=== PATIENT | male | born 1950 | race Caucasian/White ===

== ENCOUNTER 2016-08-13 07:29 | Day surgery (SDC) | payer MEDICARE, BC ==
[~2016-08-13 07:29] MED LIST: PREMYELOGRAM MEDICATION REVIEW 1 EACH MISC PO ONE
[2016-08-13 08:32] VITALS: TEMP 98.2
[2016-08-13] MEDS ORDERED: DIAZEPAM 5 MG TAB PO STA (08:32)
--- NOTE | 2016-08-13 10:35 | FL ---
EXAMINATION TYPE: FL myelogram 2 or more regions DATE OF EXAM ORDERED: 08/13/2016 10:15 AM HISTORY: M54.2 cervicalgia M54.5 lumbar pain. COMPARISON: None. PROCEDURE: The undersigned performed the procedure. Using standard sterile technique, a 5 cm 22-gauge spinal needle was introduced into the thecal sac. 1 2 cc of Omnipaque 240 were instilled into the thecal sac. FINDINGS: A solitary image was performed in order to confirm contrast placement. The patient was the n transferred to the CT scanner after half an hour delay. IMPRESSION: SUCCESSFUL LUMBAR PUNCTURE FOR CT MYELOGRAM.
--- NOTE | 2016-08-13 11:09 | CT ---
EXAMINATION TYPE: CT cervical spine w con, CT lumbar spine w con DATE OF EXAM: 08/13/2016 10:48 AM COMPARISON: NONE HISTORY: post myelogram images. Neck and back pain. CT DLP: 3164 mGycm Automated exposure control for dose reduction was used. TECHNIQUE: CT scan of the cervical and lumbar spine following intrathecal administration of 12 cc of Omnipaque 240. FINDINGS: Cervical spine: There is emphysematous change in the visualized lungs. Visualized intracranial structures are normal. Prevertebral soft tissues are unremarkable. There is straightening of the normal cervical lordosis. Alignment is maintained. Atlantoaxial relatio nships are normal. There is diffuse disc space loss with relative sparing of C2-3. There is hypertrophic spondylosis, mo st marked at C5-6. There is diffuse uncovertebral joint disease most severe at C4-5, C5-6 and C6-7. There is mild right-sided intervertebral foraminal narrowing at C4-5. There is a mild mixed spondylit ic bar present posteriorly effacing the thecal sac. There is bilateral intervertebral foraminal narrowing at C5-6 and there is a posterior spur effacing the thecal sac. There is right-sided intervertebral foraminal narrowing at C6-7. There is no significant compressive discopathy. At C7-T1, no definite abnormality is seen. Lumbar spine: Paraspinal soft tissues are unremarkable. There is a mild levoscoliosis. There has been a previous interpedicular fusion at C4-5. There is a partial fusion at C5-6. There is retrolisthesis of L1 on L2 and L2 on L3. There is mild wedging of T11 and T12, likely developmental. At T12-L1, no definite abnormality is seen. At L1-2, there is disc space loss. There is a vacuum phenomena. There is hypertrophic spondylosis ant eriorly. The intervertebral foramina appear well maintained. There is no significant compressive disc opathy. At L2-3, there is mild disc space loss. There is a mild retrolisthesis of L2 on L3. The intervertebra l foramina appear well maintained. There is a diffuse disc displacement. There is moderate hypertroph ic changes within the facets. L3-4, there is been a laminectomy. This interpedicular fusion. There is mild, bilateral intervertebra l foraminal narrowing. There is no significant compressive discopathy. L4-5, there is a superior endplate infraction of L4. There is a partial bony fusion at L4-5. Interver tebral foramina are well maintained. There is a diffuse disc displacement. There has been a laminecto my. At L5-S1, there is no significant compressive discopathy. The intervertebral foramina appear well nya ntained. There is been laminectomy at L5. IMPRESSION: 1. DIFFUSE DEGENERATIVE DISC DISEASE AND UNCOVERTEBRAL JOINT DISEASE THROUGHOUT THE CERVICAL SPINE WI TH RELATIVE SPARING OF C2-3. 2. MULTILEVEL INTERVERTEBRAL FORAMINAL NARROWING IN THE CERVICAL SPINE. 3. NO SIGNIFICANT COMPRESSIVE DISCOPATHY IN THE CERVICAL REGION.. 4. DIFFUSE DEGENERATIVE DISC DISEASE WITHIN THE LUMBAR SPINE. 5. MULTILEVEL INTERVERTEBRAL FORAMINAL NARROWING IN THE LUMBAR SPINE. 6. EXTENSIVE POSTSURGICAL CHANGE. 7. NO SIGNIFICANT COMPRESSIVE DISCOPATHY WITHIN THE LUMBAR SPINE. 8. EMPHYSEMATOUS CHANGES WITHIN THE LUNGS.
[2016-08-13 12:34] VITALS: RESP 16
[2016-08-13 14:08] VITALS: BP 107/72; PULSE 72
== END 2016-08-13 14:15 | disposition home or self-care (01) ==
LOC: RADPROMAIN 07:29
PROVIDERS: ATTEND Specialist
DX: M99.71 Connective tissue and disc stenosis of intervertebral foramina of cervical region (principal); M51.36 Other intervertebral disc degeneration, lumbar region; M99.73 Connective tissue and disc stenosis of intervertebral foramina of lumbar region; Z98.1 Arthrodesis status
CPT/HCPCS: 62305; 72126; 72132; J2001; Q9966; 62284

== ENCOUNTER → 2016-09-05 | Outpatient (CLI) | payer MEDICARE, BC ==
--- NOTE | 2016-09-05 18:42 | CT ---
EXAMINATION TYPE: CT abdomen pelvis w con DATE OF EXAM: 09/05/2016 5:23 PM COMPARISON: NONE HISTORY: Mid abdominal pain and cramping x [address] DLP: 1916.30 mGycm Automated exposure control for dose reduction was used. TECHNIQUE: Helical acquisition of images was performed from the lung bases through the pelvis. CONTRAST: Performed with Oral Contrast and with IV Contrast, patient injected with 100 mL of Omnipaque 300. FINDINGS: Lung bases are clear. There is no pleural effusion. There is some coronary artery calcification. Ther e is no pericardial effusion. Liver spleen pancreas gallbladder appear normal. Bile ducts are not dilated. There is no adrenal mass . Kidneys have normal size and contour. There is no hydronephrosis. There is no retroperitoneal adeno napoleon. There is no ascites. I see no intestinal wall thickening. There are no dilated loops. There is a left hip prosthesis. Bladder distends smoothly. There is no sign of a pelvic mass. There is no awilda e fluid in the pelvis. Appendix is not seen. There is no sign of appendicitis. There is lower lumbar spine surgery with laminectomy and posterior fusion. There is no sign of a hernia. IMPRESSION: PREVIOUS LUMBAR SPINE SURGERY. NO SIGN OF ACUTE ABDOMEN AND PELVIS. I DO NOT SEE A CAUSE FOR ABDOMINA L PAIN.
== END ==
LOC: RADCTMAIN 14:48
PROVIDERS: ATTEND Family Medicine
DX: R10.9 Unspecified abdominal pain (principal)
CPT/HCPCS: 74177; Q9967

== ENCOUNTER → 2017-03-25 | Outpatient (CLI) | payer MEDICARE, BC ==
[2017-03-25 12:29] LABS: Blood Urea Nitrogen 14 mg/dL (9-20); Non-African American GFR(MDRD) >60 (>60 ml/min/1.73 sqM)
--- NOTE | 2017-03-25 15:08 | CT ---
EXAMINATION TYPE: CT abdomen wo/w con DATE OF EXAM: 03/25/2017 COMPARISON: 09/05/2016 HISTORY: 66-year-old male Periumbilical pain TECHNIQUE: Contiguous axial scanning of the abdomen and pelvis before and after administration of 100 ml Omnipaque 300 IV contrast. Delayed images through the kidneys and coronal/sagittal reconstructio ns performed. CT DLP: 1776 mGycm Automated exposure control for dose reduction was used. FINDINGS: The heart is normal size without pericardial effusion. Lung bases clear without pleural effusion. Low attenuation of the hepatic parenchyma without focal lesion identified. Portal venous system is patent. No biliary ductal dilatation. Gallbladder, adrenal glands, kidneys, spleen, and pancreas appear within normal limits. No dilated small bowel, free fluid, or free air. No mesenteric or retroperitoneal lymphadenopathy. No significant stool burden. No pericolonic inflammatory change. No abdominal wall hernia identified. The pelvis is not included. Bones: Postsurgical changes with prior lateral osseous fusion an laminectomy from L3 down. Degenerati ve changes at additional levels. Fusion hardware removed from 09/05/2016. IMPRESSION: 1. HEPATIC STEATOSIS. CORRELATE WITH LFT's, LIPID PROFILE, AND PATIENT RISK FACTORS. QUERY TO IF T HIS COULD BE CONTRIBUTING TO THE PATIENT'S PAIN. 2. OTHERWISE, NO ACUTE PROCESS IDENTIFIED TO EXPLAIN THE PATIENT'S SYMPTOMS.
== END | disposition home or self-care (01) ==
LOC: RADCTMAIN 11:53
PROVIDERS: ATTEND Family Medicine
DX: K76.0 Fatty (change of) liver, not elsewhere classified (principal); R10.33 Periumbilical pain; Z01.812 Encounter for preprocedural laboratory examination
CPT/HCPCS: 82565; 84520; 74170; 36415; Q9967

== ENCOUNTER → 2017-09-16 | Outpatient (CLI) | payer MEDICARE, BC ==
[2017-09-16 12:25] LABS: Basophils % (A) 0 %; Eosinophils # (A) 0.2 k/uL (0-0.7); Eosinophils % (A) 1 %; HCT 44.1 % (39.0-53.0); HGB 15.2 gm/dL (13.0-17.5); Lymphocytes # (A) 1.7 k/uL (1.0-4.8); Lymphocytes % (A) 16 %; MCH 29.8 pg (25.0-35.0); MCHC 34.4 g/dL (31.0-37.0); Mean Platelet Volume 6.3; Monocytes # (A) 0.8 k/uL (0-1.0); Monocytes % (A) 7 %; Neutrophils # (A) 7.9 k/uL (1.3-7.7); Neutrophils % (A) 73 %; Platelet Count 276 k/uL (150-450); RBC 5.09 m/uL (4.30-5.90); RDW 14.2 % (11.5-15.5); WBC 10.4 k/uL (3.8-10.6)
[2017-09-16 12:27] LABS: MCV 86.6 fL (80.0-100.0)
[2017-09-16 12:32] LABS: Appearance,Urine Clear (Clear); Bacteria,Urine Rare /hpf; Bilirubin,Urine Negative (Negative); Blood,Urine Negative (Negative); Color,Urine Yellow; Glucose,Urine (UA) Negative (Negative); Ketones,Urine Negative (Negative); Leukocyte Esterase,Urine Small (Negative); Mucus,Urine Rare /hpf; Nitrite,Urine Negative (Negative); PH, Urine 6.5 (5.0-8.0); Protein,Urine Negative (Negative); RBC,Urine <1 /hpf (0-5); Specific Gravity,Urine 1.012 (1.001-1.035); Urobilinogen,Urine <2.0 mg/dL (<2.0); WBC,Urine 1 /hpf (0-5)
[2017-09-16 12:52] LABS: ALT 28 U/L (21-72); AST 17 U/L (17-59); Albumin 4.2 g/dL (3.5-5.0); Alkaline Phosphatase 58 U/L (38-126); Anion Gap 14 mmol/L; Blood Urea Nitrogen 13 mg/dL (9-20); C Reactive Protein 6.2 mg/L (<10.0); Calcium 9.8 mg/dL (8.4-10.2); Carbon Dioxide 24 mmol/L (22-30); Chloride 99 mmol/L (98-107); Creatine Kinase 65 U/L (55-170); Glucose 112 mg/dL (74-99); LDH 551 U/L (313-618); Phosphorus 4.1 mg/dL (2.5-4.5); Potassium 4.3 mmol/L (3.5-5.1); Sodium 137 mmol/L (137-145); Total Bilirubin 0.5 mg/dL (0.2-1.3); Total Protein 7.2 g/dL (6.3-8.2); Uric Acid 4.4 mg/dL (3.5-8.5)
[2017-09-16 13:00] LABS: T4, Free (Free Thyroxine) 0.86 ng/dL (0.78-2.19)
[2017-09-16 13:36] LABS: Erythrocyte Sedimentation Rate 10 mm/hr (0-15)
[2017-09-16 19:14] LABS: Parathyroid Hormone Intact 46.7 pg/mL (14.0-72.0)
[2017-09-16 20:02] LABS: Vitamin D 25 Hydroxy 32.7 ng/mL (30.0-100.0)
[2017-09-16 20:42] LABS: Cyclic Citrullinated Pep IgG NEGATIVE (NEGATIVE)
[2017-09-16 20:46] LABS: Protein, Total 6.9 g/dL (6.2-8.2); Rheumatoid Factor 12 IU/mL (0-15); Streptolysin O Ab(ASO) 34 IU/mL (0-200)
[2017-09-16 22:30] LABS: Hemoglobin A1C 5.6 % (4.0-6.0)
[2017-09-17 05:21] LABS: Angiotensin-1 Converting Enz. 24 U/L (8-52)
[2017-09-17 09:53] LABS: Vitamin D, 1, 25-Dihydroxy 59 pg/mL (20 - 79)
[2017-09-17 12:36] LABS: HLA B27 NEGATIVE
[2017-09-17 14:50] LABS: Hepatits C Virus RNA Not detected (Not detected); Hepatits C Virus RNA, Quant <12 IU/mL (<12); LOG HCV IU/mL <1.08 (<1.08)
[2017-09-18 05:49] LABS: Vitamin B1 111 ug/L (38-122)
[2017-09-18 10:07] LABS: Lyme IgG/IgM 0.1 Index
[2017-09-18 10:42] LABS: Vitamin B6 90 ug/L (5-50)
== END | disposition home or self-care (01) ==
LOC: LABWHC1 11:25
PROVIDERS: ATTEND Physical Medicine & Rehabilitation
DX: M96.1 Postlaminectomy syndrome, not elsewhere classified (principal); M79.1 Myalgia; G96.8 Other specified disorders of central nervous system; F45.42 Pain disorder with related psychological factors; M19.041 Primary osteoarthritis, right hand; M19.042 Primary osteoarthritis, left hand; M54.5 Low back pain; R20.2 Paresthesia of skin; M54.16 Radiculopathy, lumbar region; M50.30 Other cervical disc degeneration, unspecified cervical region; M48.02 Spinal stenosis, cervical region; F12.10 Cannabis abuse, uncomplicated; Z98.1 Arthrodesis status
CPT/HCPCS: 36415; 80053; 81001; 82164; 82306; 82310; 82550; 82553; 82607; 82652; 83036; 83516; 83615; 83970; 84100; 84165; 84207; 84425; 84439; 84443; 84550; 85025; 85652; 86038; 86060; 86140; 86200; 86235; 86431; 86618; 86812; 87522

== ENCOUNTER 2018-07-06 10:32 | Day surgery (SDC) | payer MEDICARE, BC ==
[~2018-07-06 10:32] MED LIST changes: +LACTATED RINGERS 1,000 ML IV SCH; +LIDOCAINE 1% 20 ML VIAL (10MG/ML) FOR IV START INTRADERMA PRN; -PREMYELOGRAM MEDICATION REVIEW 1 EACH MISC PO ONE
[2018-07-06 10:55] VITALS: RESP 16; TEMP 96.5
[2018-07-06] MEDS ORDERED: GLYCOPYRROLATE 0.2 MG/ML 2 ML VIAL ONE (11:43)
[2018-07-06] MEDS ORDERED: PROPOFOL 10 MG/ML 20 ML VIAL IV ONE (11:43)
[2018-07-06] MEDS ORDERED: LIDOCAINE 1% INJ 10MG/ML (20 ML MDV) ONE (11:43)
[2018-07-06] MEDS ORDERED: KETAMINE 10 MG/ML 20 ML VIAL ONE (11:43)
--- NOTE | 2018-07-06 12:24 | P.PCN ---
Date of Procedure: 07/06/18 Procedure(s) Performed: Procedure: Esophagogastroduodenoscopy and biopsy. Preoperative diagnosis: Dysphagia. Postoperative diagnosis: 1. Sliding hiatal hernia and Camacho's esophagus but no obvious esophagitis or strictures. 2. Mild antral gastritis. 3. Biopsies obtained from the duodenum, antrum, esophagus as well as the Camacho's segment. Preparation and sedation: Was provided by anesthesia. Brief clinical history: The patient is a 67-year-old male who is referred for this evaluation for the above reasons. He had a prior endoscopy more than 10 years ago which apparently was normal. The patient has chronic reflux symptoms and describes difficulty with solid food but has no weight loss or other alarm symptoms. He has been maintained on PPI. Procedure: With the patient on his left lateral decubitus position and after informed consent and adequate sedation, I passed the Olympus-GIF H 190 video upper endoscope through the cricopharyngeus down the esophagus. The gigi-GE junction was irregular and started around 36 cm from the incisors and the tubular esophagus continues for another 5 cm defining a segment of Camacho's esophagus. There was then the 2 cm sliding hiatal hernia following then the endoscope was advanced into the stomach which was insufflated with air and inspected in detail including the retroflex view in the cardia. Finally, the endoscope was passed through the pylorus into the duodenum. Pyloric channel, duodenal bulb, post bulbar area and descending duodenum appeared normal. The antrum showed mottling and erythema but no ulcers or erosions. The esophagus proximal and distal to the gigi-GE junction did not show any ulcers or tumors. There were no strictures. I obtained biopsies from the duodenum, antrum and esophagus including separate samples from the Camacho's segment then the endoscope was withdrawn. The patient tolerated the procedure well. Plan: The patient was reassured. Will await biopsy results. I anticipate repeating this exam in around 2 years. He'll follow up with you as planned and I recommended that he continue antireflux diet and measures and to continue acid suppressive therapy.
[2018-07-06 13:11] VITALS: BP 126/79; PULSE 52
== END 2018-07-06 13:45 | disposition home or self-care (01) ==
LOC: ORWHC2ENDO 10:32
DX: K29.50 Unspecified chronic gastritis without bleeding (principal); K22.70 Barrett's esophagus without dysplasia; K44.9 Diaphragmatic hernia without obstruction or gangrene; K21.9 Gastro-esophageal reflux disease without esophagitis; I48.91 Unspecified atrial fibrillation; I10 Essential (primary) hypertension; E78.5 Hyperlipidemia, unspecified; Z79.01 Long term (current) use of anticoagulants; Z79.899 Other long term (current) drug therapy
CPT/HCPCS: 88305; 43239; J2001; J2704

== ENCOUNTER → 2018-07-27 | Outpatient (CLI) | payer MEDICARE, BC ==
--- NOTE | 2018-07-27 14:46 | CT ---
EXAMINATION TYPE: CT sinus wo con DATE OF EXAM: 07/27/2018 COMPARISON: None HISTORY: Chronic sinusitis CT DLP: 641.[address] of the paranasal sinuses was performed in the axial and coronal planes. Bone and soft tissue settings are submitted. The paranasal sinuses demonstrate normal aeration and development. The paranasal sinuses are free of air fluid level. Mild mucosal thickening involving the left maxill billy sinus. Mucous retention cyst or polyp of the left frontal sinus. Mild chronic ethmoidal sinusitis . The osteal meatal units are patent bilaterally. The nasal septum is deviated left to right. No bony destructive changes are seen within the field of view. IMPRESSION: Chronic sinusitis as noted. Nasal septal deviation as discussed.
== END | disposition home or self-care (01) ==
LOC: RADCTMAIN 13:29
PROVIDERS: ATTEND Family Medicine
DX: J32.9 Chronic sinusitis, unspecified (principal); J34.2 Deviated nasal septum
CPT/HCPCS: 70486

== ENCOUNTER 2018-09-13 15:34 | Emergency (ER) | payer MEDICARE, BC ==
[2018-09-13 15:39] VITALS: TEMP 98.4
--- NOTE | 2018-09-13 17:07 | XR ---
PROCEDURE: XR Hip LT and AP Pelvis - 3V DATE AND TIME: 09/13/2018 5:02 PM CLINICAL INDICATION: PHH; Pain TECHNIQUE: AP pelvis and 2 coned left hip views. COMPARISON: None FINDINGS: The femoral head component of the left THR is dislocated superiorly. There is no evidence o f fracture. IMPRESSION: Left hip/THR dislocation.
[2018-09-13] MEDS ORDERED: MORPHINE SULFATE 4 MG/ML SYRINGE IV STA (17:10)
--- NOTE | 2018-09-13 17:10 | XR ---
PROCEDURE: XR lumbar spine - 3V DATE AND TIME: 09/13/2018 5:02 PM CLINICAL INDICATION: PHH; Pain TECHNIQUE: Department protocol COMPARISON: None FINDINGS: There is no fracture or malalignment. The lower lumbar sacral spine fusion masses are intact. Multilevel marked degenerative facet changes are noted and moderate marked degenerative disc changes, most pronounced at the lumbosacral junction. The morphology of the vertebral segments is unremarkable. The soft tissues are unremarkable. Intraspinal stimulator noted. IMPRESSION: NO ACUTE PROCESS.
--- NOTE | 2018-09-13 17:31 | ED ---
General Adult HPI - General Source: patient, RN notes reviewed, old records reviewed Mode of arrival: wheelchair Limitations: no limitations <Remington Gonzalez - Last Filed: 09/13/18 19:03> <Macario Berman - Last Filed: 09/13/18 19:14> - General Chief complaint: Extremity Injury, Lower Stated complaint: Hip injury Time Seen by Provider: 09/13/18 16:18 - History of Present Illness Initial comments: 67-year-old male patient past medical history of left total hip arthropathy, nonnative hip dislocation on 2 occasions most recently in 2013, atrial fibrillation anticoagulated on eliquis presents to ER with left hip injury. Patient reports that he was in his yard picking up an object when he felt his left hip dislocated. Patient reports that he slowly fell to the ground on his gluteus region. Patient denies any trauma to head or neck. Patient nonambulatory since fall. Patient reports that he feels as if his hip is dislocated. Patient denies any other complaints today. Systemic: Pt denies fatigue, myalgia, fever/chills, rash. Pt denies weakness, night sweats, weight loss. Neuro: Pt denies headache, visual disturbances, syncope or pre-syncope. HEENT: Pt denies ocular discharge or irritation, otalgia, rhinorrhea, pharyngitis or notable lymphadenopathy. Cardiopulmonary: Pt denies chest pain, SOB, heart palpitations, dyspnea on exertion. Abdominal/GI: Pt denies abdominal pain, n/v/d. : Pt denies dysuria, burning w/ urination, frequency/urgency. Denies new onset urinary or bowel incontinence. Neuro: Pt denies new onset weakness, paresthesias. (Remington Gonzalez) - Related Data Home Medications Medication Instructions Recorded Confirmed Atenolol [Tenormin] 25 mg PO DAILY 11/06/13 09/13/18 Omeprazole 40 mg PO AC-BRKFST 11/06/13 09/13/18 DULoxetine HCL [Cymbalta] 60 mg PO BID 08/01/16 09/13/18 Apixaban [Eliquis] 5 mg PO BID 07/01/18 09/13/18 Silodosin [Rapaflo] 8 mg PO HS 07/01/18 09/13/18 Amoxic-Pot Clav 875-125Mg 1 tab PO BID 09/13/18 09/13/18 [Augmentin 875-125] Fluticasone Nasal [place] [Flonase 2 spr EA NOSTRIL DAILY PRN 09/13/18 09/13/18 Nasal [place]] Pregabalin [Lyrica] 100 mg PO BID 09/13/18 09/13/18 Allergies Allergy/AdvReac Type Severity Reaction Status Date / Time No Known Allergies Allergy Verified 09/13/18 17:19 Review of Systems ROS Other: All systems not noted in ROS Statement are negative. <Remington Gonzalez - Last Filed: 09/13/18 19:03> ROS Other: All systems not noted in ROS Statement are negative. <Macario Berman - Last Filed: 09/13/18 19:14> ROS Statement: Those systems with pertinent positive or pertinent negative responses have been documented in the HPI. Past Medical History Past Medical History: Atrial Fibrillation, GERD/Reflux, Hyperlipidemia, Hypertension, Osteoarthritis (OA) Additional Past Medical History / Comment(s): 'rt side boken ribs SEPTEMBER 2014. History of Any Multi-Drug Resistant Organisms: None Reported Past Surgical History: Appendectomy, Back Surgery, Joint Replacement, Orthopedic Surgery, Tonsillectomy Additional Past Surgical History / Comment(s): LAMINECTOMY. back neurostimulator -2014. back steroid injections. left arm splint, cyst drained behind eye, bilateral ankle surgeries, hip surgery 2008, rt shoulder surgery x2 Past Anesthesia/Blood Transfusion Reactions: No Reported Reaction Past Psychological History: Anxiety Smoking Status: Former smoker Past Alcohol Use History: Daily Past Drug Use History: Marijuana - Past Family History Father Family Medical History: Cancer Additional Family Medical History / Comment(s): esophageal cancer <Remington Gonzalez - Last Filed: 09/13/18 19:03> General Exam Limitations: no limitations <Remington Gonzalez - Last Filed: 09/13/18 19:03> General appearance: alert, in no apparent distress Head exam: Present: atraumatic, normocephalic, normal inspection Eye exam: Present: normal appearance, PERRL, EOMI. Absent: scleral icterus, conjunctival injection, periorbital swelling ENT exam: Present: normal exam, mucous membranes moist Neck exam: Present: normal inspection. Absent: tenderness, meningismus, lymphadenopathy Respiratory exam: Present: normal lung sounds bilaterally. Absent: respiratory distress, wheezes, rales, rhonchi, stridor Cardiovascular Exam: Present: regular rate, normal rhythm, normal heart sounds. Absent: systolic murmur, diastolic murmur, rubs, gallop, clicks GI/Abdominal exam: Present: soft, normal bowel sounds. Absent: distended, tende rness, guarding, rebound, rigid Extremities exam: Present: normal inspection, full ROM, normal capillary refill. Absent: tenderness, pedal edema, joint swelling, calf tenderness Back exam: Present: normal inspection Neurological exam: Present: alert, oriented X3, CN II-XII intact Psychiatric exam: Present: normal affect, normal mood Skin exam: Present: warm, dry, intact, normal color. Absent: rash <Macario Berman - Last Filed: 09/13/18 19:14> - General Exam Comments Initial Comments: Constitutional: NAD, AOX3, Pt has pleasant affect. HEENT: NC/AT, trachea midline, neck supple, no lymphadenopathy. Posterior pharynx non erythematous, without exudates. External ears appear normal, without discharge. Mucous membranes moist. Eyes PERRLA, EOM intact. There is no scleral icterus. No pallor noted. Cardiopulmonary: RRR, no murmurs, rubs or gallops, no JVD noted. Lungs CTAB in anterior and posterior ferrera. No peripheral edema. Abdominal exam: Abdomen soft and non-distended. Abdomen non-tender to palpation in all 4 quadrants. Bowel sounds active in LLQ. No hepatosplenomegaly. No ecchymosis Neuro: CN II-XII grossly intact. No nuchal rigidity. MSK: Left lower extremity findings sustained with left hip dislocation. Distal pulses intact and equal. Reduction performed in ED with attending physician Dr. Berman. Patient neurovascularly intact s/p reduction. Patient ambulatory without difficulty after reduction. No posterior calf tenderness bilaterally, homans sign negative bilaterally. Posterior tibialis and radial pulse +2 bilaterally. Sensation intact in upper and lower extremities. Full active ROM in upper and lower extremities, 5/5 stregnth. (Remington Gonzalez) Course <Macario Berman - Last Filed: 09/13/18 19:14> Vital Signs 09/13/18 09/13/18 09/13/18 15:36 17:45 17:52 Temperature 98.4 F Pulse Rate 66 71 61 Respiratory 18 16 12 Rate Blood Pressure 109/77 104/88 97/72 O2 Sat by Pulse 98 100 91 L Oximetry 09/13/18 09/13/18 09/13/18 17:57 18:00 18:01 Temperature Pulse Rate 80 83 73 Respiratory 16 18 18 Rate Blood Pressure 127/81 127/81 118/76 O2 Sat by Pulse 100 100 Oximetry 09/13/18 09/13/18 18:20 18:40 Temperature Pulse Rate 73 61 Respiratory 19 15 Rate Blood Pressure 115/94 132/86 O2 Sat by Pulse Oximetry - Reevaluation(s) Reevaluation #1: 09/13/18 19:14 Medical record is reviewed (Macario Berman) Reevaluation #2: 09/13/18 19:14 A she has adequate reduction of left hip under anesthesia, patient is returned to full consciousness is able to ambulate without difficulty is fully alert and oriented (Macario Berman) Procedures - Orthopedic Joint Reduction Joint #1 Consent Obtained: verbal consent Side: left Joint Reduction Location: hip Analgesia: procedural sedation Shoulder Technique Used (if applicable): traction/counter-traction Technique Used: traction/counter-traction, direct manipulation Post-Reduction Neuro Exam: intact Post-Reduction Vascular Exam: intact Post Reduction X-Ray Obtained: Yes Post Reduction X-Ray Results: reduced Splint Applied: Yes Patient Tolerated Procedure: well - Procedural Sedation Procedural Sedation Start Time: 17:30 Procedural Sedation Stop Time: 18:00 Indications: fracture/dislocation reduction ASA Class: I Mallampati Airway Score: 1 Preparation: cardiac cath technician applied, pulse oximeter, capnometry used IV Propofol Dose (mgs): 200 Complications: none Interventions: oxygen applied Patient Tolerated Procedure: well <Macario Berman - Last Filed: 09/13/18 19:14> Medical Decision Making <Remington Gonzalez - Last Filed: 09/13/18 19:03> <Macario Berman - Last Filed: 09/13/18 19:14> - Medical Decision Making 67-year-old male patient past medical history of left total hip arthropathy, nonnative hip dislocation on 2 occasions most recently in 2013, atrial fibrillat ion anticoagulated on eliquis presents to ER with left hip injury. Patient reports that he was in his yard picking up an object when he felt his left hip dislocated. Patient reports that he slowly fell to the ground on his gluteus region. Patient denies any trauma to head or neck. Patient nonambulatory since fall. Patient reports that he feels as if his hip is dislocated. Patient denies any other complaints today. Patient vital signs stable, afebrile. Left lower extremity findings sustained with left hip dislocation. Distal pulses intact and equal. Reduction performed in ED with attending physician Dr. Berman. Patient neurovascularly intact s/p reduction. Patient ambulatory without difficulty after reduction. Conscious sedation performed in ED. Patient tolerated procedure well. Plain film of left hip displayed superior dislocation. No evidence of fracture. Repeat film after reduction displayed anatomic reduction. Plain film of lumbar spine displayed no acute process. Pa tient to be discharged, will follow up with primary care provider in 1-2 days. Will follow up with orthopedic surgeon who performed surgery tomorrow. Patient may bear weight as tolerated, will use caution, patient will return to ER if new signs or symptoms develop or if condition worsens in any way. Case discussed and patient seen with Dr. Berman. (Remington Gonzalez) 67 male the ER for evaluation. Patient with positive left hip dislocation, patient can be discharged home after successful reduction (Macario Berman) Disposition Is patient prescribed a controlled substance at d/c from ED?: No <Remington Gonzalez - Last Filed: 09/13/18 19:03> Is patient prescribed a controlled substance at d/c from ED?: No <Macario Berman - Last Filed: 09/13/18 19:14> Clinical Impression: Hip dislocation, left Disposition: HOME SELF-CARE Instructions (If sedation given, give patient instructions): Moderate Sedation (ED), Hip Dislocation (ED) Additional Instructions: Patient to adhere to previously discussed treatment plan and will take medication(s) as directed. Patient to follow up with PCP in 1-2 days. Patient to return to ED if symptoms do not improve. Please follow-up with orthopedic surgeon and primary care physician tomorrow. Please bear weight as tolerated. Please do not engage in any strenuous activity. Please return to ER if condition worsens in any way. Referrals: Ava Crandall DO [Primary Care Provider] - 1-2 days Diony Shea MD [STAFF PHYSICIAN] - 1-2 days
[2018-09-13] MEDS ORDERED: HYDROmorphone 1 MG/ML 1 ML SYRINGE IVP STA (17:33)
[2018-09-13] MEDS: PROPOFOL 10 MG/ML 20 ML VIAL IV ONE ×3 (17:46→17:52)
--- NOTE | 2018-09-13 18:46 | XR ---
PROCEDURE: XR Hip Limited LT - one AP view DATE AND TIME: 09/13/2018 6:18 PM CLINICAL INDICATION: PHH; Pain TECHNIQUE: AP view COMPARISON: None FINDINGS: There is no fracture or malalignment. The soft tissues are unremarkable. IMPRESSION: Postreduction left hip one view
[2018-09-13 19:42] VITALS: BP 119/89; PULSE 68; RESP 14
== END 2018-09-13 19:45 | disposition home or self-care (01) ==
LOC: EC 15:34
DX: T84.021A Dislocation of internal left hip prosthesis, initial encounter (principal); I48.91 Unspecified atrial fibrillation; I10 Essential (primary) hypertension; K21.9 Gastro-esophageal reflux disease without esophagitis; M19.90 Unspecified osteoarthritis, unspecified site; F41.9 Anxiety disorder, unspecified; Z87.891 Personal history of nicotine dependence; Z79.01 Long term (current) use of anticoagulants; Z79.899 Other long term (current) drug therapy; X50.1XXA Overexertion from prolonged static or awkward postures, initial encounter; Y93.89 Activity, other specified; Y92.007 Garden or yard of unspecified non-institutional (private) residence as the place of occurrence of the external cause; Z53.8 Procedure and treatment not carried out for other reasons
CPT/HCPCS: 72100; 73501; 73502; 99284; 27265; 99152; 99153; 96374; J1170; J2704

== ENCOUNTER 2018-10-13 16:46 | Emergency (ER) | payer MEDICARE, BC ==
[2018-10-13] MEDS ORDERED: MORPHINE SULFATE 4 MG/ML SYRINGE IVP STA (17:27)
[2018-10-13] MEDS ORDERED: DIPH,PERTUS(ACELL)TETVAC-LF 0.5 ML VIAL IM ONE (17:28)
[2018-10-13] MEDS ORDERED: HYDROmorphone 0.5 MG/0.5 ML SYRINGE IVP STA (18:18)
--- NOTE | 2018-10-13 18:27 | XR ---
EXAMINATION TYPE: XR Hip LT and AP Pelvis DATE OF EXAM: 10/13/2018 COMPARISON: 09/13/2018 HISTORY: Pain TECHNIQUE: A single AP view of the pelvis is obtained. Two views of the left hip are obtained. FINDINGS: There is a left hip prosthesis. There is a posterior dislocation of the prosthetic right fe moral head. I see no fracture. Possible femur is intact. IMPRESSION: Posterior prosthetic femoral head dislocation.
--- NOTE | 2018-10-13 18:28 | XR ---
EXAMINATION TYPE: XR finger LT DATE OF EXAM: 10/13/2018 COMPARISON: NONE HISTORY: Thumb laceration TECHNIQUE: 3 views FINDINGS: There is soft tissue deformity at the thumb consistent with large laceration. I see no frac ture. There is some spurring at the IP joint. There is moderate spurring and narrowing at the first c arpometacarpal joint. IMPRESSION: Laceration deformity. No sign of a radiopaque foreign body. Osteoarthritis.
[2018-10-13] MEDS ORDERED: LIDOCAINE 1% INJ 10MG/ML (20 ML MDV) SQ ONE (18:32)
[2018-10-13] MEDS: PROPOFOL 10 MG/ML 20 ML VIAL IV ONE ×3 (19:13→19:24)
[2018-10-13] MEDS ORDERED: LORazepam 2 MG/ML INJ IV STA (19:29)
[2018-10-13 19:36] VITALS: RESP 18
--- NOTE | 2018-10-13 19:38 | XR ---
EXAMINATION TYPE: XR Hip Limited LT DATE OF EXAM: 10/13/2018 COMPARISON: Today HISTORY: Post reduction TECHNIQUE: Single view FINDINGS: There is anatomic reduction of the left hip prosthesis. IMPRESSION: Anatomic reduction. No fracture seen.
--- NOTE | 2018-10-13 19:55 | ED ---
Medical Decision Making <Jerry Gloria - Last Filed: 10/13/18 19:55> - Medical Decision Making Patient did have a subluxed left total hip which was reduced after sedation by Ramirez Hdz with good approximation. The x-ray shows the hip to be back in good anatomical position. Neurological exam and physical exam is unremarkable afterwards. I was in attendance during the entire procedure and did assist (FaizanJerry) Disposition <Jerry Gloria - Last Filed: 10/13/18 19:55> Is patient prescribed a controlled substance at d/c from ED?: No <Ramirez Blair - Last Filed: 10/14/18 00:12> Clinical Impression: Laceration, Hip dislocation, left Disposition: HOME SELF-CARE Condition: Good Instructions (If sedation given, give patient instructions): Moderate Sedation (ED), Hip Dislocation (ED) Additional Instructions: Please follow-up with primary care in 1-2 days for wound recheck. Have sutures removed in 10-14 days either here at the emergency department or by primary care. Follow up with your orthopedic surgeon tomorrow to discuss hip dislocation. Please return to the emergency department if you have any worsening symptoms. Referrals: Ava Crandall DO [Primary Care Provider] - 1-2 days Procedures - [place] Protocol (Time Out) Patient Identification (2 identifiers required): Chart, Verbal, Arm Band, Name Patient/Legal Ticket Collector has Confirmed: Identity, Site, Procedure, Consent Site: left hip Site Marked: No Site Verified With Patient/Guardian: Yes Final Confirmation: Procedure, Site, Patient Position, Radiographs - Procedural Sedation Procedural Sedation Start Time: 19:12 Procedural Sedation Stop Time: 19:42 Indications: fracture/dislocation reduction ASA Class: II Mallampati Airway Score: 2 Preparation: nuclear monitoring technician applied, pulse oximeter, capnometry used, supplemental O2 applied, reversal agents at bedside, suction/airway equipment at bedside, IV secured IV Propofol Dose (mgs): 300 Complications: none <Jerry Gloria - Last Filed: 10/13/18 19:55> - Orthopedic Joint Reduction Joint #1 Consent Obtained: verbal consent Side: left Joint Reduction Location: hip Analgesia: procedural sedation Technique Used: traction/counter-traction, direct manipulation Post-Reduction Neuro Exam: intact Post-Reduction Vascular Exam: intact Post Reduction X-Ray Obtained: Yes Post Reduction X-Ray Results: reduced Patient Tolerated Procedure: well, no complications <Ramirez Blair P - Last Filed: 10/14/18 00:12>
--- NOTE | 2018-10-13 20:53 | ED ---
General Adult HPI - General Chief complaint: Extremity Injury, Lower Stated complaint: Hip out of place Time Seen by Provider: 10/13/18 17:22 Source: patient, RN notes reviewed Mode of arrival: ambulatory Limitations: no limitations - History of Present Illness Initial comments: 68-year-old male presents to the emergency department for a chief complaint of hip dislocation. Patient states about an hour ago he was moving a piece of laundry equipment when it started to cut his left hand. Patient states at that time he went to drop the equipment and twisted which caused his left hip to dislocate. Patient states he has had a hip replacement and this has happened several times before. Patient is not up-to-date on tetanus. Patient denies hitting his head or sustaining any other injuries.Patient has no other complaints at this time including shortness of breath, chest pain, abdominal pain, nausea or vomiting, headache, or visual changes. - Related Data Home Medications Medication Instructions Recorded Confirmed Atenolol [Tenormin] 25 mg PO DAILY 11/06/13 10/13/18 Omeprazole 40 mg PO AC-BRKFST 11/06/13 10/13/18 DULoxetine HCL [Cymbalta] 60 mg PO BID 08/01/16 10/13/18 Apixaban [Eliquis] 5 mg PO BID 07/01/18 10/13/18 Silodosin [Rapaflo] 8 mg PO HS 07/01/18 10/13/18 Pregabalin [Lyrica] 100 mg PO BID 09/13/18 10/13/18 Allergies Allergy/AdvReac Type Severity Reaction Status Date / Time morphine AdvReac Nausea & Verified 10/13/18 18:04 Vomiting & Diarrhea Review of Systems ROS Statement: Those systems with pertinent positive or pertinent negative responses have been documented in the HPI. ROS Other: All systems not noted in ROS Statement are negative. Past Medical History Past Medical History: Atrial Fibrillation, GERD/Reflux, Hyperlipidemia, Hypertension, Osteoarthritis (OA) Additional Past Medical History / Comment(s): 'rt side boken ribs SEPTEMBER 2014. issues with left hip popping out of place History of Any Multi-Drug Resistant Organisms: None Reported Past Surgical History: Appendectomy, Back Surgery, Joint Replacement, Orthopedic Surgery, Tonsillectomy Additional Past Surgical History / Comment(s): LAMINECTOMY. back neurostimulator -2014. back steroid injections. left arm splint, cyst drained behind eye, bilateral ankle surgeries, hip surgery 2009, rt shoulder surgery x2 Past Anesthesia/Blood Transfusion Reactions: No Reported Reaction Past Psychological History: Anxiety Smoking Status: Former smoker Past Alcohol Use History: Daily Past Drug Use History: Marijuana - Past Family History Father Family Medical History: Cancer Additional Family Medical History / Comment(s): esophageal cancer General Exam - General Exam Comments Initial Comments: Patient has a 6 cm laceration of the finger pad of the left thumb. Neurovascular intact. Full range of motion noted of the left thumb. No deep structure involvement. No evidence of foreign body. Limitations: no limitations General appearance: alert, in no apparent distress Head exam: Present: atraumatic, normocephalic, normal inspection Eye exam: Present: normal appearance, PERRL, EOMI. Absent: scleral icterus, conjunctival injection, periorbital swelling ENT exam: Present: normal exam, mucous membranes moist Neck exam: Present: normal inspection, full ROM. Absent: tenderness, meningismus, lymphadenopathy Respiratory exam: Present: normal lung sounds bilaterally. Absent: respiratory distress, wheezes, rales, rhonchi, stridor Cardiovascular Exam: Present: regular rate, normal rhythm, normal heart sounds. Absent: systolic murmur, diastolic murmur, rubs, gallop, clicks Extremities exam: Present: normal capillary refill (Capillary refill less than 2 seconds, DP pulse 2+ in the left lower extremity). Absent: normal inspection (Left lower extremity appears shortened and internally rotated), full ROM (Patient unable to move left hip due to pain) Neurological exam: Present: alert, oriented X3, CN II-XII intact Psychiatric exam: Present: normal affect, normal mood Course Vital Signs 10/13/18 10/13/18 10/13/18 17:11 18:50 19:00 Temperature 98.5 F Pulse Rate 66 64 Respiratory 20 20 Rate Blood Pressure 123/75 129/82 O2 Sat by Pulse 97 98 98 Oximetry 10/13/18 10/13/18 10/13/18 19:10 19:15 19:20 Temperature Pulse Rate 79 87 89 Respiratory 20 20 16 Rate Blood Pressure 132/89 117/77 119/78 O2 Sat by Pulse 99 98 99 Oximetry 10/13/18 10/13/18 10/13/18 19:25 19:30 19:35 Temperature Pulse Rate 78 77 75 Respiratory 16 17 18 Rate Blood Pressure 112/85 112/85 118/78 O2 Sat by Pulse 96 97 99 Oximetry 10/13/18 10/13/18 10/13/18 20:00 20:30 21:00 Temperature Pulse Rate 70 70 61 Respiratory 19 20 18 Rate Blood Pressure 128/76 131/69 123/76 O2 Sat by Pulse 100 99 Oximetry 10/13/18 21:33 Temperature 98.1 F Pulse Rate Respiratory Rate Blood Pressure O2 Sat by Pulse Oximetry Procedures - [place] Protocol (Time Out) Patient Identification (2 identifiers required): Chart, Verbal, Arm Band, Name Patient/Legal Teletype Clerk has Confirmed: Identity, Site, Procedure, Consent Site: left hip Site Marked: No Site Verified With Patient/Guardian: Yes Final Confirmation: Procedure, Site, Patient Position, Radiographs - Laceration Laceration #1 Consent Obtained: verbal consent Indication: laceration Site: hand Size (cm): 6 Description: flap, irregular Depth: simple, single layer Anesthetic Used: lidocaine 1% Anesthesia Technique: nerve block Amount (mls): 4 Pre-repair: wound explored, irrigated extensively, deep structures intact Type of Sutures: nylon Size of Sutures: 5-0 Number of Sutures: 12 Technique: simple, interrupted Patient Tolerated Procedure: well, no complications Medical Decision Making - Medical Decision Making 68-year-old male presents to the emergency department for a chief complaint of left hip pain . Patient has a prosthesis and believes he dislocated his hip which has happened before. Neurovascular status intact however no range of motion and patient does have a shortened and internally rotated left lower extremity. This was reduced by myself. Postreduction x-ray does show an anatomic reduction without fracture. Patient's thumb was also sutured using 12 simple interrupted sutures after thorough cleaning with saline pressure irrigation. Discussed monitoring for further infection and following up with both primary carein 1-2 days. Patient will return in 10-14 days if removed. Disposition Clinical Impression: Laceration, Hip dislocation, left Disposition: HOME SELF-CARE Condition: Good Instructions (If sedation given, give patient instructions): Moderate Sedation (ED), Hip Dislocation (ED) Additional Instructions: Please follow-up with primary care in 1-2 days for wound recheck. Have sutures removed in 10-14 days either here at the emergency department or by primary care. Follow up with your orthopedic surgeon tomorrow to discuss hip dislocation. Please return to the emergency department if you have any worsening symptoms. Is patient prescribed a controlled substance at d/c from ED?: No Referrals: Ava Crandall DO [Primary Care Provider] - 1-2 days Time of Disposition: 20:53
[2018-10-13 21:09] VITALS: BP 123/76; PULSE 61
[2018-10-13 21:45] VITALS: TEMP 98.1
== END 2018-10-13 21:45 | disposition home or self-care (01) ==
LOC: EC 16:46
DX: T84.021A Dislocation of internal left hip prosthesis, initial encounter (principal); S61.012A Laceration without foreign body of left thumb without damage to nail, initial encounter; I48.91 Unspecified atrial fibrillation; K21.9 Gastro-esophageal reflux disease without esophagitis; I10 Essential (primary) hypertension; M19.90 Unspecified osteoarthritis, unspecified site; F41.9 Anxiety disorder, unspecified; Z96.642 Presence of left artificial hip joint; Z87.891 Personal history of nicotine dependence; Z79.01 Long term (current) use of anticoagulants; Z79.899 Other long term (current) drug therapy; Z88.5 Allergy status to narcotic agent; Z23 Encounter for immunization; Z53.29 Procedure and treatment not carried out because of patient's decision for other reasons; X50.1XXA Overexertion from prolonged static or awkward postures, initial encounter; W45.8XXA Other foreign body or object entering through skin, initial encounter; Y79.2 Prosthetic and other implants, materials and accessory orthopedic devices associated with adverse incidents; Y93.89 Activity, other specified
CPT/HCPCS: 99283; 27265; 99152; 99153; 12002; 96374; 96375; 90471; 73501; 73502; 73140; 90715; J2060; J2001; J2704; J1170

== ENCOUNTER → 2019-06-29 | Outpatient (CLI) | payer MEDICARE, BC ==
--- NOTE | 2019-06-29 15:01 | US ---
EXAMINATION TYPE: US pelvic limited DATE OF EXAM: 06/29/2019 COMPARISON: NONE CLINICAL HISTORY: R10.2 pelvic and perineal pain. Left groin pain. Patient is having no issues with h is bladder. No sonographic abnormality within the left groin. Bladder appears wnl. Left jet visualized. IMPRESSION: 1. Pelvic and inguinal region appeared unremarkable without evidence of hernia.
== END | disposition home or self-care (01) ==
LOC: RADUSWWP 14:09
PROVIDERS: ATTEND Family Medicine
DX: R10.2 Pelvic and perineal pain (principal)
CPT/HCPCS: 76857

== ENCOUNTER → 2020-03-16 | Outpatient (CLI) | payer MEDICARE, BC ==
--- NOTE | 2020-03-16 08:13 | MR ---
MRI CERVICAL SPINE: CLINICAL HISTORY: Neck pain causing pain into hands and arms per patient. Cervical region radiculopat hy per order. TECHNIQUE: Multiplanar, multisequence imaging of the cervical spine is performed without IV contrast. COMPARISON: CT cervical spine August 13, 2016. FINDINGS: Coronal images show persistent slight levoconvex scoliotic curvature centered in the upper thoracic spine. Sagittal images of the cervical spine show the craniocervical junction to appear with in normal limits. The cervical and upper thoracic spinal cord is normal in caliber and signal. Ther e is stable grade 1 retrolisthesis C3 on C4 and C4 on C5. The vertebral body heights are normal. Mild to moderate disc space narrowing and spurring C3-C4 and C4-C5 levels is present. Moderate spurring a nd disc space narrowing C5-C6 and C6-C7 levels. The bone marrow signal intensity is overall heterogen eous with Modic type I endplate changes C3-C4 through C5-C6 levels noted. Axial images show C2-C3 level to appear within normal limits. Axial images at C3-C4 level show spondylolisthesis with broad-based posterior disc protrusion and unc overtebral facet degenerative change, there is mild to moderate right greater than left bilateral crystal ral foraminal narrowing and effacement of the anterior thecal sac. Axial images at C4-C5 level shows spondylolisthesis and uncovertebral facet degenerative change causi ng mild bilateral neural foraminal narrowing. Axial images at C5-C6 level show uncovertebral facet degenerative changes bilaterally with left parac entral spur disc complex, there is some effacement of the anterior thecal sac and moderate bilateral neural foraminal narrowing. Axial images at C6-C7 and C7-T1 levels appear within normal limits. IMPRESSION: Multilevel spondylolisthesis and degenerative changes greatest C3-C4 through the C5-C6 le vels as detailed above.
== END | disposition home or self-care (01) ==
LOC: RADMRIMAIN 07:16
PROVIDERS: ATTEND Family Medicine
DX: M43.12 Spondylolisthesis, cervical region (principal); M47.22 Other spondylosis with radiculopathy, cervical region
CPT/HCPCS: 72141

== ENCOUNTER 2020-03-23 09:32 | Day surgery (SDC) | payer MEDICARE, BC ==
[2020-03-20 11:56] VITALS: BMI 30.4
[~2020-03-23 09:32] MED LIST changes: +LIDOCAINE 1% (10MG/ML) FOR IV START INTRADERMA PRN; -LIDOCAINE 1% 20 ML VIAL (10MG/ML) FOR IV START INTRADERMA PRN
[2020-03-23 10:21] VITALS: TEMP 97.1
--- NOTE | 2020-03-23 10:53 | P.GSHP ---
History of Present Illness H&P Date: 03/23/20 Chief Complaint: History of Camacho's esophagitis Is a 69-year-old male presents today for EGD. He's previous history of Camacho's esophagus. She's had mild GERD. Past Medical History Past Medical History: Atrial Fibrillation, COPD, Fibromyalgia, GERD/Reflux, Hyperlipidemia, Hypertension, Osteoarthritis (OA) Additional Past Medical History / Comment(s): Hx right side broken ribs September 2014, "never healed properly." Issues with left hip popping out of place, neuropathy in bilateral hands and feet. Mild COPD, Camacho's Esophagus, Hiatal Hernia. Recent abd pain and testicular pain. Chronic sinus problems. History of Any Multi-Drug Resistant Organisms: None Reported Past Surgical History: Appendectomy, Back Surgery, Joint Replacement, Orthopedic Surgery, Tonsillectomy Additional Past Surgical History / Comment(s): Spinal fusion, cage - later removed, LAMINECTOMY, back neurostimulator placed in 2014, removed in 2019, steroid injectionsin back. Left arm plate placed and then removed, cyst drained behind eye, bilateral ankle surgeries, left hip replacement, right shoulder surgery X2. Past Anesthesia/Blood Transfusion Reactions: No Reported Reaction Additional Past Anesthesia/Blood Transfusion Reaction / Comment(s): Mom had PONV. Past Psychological History: Anxiety, Depression Smoking Status: Former smoker Past Alcohol Use History: Daily Additional Past Alcohol Use History / Comment(s): QUIT SMOKING ABOUT 30 YRS AGO. Past Drug Use History: Marijuana Additional Drug Use History / Comment(s): Medical Marijuana PRN back pain. Aware no Alcohol or Marajuana 24 hrs prior to procedure. - Past Family History Father Family Medical History: Cancer Additional Family Medical History / Comment(s): Esophageal cancer. Medications and Allergies Home Medications Medication Instructions Recorded Confirmed Type Atenolol [Tenormin] 25 mg PO QAM 11/06/13 03/23/20 History Omeprazole 40 mg PO AC-BRKFST 11/06/13 03/23/20 History DULoxetine HCL [Cymbalta] 60 mg PO BID 08/01/16 03/23/20 History Apixaban [Eliquis] 5 mg PO BID 07/01/18 03/23/20 History Silodosin [Rapaflo] 8 mg PO HS 07/01/18 03/23/20 History Allergies Allergy/AdvReac Type Severity Reaction Status Date / Time morphine AdvReac Nausea & Verified 03/23/20 10:10 Vomiting & Diarrhea Surgical - Exam Vital Signs Temp Pulse Resp BP Pulse Ox 97.1 F L 85 18 149/93 97 03/23/20 10:18 03/23/20 10:18 03/23/20 10:18 03/23/20 10:18 03/23/20 10:18 - General well developed, well nourished, no distress - Eyes PERRL - ENT normal pinna - Neck no masses - Respiratory normal expansion - Cardiovascular Rhythm: regular - Abdomen Abdomen: soft, non tender Assessment and Plan Assessment: History of Camacho's esophagitis. We'll perform EGD.
[2020-03-23] MEDS ORDERED: PROPOFOL 10 MG/ML 20 ML VIAL IV ONE (10:59)
[2020-03-23 11:50] VITALS: BP 110/77; PULSE 83; RESP 20
--- NOTE | 2020-03-23 11:51 | P.OP ---
Date of Procedure: 03/23/20 Preoperative Diagnosis: Camacho's esophagus Screening colonoscopy Postoperative Diagnosis: Hiatal hernia Esophagitis Rectal polyp Mild diverticular changes Procedure(s) Performed: EGD Colonoscopy Anesthesia: MAC Surgeon: Jose Adams Pathology: none sent Condition: stable Disposition: PACU Description of Procedure: Patient's placed on the endoscopy table in the lateral position. He received IV sedation. The gastric was placed oropharynx passed in the esophagus into the stomach. Scope was placed through the pylorus. The first and second portion of the duodenum appeared normal. Scope was then brought back the antrum this appeared mildly inflamed. A biopsies performed. The scope was retroflexed and there was a moderate sliding hiatal hernia. The GE junction was at 38 cm. The distal esophagus appeared to have evidence of ulceration. Several biopsies performed. The proximal esophagus appeared normal. Scope was withdrawn for patient. Next digital rectal exam was performed which revealed a few internal hemorrhoids. The scope was then placed patient anus passed throughout the entire colon. The ileocecal valve sutures. The cecum, ascending and transverse colon appeared normal. In the descending; was mild diverticular changes. Scope summer back the rectum and there was another polyp seen this removed with the snare. Scope was withdrawn for patient.
== END 2020-03-23 12:11 | disposition home or self-care (01) ==
LOC: ORWHC2ENDO 09:32
PROVIDERS: ATTEND Surgery
DX: Z12.11 Encounter for screening for malignant neoplasm of colon (principal); D12.8 Benign neoplasm of rectum; K57.30 Diverticulosis of large intestine without perforation or abscess without bleeding; K64.8 Other hemorrhoids; K44.9 Diaphragmatic hernia without obstruction or gangrene; K21.00 Gastro-esophageal reflux disease with esophagitis, without bleeding; I48.91 Unspecified atrial fibrillation; J44.9 Chronic obstructive pulmonary disease, unspecified; M79.7 Fibromyalgia; E78.5 Hyperlipidemia, unspecified; I10 Essential (primary) hypertension; M19.90 Unspecified osteoarthritis, unspecified site; G62.9 Polyneuropathy, unspecified; J34.9 Unspecified disorder of nose and nasal sinuses; F41.9 Anxiety disorder, unspecified; F32.9 Major depressive disorder, single episode, unspecified; Z87.81 Personal history of (healed) traumatic fracture; Z87.39 Personal history of other diseases of the musculoskeletal system and connective tissue; Z90.49 Acquired absence of other specified parts of digestive tract; Z98.890 Other specified postprocedural states; Z90.89 Acquired absence of other organs; Z96.642 Presence of left artificial hip joint; Z98.1 Arthrodesis status; Z86.69 Personal history of other diseases of the nervous system and sense organs; Z87.891 Personal history of nicotine dependence; Z79.899 Other long term (current) drug therapy; Z79.01 Long term (current) use of anticoagulants; Z88.5 Allergy status to narcotic agent; Z84.89 Family history of other specified conditions; Z80.0 Family history of malignant neoplasm of digestive organs
CPT/HCPCS: 88305; 45385; 43239; J2704

== ENCOUNTER 2020-04-20 08:50 | Day surgery (SDC) | payer MEDICARE, BC ==
[~2020-04-20 08:50] MED LIST changes: +ACETAMINOPHEN TAB 500 MG TAB PO ONE; +DEXAMETHASONE SOD PHOSPHATE 10 MG/ML 1 ML VIAL IV ONE; +HEPARIN SODIUM,PORCINE 5,000 UNIT/ML 1 ML VIAL SQ ONE; -LACTATED RINGERS 1,000 ML IV SCH; +MIDAZOLAM 2 MG/2 ML VIAL IV PRN; +ONDANSETRON 4 MG/2 ML VIAL IVP ONE
--- NOTE | 2020-04-20 09:09 | P.GSHP ---
History of Present Illness H&P Date: 04/20/20 Chief Complaint: GERD This a 69-year-old male referred from Dr. Tavera.The patient has had long- standing problems with reflux esophagitis. The patient underwent recent EGD is found have evidence of esophagitis. Patient has been well informed on the proce dure of laparoscopic Quentin fundoplication. The patient is aware the risk of the conversion to the open procedure, risk of injury to the stomach, liver and spleen. The patient is also a risk of recurrent GERD and dysphagia symptoms. The patient understands there is a postoperative diet of full liquids for 2 weeks after surgery. Past Medical History Past Medical History: Atrial Fibrillation, COPD, GERD/Reflux, Hyperlipidemia, Hypertension, Osteoarthritis (OA), Prostate Disorder Additional Past Medical History / Comment(s): 'rt side boken ribs SEPTEMBER 2014. issues with left hip popping out of place, HIATAL HERNIA, DIVERTICULOSIS, MILD COPD History of Any Multi-Drug Resistant Organisms: None Reported Past Surgical History: Appendectomy, Back Surgery, Joint Replacement, Orthopedic Surgery, Tonsillectomy Additional Past Surgical History / Comment(s): LAMINECTOMY. back neurostimulator -2014. back steroid injections. left arm splint, cyst drained behind eye, bilateral ankle surgeries, hip surgery 2008, rt shoulder surgery x2, EGD/COLONOSCOPY, Past Anesthesia/Blood Transfusion Reactions: No Reported Reaction Additional Past Anesthesia/Blood Transfusion Reaction / Comment(s): Mom had P ONV. Smoking Status: Former smoker - Past Family History Father Family Medical History: Cancer Additional Family Medical History / Comment(s): Esophageal cancer. Medications and Allergies Home Medications Medication Instructions Recorded Confirmed Type Atenolol [Tenormin] 25 mg PO QAM 11/06/13 04/20/20 History Omeprazole 40 mg PO AC-BRKFST 11/06/13 04/20/20 History DULoxetine HCL [Cymbalta] 60 mg PO BID 08/01/16 04/20/20 History Apixaban [Eliquis] 5 mg PO BID 07/01/18 04/20/20 History Silodosin [Rapaflo] 8 mg PO HS 07/01/18 04/20/20 History Allergies Allergy/AdvReac Type Severity Reaction Status Date / Time morphine AdvReac Nausea & Verified 04/19/20 09:34 Vomiting & Diarrhea Surgical - Exam - General well developed, well nourished, no distress - Eyes PERRL - ENT normal pinna - Neck no masses - Respiratory normal expansion - Cardiovascular Rhythm: regular - Abdomen Abdomen: soft, non tender Assessment and Plan Assessment: GERD. We'll perform Quentin fundoplication.
[2020-04-20] MEDS: LACTATED RINGERS 1,000 ML IV SCH (09:12)
[2020-04-20] MEDS ORDERED: ROCURONIUM 10 MG/ML (10 ML VIAL) IV ONE (09:29)
[2020-04-20] MEDS ORDERED: PROPOFOL 10 MG/ML 20 ML VIAL IV ONE (09:29)
[2020-04-20] MEDS ORDERED: MIDAZOLAM 2 MG/2 ML VIAL ONE (09:29)
[2020-04-20] MEDS ORDERED: NEOSTIGMINE 1 MG/ML 10 ML VIAL ONE (09:29)
[2020-04-20] MEDS ORDERED: LIDOCAINE 1% INJ 10MG/ML (20 ML MDV) ONE (09:29)
[2020-04-20] MEDS ORDERED: GLYCOPYRROLATE 0.2 MG/ML 2 ML VIAL ONE (09:29)
[2020-04-20] MEDS ORDERED: ePHEDrine SULFATE/0.9% NACL/PF 50 MG/5 ML SYRINGE IV ONE (09:29)
[2020-04-20] MEDS ORDERED: fentaNYL (PF) 50 MCG/ML 2 ML AMP ONE (09:29)
[2020-04-20] MEDS ORDERED: SUCCINYLCHOLINE CHLORIDE 100 MG/5 ML SYR IV ONE (09:29)
[2020-04-20] MEDS ORDERED: BUPIVACAINE (PF) 0.5% 30 ML VIAL SQ ONE (09:57)
--- NOTE | 2020-04-20 10:33 | P.OP ---
Date of Procedure: 04/20/20 Preoperative Diagnosis: GERD Postoperative Diagnosis: GERD Procedure(s) Performed: Laparoscopic Quentin fundal plication Anesthesia: JEFF Surgeon: Jose Adams Estimated Blood Loss (ml): 5 Pathology: none sent Condition: stable Disposition: PACU Description of Procedure: Kermit patient was placed on the operating table in the supine position. The patient received general anesthesia. And was placed in dorsal lithotomy position. The patient was prepped and draped in the usual sterile fashion. The skin incision sites were anesthetized with 1% local Xylocaine. The skin was incised in the left periumbilical area and then using a blade less 5 mm trocar under direct visualization panel cavity was entered. After adequate insufflation the laparoscope was then placed into the peritoneal cavity. Next a 5 mm trochars placed in the right epigastric position. Another 5 millimeter trocar the right lateral position. Another 5 millimeter trocar in the left lateral position a 5 mm trocar is placed in the left epigastric position. And then the initial 5 mm trocar was exchanged for a 10 mm trocar. The left lateral lobe liver was retracted. The hernia was seen. The crural defect was then dissected using the Harmonic scissors device. A 360 crural dissection was performed the esophagus stomach was reduced back into the peritoneal Cavity. The crural defect was then closed using 2-0 Ethibond suture. Next the fundus of the stomach was mobilized using the [place] scissors device. and then a 58- Kinyarwanda bougie dilator was placed oropharynx passed into the esophagus and stomach the fundal plication wrap was then performed by grasping the fundus pos teriorly and bringing it around the esophagus and stomach fundoplication was then performed using 2-0 Ethibond suture. Care was taken that the fundal location rested over top of the intra-abdominal esophagus. There was no injury seen to the stomach or esophagus. The dilator was then withdrawn. The abdomen was irrigated there is no bleeding seen. The trochars were then withdrawn and then skin incision sites were closed using 3-0 Monocryl suture Steri-Strips are applied. Patient thought procedure well and sent to recovery room in stable condition.
[2020-04-20] MEDS: HYDROmorphone 0.5 MG/0.5 ML SYRINGE IVP PRN ×4 (10:45→11:19)
[2020-04-20] MEDS ORDERED: ONDANSETRON 4 MG/2 ML VIAL IVP PRN (11:49)
[2020-04-20] MEDS: METOCLOPRAMIDE 5 MG/ML 2 ML VIAL IVP SCH ×3 (12:54→23:59)
[2020-04-20 14:00] VITALS: BMI 29.5
--- NOTE | 2020-04-20 15:11 | FL ---
EXAMINATION TYPE: FL esophagus cervic/pharynx DATE OF EXAM: 04/20/2020 HISTORY: Status post Quentin fundoplication COMPARISON: NONE TECHNIQUE: A single water-soluble contrast esophagram is performed utilizing Isovue. FINDINGS: There is moderate obstruction at the GE junction, with minimal emptying into the stomach, and retaine d esophageal contrast. Delayed imaging at 5 minutes demonstrated persistent esophageal contrast. No e vidence of abnormal contrast extravasation. Small pneumoperitoneum as expected postoperatively. Total fluoroscopy time 1 minute 8 seconds Total images obtained 10 IMPRESSION: 1. Moderate obstruction, with minimal esophageal emptying. Retained esophageal contrast was seen on 5 minute delayed imaging. 2. No evidence of leak. 3. Small pneumoperitoneum as expected postoperatively.
[2020-04-20] MEDS: HYDROmorphone 1 MG/ML 1 ML SYRINGE IVP PRN ×2 (16:02→21:43)
[2020-04-20] MEDS: D5-0.45% NACL WITH KCL 20MEQ/L 1,000 ML IV SCH (17:16)
[2020-04-20] MEDS: FAMOTIDINE 20 MG/2 ML VIAL IV SCH (21:47)
[2020-04-21] MEDS: D5-0.45% NACL WITH KCL 20MEQ/L 1,000 ML IV SCH ×3 (00:07→13:21)
[2020-04-21 05:40] VITALS: RESP 17
[2020-04-21] MEDS: METOCLOPRAMIDE 5 MG/ML 2 ML VIAL IVP SCH ×3 (05:52→13:21)
[2020-04-21] MEDS: LACTATED RINGERS 1,000 ML IV SCH (05:56)
[2020-04-21] MEDS: HYDROmorphone 1 MG/ML 1 ML SYRINGE IVP PRN ×2 (05:59→10:41)
[2020-04-21] MEDS: FAMOTIDINE 20 MG/2 ML VIAL IV SCH (10:38)
[2020-04-21 12:07] VITALS: BP 156/94; PULSE 84; TEMP 98.6
--- NOTE | 2020-04-21 14:58 | P.PN ---
Subjective Progress Note Date: 04/21/20 CHIEF COMPLAINT: Gastroesophageal reflux disease HISTORY OF PRESENT ILLNESS: The patient is a 69-year-old male status post esophagoplasty, 04/20/2020. He reports no dysphagia. He is tolerating liquids. "I feel great!" ROS: No reports of nausea and vomiting. No fevers or chills. No new chest pain. No productive sputum PHYSICAL EXAM: VITAL SIGNS: Reviewed CONSTITUTIONAL: Well developed and in no acute distress. EYES: Conjuctivae without sclera icterus. Extraocular movements grossly intact. HEAD, EARS, NOSE, THROAT: Moist buccal mucosa. Head is atraumatic, normocephalic. Hears conversational speech. No nasal drainage. NECK: Supple. No thyroidomegaly. RESPIRATORY: Non-labored respirations and equal bilateral excursions. CARDIOVASCULAR: Palpable 2+ radial pulses. ABDOMEN:No peritonitis. MUSCULOSKELETAL: No gross deformity of the lower extremities noted. No clubbing. No cyanosis. SKIN: Good skin turgor. Well perfused. NEUROLOGIC: Cranial nerves II through XII grossly intact. No focal or lateralizing signs. PSYCH: Appropriate affect. Alert and oriented to person, place and time. CLINICAL LABS: No new labs STUDIES: Esophagram independently reviewed demonstrating moderate obstruction along the GE junction. Images reviewed with patient and he reports "everything andreea down after 5 minutes--I saw it!" ASSESSMENT: 1. Status post Quentin fundoplasty PLAN: 1. Discharge diet of liquid diet and no straws or carbonated beverages reviewed. 2. Stable for discharge. Objective - Vital Signs Vital signs: Vital Signs Temp 98.6 F 04/21/20 12:07 Pulse 84 04/21/20 12:07 Resp 17 04/21/20 12:07 BP 156/94 04/21/20 12:07 Pulse Ox 97 04/21/20 12:07 Intake & Output 04/20/20 04/21/20 04/21/20 18:59 06:59 18:59 Intake Total 288 900 6650 Output Total 205 1555 600 Balance 325 -1305 500 Weight 98.7 kg Intake: IV 350 Intake, IV Titration 60 250 500 Amount D5-0.45% NaCl with KCl 250 500 20Meq/l 1,000 ml @ 125 mls/hr IV .Q8H [facility] Rx#: [id number] Lactated Ringers 1,000 ml 60 @ 20 mls/hr IV .Q24H [facility] Rx#:[id number] Oral 120 600 Output: Urine 200 1555 600 Straight 1080 Estimated Blood Loss 5 Other: # Voids 100 100 # Bowel Movements 0
--- NOTE | 2020-04-21 14:59 | P.DS ---
Providers Date of admission: 04/20/30 Expected date of discharge: 04/21/20 Attending physician: Jose Adams Consults: 04/20/20 11:49 Consult Physician Routine Consulting Provider: Fannie Patten Consult Reason/Comments: med manage Do you want consulting provider notified?: Yes Primary care physician: Ava Crandall - Discharge Diagnosis(es) (1) Gastroesophageal reflux disease Current Visit: Yes Status: Acute Hospital Course: CHIEF COMPLAINT: Gastroesophageal reflux disease HISTORY OF PRESENT ILLNESS: The patient is a 69-year-old male status post esophagoplasty, 04/20/2020. He reports no dysphagia. He is tolerating liquids. "I feel great!" ROS: No reports of nausea and vomiting. No fevers or chills. No new chest pain. No productive sputum PHYSICAL EXAM: VITAL SIGNS: Reviewed CONSTITUTIONAL: Well developed and in no acute distress. EYES: Conjuctivae without sclera icterus. Extraocular movements grossly intact. HEAD, EARS, NOSE, THROAT: Moist buccal mucosa. Head is atraumatic, normocephalic. Hears conversational speech. No nasal drainage. NECK: Supple. No thyroidomegaly. RESPIRATORY: Non-labored respirations and equal bilateral excursions. CARDIOVASCULAR: Palpable 2+ radial pulses. ABDOMEN:No peritonitis. MUSCULOSKELETAL: No gross deformity of the lower extremities noted. No clubbing. No cyanosis. SKIN: Good skin turgor. Well perfused. NEUROLOGIC: Cranial nerves II through XII grossly intact. No focal or lateralizing signs. PSYCH: Appropriate affect. Alert and oriented to person, place and time. CLINICAL LABS: No new labs STUDIES: Esophagram independently reviewed demonstrating moderate obstruction along the GE junction. Images reviewed with patient and he reports "everything andreea down after 5 minutes--I saw it!" ASSESSMENT: 1. Status post Quentin fundoplasty PLAN: 1. Discharge diet of liquid diet and no straws or carbonated beverages reviewed. 2. Stable for discharge. Patient Condition at Discharge: Stable Plan - Discharge Summary Discharge Rx Participant: Yes New Discharge Prescriptions: New Docusate [Colace] 100 mg PO BID #20 capsule Ibuprofen [Motrin] 600 mg PO Q6HR PRN #40 tab PRN Reason: Pain oxyCODONE HCL [OxyIR] 5 mg PO Q4H PRN 3 Days #18 tab PRN Reason: Pain Acetaminophen Tab [Tylenol] 650 mg PO Q6H #30 tab Continue Atenolol [Tenormin] 25 mg PO QAM Omeprazole 40 mg PO AC-BRKFST DULoxetine HCL [Cymbalta] 60 mg PO BID Silodosin [Rapaflo] 8 mg PO HS Apixaban [Eliquis] 5 mg PO BID Discontinued Acetaminophen Tab [Tylenol Tab] 1,000 mg PO Q6HR Discharge Medication List Atenolol [Tenormin] 25 mg PO QAM 11/06/13 [History] Omeprazole 40 mg PO AC-BRKFST 11/06/13 [History] DULoxetine HCL [Cymbalta] 60 mg PO BID 08/01/16 [History] Apixaban [Eliquis] 5 mg PO BID 07/01/18 [History] Silodosin [Rapaflo] 8 mg PO HS 07/01/18 [History] Acetaminophen Tab [Tylenol] 650 mg PO Q6H #30 tab 04/20/20 [Rx] Docusate [Colace] 100 mg PO BID #20 capsule 04/20/20 [Rx] Ibuprofen [Motrin] 600 mg PO Q6HR PRN #40 tab 04/20/20 [Rx] oxyCODONE HCL [OxyIR] 5 mg PO Q4H PRN 3 Days #18 tab 04/20/20 [Rx] Follow up Appointment(s)/Referral(s): Jose Adams MD [STAFF PHYSICIAN] - 2 Weeks Patient Instructions/Handouts: *Surgery [facility] - ([facility]gie [facility]ira) Lap Quentin Fundiplication Post-Op Instructions, Fundoplication in Adults (DC) Activity/Diet/Wound Care/Special Instructions: No Carbonated beverages No straws Cut, crush or open capsules larger than a tic tac NO lifting over 10 pounds for 2 weeks. Follow dietitian diet Full liquid diet for 2 weeks until seen by your surgeon Discharge Disposition: HOME SELF-CARE
[2020-04-21] MEDS ORDERED: DULoxetine HCL 60 MG CAPSULE.DR PO SCH (21:00)
[2020-04-22] MEDS ORDERED: APIXABAN 5 MG TAB PO SCH (09:00)
[2020-04-22] MEDS ORDERED: atenoloL 25 MG TAB PO SCH (09:00)
== END 2020-04-21 15:50 | disposition home or self-care (01) ==
LOC: OR 08:50 → 6NMEDSUR 13:06 → OR 04-21 15:50
PROVIDERS: ATTEND Surgery
DX: K21.00 Gastro-esophageal reflux disease with esophagitis, without bleeding (principal); K44.0 Diaphragmatic hernia with obstruction, without gangrene; K22.70 Barrett's esophagus without dysplasia; I48.20 Chronic atrial fibrillation, unspecified; I10 Essential (primary) hypertension; J44.9 Chronic obstructive pulmonary disease, unspecified; E78.5 Hyperlipidemia, unspecified; M19.90 Unspecified osteoarthritis, unspecified site; M79.7 Fibromyalgia; N40.1 Benign prostatic hyperplasia with lower urinary tract symptoms; N13.8 Other obstructive and reflux uropathy; Z87.891 Personal history of nicotine dependence; Z88.5 Allergy status to narcotic agent; Z79.01 Long term (current) use of anticoagulants; Z79.899 Other long term (current) drug therapy; Z98.1 Arthrodesis status; Z96.649 Presence of unspecified artificial hip joint; Z98.890 Other specified postprocedural states; Z82.49 Family history of ischemic heart disease and other diseases of the circulatory system; Z80.0 Family history of malignant neoplasm of digestive organs
CPT/HCPCS: 74210; 43280; J2250; J1644; J1100; J2710; J2765 ×2; J0690; J2405; J2001; J3010; J1170 ×3; J0330; J2704; Q9967

== ENCOUNTER 2020-06-07 08:58 | Day surgery (SDC) | payer MEDICARE, BC ==
[2020-06-05 14:09] VITALS: BMI 29.4
[~2020-06-07 08:58] MED LIST changes: -ACETAMINOPHEN TAB 500 MG TAB PO ONE; -DEXAMETHASONE SOD PHOSPHATE 10 MG/ML 1 ML VIAL IV ONE; -HEPARIN SODIUM,PORCINE 5,000 UNIT/ML 1 ML VIAL SQ ONE; +LACTATED RINGERS 1,000 ML IV SCH; -LIDOCAINE 1% (10MG/ML) FOR IV START INTRADERMA PRN; -MIDAZOLAM 2 MG/2 ML VIAL IV PRN; -ONDANSETRON 4 MG/2 ML VIAL IVP ONE
[2020-06-07 09:22] VITALS: BP 150/75; PULSE 66; RESP 16; TEMP 97.1
[2020-06-07] MEDS ORDERED: LACTATED RINGERS 1,000 ML IV ONE (09:23)
--- NOTE | 2020-06-07 09:30 | P.PN ---
Progress Note - Text Progress Note Date: 06/07/20 This is 69 years old male with a history of atrial fibrillation, he is currently on ELEQUIS, is scheduled to have cervical epidural steroid injections, in the preop holding area patient told me that he held the blood thinner for 2 days only, and MACYOL recommendation is to hold ELEQUIS for 3 days, before performing cervical epidural steroid injection, for this reason the procedure will be rescheduled for tomorrow and this way, we will have 3 days of holding the blood thinner before the procedure
== END 2020-06-07 09:29 ==
LOC: ORPAIN 08:58
PROVIDERS: ATTEND Specialist
DX: M48.02 Spinal stenosis, cervical region (principal); M54.12 Radiculopathy, cervical region; Z53.8 Procedure and treatment not carried out for other reasons; I48.91 Unspecified atrial fibrillation; Z79.01 Long term (current) use of anticoagulants; Z88.5 Allergy status to narcotic agent

== ENCOUNTER → 2020-06-08 | Day surgery (SDC) | payer MEDICARE, BC ==
[~2020-06-08] MED LIST changes: +DEXAMETHASONE SOD PHOSPHATE 10 MG/ML 1 ML VIAL ONE; +IOPAMIDOL M200 10 ML VIAL ONE; +IV FLUID CONTINUATION 700 ML IV ONE; +LACTATED RINGERS 1,000 ML IV ONE; -LACTATED RINGERS 1,000 ML IV SCH; +MIDAZOLAM 2 MG/2 ML VIAL ONE; +fentaNYL (PF) 50 MCG/ML 2 ML AMP ONE
[2020-06-08 14:35] VITALS: RESP 16; TEMP 97.1
--- NOTE | 2020-06-08 15:38 | P.PCN ---
Date of Procedure: 06/08/20 Surgeon: Mary Crespo Pathology: none sent Condition: stable Disposition: PACU Description of Procedure: PROCEDURE 1. Cervical epidural steroid injection under fluoroscopic guidance, C7-T1 -right paramedian approach. 2. Cervical epidurogram. : PREOPERATIVE DIAGNOSIS: Cervical radiculopathy, cervical spondylosis without myelopathy POSTOPERATIVE DIAGNOSIS: : Same as above ANESTHESIA: Local anesthesia with 1% lidocaine and IV moderate conscious sedation with Versed and Fentanyl . EBL 0 PROCEDURE INDICATION: The patient with neck pain and radiculopathy unresponsive to conservative treatment consents for procedure. PROCEDURE DESCRIPTION / TECHNIQUE: The patient was seen and identified in the preoperative area. Risks, benefits, complications, including but not limited to infections ,bleeding , allergic reactions to the medications ,and not complete pain relief, and alternatives were discussed with the patient, the patient agreed to proceed with the procedure and signed the consent. Patient was taken to the OR and time out was completed. The patient was placed in the prone position on the procedure table. A pillow was placed under the patients chest to increase the flexion of the cervical spine . The cervical area was prepped and draped in the usual sterile fashion. Vital signs were closely monitored during the procedure. Conscious sedation was used during the procedure to decrease patients anxiety. Using anterior-posterior fluoroscopy, the C7-T1 interlaminar space was identified and the skin over this site was marked and then infiltrated with 1% l idocaine subcutaneously. Subsequently, a 20-gauge 3-1/2-inch Tuohy epidural needle was inserted and advanced toward the epidural space by means of loss of resistance to air technique and guided by AP and lateral fluoroscopy. The needle tip contacted the lamina of T1 vertebra first, then it was walked off bone and into the epidural space using the loss of to air and fluoroscopic guidance to identify the epidural space. The correct needle position in the epidural space was verified with the injection of 1 mL of the water soluble contrast dye Isovue and observing an excellent epidurogram with the epidural spread of the dye, after negative aspiration for blood and CSF and in the absence of paresthesias. Again after negative aspiration, 20 mg of Decadron was injected and a washout of epidurogram was seen. Needle was withdrawn intact, skin was cleansed, and bandages were applied. A copy of the needle placement picture was saved to the fluoroscopy machine.
[2020-06-08 16:02] VITALS: BP 143/72; PULSE 69
--- NOTE | 2020-06-08 16:08 | FL ---
Fluoroscopy History: CERVICAL FLOYD 6 SEC FL-1 IMAGE
== END ==
LOC: ORPAIN 14:20
PROVIDERS: ATTEND Anesthesiology
DX: M47.22 Other spondylosis with radiculopathy, cervical region (principal); I48.91 Unspecified atrial fibrillation; I10 Essential (primary) hypertension; E78.5 Hyperlipidemia, unspecified; M19.90 Unspecified osteoarthritis, unspecified site; K21.9 Gastro-esophageal reflux disease without esophagitis; Z88.5 Allergy status to narcotic agent; Z79.82 Long term (current) use of aspirin; Z79.01 Long term (current) use of anticoagulants; Z79.899 Other long term (current) drug therapy
CPT/HCPCS: 62321; J2250; J1100; J3010; Q9966

== ENCOUNTER 2020-07-06 09:02 | Day surgery (SDC) | payer MEDICARE, BC ==
[~2020-07-06 09:02] MED LIST changes: -DEXAMETHASONE SOD PHOSPHATE 10 MG/ML 1 ML VIAL ONE; -IOPAMIDOL M200 10 ML VIAL ONE; -IV FLUID CONTINUATION 700 ML IV ONE; -LACTATED RINGERS 1,000 ML IV ONE; +LACTATED RINGERS 1,000 ML IV SCH; -MIDAZOLAM 2 MG/2 ML VIAL ONE; -fentaNYL (PF) 50 MCG/ML 2 ML AMP ONE
[2020-07-06] MEDS ORDERED: LIDOCAINE 1% (10MG/ML) FOR IV START INTRADERMA ONE (09:47)
[2020-07-06 09:51] VITALS: TEMP 96.7
[2020-07-06] MEDS ORDERED: fentaNYL (PF) 50 MCG/ML 2 ML AMP ONE (10:13)
[2020-07-06] MEDS ORDERED: DEXAMETHASONE SOD PHOSPHATE 10 MG/ML 1 ML VIAL ONE (10:13)
[2020-07-06] MEDS ORDERED: MIDAZOLAM 2 MG/2 ML VIAL ONE (10:13)
[2020-07-06] MEDS ORDERED: IOPAMIDOL M200 10 ML VIAL ONE (10:13)
--- NOTE | 2020-07-06 10:26 | P.PCN ---
Date of Procedure: 07/06/20 Procedure(s) Performed: . PROCEDURE 1. Cervical epidural steroid injection under fluoroscopic guidance (fluoroscopy images available in the radiology department ) 2. Cervical epidurogram. # 2nd PREOPERATIVE DIAGNOSIS: 1- Cervical Degenerative Disc Diseases 2- Cervical radiculopathy., 3-cervical spondylosis with cervical Facet arthropathy without myelopathy POSTOPERATIVE DIAGNOSIS: : 1- Cervical Degenerative Disc Diseases , 2- Cervical radiculopathy. 3-,cervical spondylosis with cervical Facet arthropathy without myelopathy ANESTHESIA: Local anesthesia with lidocaine 1 % , and moderate sedation, with Versed 2 mg and Fentanyl 50 mcg. EBL 0 PROCEDURE INDICATION: The patient with neck pain and radiculitis unresponsive to conservative treatment consents for procedure. PROCEDURE DESCRIPTION / TECHNIQUE: The patient was seen and identified in the preoperative area. Risks, benefits, complications, including but not limited to infections ,bleeding , allergic reactions to the medications ,and not complete pain releife, and alternatives were discussed with the patient, the patient agreed to proceed with the procedure and signed the consent. Patient was taken to the OR and time out was completed. The patient was placed in the prone position on the procedure table. A pillow was placed under the patients chest to increase the cervical interlaminar space. The cervical area was prepped and draped in the usual sterile fashion. Vital signs were closely monitored during the procedure. Conscious sedation was used during the procedure to decrease patients anxiety. Using anterior-posterior fluoroscopy, the C6-7 interlaminar space was identified and the skin over this site was marked and then infiltrated with 1% lidocaine subcutaneously. Subsequently, a 20-gauge 3-1/2-inch Tuohy epidural needle was inserted and advanced toward the epidural space by means of the ``hanging-drop technique and guided by AP and lateral fluoroscopy. The correct needle position in the epidural space was verified with the injection of 2 mL of the water soluble contrast dye Isovue-200 and observing an excellent epidurogram with the epidural spread of the dye, after negative aspiration for blood and CSF and in the absence of paresthesias. Again after negative aspiration, mixture con taining 20 mg Dexamethasone and 2 ml of preservative-free normal saline injected and a washout of epidurogram was seen. Needle was withdrawn intact, skin was cleansed, and bandages were applied. Complications= none. Disposition= patient was placed in supine position and transferred to the recovery room area in stable condition and there was no evidence of upper or lower extremity motor or sensory deficit after the procedure patient was discharged from recovery room after discharge criteria met and home discharge instructions was given by the staff and patient will follow with the pain clinic in 2-4 weeks
[2020-07-06 10:34] VITALS: RESP 20
[2020-07-06] MEDS ORDERED: IV FLUID CONTINUATION 750 ML IV ONE (10:36)
[2020-07-06 10:50] VITALS: BP 127/80; PULSE 61
--- NOTE | 2020-07-06 11:09 | FL ---
Fluoroscopy HISTORY: Pain 5 seconds fluoroscopy time supplied to the referring clinician. 1 intraoperative C-arm images docume nt the procedure. See dictated report from anesthesia.
== END 2020-07-06 11:00 | disposition home or self-care (01) ==
LOC: ORPAIN 09:02
PROVIDERS: ATTEND Specialist
DX: M50.10 Cervical disc disorder with radiculopathy, unspecified cervical region (principal); M47.22 Other spondylosis with radiculopathy, cervical region; I25.10 Atherosclerotic heart disease of native coronary artery without angina pectoris; Z88.5 Allergy status to narcotic agent; Z79.01 Long term (current) use of anticoagulants
CPT/HCPCS: 62321; J2250; J1100; J3010; Q9966

== ENCOUNTER → 2020-07-20 | Outpatient (CLI) | payer MEDICARE, BC ==
--- NOTE | 2020-07-20 13:38 | CT ---
EXAMINATION TYPE: CT CervThoracic spine wo con DATE OF EXAM: 07/20/2020 COMPARISON: MRI cervical spine March 16, 2020. CT cervical spine W 2016 HISTORY: CHRONIC UPPER TO MID BACK PAIN CT DLP: 1214 mGycm. Automated Exposure Control for Dose Reduction was Utilized. TECHNIQUE: CT scan of the cervical and thoracic spine are obtained without contrast, axial images ar e obtained, sagittal and coronal reformatted images are also reviewed. FINDINGS: Cervical spine is visualized in its entirety from C1 through upper thoracic levels, redemon strates grade 1 retrolisthesis C3 on C4 and to lesser degree C4 on C5. Prevertebral soft tissue appe ars within normal limits. The C1-C2 articulation is within normal limits on the coronal images. Vert ebral body heights are maintained. Moderate disc space narrowing and endplate sclerosis at C3-C4 thro ugh C5-C6 levels is now present. Moderate disc space narrowing C6-C7 level. Review of axial images shows C2-C3 level to remain within normal limits. Axial images at C3-C4 level show spondylolisthesis with broad-based posterior disc protrusion and mil d uncovertebral facet spurring, effacement of the anterior thecal sac with mild bilateral neural fora shireen narrowing is redemonstrated. Axial images at C4-C5 level shows left greater than right uncovertebral facet degenerative change cau sing [id number] bilateral neural foraminal narrowing. No significant interval progression. Axial images at C5-C6 level show vertebral facet degenerative changes bilaterally causing mild-to-mod erate bilateral neural foraminal narrowing. Posterior disc herniation is seen better on MRI. Axial images at C6-C7 show right-sided uncovertebral facet spurring causing [id number] right-si ded neural foraminal narrowing. Axial images at C7-T1 level remain within normal limits. Thyroid gland is unremarkable. Lung apices show no pneumothorax. Thoracic spine shows levoconvex scoliosis centered in the upper to mid thoracic spine. Alignment is s atisfactory on sagittal images. Despite well preserved. Vertebral body heights and disc space heights are maintained. Vacuum disc phenomenon with mild to moderate spurring is present at T11-T12 level. V isualized portion of lungs are clear. There is some degenerative change in both shoulders. IMPRESSION: Multilevel degenerative changes greatest C3-C4 through C6-C7 level as detailed above. Sc oliotic curvature of the thoracic spine.
== END | disposition home or self-care (01) ==
LOC: RADCTMAIN 11:36
PROVIDERS: ATTEND Orthopaedic Surgery
DX: M47.812 Spondylosis without myelopathy or radiculopathy, cervical region (principal); M41.84 Other forms of scoliosis, thoracic region; Z88.5 Allergy status to narcotic agent
CPT/HCPCS: 72125; 72128

== ENCOUNTER → 2020-07-30 | Outpatient (CLI) | payer MEDICARE, BC ==
[2020-07-30 09:34] VITALS: BP 160/88; PULSE 72; RESP 16; TEMP 97.8
--- NOTE | 2020-07-30 09:49 | P.PN ---
Subjective Progress Note Date: 07/30/20 This is a 61-year-old gentleman with history of chronic neck pain for which she received a cervical epidural steroid injection which has not helped his pain. His pain gets worse by neck movement and occasionally goes up the back of his head. His cervical spine MRI showed severe spondylosis between C3 and C6. He did have an EMG done on the upper extremities but I do not have access to the results yet. The patient was referred to us for a trial of cervical medial branch RFA. Patient denies new-onset weakness, bowel/bladder incontinence, or any other signs or symptoms of cauda equina syndrome. There are no signs of acute intoxication, and no indications of medication diversion or overuse. In addition to above, 13-point review of systems is also negative for chest pain, shortness of breath, changes in vision, changes in hearing, new onset weakness, abdominal pain, diarrhea, extreme fatigue, malaise, fever, skin changes, homicidal or suicidal ideation, or bowel or bladder incontinence. Vital Signs: Reviewed in EMR Gen: AAOx3, NAD HEENT: PERRLA,hearing grossly normal Pulm: resp unlabored Neck: supple, trachea midline Neuro exam of the lower extremities: Straight leg raising test: Damián's test: Range of motion of the lumbar spine: Facet loading test: Tenderness in the paravertebral musculature: Positive tenderness in the cervical paravertebral musculature bilaterally and in the occipital area bilaterally. Positive tenderness in the right trapezius muscle Decreased range of motion of the cervical spine Neuro: CN II-XII grossly intact, Imaging: Reviewed in EMR/chart Assessment: Cervical spondylosis without myelopathy Plan: 1. Explanation: Opioid and psychological risk scores were reviewed. Diagnoses, prognoses, and multiple treatment options including but not limited to physical therapy, interventional therapies, adjuvant medical therapies, narcotic medication therapies, and surgery were discussed with the patient and all questions were answered to the patient's satisfaction. 2. Opioid agreement: Signed with the patient and the patient is warned not to use opioids while driving or before driving and not to combine opioids with benzodiazepines or alcohol. 3. Counseling: The patient was counseled extensively on SMOKING CESSATION, BODY MASS INDEX, EXERCISE. Specifically, the patient was instructed regarding the importance of smoking cessation, obesity, and exercise in the context of both chronic pain and overall health. 4. Procedures: Scheduled for diagnostic cervical medial branch block before C3, C4, C5, and C6. The procedure was explained to the patient and his questions and his questions were answered. 5. Consultations: None 6. Investigations: None 7. Medications: None 8. Disposition: Return to the above-mentioned procedure as soon as possible 9. Maps were reviewed and were appropriate. Objective - Vital Signs Vital signs: Vital Signs Temp 97.8 F 07/30/20 09:27 Pulse 72 07/30/20 09:27 Resp 16 07/30/20 09:27 BP 160/88 07/30/20 09:27 Pulse Ox 99 07/30/20 09:27
== END | disposition home or self-care (01) ==
LOC: PNWHC3 09:18
PROVIDERS: ATTEND Anesthesiology
DX: M47.812 Spondylosis without myelopathy or radiculopathy, cervical region (principal)
CPT/HCPCS: 99211

== ENCOUNTER → 2020-08-08 | Outpatient (CLI) | payer MEDICARE, BC ==
--- NOTE | 2020-08-09 22:05 | FL ---
EXAMINATION TYPE: FL barium swallow DATE OF EXAM: 08/09/2020 CLINICAL HISTORY: Gastroesophageal reflux with esophagitis TECHNIQUE: A double contrast esophagram is performed utilizing air and barium. A total of 59 second s of fluoroscopic time was utilized during procedure. 19 images were obtained COMPARISON: None FINDINGS: There is mild presbyesophagus with tertiary contractions evident. Small hiatal hernia is pr esent. There is complete stripping esophageal bolus the horizontal drinking position. No suspicious i ntraluminal or extramural abnormalities evident. Reflux was not observed during the exam. IMPRESSION: 1. Mild presbyesophagus.
== END | disposition home or self-care (01) ==
LOC: RADFLMAIN 09:41
PROVIDERS: ATTEND Surgery
DX: K22.8 Other specified diseases of esophagus (principal)
CPT/HCPCS: 74220

== ENCOUNTER 2020-08-09 09:33 | Day surgery (SDC) | payer MEDICARE, BC ==
[2020-08-03 10:17] VITALS: BMI 28.7
[2020-08-09 10:04] VITALS: RESP 16; TEMP 97.3
[2020-08-09] MEDS ORDERED: LIDOCAINE 1% INJ 10MG/ML (20 ML MDV) ONE (10:37)
[2020-08-09] MEDS ORDERED: PROPOFOL 10 MG/ML 20 ML VIAL IV ONE (10:37)
--- NOTE | 2020-08-09 10:40 | P.GSHP ---
History of Present Illness H&P Date: 08/09/20 Chief Complaint: GERD Is a 69-year-old male presents be. He's had issues with GERD. Past Medical History Past Medical History: Atrial Fibrillation, Fibromyalgia, GERD/Reflux, Hypertension, Musculoskeletal Disorder, Osteoarthritis (OA) Additional Past Medical History / Comment(s): Camacho's esophagus, Hx fx ribs right side, hx issues w/ left hip popping out of place. Current problems w/ muscles twitching, burning, cramping thru body w/ stiff joints. Uses wheelchair when out. DDD, pain & NT bilat arms/hands History of Any Multi-Drug Resistant Organisms: None Reported Past Surgical History: Appendectomy, Back Surgery, Hernia Repair, Joint Replacement, Orthopedic Surgery, Tonsillectomy Additional Past Surgical History / Comment(s): LAMINECTOMY; back neurostimulator - 2014, then removed; back steroid injections, ORIF left arm, Sinus surg w/ cyst drained behind eye, bilateral ankle surgeries, Lt Total hip. Right shoulder surgery X2, hiatal hernia repair. Past Anesthesia/Blood Transfusion Reactions: No Reported Reaction, Family History of Problems w/ Anesthesia Additional Past Anesthesia/Blood Transfusion Reaction / Comment(s): Mom had PONV. Smoking Status: Former smoker - Past Family History Father Family Medical History: Cancer, CVA/TIA Additional Family Medical History / Comment(s): Esophageal cancer. Medications and Allergies Home Medications Medication Instructions Recorded Confirmed Type Atenolol [Tenormin] 25 mg PO QAM 11/06/13 08/03/20 History Omeprazole 40 mg PO AC-BRKFST 11/06/13 08/03/20 History DULoxetine HCL [Cymbalta] 60 mg PO BID 08/01/16 08/03/20 History Apixaban [Eliquis] 5 mg PO BID 07/01/18 08/03/20 History Silodosin [Rapaflo] 8 mg PO HS 07/01/18 08/03/20 History Aspirin 325 mg PO DAILY 07/05/20 08/03/20 History Ascorbic Acid [Vitamin C] 1,000 mg PO DAILY 07/26/20 08/03/20 History Carnitine 1500 Mg 1 tab PO DAILY 07/26/20 08/03/20 History Cholecalciferol (Vitamin D3) 125 mcg PO DAILY 07/26/20 08/03/20 History [Vitamin D3 (5000 Iu)] Multivitamins, Thera [Multivitamin 1 tab PO DAILY 07/26/20 08/03/20 History (formulary)] Potassium Gluconate 99 mg PO DAILY 07/26/20 08/03/20 History Vit C/E/Zn/Coppr/Lutein/Zeaxan 1 each PO DAILY 07/26/20 08/03/20 History [Preservision Areds 2 Softgel] Vitamin B Complex 1 each PO DAILY 07/26/20 08/03/20 History Zinc 50 mg PO DAILY 07/26/20 08/03/20 History Glucosam/Jere-Msm1/C/Brandin/Bosw 1 each PO DAILY 08/03/20 08/03/20 History [Glucosamine-Chondroitin Tablet] Allergies Allergy/AdvReac Type Severity Reaction Status Date / Time morphine AdvReac Nausea & Verified 08/09/20 10:01 Vomiting & Diarrhea Surgical - Exam Vital Signs Temp Pulse Resp BP Pulse Ox 97.3 F L 62 16 140/84 99 08/09/20 10:03 08/09/20 10:03 08/09/20 10:03 08/09/20 10:03 08/09/20 10:03 - General well developed, well nourished, no distress - Eyes PERRL - ENT normal pinna - Neck no masses - Respiratory normal expansion - Cardiovascular Rhythm: regular - Abdomen Abdomen: soft, non tender Assessment and Plan Assessment: GERD. We'll perform EGD.
--- NOTE | 2020-08-09 10:48 | P.OP ---
Date of Procedure: 08/09/20 Preoperative Diagnosis: GERD Postoperative Diagnosis: Antral gastritis No evidence of hiatal hernia Esophagitis Procedure(s) Performed: EGD Anesthesia: MAC Surgeon: Jose Adams Pathology: other (Antrum, esophagus) Condition: stable Disposition: PACU Description of Procedure: Patient's placed on the endoscopy table in the lateral position. He received IV sedation. The gastroscope was oropharynx passed in the esophagus and stomach. Scope was then placed through the pylorus. The first and second portion of the duodenum appeared normal. Scope summer back the antrum this appeared mildly inflamed. A biopsies performed. Scope was then retroflexed the remainder of the stomach appeared normal. There is no significant hiatal hernia. The GE junction was at the Center meters.. The Distal Esophagus. Inflamed a Biopsies Performed. The Proximal Esophagus Appeared Normal. Scope Was Withdrawn from Patient
[2020-08-09 11:13] VITALS: BP 115/76; PULSE 75
== END 2020-08-09 11:40 | disposition home or self-care (01) ==
LOC: ORWHC2ENDO 09:33
PROVIDERS: ATTEND Surgery
DX: K21.00 Gastro-esophageal reflux disease with esophagitis, without bleeding (principal); K29.70 Gastritis, unspecified, without bleeding; R89.7 Abnormal histological findings in specimens from other organs, systems and tissues; K22.8 Other specified diseases of esophagus; I48.91 Unspecified atrial fibrillation; M79.7 Fibromyalgia; I10 Essential (primary) hypertension; M19.90 Unspecified osteoarthritis, unspecified site; K22.70 Barrett's esophagus without dysplasia; M62.838 Other muscle spasm; M25.60 Stiffness of unspecified joint, not elsewhere classified; M51.9 Unspecified thoracic, thoracolumbar and lumbosacral intervertebral disc disorder; K08.89 Other specified disorders of teeth and supporting structures; Z87.81 Personal history of (healed) traumatic fracture; Z87.39 Personal history of other diseases of the musculoskeletal system and connective tissue; Z90.49 Acquired absence of other specified parts of digestive tract; Z98.890 Other specified postprocedural states; Z96.642 Presence of left artificial hip joint; Z90.89 Acquired absence of other organs; Z87.891 Personal history of nicotine dependence; Z79.899 Other long term (current) drug therapy; Z79.01 Long term (current) use of anticoagulants; Z79.82 Long term (current) use of aspirin; Z88.5 Allergy status to narcotic agent; Z84.89 Family history of other specified conditions; Z80.0 Family history of malignant neoplasm of digestive organs; Z82.3 Family history of stroke
CPT/HCPCS: 88305; 43239; J2001; J2704

== ENCOUNTER → 2020-09-11 | Outpatient (CLI) | payer MEDICARE, BC | END | disposition home or self-care (01) | LOC: LABWHC1 09:24 | PROVIDERS: ATTEND Orthopaedic Surgery | DX: M48.02 Spinal stenosis, cervical region (principal); M47.22 Other spondylosis with radiculopathy, cervical region | CPT/HCPCS: 36415; 86850; 86900; 86901; 87070 ==

== ENCOUNTER 2020-09-18 05:29 | Inpatient (IN) | payer MEDICARE, BC ==
[2020-09-12 15:29] VITALS: BMI 29.2
[~2020-09-18 05:29] MED LIST changes: +ACETAMINOPHEN TAB 500 MG TAB PO PRN; +DEXAMETHASONE SOD PHOSPHATE 4 MG/ML 1 ML VIAL IV ONE; +GABAPENTIN 300 MG CAP PO PRN; -LACTATED RINGERS 1,000 ML IV SCH; +LIDOCAINE 1% (10MG/ML) FOR IV START INTRADERMA PRN; +MIDAZOLAM 2 MG/2 ML VIAL IV PRN; +ONDANSETRON 4 MG/2 ML VIAL IVP PRN; +TRANEXAMIC ACID 1,000 MG in SODIUM CHLORIDE 0.9% 100 ML IVPB PRN; +VANCOMYCIN 1,500 MG in SODIUM CHLORIDE 0.9% 250 ML IVPB PRN
[2020-09-18] MEDS ORDERED: TRANEXAMIC ACID 2,000 MG in SODIUM CHLORIDE 0.9% 80 ML IV PRN (06:00)
[2020-09-18] MEDS: LACTATED RINGERS 1,000 ML IV SCH ×2 (06:01→06:54)
--- NOTE | 2020-09-18 06:58 | P.HPOR ---
History of Present Illness H&P Date: 09/18/20 Chief Complaint: Neck pain, unsteady gait, weakness in arms HISTORY: Physical Therapy: Yes How many sessions? 2 weeks Did it help? No Injections: Yes How many? 2 Did they help? No Activity Modifications: Yes, not helpful Brace: No 69-year-old male here in follow-up for her cervical spine. The patient has gone through physical therapy and injections of his neck without any improved symptoms. He states continued pain and weakness in his bilateral upper extremities. He continues to have pain in his neck as well with motion. He states he is having difficulty holding onto objects. He did denies bowel or bladder issues at this time. He does use a rascal to get around. He denies any perineal numbness or tingling. He denies any new lower extremity symptoms. Denies fevers chills shortness of breath or chest pain at this time. He states that his neck is just not getting better with any of the conservative measures he is tried [id number] as well as prescription medications physical therapy as well as injections and nothing seems to be helping. He would like to explore surgical options at this time. Review of Systems 14 points review of systems completed and as stated in HPI, all other systems reviewed are negative. Past Medical History Past Medical History: Atrial Fibrillation, Fibromyalgia, GERD/Reflux, Hearing Disorder / Deafness, Hypertension, Musculoskeletal Disorder, Osteoarthritis (OA) Additional Past Medical History / Comment(s): Camacho's esophagus, hx fx ribs r ight side, hx issues w/ left hip popping out of place. Current problems w/ muscles twitching, burning, cramping thru body w/ stiff joints. Uses wheelchair when out. DDD, pain & NT bilateral arms/hands. Hard of hearing. History of Any Multi-Drug Resistant Organisms: None Reported Past Surgical History: Appendectomy, Back Surgery, Hernia Repair, Joint Replacement, Orthopedic Surgery, Tonsillectomy Additional Past Surgical History / Comment(s): LAMINECTOMY, back neurostimulator - 2015, then removed, back steroid injections, ORIF left arm, sinus surgery w/ cyst drained behind eye, bilateral ankle surgeries, left total hip replacement, right shoulder surgery X2, hiatal hernia repair, EGD. Past Anesthesia/Blood Transfusion Reactions: No Reported Reaction, Family History of Problems w/ Anesthesia Additional Past Anesthesia/Blood Transfusion Reaction / Comment(s): Mom had PONV. Past Psychological History: Anxiety, Depression Smoking Status: Former smoker Past Alcohol Use History: Occasional Additional Past Alcohol Use History / Comment(s): Smoked briefly when 16 yrs old, quit AGE 18, SMOKED 1/2PPD . "Used to drink 6-7 beers daily, but not recently." Past Drug Use History: Marijuana Additional Drug Use History / Comment(s): Uses [facility] for back pain. Aware no Marijuana or Alcohol for 24 hrs prior to procedure. - Past Family History Father Family Medical History: Cancer, CVA/TIA Additional Family Medical History / Comment(s): Esophageal cancer. Medications and Allergies Home Medications Medication Instructions Recorded Confirmed Type Atenolol [Tenormin] 25 mg PO QAM 11/06/13 09/18/20 History Omeprazole 40 mg PO AC-BRKFST 11/06/13 09/18/20 History DULoxetine HCL [Cymbalta] 60 mg PO BID 08/01/16 09/18/20 History Apixaban [Eliquis] 5 mg PO BID 07/01/18 09/18/20 History Silodosin [Rapaflo] 8 mg PO HS 07/01/18 09/18/20 History Ascorbic Acid [Vitamin C] 1,000 mg PO DAILY 07/26/20 09/18/20 History Carnitine 1500 Mg 1 tab PO DAILY 07/26/20 09/18/20 History Cholecalciferol (Vitamin D3) 125 mcg PO DAILY 07/26/20 09/18/20 History [Vitamin D3 (5000 Iu)] Multivitamins, Thera [Multivitamin 1 tab PO DAILY 07/26/20 09/18/20 History (formulary)] Potassium Gluconate 99 mg PO DAILY 07/26/20 09/18/20 History Vit C/E/Zn/Coppr/Lutein/Zeaxan 1 each PO DAILY 07/26/20 09/18/20 History [Preservision Areds 2 Softgel] Vitamin B Complex 1 each PO DAILY 07/26/20 09/18/20 History Zinc 50 mg PO DAILY 07/26/20 09/18/20 History Glucosam/Jere-Msm1/C/Brandin/Bosw 1 each PO DAILY 08/03/20 09/18/20 History [Glucosamine-Chondroitin Tablet] Acetaminophen [Tylenol] 500 mg PO Q4-6H PRN 09/12/20 09/18/20 History Aspirin/Acetaminophen/Caffeine 1 each PO DAILY 09/12/20 09/18/20 History [Goody's Ex-Str Powder Packet] Allergies Allergy/AdvReac Type Severity Reaction Status Date / Time magnesium AdvReac Diarrhea Verified 09/12/20 15:33 morphine AdvReac Nausea & Verified 09/12/20 15:09 Vomiting & Diarrhea Physical Examination Osteopathic Statement: *. No significant issues noted on an osteopathic structural exam other than those noted in the History and Physical/Consult. PHYSICAL EXAMINATION: General: Awake, alert, appropriate for age, in no acute distress. HEENT: No unusual neck masses around region of lateral neck triangle, thyroid, supraclavicular groove Heart: Regular rate and rhythm, normal S1, S2 and no murmur/gallop. Lungs: Clear to auscultation bilaterally with no use of accessory muscles. Extremities: Skin warm and dry without acute lesions, coloration, temperature, skin intact, no tenderness or erythema Integument: Hairy patches: Absent Dorsal skin dimples: Absent Cafe au lait spots: Absent Surgical incisions: posterior midline lumbar incision well-healed Palpation: Please see Pain drawing on Intake sheet for further detail. Midline spinal tenderness: yes cervical E6 Paralumbar tenderness: yes bilateral E6 Buttocks tenderness: No bilateral E6 Special findings: none POSTURAL and MUSCULO-SKELETAL EVALUATION: Coronal Balance: Neutral Recumbent testing: Patient is unableto lay flat on back Sagittal Balance: Neutral Shoulder Profile: [Level] Pelvic Girdle: [Level] Neck ROM: Unrestricted Lumbar ROM: restricted secondary to surgery and pain Shoulder ROM: restricted. The patient has weakness in forward abduction as well as internal/external rotation of the shoulders Hip ROM: Symmetric in abduction, adduction, ER/IR Knee ROM: Symmetric and intact in Flexion / extension VASCULAR STATUS : LEFT RIGHT Wrist Pulses intact intact Pedal Pulses (Dors. pedis & post.tibialis) intact intact Color normal normal Edema Absent Absent NEUROLOGIC EXAMINATION: Mental Status: Awake and alert, fully oriented, with normal attention, concentration and memory, and fluent, appropriate speech. Cranial Nerves: I: Olfactory not tested. II: Visual acuity normal, no visual field deficit noted with confrontation. III,IV: Normal pupillary reflexes & intact extraocular movements without nystagmus. V,: Intact symmetrical facial sensation. VII: Intact symmetrical facial motor movement VIII: Hearing intact. IX,X: Intact gag, swallow, & normal voice. XI: Sternocleidomastoid, trapezius function intact. XII: Tongue midline with normal movements. L'hermitte's Sign: Negative / absent Spurling'Sign: Absent bilaterally. Cubital percussion test: Absent bilaterally. Nova-Tinel sign - Carpal region: Absent bilaterally. Straight Leg Raising: Absent bilaterally. Crossed straight leg raise: negative O8 MOTOR EXAM (0-5/5, N/T) STRENGTH RIGHT LEFT Shoulder Abd (not part of the SEAMUS score) 4 4 Elbow Flexors 4+ 4+ Elbow Extensor 4+ 4+ Wrist Dorsiflexors 5 5 Finger Abductor 5 5 Windows Migration Technician 5 5 Hip Flexor (Not part of SEAMUS Motor score) 4+ 4+ Knee Flexor 4 4 Knee Extensor 4+ 4+ Ankle dorsiflexor 4+ 4+ Ankle plantarflexion 4+ 4+ Extensor hallucis 4+ 4+ REFLEXES(0-4/2, NT) RIGHT LEFT Upper Extremities 2 2 Lower Extremities 2 2 Pathological Reflexes RI GHT LEFT Flowers's Absent Absent Clonus Absent Absent negative Babinskis bilaterally Muscle appearance: symmetrical Rectal Tone:deferred Sensory system (0-4, N/T) Test type RU KAILEE RL LL Joint-Position 2 2 2 2 Vibration 2 2 2 2 Pain & LT sense 2 2 2 2 Dermatomal Deficit: C4-5 C4-5 None NOne Gait and Functional Evaluation: Ambulatory aids: Wheelchair Toe heel walk / heel-toe walk intact while maintaining satisfactory balance? No Squatting/straightening w/o assistance to a min of 60 degree knee flexion? No Single leg stance: Unable to perform Hand and finger dexterity intact bilaterally? yes Disdiadochokinesis examination negative bilaterally? yes Results Xrays reveal severe spondylosis from C3-6, maintained alignment. Stenosis foraminally at these levels. CT and EMG results: At this time his cervical CT does show severe spondylosis throughout the cervical spine. There is collapse at each disc level. Patient does have stenosis related to this. He also has somewhat of a deformity within the cervical thoracic region. He has scoliosis in this region as well. No fracture dislocation or other lesions noted. Several cervical C1 2 joints appear stable .His EMG results show chronic radiculopathies from C3 to C8 bilaterall as able to speak with the patient over the phone extensively about his cervical spine and thoracic spine CT as well as his EMG. At this time his cervical CT does show severe spondylosis throughout the cervical spine. There is collapse at each disc level. Patient does have stenosis related to this. He also has somewhat of a deformity within the cervical thoracic region. He has scoliosis in this region as well. No fracture dislocation or other lesions noted. Several cervical C1 2 joints appear stable. Patient states his head feels heavy and then he needs help pulling it up at this time. He has been wearing a c- collar. His EMG results show chronic radiculopathies from C3 to C8 bilaterally. Sitting congruent with his studies as well as his exam. The patient is myelopathic in general and continues to be with unsteady gait he states. Assessment and Plan Assessment: 1. C3 to C6 spondylosis severe 2. bilateral upper extremity weakness with numbness and tingling 3. Cervical myelopathy Plan: Spine Surgery Risk Review Guilherme Nance is a 69-year-old male presenting for evaluation of bilateral upper extremity weakness, numbness and tingling, difficulty with ambulation. It was my pleasure to have seen and examined Guilherme Nance. In our visit today we have had a chance to go over subjective complaints, physical examination findings and treatments including the natural course history without intervention and various interventional options. The patients imaging demonstrates C3 to C7 spondylosis with stenosis. On physical exam, Guilherme Nance demonstrates bilateral upper extremity symptoms with weakness radiculopathy difficulty with ambulation unsteady gait difficulty with fine motor skills. I have explained to the patient that as their condition progresses it will cause further neurological deficits and eventual paralysis. Based on the patients imaging, physical exam, and the rapid progression and disabling nature of their symptoms, at this time I recommend surgery in the form or a: anterior and possibly posterior cervical fusion. I discussed the risk and benefits of this procedure at length with Guilherme Nance. The patient agreed to considered pursuing the procedure abovementioned. Prior to surgery, she should follow up with her PCP (Cardio, ID, IM etc) for clearance. Questions were invited and answered, and the patient wishes to proceed as outlined below. Currently, I am recommendin.C3 to C6 anterior cervical discectomy and fusion with possible posterior C2 to T2 fusion and decompression. 2.Follow up with PCP for surgical clearance 3.Review of surgical risks and benefits as well as an educational packet on the proposed surgical procedure. Risks: All surgical procedures come with inherent risks, including those related to positioning, anesthesia, intraoperative findings, and postoperative complications. It is important to understand that surgery does not come with any guarantee of a successful outcome as complications and adverse events are always possible. The patient was given a handout in office today discussing the surgical procedure and risks associated with the intervention, both of which were discussed with the patient. These risks include but are not limited to the following: * Experiencing same, different or even worse symptoms in back, neck, arms, or legs compared to before surgery. Requiring further surgery or other forms of treatment presently or at some time in the future at same or other levels of the intended spine surgery. On an extreme but fortunately relatively rare basis severe complication such as blindness, stroke, heart attack, temporary and/or permanent nerve injury, paralysis, coma, or may occur, sometimes without known explanation. Surgical complications may include but are not limited to risk of infection, fluid accumulation in the surgical dissection site, including a seroma or hematoma, that requires additional surgery, wound drainage, bleeding, new numbness or weakness, vision changes/loss, spinal fluid leakage, non-healing and/or infected incision, headaches, difficulty or inability to swallow, hoarseness, hemopneumothorax, pneumothorax, impotence, retrograde ejaculation, vaginal dryness; injury to nerves, spinal cord, blood vessels, lymphatics or other vital organs (i.e., bowel injury, injury to the great vessels); heterotopic bone formation; complications related to the hardware such as screws, rods, cages including misplaced hardware, device failure, instrumentation at the wrong spine level, hardware fracture/breakage, or hardware loosening; vertebral failure of the spinal column above or below the newly placed hardware; retained surgical instrumentations or devices and the need for further surgery. * Medical risks of the planned spine surgery include but are not limited to generalized Infections to the whole body or local areas outside of the surgical site (sepsis), heart attack, bleeding, anaphylaxis, meningitis, se izure, epilepsy, hearing loss, burn bauman, laceration of the head or other areas of the body, bruising, hypersensitivity of the skin, bladder over distension; allergic reaction; shoulder injury related to positioning; fat, blood and air clots to other areas of the body like heart, lungs, brain; failure of internal organs such as lungs, kidneys, liver and excessive bleeding. If blood transfusions are necessary, note that transfusions may cause intolerance reactions such as anaphylaxis or other complex reactions. Despite best efforts, the results of spine surgery might not heal in terms of bone, soft tissues such as skin, fascia, ligaments, and joints. Additionally, in order to achieve best possible results, spine surgery may be carried out beyond the initially planned levels and involve decompression, fusion including insertion of hardware at levels other than the original intended area of surgical interest change some portions of the procedure in order to ensure the best possible outcomes. With spine surgery and spinal fusion, there are different off label uses of instrumentation (devices, implants and hardware) as well as biological substances (bone morphogenic proteins, demineralized bone matrix) as well as using extra bone from allograft sources (i.e. cadaver bone) or autograft (iliac crest bone, ribs, or the spine itself). The patient has been given information about these practices and their inherent risks and benefits. [facility] is an educational center that serves as a training facility for neurosurgical and orthopedic spine residents and fellows. Residents are physicians who are completing their surgical intensive training following medical school. They assist in the operating room with direct supervision of the attending surgeons. [place] are surgeons who have completed their training and eligible for board certification. They have opted for an elective year of more specialized training in their field. They assist in the operating room u nder the supervision of the attending surgeons. Physician assistants are medically trained surgical providers who function in the outpatient, inpatient, and operating room setting under the direct supervision of the attending surgeon. [facility] has multiple operating rooms with single and overlapping rooms running daily. They currently function under the required guidelines as produced by the [facility] with regards to the overlapping rooms and will continue to comply with changes to this policy as they occur. The requirements include and are complied with as follows: (1) the critical portions of the overlapping rooms will not occur at the same time, (2) the attending physician will be physically present during the critical portions of the procedure and immediately available during the entire case, and (3) a back-up attending is designated should the primary attending not be immediately available. The patient has had a chance to review all the listed information, has been given print outs detailing this information, and has had all his/her questions answered to their satisfaction. It was my pleasure to have seen and examined Guilherme Nance. In our visit today we have had a chance to go over my understanding of our patient's current condition, the natural course history without intervention and various interventional options. Questions were invited and answered, and the patient wishes to proceed as outlined above. I have seen and examined the patient for 25 minutes and we have spent more than 50% of the time in repeat and detailed counseling about the patient's condition, its natural course history with out and as much as can be predicted with surgery and re-review of various surgical treatment options. In conclusion, Guilherme Nance and his requested we proceed with the above suggested surgery and are willing to accept risks and limitations of the sugge sted surgery as nature of the disease process and our best attempts at treatment for the condition. Thank you again for allowing us to be part of your patient's care. Please don't hesitate to contact me if you have any further questions.
[2020-09-18] MEDS ORDERED: GELATIN SPONGE,ABSORB (LARGE) 1 EACH SPONGE TOPICAL ONE (07:21)
[2020-09-18] MEDS ORDERED: THROMBIN (BOVINE) 5,000 UNIT VIAL TOPICAL ONE ×2 (07:21→08:31)
[2020-09-18] MEDS ORDERED: BUPIVACAINE (PF) 0.25% 30 ML VIAL SQ ONE ×2 (08:31)
[2020-09-18] MEDS ORDERED: LACTATED RINGERS 1,000 ML IV ONE ×2 (09:08→14:28)
[2020-09-18] MEDS ORDERED: ceFAZolin 1,000 MG in SODIUM CHLORIDE 0.9% 1,000 ML IRRIGATION ONE (11:47)
[2020-09-18] MEDS: HYDROmorphone 0.5 MG/0.5 ML SYRINGE IVP PRN ×2 (12:24→12:33)
[2020-09-18] MEDS ORDERED: MAGNESIUM HYDROXIDE 2,400 MG/10 ML CUP PO PRN (12:35)
[2020-09-18] MEDS ORDERED: SENNOSIDES-DOCUSATE SODIUM 1 EACH TAB PO PRN (12:35)
[2020-09-18] MEDS ORDERED: CYCLOBENZAPRINE 10 MG TAB PO PRN (12:35)
[2020-09-18] MEDS ORDERED: ONDANSETRON 4 MG/2 ML VIAL IVP PRN (12:35)
[2020-09-18] MEDS ORDERED: LABETALOL SYRINGE 5 MG/ML IVP ONE (13:31)
--- NOTE | 2020-09-18 13:43 | XR ---
Limited cervical spine HISTORY: Cervical fusion 2 intraoperative C-arm images document the procedure
--- NOTE | 2020-09-18 13:44 | FL ---
Fluoroscopy HISTORY: Cervical fusion 69 seconds fluoroscopy time supplied to the referring clinician. 2 intraoperative C-arm images docum ent the procedure. See dictated report from orthopedic surgery.
[2020-09-18] MEDS ORDERED: HYDROmorphone 0.5 MG/0.5 ML SYRINGE IVP ONE (14:26)
--- NOTE | 2020-09-18 15:56 | CT ---
EXAMINATION TYPE: CT cervical spine wo con DATE OF EXAM: 09/18/2020 COMPARISON: 07/20/2020 HISTORY: Post op Cervical fusion. CT DLP: 584.6 mGycm CONTRAST: None CT of the cervical spine is performed in the axial plane at 2 mm thick sections. Reconstructed image s in the coronal, and sagittal plane are reviewed on the computer. No acute fractures are evident post anterior fusion. Vertebral body alignment is normal. Disc spaces of the replaced C3-4, C4-5, C5-6. There is loss of disc height C6-7. Anterior cervical fu eduardo is present C3-C6. Posterior spinal lamellar line is intact. Vertebral body heights are preserved. No spinal canal stenosis is evident No neural foraminal stenosis is evident. The left anterior cervical fusion screw has marginal purchase along the anterior portion of the verte bral body only. IMPRESSIONS: 1. Post cervical fusion with disc spacers between the C3 and C6 levels.
[2020-09-18] MEDS: HYDROmorphone 1 MG/ML 1 ML SYRINGE IVP PRN ×2 (16:31→20:24)
[2020-09-18] MEDS: GABAPENTIN 300 MG CAP PO SCH ×3 (16:31→20:24)
[2020-09-18] MEDS: ceFAZolin 2 GM in SODIUM CHLORIDE 0.9% 100 ML IVPB SCH ×2 (16:34→23:32)
[2020-09-18] MEDS ORDERED: cloNIDine HCL 0.1 MG TAB PO PRN (16:45)
[2020-09-18] MEDS ORDERED: TEMAZEPAM 15 MG CAP PO PRN (16:46)
[2020-09-18] MEDS ORDERED: ALPRAZolam 0.25 MG TAB PO PRN (16:46)
[2020-09-18] MEDS: ACETAMINOPHEN TAB 500 MG TAB PO SCH ×2 (17:41→23:32)
[2020-09-18] MEDS: atenoloL 25 MG TAB PO SCH (17:43)
[2020-09-18] MEDS: DULoxetine HCL 60 MG CAPSULE.DR PO SCH (20:24)
[2020-09-18] MEDS ORDERED: TAMSULOSIN 0.4 MG CAP.ER.24H PO SCH (21:00)
--- NOTE | 2020-09-18 22:58 | CONS ---
CONSULTATION REASON FOR CONSULTATION: Advice regarding atrial fibrillation and other multiple medical issues, requested by Dr. Sandoval. HISTORY OF PRESENT ILLNESS: This 69-year-old gentleman with a past medical history of atrial fibromyalgia, GERD, hypertension, history of appendectomy, being followed by Dr. Tavera in the outpatient setting, underwent anterior cervical discectomy fusion at C3-4, C4-5, C5-[address] Sandoval. The patient tolerated the procedure well. The patient is complaining of some pain. Otherwise there is no history of any fever, rigor or chills, no history of headache, chest pain, palpitations, hematochezia or melena at this time. PAST MEDICAL HISTORY: Atrial fibrillation, history of fibromyalgia, GERD. HOME MEDICATIONS: Cymbalta, silodosin, potassium, omeprazole, Tenormin, Eliquis, Tylenol, multivitamin, carnitine, ascorbic acid. Doses are reviewed. ALLERGIES: MAGNESIUM and MORPHINE. FAMILY HISTORY: History of cancer, CVA, TIA, esophageal cancer. SOCIAL HISTORY: Previous history of smoking. History of THC. Occasional alcohol intake. REVIEW OF SYSTEMS: ENT: No diminished hearing. No diminished vision. CARDIOVASCULAR SYSTEM: No angina, palpitations. RESPIRATORY SYSTEM: No cough, hemoptysis. GI: No nausea, vomiting. : No dysuria or retention. NERVOUS SYSTEM: No numbness, weakness. ALLERGY/IMMUNOLOGY: No asthma, hayfever. MUSCULOSKELETAL: As mentioned earlier. HEMATOLOGY/ONCOLOGY: No history of anemia. ENDOCRINE: No history of diabetes, hypothyroidism. CONSTITUTIONAL: As mentioned earlier. DERMATOLOGY: Negative. RHEUMATOLOGY: Negative. PSYCHIATRY: As mentioned earlier. PHYSICAL EXAMINATION: Patient alert and oriented x3. Pulse 77, blood pressure 160/91, respirations 16, temperature 98.7, pulse ox 99% on 2 L. HEENT: Conjunctivae normal. NECK: No jugular venous distention. CARDIOVASCULAR SYSTEM: S1, S2 muffled. RESPIRATORY SYSTEM: Breath sounds diminished at the bases. No rhonchi. No crackles. ABDOMEN: Soft, non-tender. No mass palpable. LEGS: No edema. No swelling. NERVOUS SYSTEM: Higher functions as mentioned earlier. Moves all 4 limbs. No focal motor or sensory deficit. SKIN: No ulcer, rash, bleeding. JOINTS: No active deforming arthropathy. EXAMINATION OF THE NECK: Status post surgery. LABS: COVID-19 is negative. The preoperative labs done show CBC within normal limits. Chemistry is also within normal limits. Coags are also within normal limits. ASSESSMENT: 1. Status post anterior cervical discectomy fusion at C3-4, C4-5, C5-6 for severe degenerative joint disease. 2. Atrial fibrillation history. 3. History of fibromyalgia. 4. History of gastroesophageal reflux disease. 5. Hypertension. 6. History of degenerative joint disease. 7. History of Camacho's esophagus. 8. History of appendectomy. 9. History of back surgery. 10.Laminectomy. 11.Anxiety, depression. 12.Remote history of nicotine dependence. 13.History of tetrahydrocannabinol. 14.FULL CODE. RECOMMENDATIONS AND DISCUSSION: In this 69-year-old gentleman who presented with multiple medical issues, at this time I recommended to continue current medications, continue with symptomatic treatment. Continue with DVT prophylaxis. Resume the home medications. Symptomatic treatment. Proton pump inhibitors. Will follow the patient closely. The patient may be asked to follow with Dr. Tavera closely after discharge. Thank you, Dr. Sandoval, for letting us participate in the care of this patient. MMODL / IJN: [id number] /
[2020-09-18] MEDS: HYDROcodone/APAP 7.5-325MG 1 EACH TAB PO PRN (23:31)
[2020-09-19] MEDS: HYDROmorphone 1 MG/ML 1 ML SYRINGE IVP PRN ×2 (03:54→08:09)
[2020-09-19] MEDS: HYDROcodone/APAP 7.5-325MG 1 EACH TAB PO PRN (06:12)
[2020-09-19] MEDS ORDERED: PANTOPRAZOLE 40 MG TABLET PO SCH (07:30)
[2020-09-19] MEDS: ACETAMINOPHEN TAB 500 MG TAB PO SCH ×2 (07:32→13:40)
[2020-09-19] MEDS: GABAPENTIN 300 MG CAP PO SCH (08:05)
[2020-09-19] MEDS: DEXAMETHASONE SOD PHOSPHATE 4 MG/ML 1 ML VIAL IV SCH ×2 (08:07→13:40)
[2020-09-19] MEDS: atenoloL 25 MG TAB PO SCH (08:07)
[2020-09-19] MEDS: DULoxetine HCL 60 MG CAPSULE.DR PO SCH (08:08)
[2020-09-19] MEDS: ceFAZolin 2 GM in SODIUM CHLORIDE 0.9% 100 ML IVPB SCH (08:12)
[2020-09-19] MEDS ORDERED: APIXABAN 5 MG TAB PO SCH (09:00)
[2020-09-19] MEDS ORDERED: ZINC SULFATE 220 MG CAP PO SCH (09:00)
[2020-09-19] MEDS ORDERED: [UNRECOGNIZED DRUG - OTHER] PO SCH (09:00)
[2020-09-19] MEDS ORDERED: ACETAMINOPHEN PO SCH (09:00)
[2020-09-19] MEDS ORDERED: CAFFEINE PO SCH (09:00)
[2020-09-19] MEDS ORDERED: ASPIRIN PO SCH (09:00)
[2020-09-19] MEDS ORDERED: NON FORMULARY DRUG (Potassium Gluconate [Potassium Gluconate] 99 MG Tablet.Er) PO SCH (09:00)
[2020-09-19] MEDS ORDERED: NON FORMULARY DRUG (Vitamin B Complex [Vitamin B Complex] 1 EACH Capsule) PO SCH (09:00)
[2020-09-19] MEDS ORDERED: CHOLECALCIFEROL 25 MCG (1000 IU) TABLET PO SCH (09:00)
--- NOTE | 2020-09-19 09:03 | P.PN ---
Subjective Progress Note Date: 09/19/20 Principal diagnosis: Cervical spondylitic myelopathy Patient seen and examined this morning is doing well. He was going to the bathroom this morning when he turned did not ripped his drain out of his neck. His dressing is saturated but he is having no swelling or discomfort related to this. He denies any perineal numbness or tingling. He has been up and walking states that his legs feel better in his arms feel better although he still has a little bit of numbness and tingling. He denies any other symptoms no fevers chills shortness of breath or chest pain at this time Objective - Vital Signs Vital signs: Vital Signs Temp 98.7 F 09/19/20 02:00 Pulse 85 09/19/20 02:00 Resp 16 09/19/20 02:00 BP 152/94 09/19/20 02:00 Pulse Ox 97 09/19/20 02:00 Intake & Output 09/18/20 09/19/20 09/19/20 18:59 06:59 18:59 Intake Total 4151 590 Output Total 440 Balance 3711 590 Intake: IV 3351 Intake, IV Titration 180 Amount Lactated Ringers 1,000 ml 80 @ 20 mls/hr IV .Q24H SHERLYN Rx#:[id number] ceFAZolin 2 gm In Sodium 100 Chloride 0.9% 100 ml @ 200 mls/hr IVPB Q8HR SHERLYN Rx#:[id number] Oral 620 590 Output: Urine 405 Estimated Blood Loss 35 Other: Voiding Method Toilet Toilet Urinal Urinal # Voids 3 3 - Exam PHYSICAL EXAMINATION: Vitals: Stable at this time General: Awake, alert, appropriate for age, in no acute distress. HEENT: No unusual neck masses around region of lateral neck triangle, thyroid, supraclavicular groove. Heart: Regular rate and rhythm, normal S1, S2 and no murmur/gallop. Lungs: Clear to auscultation bilaterally with no use of accessory muscles. Extremities: Skin warm and dry without no acute lesions, coloration, temperature, skin intact, no tenderness or erythema. Integument: Hairy patches: Absent Dorsal skin dimples: Absent Cafe au lait spots: Absent Surgical incisions: Incision is clean dry and intact. Dressing was removed and changed due to saturation and will be changed before he leaves. Drain hole was assessed and Steri-Strips placed over it Palpation: Please see Pain drawing on Intake sheet for further detail. (Tenderness = T, Nontender = NT, Swelling = S, Ecchymosis = E) Findings on Midline and paraspinal palpation and percussion: Cervical: NT Thoracic: NT Lumbar: NT Sacral: NT Special findings: None POSTURAL and MUSCULO-SKELETAL EVALUATION: Neck ROM: Unrestricted secondary to surgery minimal pain Lumbar ROM: Unrestricted in six directions Shoulder ROM: Symmetric in abduction, ER/IR Hip ROM: Symmetric in abduction, adduction, ER/IR Knee ROM: Symmetric and intact in Flexion / extension Hands: Normal appearing structure L and R Feet: Normal appearing structure L and R VASCULAR STATUS : Wrist Pulses: 2/4 bilateral radial and ulnar Pedal Pulses: 2/4 bilateral DP and PT Color: Normal Edema: None NEUROLOGIC EXAMINATION: Mental Status: Awake and alert, fully oriented, with normal attention, concentration and memory, and fluent, appropriate speech. Cranial Nerves: I: Olfactory not tested. II: Visual acuity normal, no visual field deficit noted with confrontation. III,IV: Normal pupillary reflexes & intact extraocular movements without nystagmus. V,: Intact symmetrical facial sensation. VII: Intact symmetrical facial motor movement VIII: Hearing intact. IX,X: Intact gag, swallow, & normal voice. XI: Sternocleidomastoid, trapezius function intact. XII: Tongue midline with normal movements. Special Tests: L'hermitte's Sign: Absent Spurling'Sign: Absent Bilateral Cubital percussion test: Absent Bilateral Nova-Tinel sign - Carpal region: Absent Bilateral Straight Leg Raising: Absent Bilateral Motor Exam (0-5/5, N/T) STRENGTH UPPER EXTREMITY Shoulder Abd (Not part of SEAMUS Motor score): RIGHT 5 LEFT 5 Elbow Flexors: RIGHT 5 LEFT 5 Elbow Extensor: RIGHT 5 LEFT 5 Wrrist Dorsiflexors: RIGHT 5 LEFT 5 Finger Abductor: RIGHT 5 LEFT 5 Supervisor Shop: RIGHT 5 LEFT 5 Regain strength upper extremities bilaterally LOWER EXTREMITY Hip Flexor (Not part of SEAMUS Motor Score): RIGHT 5 LEFT 5 Knee Flexor: RIGHT 5 LEFT 5 Knee Extensor: RIGHT 5 LEFT 5 Ankle Dorsiflexion: RIGHT 5 LEFT 5 Ankle Plantarflexion: RIGHT 5 LEFT 5 EHL: RIGHT 5 LEFT 5 FHL: RIGHT 5 LEFT 5 REFLEXES Biecp: RIGHT 2 LEFT 2 Tricep: RIGHT 2 LEFT 2 Brachioradialis: RIGHT 2 LEFT 2 Patellar: RIGHT 2 LEFT 2 Achilles: RIGHT 2 LEFT 2 Pathological Reflexes Flowers's: RIGHT Absent LEFT Absent Babinski: RIGHT Absent LEFT Absent Clonus: RIGHT None LEFT None SENSORY Joint Position: Intact bilaterally Vibration Intact bilaterally Pain and LT sense Intact C5-T1 and L2-S1 Dermatomal deficit None Gait and Functional Evaluation: Ambulatory aids: Romberg's test: Intact bilaterally. Toe walk/ heel walk / heel-toe walk intact while maintaining satisfactory balance. Squatting and straightening out without assistance to a minimum of 60 degrees knee flexion Single leg stance: intact/ Trendelenburg sign negative bilaterally Hand and finger dexterity intact bilaterally. Disdiadochokinesis examination negative bilaterally. Assessment and Plan Assessment: - C3-C4 stenosis - Cervical spondylotic myelopathy - C4-C5 stenosis - C5-C6 stenosis - Cervical radiculopathy - Cervical degenerative disc disease - Mechanical neck pain. Plan: -Appreciate medicine management. -Pain control: Adequate at this time will increase DC meds to [place] 10 -Aggressive ambulation protocol. OOB with all meals. OOB or in chair 4-5x daily. -PT/OT -TEDs, SCDs, mechanical ppx. OK for heparin today. Early ambulation is best. -GI ppx. -Computed tomography scan of the cervical spine pending -Trend labs. -Dispo: Discharge to home today once awake and stable and after physical therapy Time with Patient: Greater than 30
[2020-09-19 09:07] LABS: HCT 41.5 % (39.6-50.0); HGB 13.8 g/dL (13.0-17.0); MCHC 33.3 g/dL (32.0-37.0); MCV 96.3 fL (80.0-97.0); Platelet Count 212 X 10*3/uL (140-440); RBC 4.31 X 10*6/uL (4.40-5.60); RDW 13.9 % (11.5-14.5)
[2020-09-19 10:55] LABS: Basophils # (A) 0.02 X 10*3/uL (0.00-0.10); Basophils % (A) 0.1 %; Eosinophils # (A) 0.02 X 10*3/uL (0.04-0.35); Eosinophils % (A) 0.1 %; Lymphocytes # (A) 2.26 X 10*3/uL (0.90-5.00); Lymphocytes % (A) 15.8 %; Monocytes # (A) 1.71 X 10*3/uL (0.20-1.00); Neutrophils # (A) 10.23 X 10*3/uL (1.80-7.70); Neutrophils % (A) 71.6 %
[2020-09-19 11:35] VITALS: BP 129/76; PULSE 68; RESP 20; TEMP 98.6
--- NOTE | 2020-09-19 15:14 | P.DS ---
Providers Date of admission: 09/18/20 05:29 Attending physician: Dhruv Sandoval DO Consults: 09/18/20 12:39 Consult Physician Routine Consulting Provider: Fannie Patten Consult Reason/Comments: Medical Management Do you want consulting provider notified?: Yes Primary care physician: Ava Crandall [facility] Course: Date of admission: 09/18/2020 Date of discharge: 09/19/2020 Admission diagnosis: C3 to C6 spondylosis, severe Discharge diagnosis: C3 to C6 spondylosis, severe Attending physician: Dr. Sandoval Surgical procedures: Anterior cervical discectomy fusion, C3 to C4, C4-C5, C5 to C6 with a NIM Brief history: Patient is a [69-year-old male] with a history of [bilateral upper extremity and cervical pain, who has failed conservative treatments inc luding steroid injections and has opted to proceed with a elective []. Hospital course: Details of patient's surgery can be found in operative report. Patient tolerated the procedure well and was subsequently transported to orthopedic floor. Patient's orthopeidc and medical care was provided daily. Patient had daily laboratory tests performed for evaluation of overall blood counts []. Patient had daily physical therapy to include strengthening range of motion as well as education with walker ambulation. Patient was treated with [Xarelto] for their postoperative DVT prophylaxis during their inpatient stay. Patient was noted to have a relatively uneventful postoperative course. Patient reported satisfactory pain control with oral pain medications by postoperative day []. Patient showed satisfactory progress with physical therapy. Patient moved steadily through the program and had no difficulty meeting the goals by postoperative day []. Given patient's otherwise satisfactory course and having met physical therapy goals, plan is to discharge patient [home] on postoperative day []. Discharge condition/disposition: Patient will be discharged [home] in stable condition. Discharge medications: Instructions are given on resumption of patient's normal daily medications per primary care recommendation, in addition patient will be prescribed []. Spine Discharge and Recovery Instructions Diagnosis: C3 to C6 spondylosis, severe Procedure: Anterior cervical discectomy fusion, C3 to C4, C4-C5, C5 to C6 with an NIM Medications: See medication list All medication refills should be obtained through your primary care doctor or your clinic spine surgeon. Please discuss prescription refills at your follow up appointment. Do not call the hospital for medication refills. Dressing: Leave your dressing in place for a total of 5 days post operatively. Then you may remove your dressing and leave open to air. Keep the area clean and if not able to keep area clean, then cover with sterile gauze and tape. Showering: You may shower 3 days after your procedure allowing soap and water to run over incision. Do not scrub. Do not soak. Blot dry. Follow up: Please confirm a follow up appointment with your surgeon 3 weeks post operatively. Please make an appointment to follow up with your PCP in 1-2 weeks after surgery for evaluation 3 phase, 3-week plan POST OP WEEKS 1-3 1. Lifting/carrying/pushing/pulling limited to less than 5 pounds. 2. Do not sit for longer than 15 minutes at one time. Get up and walk rosalba und. Prolonged sitting is NOT advised. If you lay down, see if you can tolerate laying down on you front (belly side) 3. Walk for periods of 15 minutes = 1 mile but no longer; do it multiple times times each day. 4. Ice your low back after activity. POST OP WEEKS 3-6 1. Lifting limited to less than 20 pounds. 2. Do not sit for longer than 30 minutes at a time. Frequently change positions. Use a sit-to stand workstation or take frequent breaks from sitting if you have returned to work. 3. Walk for 30 minutes each day. If possible, do these three or more times a day POST OP WEEKS 6+ At your 6-week appointment we will give you a physical therapy referral to focus on a core stabilization and strengthening program. You should also work on leg & buttock strengthening, hamstring & quadriceps stretching, and continue a low impact aerobic activity program such as swimming, walking, or riding a stationary bicycle. During the initial 6 weeks after your surgery, you are at the highest risk of re-injuring your spine. You should generally avoid BLTs (bending, lifting and twisting combination motions) and follow the above guidelines to reduce the chance of reinjury. You can anticipate post op appointments in our office at approximately 3 weeks and 6 weeks after your surgery. INCISION CARE: If your incision is not draining you do NOT need to cover it with a dressing. Keep your incision clean, dry and intact. In most cases, we apply skin glue, george or sutures to the incision at the ti me of surgery. This will be like a crust or have the appearance of a scab and will fall off in time on its own. The stitches or george need to be removed at 3 weeks post op appointment. You may begin to shower 3 days after surgery (this allows the glue to lopez well). However, please avoid scrubbing the incision site or peeling off any of the skin glue. This will ensure optimal healing of your incision. Also, during this time avoid soaking the incision area in water - this includes swimming pools, hot tubs or baths. No ointments, lotions or oils on the incision until your surgeon allows. Leave george, sutures or glue in place. Neurological dysfunction that comes on suddenly can also be a sign of a stroke. Below some common symptoms of a stroke are listed: B - balance difficulty such as sudden onset walking or leaning to one side - NEW E - eye problem such as sudden double vision or trouble seeing on one side - NEW F - Facial weakness or numbness on one side - NEW A - Arm or leg weakness or numbness on one side - NEW S - Slurred speech or difficulty with word finding - NEW T - Time is BRAIN! Call 911 as soon as you recognize these symptoms Diet: Consume a regular diet rich in vegetables and lean protein such as chicken or fish. You should consume in a ratio of approximately 20% fats|40% carbohydrates|40%protein. Vegetables, sweet potatoes, brown rice or quinoa are examples of good carbohydrates. Chips, white bread, cookies and sweets/sugar are examples of bad carbohydrates. Limit your bad carbs, go wild with good carbs. 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 (1) Get Active. Physical activity can help people lose weight, control high blood pressure and cholesterol, feel emotionally better, and sleep better. (2) Control Cholesterol. Avoid a diet high in saturated fat, trans fat, & cholesterol. Limit whole milk & cream, ice cream, butter, egg yolks, processed meats (like sausage and hot dogs), and fatty meats. Choose healthy foods that are low in saturated fat, trans fat and cholesterol which include: Fruits and vegetables, fiber rich grain products (like whole grain pasta and brown rice), lean meat such as chicken, fish, nuts, seeds, and legumes. (3) Eat Better. Eat small portions. Shop at the grocery with a list and do not stray from it. Tips for a healthy diet include: Limit sodium intake to less than 1500mg daily, avoid prepackaged, processed, and fast foods, choose a diet rich in fruits, vegetables, and whole grain, high fiber foods, and limit saturated & cholesterol in your diet. (4) Manage Blood Pressure. If you have high blood pressure, you should have a cuff at home so that you can check your blood pressure regularly. Be sure you have a good cuff. An arm one is generally better than a wrist one. Bring the cuff to a doctor's appointment to validate that the measurements that your cuff are taking are accurate. Take your blood pressure twice daily when you are sitting down and relaxing. Record the numbers in a log and bring this log with you to your doctors' appointments. (5) Lose Weight if your BMI is above 25. A healthy BMI is between 19-25. To calculate Your BMI, you may use a Standard BMI Calculator on the NIH BMI website: <www.nhlbi.nih.gov/guidelines/obesity/BMI/bmicalc.htm>. Weigh oneself daily. If you are overweight, set a goal to lose weight. A pound a week loss if needed is a good target. (6) Reduce Blood Sugar. Limit foods and liquids with "added sugars." (Added sugars include sucrose, fructose, glucose, maltose, dextrose, high fructose corn syrup, corn syrup, concentrated fruit juice and honey). (7) Stop Smoking. If you smoke, quitting smoking is one of the best things that you can do for your health. Smoking increases your risk of heart attack, s troke, and peripheral vascular disease, which is a build-up of plaque in your arteries. Please discard all the cigarettes and lighters in your house. Have a plan for what you will do when you have the urge to smoke. Direct and second- hand smoke shortens your life as well as the lives of your family, friends and others around you. For your health and the health of those around you, please consider quitting! Proper Bending Body Mechanics: Maintain a wide stance with one foot slightly in front of the other. Keep your back straight. Bend utilizing the strength in your hips and knees. Do not bend at the waist. Maintain the lifted object at your waist-level close to your body. Avoid lifting weight that causes immediately pain or pain anywhere in the body afterwards. Smoking/Nicotine If there was ever one thing that you could do to increase your overall health, decrease your risk of cardiovascular problems by about 39% the second you make the choice, it is to STOP SMOKING. Your body's most instant gratification is the second you stop smoking. We have all heard the studies, read the articles but it is true, smoking is extremely bad for your overall health, and moreover it is detrimental to your bone health. Nicotine, IN ANY FORM, kills bone cells, prevents your body from healing fractures, and significantly prolongs healing after surgery. In spine surgery specifically, it increases your risk of not healing your bones to create a fusion and increases your risk of having a revision surgery due to this up to 60%. I know it is hard. I know it feels impossible. But there are ways. Take control of your life. We are here to help you through it. And when you are ready, ask us and we can direct you to help if you desire. Use the START Plan to Quit Smoking (please visit the Helpguide.org website listed below for more information): S = Set a quit date. Choose a date within the next 2 weeks, so you have enough time to prepare without losing your motivation to quit. If you mainly smoke at work, quit on the weekend, so you have a few days to adjust to the change. T = Tell family, friends, and co-workers that you plan to quit. Let your friends and family in on your plan to quit smoking and tell them you need their support and encouragement to stop. Look for a quit cristopher who wants to stop smoking as well. You can help each other get through the rough times. A = Anticipate and plan for the challenges you'll face while quitting. Most people who begin smoking again do so within the first 3 months. You can help yourself make it through by preparing ahead for common challenges, such as nicotine withdrawal and cigarette cravings. R = Remove cigarettes and other tobacco products from your home, car, and work. Throw away all your cigarettes (no emergency pack!), lighters, ashtrays, and matches. Wash your clothes and freshen up anything that smells like smoke. Shampoo your car, clean your drapes and carpet, and steam your furniture. T = Talk to your doctor about getting help to quit. Your doctor can prescribe medication to help with withdrawal and suggest other alternatives. If you can't see a doctor, you can get many products over the counter at your local pharmacy or grocery store, including the nicotine patch, nicotine lozenges, and nicotine gum. Resources for Quitting Smoking: <https://www.[place].gov/documents/[facility]/Quit_Tobacco_Resources_for_patients_313 480_7.pdf> Supplementation: Take recommended dosages of Vitamin D and Calcium to help fortify your bones and help them to heal. See your health maintenance packet for dosages and recommended levels. DVT/VTE prophylaxis: You will be given compression stockings from the hospital. Wear these daily for the first two weeks after surgery. You may take them off at night. You may be prescribed a medication to help thin your blood. Take this as directed. If you are not prescribed this medication, early and frequent ambulation has been shown to be the best prophylaxis to deep vein thrombosis and sequelae related to this event. Patient Condition at Discharge: Good Plan - Discharge Summary Discharge Rx Participant: Yes New Discharge Prescriptions: New HYDROcodone/APAP 10-325MG [Byers 10-325] 1 tab PO Q4-6H PRN #56 tab PRN Reason: Pain Cyclobenzaprine [Flexeril] 10 mg PO TID #40 tab cefaDROXiL [Duricef] 1 g PO Q12HR 3 Days #6 ml Gabapentin 300 mg PO TID #90 cap Sennosides [Senna] 8.6 mg PO BID PRN #20 tablet PRN Reason: Constipation No Action Atenolol [Tenormin] 25 mg PO QAM Omeprazole 40 mg PO AC-BRKFST DULoxetine HCL [Cymbalta] 60 mg PO BID Silodosin [Rapaflo] 8 mg PO HS Apixaban [Eliquis] 5 mg PO BID Ascorbic Acid [Vitamin C] 1,000 mg PO DAILY Zinc 50 mg PO DAILY Potassium Gluconate 99 mg PO DAILY Cholecalciferol (Vitamin D3) [Vitamin D3 (5000 Iu)] 125 mcg PO DAILY Vitamin B Complex 1 each PO DAILY Vit C/E/Zn/Coppr/Lutein/Zeaxan [Preservision Areds 2 Softgel] 1 each PO DAILY Multivitamins, Thera [Multivitamin (formulary)] 1 tab PO DAILY Carnitine 1500 Mg 1 tab PO DAILY Glucosam/Jere-Msm1/C/Brandin/Bosw [Glucosamine-Chondroitin Tablet] 1 each PO DAILY Aspirin/Acetaminophen/Caffeine [Goody's Ex-Str Powder Packet] 1 each PO DAILY Acetaminophen [Tylenol] 500 mg PO Q4-6H PRN PRN Reason: Pain Discharge Medication List Atenolol [Tenormin] 25 mg PO QAM 11/06/13 [History] Omeprazole 40 mg PO AC-BRKFST 11/06/13 [History] DULoxetine HCL [Cymbalta] 60 mg PO BID 08/01/16 [History] Apixaban [Eliquis] 5 mg PO BID 07/01/18 [History] Silodosin [Rapaflo] 8 mg PO HS 07/01/18 [History] Ascorbic Acid [Vitamin C] 1,000 mg PO DAILY 07/26/20 [History] Carnitine 1500 Mg 1 tab PO DAILY 07/26/20 [History] Cholecalciferol (Vitamin D3) [Vitamin D3 (5000 Iu)] 125 mcg PO DAILY 07/26/20 [History] Multivitamins, Thera [Multivitamin (formulary)] 1 tab PO DAILY 07/26/20 [History] Potassium Gluconate 99 mg PO DAILY 07/26/20 [History] Vit C/E/Zn/Coppr/Lutein/Zeaxan [Preservision Areds 2 Softgel] 1 each PO DAILY 07/26/20 [History] Vitamin B Complex 1 each PO DAILY 07/26/20 [History] Zinc 50 mg PO DAILY 07/26/20 [History] Glucosam/Jere-Msm1/C/Brandin/Bosw [Glucosamine-Chondroitin Tablet] 1 each PO DAILY 08/03/20 [History] Acetaminophen [Tylenol] 500 mg PO Q4-6H PRN 09/12/20 [History] Aspirin/Acetaminophen/Caffeine [Goody's Ex-Str Powder Packet] 1 each PO DAILY 09/12/20 [History] Cyclobenzaprine [Flexeril] 10 mg PO TID #40 tab 09/19/20 [Rx] Gabapentin 300 mg PO TID #90 cap 09/19/20 [Rx] HYDROcodone/APAP 10-325MG [Byers 10-325] 1 tab PO Q4-6H PRN #56 tab 09/19/20 [Rx] Sennosides [Senna] 8.6 mg PO BID PRN #20 tablet 09/19/20 [Rx] cefaDROXiL [Duricef] 1 g PO Q12HR 3 Days #6 ml 09/19/20 [Rx] Follow up Appointment(s)/Referral(s): Dhruv Sandoval DO [Doctor of Osteopathic Medicine] - 2 Weeks Activity/Diet/Wound Care/Special Instructions: Spine Discharge and Recovery Instructions Date of Surgery: 09/18/2020 Diagnosis: C3 to C6 spondylosis, severe Procedure: Anterior cervical discectomy fusion, C3 to C4, C4-C5, C5 to C6 with an NIM Medications: See medication list All medication refills should be obtained through your primary care doctor or your clinic spine surgeon. Please discuss prescription refills at your follow up appointment. Do not call the hospital for medication refills. Dressing: Leave your dressing in place for a total of 5 days post operatively. Then you may remove your dressing and leave open to air. Keep the area clean and if not able to keep area clean, then cover with sterile gauze and tape. Showering: You may shower 3 days after your procedure allowing soap and water to run over incision. Do not scrub. Do not soak. Blot dry. Follow up: Please confirm a follow up appointment with your surgeon 3 weeks post operatively. Please make an appointment to follow up with your PCP in 1-2 weeks after surgery for evaluation 3 phase, 3-week plan POST OP WEEKS 1-3 1. Lifting/carrying/pushing/pulling limited to less than 5 pounds. 2. Do not sit for longer than 15 minutes at one time. Get up and walk around. Prolonged sitting is NOT advised. If you lay down, see if you can tolerate laying down on you front (belly side) 3. Walk for periods of 15 minutes = 1 mile but no longer; do it multiple times times each day. 4. Ice your low back after activity. POST OP WEEKS 3-6 1. Lifting limited to less than 20 pounds. 2. Do not sit for longer than 30 minutes at a time. Frequently change positions. Use a sit-to stand workstation or take frequent breaks from sitting if you have returned to work. 3. Walk for 30 minutes each day. If possible, do these three or more times a day POST OP WEEKS 6+ At your 6-week appointment we will give you a physical therapy referral to focus on a core stabilization and strengthening program. You should also work on leg & buttock strengthening, hamstring & quadriceps stretching, and continue a low impact aerobic activity program such as swimming, walking, or riding a stationary bicycle. During the initial 6 weeks after your surgery, you are at the highest risk of re-injuring your spine. You should generally avoid BLTs (bending, lifting and twisting combination motions) and follow the above guidelines to reduce the chance of reinjury. You can anticipate post op appointments in our office at approximately 3 weeks and 6 weeks after your surgery. INCISION CARE: If your incision is not draining you do NOT need to cover it with a dressing. Keep your incision clean, dry and intact. In most cases, we apply skin glue, george or sutures to the incision at the time of surgery. This will be like a crust or have the appearance of a scab and will fall off in time on its own. The stitches or george need to be removed at 3 weeks post op appointment. You may begin to shower 3 days after surgery (this allows the glue to lopez well). However, please avoid scrubbing the incision site or peeling off any of the skin glue. This will ensure optimal healing of your incision. Also, during this time avoid soaking the incision area in water - this includes swimming pools, hot tubs or baths. No ointments, lotions or oils on the incision until your surgeon allows. Leave george, sutures or glue in place. Neurological dysfunction that comes on suddenly can also be a sign of a stroke. Below some common symptoms of a stroke are listed: B - balance difficulty such as sudden onset walking or leaning to one side - NEW E - eye problem such as sudden double vision or trouble seeing on one side - NEW F - Facial weakness or numbness on one side - NEW A - Arm or leg weakness or numbness on one side - NEW S - Slurred speech or difficulty with word finding - NEW T - Time is BRAIN! Call 911 as soon as you recognize these symptoms Diet: Consume a regular diet rich in vegetables and lean protein such as chicken or fish. You should consume in a ratio of approximately 20% fats|40% carbohydrates|40%protein. Vegetables, sweet potatoes, brown rice or quinoa are examples of good carbohydrates. Chips, white bread, cookies and sweets/sugar are examples of bad carbohydrates. Limit your bad carbs, go wild with good carbs. 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 (1) Get Active. Physical activity can help people lose weight, control high blood pressure and cholesterol, feel emotionally better, and sleep better. (2) Control Cholesterol. Avoid a diet high in saturated fat, trans fat, & cholesterol. Limit whole milk & cream, ice cream, butter, egg yolks, processed meats (like sausage and hot dogs), and fatty meats. Choose healthy foods that are low in saturated fat, trans fat and cholesterol which include: Fruits and vegetables, fiber rich grain products (like whole grain pasta and brown rice), lean meat such as chicken, fish, nuts, seeds, and legumes. (3) Eat Better. Eat small portions. Shop at the grocery with a list and do not stray from it. Tips for a healthy diet include: Limit sodium intake to less than 1500mg daily, avoid prepackaged, processed, and fast foods, choose a diet rich in fruits, vegetables, and whole grain, high fiber foods, and limit saturated & cholesterol in your diet. (4) Manage Blood Pressure. If you have high blood pressure, you should have a cuff at home so that you can check your blood pressure regularly. Be sure you have a good cuff. An arm one is generally better than a wrist one. Bring the cuff to a doctor's appointment to validate that the measurements that your cuff are taking are accurate. Take your blood pressure twice daily when you are sitting down and relaxing. Record the numbers in a log and bring this log with you to your doctors' appointments. (5) Lose Weight if your BMI is above 25. A healthy BMI is between 19-25. To calculate Your BMI, you may use a Standard BMI Calculator on the NIH BMI website: <www.nhlbi.nih.gov/guidelines/obesity/BMI/bmicalc.htm>. Weigh oneself daily. If you are overweight, set a goal to lose weight. A pound a week loss if needed is a good target. (6) Reduce Blood Sugar. Limit foods and liquids with "added sugars." (Added sugars include sucrose, fructose, glucose, maltose, dextrose, high fructose corn syrup, corn syrup, concentrated fruit juice and honey). (7) Stop Smoking. If you smoke, quitting smoking is one of the best things that you can do for your health. Smoking increases your risk of heart attack, stroke, and peripheral vascular disease, which is a build-up of plaque in your arteries. Please discard all the cigarettes and lighters in your house. Have a plan for what you will do when you have the urge to smoke. Direct and second- hand smoke shortens your life as well as the lives of your family, friends and others around you. For your health and the health of those around you, please consider quitting! Proper Bending Body Mechanics: Maintain a wide stance with one foot slightly in front of the other. Keep your back straight. Bend utilizing the strength in your hips and knees. Do not bend at the waist. Maintain the lifted object at your waist-level close to your body. Avoid lifting weight that causes immediately pain or pain anywhere in the body afterwards. Smoking/Nicotine If there was ever one thing that you could do to increase your overall health, decrease your risk of cardiovascular problems by about 39% the second you make the choice, it is to STOP SMOKING. Your body's most instant gratification is the second you stop smoking. We have all heard the studies, read the articles but it is true, smoking is extremely bad for your overall health, and moreover it is detrimental to your bone health. Nicotine, IN ANY FORM, kills bone cells, prevents your body from healing fractures, and significantly prolongs healing after surgery. In spine surgery specifically, it increases your risk of not healing your bones to create a fusion and increases your risk of having a revision surgery due to this up to 60%. I know it is hard. I know it feels impossible. But there are ways. Take control of your life. We are here to help you through it. And when you are ready, ask us and we can direct you to help if you desire. Use the START Plan to Quit Smoking (please visit the Qriket.org website listed below for more information): S = Set a quit date. Choose a date within the next 2 weeks, so you have enough time to prepare without losing your motivation to quit. If you mainly smoke at work, quit on the weekend, so you have a few days to adjust to the change. T = Tell family, friends, and co-workers that you plan to quit. Let your friends and family in on your plan to quit smoking and tell them you need their support and encouragement to stop. Look for a quit cristopher who wants to stop smoking as well. You can help each other get through the rough times. A = Anticipate and plan for the challenges you'll face while quitting. Most people who begin smoking again do so within the first 3 months. You can help yourself make it through by preparing ahead for common challenges, such as nicotine withdrawal and cigarette cravings. R = Remove cigarettes and other tobacco products from your home, car, and work. Throw away all your cigarettes (no emergency pack!), lighters, ashtrays, and matches. Wash your clothes and freshen up anything that smells like smoke. Shampoo your car, clean your drapes and carpet, and steam your furniture. T = Talk to your doctor about getting help to quit. Your doctor can prescribe medication to help with withdrawal and suggest other alternatives. If you can't see a doctor, you can get many products over the counter at your local pharmacy or grocery store, including the nicotine patch, nicotine lozenges, and nicotine gum. Resources for Quitting Smoking: <https://www.[place].gov/documents/[facility]/Quit_Tobacco_Resources_for_patients_313 480_7.pdf> Supplementation: Take recommended dosages of Vitamin D and Calcium to help fortify your bones and help them to heal. See your health maintenance packet for dosages and recommended levels. DVT/VTE prophylaxis: You will be given compression stockings from the hospital. Wear these daily for the first two weeks after surgery. You may take them off at night. You may be prescribed a medication to help thin your blood. Take this as directed. If you are not prescribed this medication, early and frequent ambulation has been shown to be the best prophylaxis to deep vein thrombosis and sequelae related to this event. Discharge Disposition: HOME SELF-CARE
--- NOTE | 2020-09-19 15:24 | P.OP ---
Date of Procedure: 09/18/20 Preoperative Diagnosis: - C3-C4 stenosis - Cervical spondylotic myelopathy - C4-C5 stenosis - C5-C6 stenosis - Cervical radiculopathy - Cervical degenerative disc disease - Mechanical neck pain. Postoperative Diagnosis: - C3-C4 stenosis - Cervical spondylotic myelopathy - C4-C5 stenosis - C5-C6 stenosis - Cervical radiculopathy - Cervical degenerative disc disease - Mechanical neck pain Procedure(s) Performed: - Right sided Fernandez-Barnett exposure - C3-C4 anterior interbody arthrodesis. - C4-C5 anterior interbody arthrodesis. - C5-C6 anterior interbody arthrodesis. - C3-C4 application of intervertebral biomechanical device - C4-C5 application of intervertebral biomechanical device. - C5-C6 application of intervertebral biomechanical device. - C3, C4, C5 and C6 separate nonintegrated anterior cervical spinal plate instrumentation. - Allograft bone for spinal surgery. - Use of intraoperative microscope. - Use of neurophysiologic somatosensory and motor evoked potential monitoring, upper and lower extremities. Implants: Katja Covidan cervical plate 69 mm Katja screws for anterior cervical plate 14 mmx 8 Anesthesia: GETA Indications for Procedure: Guilherme Nance is a plesent 69 yo male who presented with c/o cervical spine pain for several years now which is progressively getting worse. The patient's clinical exam has been consistent with significant cervical neck pain, cervical myelopathy and upper extremity radiculopathy. The patient's neuroradiographic imaging has been consistent with cervical spinal stenosis and degeneration at the above-stated levels He has failed appropriate nonoperative care for significant arm-related symptoms with Bilateral upper extremity hand paresthesias and weakness, loss of dexterity, and bilateral shoulder pain. The patient also had some signs of myelopathy both on neuroradiographic imaging and clinical exam. MRI and CT scan have shown significant cord compression C3 through C6 with loss of physiologic lordosis. Unfortunately, at this point in time, the patient's clinical symptoms have failed to improve with conservative management including prolonged activity modification, oral anti-inflammatories, oral pain medications, exercise-based therapy, as well as interventional pain measures. I therefore suggested an anterior decompression and fusion C3-C6. Risks and limitations of surgery including swallowing difficulties in about one-third of patients, more rare risk of hoarseness, C5 palsy, and nonunion risk were discussed. Given her persistent smoking status and multilevel surgery, she is at a slightly elevated risk of nonunion, however given her worsening balance issues, dexterity issues and cord compression, a more urgent procedure was indicated to prevent worsening of her symptoms. Medically the patient was cleared for the procedure. Based on the findings above, the patient has elected to proceed with surgery as outlined above and has obtained preoperative medical clearance. Operative Findings: Severe stenosis C3-4 with severe spondylosis C3-6 with cervical deformity. Description of Procedure: The patient was brought to the holding area on the day of surgery. In the holding area, the patient was seen and examined by myself. The surgical site was marked by myself with my initials using an indelible pen. The patient was taken to the operating room today and after being positively identified, received general endotracheal anesthesia by our anesthesia colleagues and bilateral sequential compression devices were placed on the lower extremities by the nursing staff. SSEP, EMG and motor-evoked potential baselines were obtained after the neuromonitoring leads were applied by the neurophysiology veterinary laboratory technician. Baseline MEPs and SSEPs were run showing good symmetric response in all extremities. SSEPs were also symmetric and stable. A bladder venegas catheter was placed. The patient was positioned on an interscapular pad on a Treos table with cervical lordosis roll and GW tongs with 10 pounds of traction were applied. Arms were circumferentially padded. All pressure points were well padded as well. Shoulder pull-down with 3-inch tape was carried out. Preoperatively within 1 hour of incision, the patient received IV antibiotic prophylaxis and steroids. C-arm was used for bio-mapping in 2 planes. Sterile prepping and draping was completed and a safety timeout was carried out. The timeout was performed in order to confirm patient's identity, procedure, laterality, site, patient allergies, and preoperative administration of antibiotics and DVT prophylaxis. I then performed, as discussed with the patient, a RIGHT sided anterior exposure along the anterior margin of the sternocleidomastoid muscle. This was about a 4 fingerbreadth-long incision. I identified the platysma and split it longitudinally. The superficial layer of the middle cervical fascia was identified and carefully dissected and then the deep layer of it. The omohyoid was mobilized and could be retracted. The deep cervical fascia was then released over the palpable osteophytes at C3-4, C4-5 and C5-6 and reflected left and right with crain elevators off the uncovertebral joints. Nice exposure left a nd right with release of the anterior soft tissues of the longus colli was achieved. A radiopaque marker was placed to confirm the appropriate surgical level. Under C-arm guidance, I verified levels. At this point, a self-retaining cervical retractor was placed, the endotracheal cuff pressure was lowered to reduce compression on the RLN and the intraoperative microscope was brought in for anterior decompression. I then removed the anterior osteophytes at C3-4 and C4-5 and C5-6. I also used a smaller ENT rongeur to open the disc spaces, including the uncovertebral joints left and right. Bone from the anterior decompression was saved for use as autograft bone fusion material. Under lateral C-arm guidance, I then placed 14 mm traction pins of the Turner type into C3 and C4. Gentle distraction of the vertebrae was carried out until we had restored lordosis. I then spread out the C3-4 disc after releasing the disc further with straight small curets. With the soft tissue retractors having been replaced and without any undue tension, I performed an anterior discectomy completion to the posterior inferior vertebral body wall using a combination of the high-speed bur, Kerrison punches, spinal curettes, and the microscopic instruments. The discectomy was performed to the level of the posterior longitudinal ligament. Bilateral foraminotomies and resection of the PLL was performed with the Kerrison punches to decompress the spinal cord and the exiting nerve roots. I also performed chidi dissection of the C3 endplate and the posterior superior endplate of C4, as well as the medial edge of the superior uncovertebral joints left and right of C4. I released the posterior longitudinal ligament and had full [place] dural sac as a reference for dorsal decompression of left through right. I then turned my attention toward the application of the intervertebral biomechanical device at C3-C4. The trial cages were inserted to identify the best fit. The appropriate-sized intervertebral cage was then selected, in this case a 9mm lordotic interbody implant, packed with autograft and allograft and then inserted into the interspace using gentle impaction. A set of motor evoked potentials was run showing no change from baseline. Excess bone graft was then gently impacted into the anterior exposed gutters at C3-C4 to complete the anterior interbody arthrodesis at this level. Next, I performed the anterior discectomy at C4-C5. Under lateral C-arm guidance, I removed self-retaining Turner distractor followed by the Turner pin from the C3 body, sealed the pin site with bone wax and then placed 14 mm traction pin of the Turner type into the C5 body. Gentle distraction of the vertebrae was carried out until we had restored lordosis. Then using a combination of the high-speed bur, Kerrison punches, spinal curettes, and the microscopic instruments, an anterior discectomy was performed to the level of the posterior longitudinal ligament. Bilateral foraminotomies and resection of the PLL was performed with the Kerrison punches to decompress the spinal cord and the exiting nerve roots. I then turned my attention toward the application of the intervertebral biomechanical device at C4-C5. The trial cages were inserted to identify the best fit. The appropriate-sized intervertebral cage was then selected, in this case a 8 mm lordotic interbody implant, packed with autograft and allograft and then inserted into the interspace using gentle impaction. A set of motor evoked potentials was run showing no change from baseline. Excess bone graft was then gently impacted into the anterior exposed gutters at C5-C6 to complete the anterior interbody arthrodesis at this level. Next, I performed the anterior discectomy at C5-C6. Under lateral C-arm guidance, I removed self-retaining Turner distractor followed by the Turner pin from the C4 body, sealed the pin site with bone wax and then placed 14 mm traction pin of the Turner type into the C6 body. Gentle distraction of the vertebrae was carried out until we had restored lordosis. Then using a combination of the high-speed bur, Kerrison punches, spinal curettes, and the microscopic instruments, an anterior discectomy was performed to the level of the posterior longitudinal ligament. Bilateral foraminotomies and resection of the PLL was performed with the Kerrison punches to decompress the spinal cord and the exiting nerve roots. I then turned my attention toward the application of the intervertebral biomechanical device at C5-C6. The trial cages were inserted to identify the best fit. The appropriate-sized intervertebral cage was then selected, in this case a 7 mm lordotic interbody implant, packed with autograft and allograft and then inserted into the interspace using gentle impaction. A set of motor evoked potentials was run showing no change from baseline. Excess bone graft was then gently impacted into the anterior exposed gutters at C5-C6 to complete the anterior interbody arthrodesis at this level. Nice purchase was obtained. All traction was removed, including pin traction of Turner and external traction weight. I then performed the application of the non-integrated anterior spinal instrumentation from C3, C4, C5, and C6. A non-integrated anterior cervical plate was selected for length and then contoured as needed for lordosis with the [place] horta. I templated a 69 mm [place] plate, lordosed it, and secured it with temporary holding screws and then checked with AP and lateral imaging for adequate alignment and implant placement. With that having been accomplished, I drilled first the patient's left-hand side C6 then Right hand side C6 and placed fixed angled screws. We then turned our attention to the C5 level, drilled these areas then C4 and finally C3. With this having been accomplished, all screw holes were filled with 16mm 3.5 screws, depending upon intraoperative drill finding and probing. A very nice stable fixation was obtained. Biplanar imaging revealed satisfactory alignment and implant placement. There were no electrodiagnostic changes. A final set of motor evoked potentials were run and no change from baseline was noted. The wound was then copiously irrigated and final hemostasis was achieved using FloSeal hemostatic agent and the bipolar device. At this point, the anterior cervical retractor was removed and the wound was found to have good hemostasis present. I then performed final thorough irrigation and review of the surgical site and found no internal organ injuries. I then closed the incision in layers with a deep drain. I used 2-0 Vicryl for platysma, 3-0 Vicryl for subcutaneous, and 4-0 Monocryl for skin. The skin was then dressed with Exofin and a sterile bandage. Suction canister was applied to the drain. The drain was sewn in to avoid accidental translocation. Drain dressing was applied. One final set of motor evoked potentials were run and no change from baseline was noted. A soft cervical collar was then applied. At the conclusion of the operation, all sponge, needle, and instrument counts were deemed to be correct. The patient was awakened from their anesthetic, extubated in the operating room, transferred onto their hospital bed, and transferred to the post-anesthesia care unit in a stable condition, extubated condition.
--- NOTE | 2020-09-19 21:46 | PN ---
PROGRESS NOTE DATE OF SERVICE: 09/19/2020 This 69-year-old gentleman who was admitted with anterior cervical discectomy, fusion, is improving significantly. No chest pain. No palpitations. No fever. PHYSICAL EXAMINATION: Alert and oriented x3. Pulse is 68. Blood pressure 129/72. Respirations 20. Temperature 98.2, pulse ox 97% on room air. HEENT is conjunctivae normal. NECK is no JVD. CARDIOVASCULAR: S1, S2 muffled. RESPIRATORY: Breath sounds diminished in the bases. No rhonchi. No crackles. ABDOMEN: Soft, nontender. LEGS: No edema. No swelling. NERVOUS SYSTEM: No focal deficits. LAB STUDIES: WBC 14.3. Other labs are noted. ASSESSMENT: 1. Status post anterior cervical diskectomy and fusion, C3-4, C4-5, C5-6, for severe degenerative joint disease. 2. Atrial fibrillation history. 3. History of fibromyalgia. 4. Gastroesophageal reflux disease. 5. Hypertension. 6. History of degenerative joint disease. 7. History of Camacho's esophagus. 8. History of appendectomy. 9. History of back surgery. 10.Laminectomy history. 11.History of anxiety, depression. 12.History of nicotine dependence. 13.History of THC. 14.FULL CODE. RECOMMENDATIONS AND DISCUSSION: Recommend to continue current medications. Continue symptomatic treatment. DVT prophylaxis. Incentive spirometry. Resume the home medications. The rest of the recommendations per Orthopedic surgery. Follow closely with primary physician in the outpatient setting. MMODL / IJN: [id number] /
== END 2020-09-19 14:05 | disposition home or self-care (01) | DRG 472 ==
LOC: 2ORMAIN 05:29 → 5NMEDONC 14:48
PROVIDERS: ADMIT Orthopaedic Surgery; ATTEND Orthopaedic Surgery
PROC: 4A11X4G Monitoring of Peripheral Nervous Electrical Activity, Intraoperative, External Approach (ICD-10-PCS; principal; 2020-09-18 07:30)
PROC: 0RG20A0 Fusion of 2 or more Cervical Vertebral Joints with Interbody Fusion Device, Anterior Approach, Anterior Column, Open Approach (ICD-10-PCS; principal; 2020-09-18 07:30)
PROC: 0RB30ZZ Excision of Cervical Vertebral Disc, Open Approach (ICD-10-PCS; principal; 2020-09-18 07:30)
DX: M48.02 Spinal stenosis, cervical region (principal); M47.12 Other spondylosis with myelopathy, cervical region; M50.01 Cervical disc disorder with myelopathy, high cervical region; I48.21 Permanent atrial fibrillation; N13.8 Other obstructive and reflux uropathy; Z20.822 Contact with and (suspected) exposure to COVID-19; M47.22 Other spondylosis with radiculopathy, cervical region; M50.11 Cervical disc disorder with radiculopathy, high cervical region; K21.9 Gastro-esophageal reflux disease without esophagitis; N40.1 Benign prostatic hyperplasia with lower urinary tract symptoms; N39.498 Other specified urinary incontinence; K22.70 Barrett's esophagus without dysplasia; M79.7 Fibromyalgia; M54.9 Dorsalgia, unspecified; I10 Essential (primary) hypertension; I34.0 Nonrheumatic mitral (valve) insufficiency; N32.81 Overactive bladder; F32.9 Major depressive disorder, single episode, unspecified; F41.9 Anxiety disorder, unspecified; H91.90 Unspecified hearing loss, unspecified ear; M19.90 Unspecified osteoarthritis, unspecified site; R26.81 Unsteadiness on feet; Z79.01 Long term (current) use of anticoagulants; Z79.899 Other long term (current) drug therapy; Z87.891 Personal history of nicotine dependence; Z86.14 Personal history of Methicillin resistant Staphylococcus aureus infection; Z90.49 Acquired absence of other specified parts of digestive tract; Z96.642 Presence of left artificial hip joint; Z87.39 Personal history of other diseases of the musculoskeletal system and connective tissue; Z90.89 Acquired absence of other organs; Z87.81 Personal history of (healed) traumatic fracture; Z86.69 Personal history of other diseases of the nervous system and sense organs; Z87.09 Personal history of other diseases of the respiratory system; Z98.890 Other specified postprocedural states; Z88.5 Allergy status to narcotic agent; Z88.8 Allergy status to other drugs, medicaments and biological substances; Z82.3 Family history of stroke; Z80.0 Family history of malignant neoplasm of digestive organs; Z80.42 Family history of malignant neoplasm of prostate; Z82.49 Family history of ischemic heart disease and other diseases of the circulatory system
CPT/HCPCS: 36415; 72040; 72125; 85025; 86850; 86900; 86901; 87635; C1762

== ENCOUNTER 2020-11-29 18:25 | Emergency (ER) | payer MEDICARE, BC ==
[2020-11-29] MEDS ORDERED: HYDROmorphone 1 MG/ML 1 ML SYRINGE IVP STA (20:12)
[2020-11-29] MEDS ORDERED: ONDANSETRON 4 MG/2 ML VIAL IVP STA (20:12)
[2020-11-29] MEDS: PROPOFOL 10 MG/ML 20 ML VIAL IV STA ×3 (21:12→21:24)
--- NOTE | 2020-11-29 21:21 | XR ---
PROCEDURE: XR Hip LT and AP Pelvis - 3V DATE AND TIME: 11/29/2020 8:39 PM CLINICAL INDICATION: left hip pain; concern for dislocation TECHNIQUE: Department protocol COMPARISON: 10/13/2018 radiographs FINDINGS: The left femoral head component of the left THR is dislocated superolaterally, and likely p osteriorly, similar to the dislocation seen on the 10/13/2018 radiographic examination. There are no fractures. IMPRESSION: Dislocated left THR.
--- NOTE | 2020-11-29 21:26 | ED ---
General Adult HPI - General Source: patient Mode of arrival: wheelchair Limitations: physical limitation <Jerry Robert Alana - Last Filed: 11/29/20 21:24> <Adenike Medrano - Last Filed: 11/30/20 01:41> - General Chief complaint: Extremity Problem,Nontraumatic Stated complaint: Hip pain Time Seen by Provider: 11/29/20 19:34 - History of Present Illness Initial comments: 70-year-old male patient presents to the emergency department today for evaluation of left hip pain. Patient states he feels like it popped out of place. Patient states he was sitting in his wheelchair and was leaning forward reaching for something when he felt it pop out. Patient had left total hip arthroplasty with Dr. Shea several years ago. States this has dislocated 6 times in the past. He denies any numbness or tingling to the left leg. Reports cramping and spasms to the muscles around the left hip. Patient does admit to drinking alcohol earlier today. Denies taking anything for pain. Denies any other injuries or concerns. Patient denies any headache, neck pain, back pain, chest pain, shortness of breath, dizziness, weakness, abdominal pain, nausea, vomiting, or difficulties with bowel movements or urination. (Adenike Medrano) - Related Data Home Medications Medication Instructions Recorded Confirmed Atenolol [Tenormin] 25 mg PO QAM 11/06/13 09/18/20 Omeprazole 40 mg PO AC-BRKFST 11/06/13 09/18/20 DULoxetine HCL [Cymbalta] 60 mg PO BID 08/01/16 09/18/20 Apixaban [Eliquis] 5 mg PO BID 07/01/18 09/18/20 Silodosin [Rapaflo] 8 mg PO HS 07/01/18 09/18/20 Ascorbic Acid [Vitamin C] 1,000 mg PO DAILY 07/26/20 09/18/20 Carnitine 1500 Mg 1 tab PO DAILY 07/26/20 09/18/20 Cholecalciferol (Vitamin D3) 125 mcg PO DAILY 07/26/20 09/18/20 [Vitamin D3 (5000 Iu)] Multivitamins, Thera [Multivitamin 1 tab PO DAILY 07/26/20 09/18/20 (formulary)] Potassium Gluconate 99 mg PO DAILY 07/26/20 09/18/20 Vit C/E/Zn/Coppr/Lutein/Zeaxan 1 each PO DAILY 07/26/20 09/18/20 [Preservision Areds 2 Softgel] Vitamin B Complex 1 each PO DAILY 07/26/20 09/18/20 Zinc 50 mg PO DAILY 07/26/20 09/18/20 Glucosam/Jere-Msm1/C/Brandin/Bosw 1 each PO DAILY 08/03/20 09/18/20 [Glucosamine-Chondroitin Tablet] Acetaminophen [Tylenol] 500 mg PO Q4-6H PRN 09/12/20 09/18/20 Aspirin/Acetaminophen/Caffeine 1 each PO DAILY 09/12/20 09/18/20 [Goody's Ex-Str Powder Packet] Previous Rx's Medication Instructions Recorded Cyclobenzaprine [Flexeril] 10 mg PO TID #40 tab 09/19/20 Gabapentin 300 mg PO TID #90 cap 09/19/20 HYDROcodone/APAP 10-325MG [[place] 1 tab PO Q4-6H PRN #56 tab 09/19/20 10-325] Sennosides [Senna] 8.6 mg PO BID PRN #20 tablet 09/19/20 cefaDROXiL [Duricef] 1 g PO Q12HR 3 Days #6 ml 09/19/20 Allergies Allergy/AdvReac Type Severity Reaction Status Date / Time magnesium AdvReac Diarrhea Verified 11/29/20 18:56 morphine AdvReac Nausea & Verified 11/29/20 18:56 Vomiting & Diarrhea Review of Systems ROS Other: All systems not noted in ROS Statement are negative. <Jerry Robert - Last Filed: 11/29/20 21:24> ROS Other: All systems not noted in ROS Statement are negative. <Adenike Medrano - Last Filed: 11/30/20 01:41> ROS Statement: Those systems with pertinent positive or pertinent negative responses have been documented in the HPI. Past Medical History Past Medical History: Atrial Fibrillation, Fibromyalgia, GERD/Reflux, Hypertension, Musculoskeletal Disorder, Osteoarthritis (OA) Additional Past Medical History / Comment(s): Camacho's esophagus, Hx fx ribs right side, hx issues w/ left hip popping out of place. Current problems w/ muscles twitching, burning, cramping thru body w/ stiff joints. Uses wheelchair when out. DDD, pain & NT bilat arms/hands History of Any Multi-Drug Resistant Organisms: None Reported Past Surgical History: Appendectomy, Back Surgery, Hernia Repair, Joint Replacement, Orthopedic Surgery, Tonsillectomy Additional Past Surgical History / Comment(s): LAMINECTOMY; back neurostimulator - 2015, then removed; back steroid injections, ORIF left arm, Sinus surg w/ cyst drained behind eye, bilateral ankle surgeries, Lt Total hip. Right shoulder surgery X2, hiatal hernia repair. Past Anesthesia/Blood Transfusion Reactions: No Reported Reaction, Family History of Problems w/ Anesthesia Additional Past Anesthesia/Blood Transfusion Reaction / Comment(s): Mom had PONV. Past Psychological History: Anxiety, Depression Smoking Status: Former smoker Past Alcohol Use History: Occasional Past Drug Use History: Marijuana - Past Family History Father Family Medical History: Cancer, CVA/TIA Additional Family Medical History / Comment(s): Esophageal cancer. <Jerry Robert N - Last Filed: 11/29/20 21:24> General Exam Limitations: physical limitation <Jeryr Robert - Last Filed: 11/29/20 21:24> General appearance: alert, in no apparent distress, other (Physical well- developed, well-nourished elderly male patient in no acute distress. Vital signs upon presentation are temperature 98.2F 1 pulse 69, respirations 20, blood pressure 137/84, pulse ox 99% on room air.) Eye exam: Present: normal appearance, PERRL, EOMI. Absent: scleral icterus, conjunctival injection, periorbital swelling ENT exam: Present: normal exam, normal oropharynx, mucous membranes moist Respiratory exam: Present: normal lung sounds bilaterally. Absent: respiratory distress, wheezes, rales, rhonchi, stridor Cardiovascular Exam: Present: regular rate, normal rhythm, normal heart sounds. Absent: systolic murmur, diastolic murmur, rubs, gallop, clicks GI/Abdominal exam: Present: soft, normal bowel sounds. Absent: distended, tenderness, guarding, rebound, rigid Extremities exam: Present: tenderness (Left lateral hip), normal capillary refill, other (Does appear to be deformity to the left lateral hip region. Skin to the left leg is pink, warm, dry. Cap refill less than 3 seconds. Pedal posttibial pulses 2+.). Absent: normal inspection, full ROM (Decreased range of motion left hip due to severe pain with movement), pedal edema, joint swelling, calf tenderness Neurological exam: Present: alert, oriented X3, CN II-XII intact Psychiatric exam: Present: normal affect, normal mood Skin exam: Present: warm, dry, intact, normal color. Absent: rash <Adenike Medrano M - Last Filed: 11/30/20 01:41> Course Vital Signs 11/29/20 11/29/20 11/29/20 18:54 19:31 21:10 Temperature 98 F 98.5 F Pulse Rate 69 66 96 Respiratory 20 18 15 Rate Blood Pressure 137/84 159/112 154/97 O2 Sat by Pulse 99 98 100 Oximetry 11/29/20 11/29/20 11/29/20 21:15 21:20 21:25 Temperature Pulse Rate 76 74 82 Respiratory 16 16 12 Rate Blood Pressure 130/88 112/81 123/90 O2 Sat by Pulse 97 96 98 Oximetry 11/29/20 11/29/20 11/29/20 21:30 21:45 22:00 Temperature Pulse Rate 75 70 74 Respiratory 16 18 18 Rate Blood Pressure 128/90 135/92 137/89 O2 Sat by Pulse 98 99 99 Oximetry 11/29/20 11/29/20 22:15 22:30 Temperature 97.8 F Pulse Rate 79 79 Respiratory 18 18 Rate Blood Pressure 140/95 140/95 O2 Sat by Pulse 97 97 Oximetry Procedures - [place] Protocol (Time Out) Procedure Performed:: closed reduction of dislocated lthip Performing Provider: Jerry Robert Nurse: Deana Monique Respiratory Therapist: Ree Dan Patient Identification (2 identifiers required): Chart, Verbal, Arm Band, Name, Birthdate 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 [employer] has Confirmed: Identity, Site, Procedure Site: left hip Site Marked: Yes Site Verified With Patient/Guardian: Yes Final Confirmation: Procedure, Site, Patient Position - Orthopedic Joint Reduction Joint #1 Side: left Joint Reduction Location: hip Analgesia: procedural sedation Technique Used: traction/counter-traction Post-Reduction Neuro Exam: intact Post-Reduction Vascular Exam: intact Post Reduction X-Ray Obtained: Yes Post Reduction X-Ray Results: reduced Patient Tolerated Procedure: well - Procedural Sedation Procedural Sedation Start Time: 21:10 Indications: fracture/dislocation reduction ASA Class: II Mallampati Airway Score: 2 Preparation: senior internal auditor applied, pulse oximeter, capnometry used, supplemental O2 applied, suction/airway equipment at bedside IV Propofol Dose (mgs): 200 Complications: hypoventilation Interventions: oxygen applied, assist by BVM Patient Tolerated Procedure: well <Jerry Robert - Last Filed: 11/29/20 21:24> - Procedural Sedation Additional Comments: There was a brief moment of hypoxia into the mid 80s less than 30 seconds requiring less than 60 seconds of BVM. (Jerry Robert) Medical Decision Making - Radiology Data Radiology results: report reviewed, image reviewed <Adenike Medrano - Last Filed: 11/30/20 01:41> - Medical Decision Making 70-year-old male patient presented for evaluation of left hip pain and concern for dislocation. Physical examination did reveal left hip deformity. Good neurovascular status of the left leg. X-ray did demonstrate left sided hip dislocation. My attending Dr. Robert was in to perform conscious sedation with reduction of the left hip. Postreduction x-ray did show anatomical reduction of the left hip prosthesis. Patient states he is feeling much better. He'll be discharged pop with his facilities specialist for further evaluation as soon as possible. He was given hip precautions. Return parameters were discussed in detail. He verbalizes understanding and agrees with this plan. My attending is Dr. Robert. (Adenike Medrano) - Radiology Data X-ray left hip and pelvis shows dislocated left total hip replacement. Postreduction left hip x-ray shows interval reduction of left hip prosthesis. (Adenike Medrano) Disposition <Jerry Robert - Last Filed: 11/29/20 21:24> Is patient prescribed a controlled substance at d/c from ED?: No Time of Disposition: 22:05 <Adenike Medrano - Last Filed: 11/30/20 01:41> Clinical Impression: Dislocation of internal left hip prosthesis Disposition: HOME SELF-CARE Condition: Good Instructions (If sedation given, give patient instructions): Moderate Sedation (ED), Hip Dislocation (ED) Additional Instructions: Avoid straining the hip. Follow up with your primary care physician and facilities specialist for further evaluation as soon as possible. Return for any new, worsening, or concerning symptoms. Referrals: Ava Crandall DO [Primary Care Provider] - 1-2 days Diony Shea MD [STAFF PHYSICIAN] - 1-2 days
--- NOTE | 2020-11-29 21:40 | XR ---
PROCEDURE: XR Hip Limited LT - 1V DATE AND TIME: 11/29/2020 9:28 PM CLINICAL INDICATION: PHH; post reduction TECHNIQUE: AP view COMPARISON: Same day radiographs. FINDINGS: There has been interval reduction of the left hip prosthesis dislocation. There is no fract ure or malalignment. The soft tissues are unremarkable. IMPRESSION: Postreduction left hip - single view
[2020-11-29 21:55] VITALS: RESP 18
[2020-11-29 22:34] VITALS: BP 140/95; PULSE 79
[2020-11-29 22:42] VITALS: TEMP 97.8
== END 2020-11-29 22:35 | disposition home or self-care (01) ==
LOC: EC 18:25
DX: T84.021A Dislocation of internal left hip prosthesis, initial encounter (principal); I10 Essential (primary) hypertension; I48.91 Unspecified atrial fibrillation; K21.9 Gastro-esophageal reflux disease without esophagitis; M19.90 Unspecified osteoarthritis, unspecified site; Z79.82 Long term (current) use of aspirin; Z87.891 Personal history of nicotine dependence; Z88.5 Allergy status to narcotic agent; Z88.8 Allergy status to other drugs, medicaments and biological substances; Z79.899 Other long term (current) drug therapy; Z79.01 Long term (current) use of anticoagulants
CPT/HCPCS: 99283; 27265; 96374; 96375; 73501; 73502; J2405; J1170; J2704

== ENCOUNTER 2021-01-14 09:51 | Emergency (ER) | payer MEDICARE, BC ==
[2021-01-14 10:12] VITALS: TEMP 98
--- NOTE | 2021-01-14 10:54 | ED ---
General Adult HPI - General Chief complaint: Urogenital Stated complaint: trouble urinating Time Seen by Provider: 01/14/21 10:15 Source: patient, RN notes reviewed Mode of arrival: wheelchair Limitations: no limitations - History of Present Illness Initial comments: 70-year-old male presents emergency Department chief complaint of difficulty urinating. Patient states she's had this ongoing issue. Patient states that he was placing Rapaflo after having a Choi catheter years ago. He states his been fine but states is noticing that it's not as effective as usual. He states that he has dribbling stable get some urine out. He states he has GCS ago. Denies any bowel incontinence. Patient states he has degenerative disc disease but states that is not worsened usual. He states this urinary issue is ongoing and not acute. Patient is wheelchair-bound. - Related Data Home Medications Medication Instructions Recorded Confirmed Atenolol [Tenormin] 25 mg PO DAILY 11/06/13 01/14/21 Omeprazole 40 mg PO AC-BRKFST 11/06/13 01/14/21 DULoxetine HCL [Cymbalta] 60 mg PO BID 08/01/16 01/14/21 Apixaban [Eliquis] 5 mg PO BID 07/01/18 01/14/21 Silodosin [Rapaflo] 8 mg PO DAILY 07/01/18 01/14/21 Meloxicam [Mobic] 15 mg PO DAILY 01/14/21 01/14/21 Allergies Allergy/AdvReac Type Severity Reaction Status Date / Time magnesium AdvReac Diarrhea Verified 01/14/21 11:06 morphine AdvReac Nausea & Verified 01/14/21 11:06 Vomiting & Diarrhea Review of Systems ROS Statement: Those systems with pertinent positive or pertinent negative responses have been documented in the HPI. ROS Other: All systems not noted in ROS Statement are negative. Past Medical History Past Medical History: Atrial Fibrillation, Fibromyalgia, GERD/Reflux, Hypertension, Musculoskeletal Disorder, Osteoarthritis (OA) Additional Past Medical History / Comment(s): Camacho's esophagus, Hx fx ribs right side, hx issues w/ left hip popping out of place. Current problems w/ muscles twitching, burning, cramping thru body w/ stiff joints. Uses wheelchair when out. DDD, pain & NT bilat arms/hands History of Any Multi-Drug Resistant Organisms: None Reported Past Surgical History: Appendectomy, Back Surgery, Hernia Repair, Joint Replacement, Orthopedic Surgery, Tonsillectomy Additional Past Surgical History / Comment(s): LAMINECTOMY; back neurostimulator - 2015, then removed; back steroid injections, ORIF left arm, Sinus surg w/ cyst drained behind eye, bilateral ankle surgeries, Lt Total hip. Right shoulder surgery X2, hiatal hernia repair. Past Anesthesia/Blood Transfusion Reactions: No Reported Reaction, Family History of Problems w/ Anesthesia Additional Past Anesthesia/Blood Transfusion Reaction / Comment(s): Mom had PONV. Past Psychological History: Anxiety, Depression Smoking Status: Former smoker Past Alcohol Use History: Occasional Past Drug Use History: Marijuana - Past Family History Father Family Medical History: Cancer, CVA/TIA Additional Family Medical History / Comment(s): Esophageal cancer. General Exam Limitations: no limitations General appearance: alert, in no apparent distress Head exam: Present: atraumatic, normocephalic, normal inspection Neck exam: Present: normal inspection, full ROM. Absent: tenderness, meningismus, lymphadenopathy Respiratory exam: Present: normal lung sounds bilaterally. Absent: respiratory distress, wheezes, rales, rhonchi, stridor Cardiovascular Exam: Present: regular rate, normal rhythm, normal heart sounds. Absent: systolic murmur, diastolic murmur, rubs, gallop, clicks GI/Abdominal exam: Present: soft, normal bowel sounds. Absent: distended, tenderness, guarding, rebound, rigid Course Vital Signs 01/14/21 10:09 Temperature 98 F Pulse Rate 99 Respiratory 16 Rate Blood Pressure 124/63 O2 Sat by Pulse 99 Oximetry Medical Decision Making - Medical Decision Making Patient presented for mild urinary retention, BPH issues. Patient did have Choi catheter placed for comfort, patient was still able urinate he has no other symptoms he does have chronic back issues but no red flag symptoms otherwise. Patient will follow-up with urology continue [facility] return parameters were concerns - Lab Data Lab Results 01/14/21 Range/Units 10:55 Urine Color Yellow Urine Appearance Clear (Clear) Urine pH 5.5 (5.0-8.0) Ur Specific [place] 1.025 (1.001-1.035) Urine Protein Negative (Negative) Urine Glucose (UA) Negative (Negative) Urine Ketones Negative (Negative) Urine Blood Negative (Negative) Urine Nitrite Negative (Negative) Urine Bilirubin Negative (Negative) Urine Urobilinogen <2.0 (<2.0) mg/dL Ur Leukocyte Esterase Negative (Negative) Disposition Clinical Impression: Urinary retention Disposition: HOME SELF-CARE Condition: Stable Instructions (If sedation given, give patient instructions): Urinary Retention in Men (ED) Additional Instructions: Please return to the Emergency Department if symptoms worsen or any other concerns. Is patient prescribed a controlled substance at d/c from ED?: No Referrals: Ava Crandall DO [Primary Care Provider] - 1-2 days Gato Guadarrama MD [STAFF PHYSICIAN] - 1-2 days Time of Disposition: 11:57
[2021-01-14 11:04] LABS: Appearance,Urine Clear (Clear); Bilirubin,Urine Negative (Negative); Blood,Urine Negative (Negative); Color,Urine Yellow; Glucose,Urine (UA) Negative (Negative); Ketones,Urine Negative (Negative); Leukocyte Esterase,Urine Negative (Negative); Nitrite,Urine Negative (Negative); PH, Urine 5.5 (5.0-8.0); Protein,Urine Negative (Negative); Specific Gravity,Urine 1.025 (1.001-1.035); Urobilinogen,Urine <2.0 mg/dL (<2.0)
[2021-01-14 12:46] VITALS: BP 174/95; PULSE 86; RESP 18
== END 2021-01-14 12:46 | disposition home or self-care (01) ==
LOC: EC 09:51
DX: R33.9 Retention of urine, unspecified (principal); I10 Essential (primary) hypertension; I48.91 Unspecified atrial fibrillation; K21.9 Gastro-esophageal reflux disease without esophagitis; M79.7 Fibromyalgia; Z79.01 Long term (current) use of anticoagulants; Z87.891 Personal history of nicotine dependence; Z88.5 Allergy status to narcotic agent; Z88.8 Allergy status to other drugs, medicaments and biological substances; Z79.899 Other long term (current) drug therapy
CPT/HCPCS: 51798; 81003; 99284

== ENCOUNTER → 2021-04-15 | Outpatient (CLI) | payer MEDICARE, BC ==
--- NOTE | 2021-04-15 12:35 | FL ---
EXAMINATION TYPE: FL barium swallow w video DATE OF EXAM: 04/15/2021 COMPARISON: NONE HISTORY: Dysphagia TECHNIQUE: Fluoroscopy. FINDINGS: Fluoroscopic guidance was provided for the procedure performed in conjunction with the [facility] pathology department. Please see complete report forthcoming from the Speech Pathology departmen t. Various consistencies from thin liquid to solids were administered. Fluoroscopy time 2 minutes 12 seconds. Number of images: 0. No aspiration or penetration was evident. Very minimal residual may be within the vallecula during this examination. Patient appeared to sense this. There was normal propulsion of the bolus. Patient positioning however was chin up for his more comfor table normal swallowing. No aspiration or penetration was evident during this position. A more neutra l position the patient did complain of sticking of food which had some minimal residual at the vallec sia during this portion of the examination. IMPRESSION: 1. No aspiration or penetration evident. 2. Minimal residuals at the vallecula. 3. Please also see report from speech pathology.
== END | disposition home or self-care (01) ==
LOC: RADUSWWP 10:57
PROVIDERS: ATTEND Otolaryngology
DX: R13.10 Dysphagia, unspecified (principal)
CPT/HCPCS: 74230

== ENCOUNTER → 2021-08-01 | Outpatient (CLI) | payer MEDICARE, BC | END | disposition home or self-care (01) | LOC: RADMRIMAIN 07-12 14:22 | PROVIDERS: ATTEND Orthopaedic Surgery | DX: Z53.9 Procedure and treatment not carried out, unspecified reason (principal) ==

== ENCOUNTER → 2021-10-03 | Outpatient (CLI) | payer MEDICARE, BC ==
[2021-10-03 15:30] LABS: African American GFR (CKD) >90 (>60 ml/min/1.73 sqM); Blood Urea Nitrogen 19 mg/dL (9-20); Non-African American GFR(CKD) 88 (>60 ml/min/1.73 sqM)
--- NOTE | 2021-10-03 22:27 | CT ---
EXAMINATION TYPE: CT abdomen w con CT DLP: 1422 mGycm, Automated exposure control for dose reduction was used. DATE OF EXAM: 10/03/2021 4:20 PM COMPARISON: CT abdomen pelvis most recent from 03/25/2017. CLINICAL INDICATION:Male, 71 years old with history of R22.2; swelling on both sides of abdomen x2 mo nths TECHNIQUE: Standard CT of the abdomen and pelvis following the administration of 100 cc of Isovue 3 00 IV contrast material. Coronal and sagittal reformats were performed. FINDINGS: LOWER CHEST: Mild atherosclerotic disease of the coronary arteries. ABDOMEN LIVER: Unremarkable GALLBLADDER AND BILE DUCTS: Unremarkable. PANCREAS: Unremarkable. SPLEEN: Unremarkable. ADRENAL GLANDS: Unremarkable. KIDNEYS AND URETERS: No evidence of hydronephrosis or renal calculus. The ureters are unremarkable. PELVIS BLADDER: Unremarkable REPRODUCTIVE: Unremarkable. ABDOMEN & PELVIS STOMACH AND BOWEL: No evidence of bowel obstruction. PERITONEUM: No evidence of pneumoperitoneum or free fluid. VASCULATURE: No evidence of aortic aneurysm. Scattered atherosclerosis changes of the arterial vascul ature. MUSCULOSKELETAL: No acute osseous abnormalities. Multilevel disc degeneration changes of the visualiz ed spine. There is diffuse osseous demineralization. There is straightening of the lower lumbar spine . Biconcave deformity of L4 is present. There is osseous fusion of the posterior elements of L3-S1. L aminectomy changes at L3, L4 and L5 are present. LYMPH NODES: No gross evidence for lymphadenopathy. SOFT TISSUE/ABDOMINAL WALL: The anterior left soft tissues demonstrates a peripherally enhancing flui d collection thought to be within the left abdominal wall musculature/myofascial planes measuring up to 34 x 18 mm. Just deep to this within the abdominal wall of the abdomen is another more flattened a ppearing fluid collection measuring 25 x 7 mm. There is a curvilinear density within the deep left ab dominal wall. There is associated soft tissue fat stranding changes and swelling within the abdominal wall on the left. The right abdominal wall does not demonstrate any evidence for acute process to ex plain right-sided swelling. IMPRESSION: At least 2 fluid collections within the left abdominal wall. The largest is more superficial measurin g up to 34 mm suggesting abscess. There is an curvilinear radiopaque density which could represent a retained foreign body. Correlate with prior interventions. Consider dedicated abdominal radiographs f or further evaluation of a Curvilinear radiopaque density.
== END | disposition home or self-care (01) ==
LOC: RADCTMAIN 14:40
PROVIDERS: ATTEND Family Medicine
DX: R22.2 Localized swelling, mass and lump, trunk (principal)
CPT/HCPCS: 82565; 84520; 74160; 36415; Q9967

== ENCOUNTER 2021-10-23 09:19 | Day surgery (SDC) | payer MEDICARE, BC ==
[2021-10-21 13:42] VITALS: BMI 27.6
[~2021-10-23 09:19] MED LIST changes: -DEXAMETHASONE SOD PHOSPHATE 4 MG/ML 1 ML VIAL IV ONE; -GABAPENTIN 300 MG CAP PO PRN; +HEPARIN SODIUM,PORCINE/PF 5,000 UNIT/0.5 ML SYRINGE SQ PRN; -LIDOCAINE 1% (10MG/ML) FOR IV START INTRADERMA PRN; -MIDAZOLAM 2 MG/2 ML VIAL IV PRN; -ONDANSETRON 4 MG/2 ML VIAL IVP PRN; -TRANEXAMIC ACID 1,000 MG in SODIUM CHLORIDE 0.9% 100 ML IVPB PRN; -VANCOMYCIN 1,500 MG in SODIUM CHLORIDE 0.9% 250 ML IVPB PRN
[2021-10-23] MEDS ORDERED: ONDANSETRON 4 MG/2 ML VIAL ONE (09:54)
[2021-10-23] MEDS ORDERED: LACTATED RINGERS 1,000 ML IV ONE ×2 (10:00→11:05)
[2021-10-23] MEDS ORDERED: LIDOCAINE 1% (10MG/ML) FOR IV START INTRADERMA ONE (10:00)
--- NOTE | 2021-10-23 10:00 | P.GSHP ---
History of Present Illness H&P Date: 10/23/21 Chief Complaint: Right upper quadrant pain This a 71-year-old male was a chronic right upper quadrant pain. Patient describes right upper quadrant pain after greasy eating greasy and fried meals. Patient presents today for laparoscopically cholecystectomy for chronic rosalio cystitis. Past Medical History Past Medical History: Atrial Fibrillation, Fibromyalgia, GERD/Reflux, Hearing Disorder / Deafness, Hypertension, Musculoskeletal Disorder, Osteoarthritis (OA) Additional Past Medical History / Comment(s): Camacho's esophagus, Hx fx ribs, hx issue w/ left hip popping out of place. Problems w/ muscles twitching, burning, cramping thru body w/ stiff joints. Uses w/c when out. DDD, pain & NT bilat arms/hands. allergy/sinus sx. Bulging in abd, gallstones. Skin itching, no rash. History of Any Multi-Drug Resistant Organisms: None Reported Past Surgical History: Appendectomy, Back Surgery, Hernia Repair, Joint Replacement, Orthopedic Surgery, Tonsillectomy Additional Past Surgical History / Comment(s): Back surg x2, then Laminectomy; back neurostimulator - 2015, then removed; back steroid injections, ORIF left arm, Sinus surg w/ cyst drained behind eye, bilat ankle surgeries, Lt Total hip. Right shoulder surgery X2, hiatal hernia repair. Cervical fusion Past Anesthesia/Blood Transfusion Reactions: No Reported Reaction, Family History of Problems w/ Anesthesia Additional Past Anesthesia/Blood Transfusion Reaction / Comment(s): Mom had PONV. Smoking Status: Former smoker - Past Family History Father Family Medical History: Cancer, CVA/TIA Additional Family Medical History / Comment(s): Esophageal cancer. Mother Family Medical History: CVA/TIA, Deep Vein Thrombosis (DVT) Additional Family Medical History / Comment(s): Poss DVT in ankle prior to CVA Medications and Allergies Home Medications Medication Instructions Recorded Confirmed Type Atenolol [Tenormin] 25 mg PO DAILY 11/06/13 10/21/21 History DULoxetine HCL [Cymbalta] 60 mg PO BID 08/01/16 10/21/21 History Apixaban [Eliquis] 5 mg PO BID 07/01/18 10/21/21 History Silodosin [Rapaflo] 8 mg PO DAILY 07/01/18 10/21/21 History Acetaminophen [Tylenol Extra 500 - 1,000 tab PO DIRECTED PRN 10/21/21 10/21/21 History Strength] Cetirizine HCl [Zyrtec] 10 mg PO DAILY 10/21/21 10/21/21 History Fluticasone Propionate 2 sprays EA NOSTRIL BID 10/21/21 10/21/21 History [Fluticasone Propionate Clio] Tamsulosin [Flomax] 0.4 mg PO BID 10/21/21 10/21/21 History Allergies Allergy/AdvReac Type Severity Reaction Status Date / Time magnesium AdvReac Diarrhea Verified 10/21/21 13:06 morphine AdvReac Nausea & Verified 10/21/21 13:06 Vomiting & Diarrhea Surgical - Exam - General well developed, well nourished, no distress - Eyes PERRL - ENT normal pinna - Neck no masses - Respiratory normal expansion - Cardiovascular Rhythm: regular - Abdomen Mild right quadrant pain. There is no rebound or guarding Abdomen: soft Assessment and Plan Assessment: Chronic cholecystitis status. We'll perform laparoscopic cholecystectomy.
[2021-10-23] MEDS ORDERED: DEXAMETHASONE SOD PHOSPHATE 4 MG/ML 1 ML VIAL IV ONE (10:05)
[2021-10-23] MEDS ORDERED: PROPOFOL 10 MG/ML 20 ML VIAL IV ONE (10:26)
[2021-10-23] MEDS ORDERED: ROCURONIUM 10 MG/ML (5 ML VIAL) IV ONE (10:26)
[2021-10-23] MEDS ORDERED: NEOSTIGMINE 1 MG/ML 10 ML VIAL ONE (10:26)
[2021-10-23] MEDS ORDERED: MIDAZOLAM 2 MG/2 ML VIAL ONE (10:26)
[2021-10-23] MEDS ORDERED: KETOROLAC 15 MG/ML 1 ML VIAL ONE (10:26)
[2021-10-23] MEDS ORDERED: SUCCINYLCHOLINE CHLORIDE 100 MG/5 ML SYR IV ONE (10:26)
[2021-10-23] MEDS ORDERED: LIDOCAINE 2% INJ 20 MG/ML (2 ML VIAL) ONE (10:26)
[2021-10-23] MEDS ORDERED: fentaNYL (PF) 50 MCG/ML 2 ML AMP ONE (10:26)
[2021-10-23] MEDS ORDERED: ePHEDrine 50 MG/ML 1 ML VIAL ONE (10:26)
[2021-10-23] MEDS ORDERED: METOPROLOL TARTRATE 5 MG/5 ML VIAL IVP ONE (10:26)
[2021-10-23] MEDS ORDERED: GLYCOPYRROLATE 0.2 MG/ML 2 ML VIAL ONE (10:26)
[2021-10-23] MEDS ORDERED: LABETALOL 5 MG/ML VIAL MDV ONE (10:26)
[2021-10-23] MEDS ORDERED: BUPIVACAIN-EPI 0.25%-1:200,000 30 ML VIAL SQ ONE (10:41)
--- NOTE | 2021-10-23 11:15 | P.OP ---
Date of Procedure: 10/23/21 Preoperative Diagnosis: Cholecystitis Postoperative Diagnosis: Cholecystitis Procedure(s) Performed: Laparoscopic cholecystectomy Anesthesia: JEFF Surgeon: Jose Adams Estimated Blood Loss (ml): 5 Pathology: other (Gallbladder) Condition: stable Disposition: PACU Description of Procedure: The patient was placed on the operating table. The patient received a general endotracheal tube anesthesia. The patients abdomen was prepped and draped in the usual sterile fashion. Through an infraumbilical stab incision, the fascia of the anterior abdominal wall was grasped with a pair of Kochers and then the Veress needle was placed in the peritoneal cavity. Position of the Veress needle was confirmed with positive drop test. The abdomen was then insufflated. After adequate insufflation, the 10 mm trocar was placed in the peritoneal cavity. Following this the laparoscope was placed in the peritoneal cavity. The patient was placed in the head-up, right side up position and then a 5 mm trocar was placed in the right lateral and right subcostal position under direct visualization. A 8 mm trocar was placed in the epigastric position. The gallbladder was grasped in the fundus and infundibulum. Traction on the gallbladder was placed in the lateral and the cephalad positions. The triangle of Calot was visualized.. The cystic duct was bluntly dissected until the union of the cystic duct and common bile duct was seen. A critical view of safety was achieved. The cystic duct was then divided and sealed with the Harmonic scissors. A PDS Endoloop was then placed throughout the cystic duct stump. The cystic artery divided and sealed with the Harmonic scissors. The gallbladder was then removed from the liver bed using Harmonic scissors. The gallbladder was then extracted through the epigastric port site. Operative field was checked for any bleeding spots and Harmonic scissors was used to coagulate the liver bed. The abdomen was irrigated. The trocars were removed. The skin was closed using interrupted 3-0 Vicryl suture. Dermabond dressing were applied. The patient tolerated the procedure well.
[2021-10-23 11:17] VITALS: TEMP 98
[2021-10-23] MEDS ORDERED: ALBUTEROL NEBULIZED 2.5 MG/3 ML INHALATION ONE (11:31)
[2021-10-23] MEDS ORDERED: HYDROmorphone 0.5 MG/0.5 ML SYRINGE IVP ONE ×4 (11:36→12:11)
[2021-10-23 13:31] VITALS: BP 116/70; PULSE 67; RESP 15
== END 2021-10-23 13:50 | disposition home or self-care (01) ==
LOC: OR 09:19
PROVIDERS: ATTEND Surgery
DX: K81.1 Chronic cholecystitis (principal); I48.91 Unspecified atrial fibrillation; M79.7 Fibromyalgia; K21.9 Gastro-esophageal reflux disease without esophagitis; H91.90 Unspecified hearing loss, unspecified ear; I10 Essential (primary) hypertension; M19.90 Unspecified osteoarthritis, unspecified site; K22.70 Barrett's esophagus without dysplasia; Z87.81 Personal history of (healed) traumatic fracture; Z90.49 Acquired absence of other specified parts of digestive tract; Z98.890 Other specified postprocedural states; Z98.1 Arthrodesis status; Z96.642 Presence of left artificial hip joint; Z87.891 Personal history of nicotine dependence; Z80.0 Family history of malignant neoplasm of digestive organs; Z82.3 Family history of stroke; Z82.49 Family history of ischemic heart disease and other diseases of the circulatory system; Z79.01 Long term (current) use of anticoagulants; Z79.899 Other long term (current) drug therapy; Z88.5 Allergy status to narcotic agent; Z88.8 Allergy status to other drugs, medicaments and biological substances
CPT/HCPCS: 88304; 47562; J2250; J1100; J2710; J0690; J2405; J3010; J1885; J0330; J2704; J1170; J1644; J2001

== ENCOUNTER 2021-11-08 11:46 | Inpatient (IN) | payer MEDICARE, BC ==
[2021-11-08] MEDS ORDERED: HYDROmorphone 1 MG/ML 1 ML SYRINGE IVP STA (13:59)
[2021-11-08] MEDS ORDERED: NALOXONE 0.4 MG/ML 1 ML VIAL IV PRN (14:16)
--- NOTE | 2021-11-08 14:16 | ED ---
General Adult HPI - General Chief complaint: Skin/Abscess/Foreign Body Stated complaint: L side pain/Revisit here 11/07 Time Seen by Provider: 11/08/21 11:50 Source: patient Mode of arrival: wheelchair Limitations: no limitations - History of Present Illness Initial comments: 71-year-old male with past medical history of A. fib on [place] presents the e mergency room with left-sided chest wall lesion. He was seen yesterday in the emergency room for similar complaint. He was diagnosed as a abdominal wall abscess versus hematoma. ER spoke with the surgeon who recommended that he follow up in office. Patient followed up today with Dr. Adams as directed. Dr. Adams evaluated the lesion and did not feel that the patient would benefit from surgical evacuation. Recommended interventional drainage. The patient's admits to a 10 out of 10 pain at the surgical site. States that he originally noticed it after he sustained a cough. Denies any fevers but does have low-grade upon arrival. There is some concern for abscess and therefore it was recommended that the patient received to the hospital where he have interventional radiology drainage - Related Data Home Medications Medication Instructions Recorded Confirmed Atenolol [Tenormin] 25 mg PO DAILY 11/06/13 11/08/21 DULoxetine HCL [Cymbalta] 60 mg PO BID 08/01/16 11/08/21 Apixaban [Eliquis] 5 mg PO BID 07/01/18 11/08/21 Fluticasone Propionate 2 spr EA NOSTRIL DAILY PRN 10/21/21 11/08/21 [Fluticasone Propionate [place]] Tamsulosin [Flomax] 0.4 mg PO BID 10/21/21 11/08/21 Ascorbic Acid [Vitamin C] 500 mg PO DAILY 11/07/21 11/08/21 Glucosam/Jere-Msm1/C/Brandin/Bosw 1 tab PO BID 11/07/21 11/08/21 [Glucosamine-Chondroitin Tablet] Multivitamin/Iron/Folic Acid 1 tab PO DAILY 11/07/21 11/08/21 [Centrum Adults Tablet] Omeprazole 40 mg PO DAILY 11/07/21 11/08/21 Super B Complex 1 tab PO DAILY 11/07/21 11/08/21 Zinc 50 mg PO DAILY 11/07/21 11/08/21 Previous Rx's Medication Instructions Recorded HYDROmorphone [Dilaudid] 2 mg PO Q6H PRN 3 Days #8 tab 11/07/21 HYDROcodone/APAP 5-325MG [Gillespie 1 tab PO Q6HR PRN 3 Days #12 tab 11/15/21 5-325] Ibuprofen [Motrin] 600 mg PO Q8HR PRN #30 tab 11/15/21 Levofloxacin [Levaquin] 500 mg PO DAILY 10 Days #10 tab 11/15/21 Allergies Allergy/AdvReac Type Severity Reaction Status Date / Time magnesium AdvReac Diarrhea Verified 11/08/21 13:43 morphine AdvReac Nausea & Verified 11/08/21 13:43 Vomiting & Diarrhea Review of Systems ROS Statement: Those systems with pertinent positive or pertinent negative responses have been documented in the HPI. ROS Other: All systems not noted in ROS Statement are negative. Past Medical History Past Medical History: Atrial Fibrillation, Fibromyalgia, GERD/Reflux, Hearing Disorder / Deafness, Hypertension, Musculoskeletal Disorder, Osteoarthritis (OA) Additional Past Medical History / Comment(s): Camacho's esophagus, Hx fx ribs, hx issue w/ left hip popping out of place. Problems w/ muscles twitching, burnin g, cramping thru body w/ stiff joints. Uses w/c when out. DDD, pain & NT bilat arms/hands. allergy/sinus sx. Bulging in abd, gallstones. Skin itching, no rash. History of Any Multi-Drug Resistant Organisms: None Reported Past Surgical History: Appendectomy, Back Surgery, Hernia Repair, Joint Replacement, Orthopedic Surgery, Tonsillectomy Additional Past Surgical History / Comment(s): Back surg x2, then Laminectomy; back neurostimulator - 2015, then removed; back steroid injections, ORIF left arm, Sinus surg w/ cyst drained behind eye, bilat ankle surgeries, Lt Total hip. Right shoulder surgery X2, hiatal hernia repair. Cervical fusion Past Anesthesia/Blood Transfusion Reactions: No Reported Reaction, Family History of Problems w/ Anesthesia Additional Past Anesthesia/Blood Transfusion Reaction / Comment(s): Mom had PONV. Past Psychological History: Anxiety, Depression Smoking Status: Former smoker Past Alcohol Use History: Occasional Past Drug Use History: Marijuana - Past Family History Father Family Medical History: Cancer, CVA/TIA Additional Family Medical History / Comment(s): Esophageal cancer. Mother Family Medical History: CVA/TIA, Deep Vein Thrombosis (DVT) Additional Family Medical History / Comment(s): Poss DVT in ankle prior to CVA General Exam Limitations: no limitations General appearance: alert, in no apparent distress Head exam: Present: atraumatic, normocephalic, normal inspection Eye exam: Present: normal appearance, PERRL, EOMI. Absent: scleral icterus, conjunctival injection, periorbital swelling ENT exam: Present: normal exam, mucous membranes moist Neck exam: Present: normal inspection. Absent: tenderness, meningismus, ly mphadenopathy Respiratory exam: Present: normal lung sounds bilaterally. Absent: respiratory distress, wheezes, rales, rhonchi, stridor Cardiovascular Exam: Present: normal rhythm, tachycardia, normal heart sounds. Absent: systolic murmur, diastolic murmur, rubs, gallop, clicks GI/Abdominal exam: Present: soft, tenderness, normal bowel sounds, other (left sided abd wall mass, overlying redness. warm to the touch). Absent: distended, guarding, rebound, rigid Extremities exam: Present: normal inspection, full ROM, normal capillary refill. Absent: tenderness, pedal edema, joint swelling, calf tenderness Back exam: Present: normal inspection Neurological exam: Present: alert, oriented X3, CN II-XII intact Psychiatric exam: Present: normal affect, normal mood Skin exam: Present: warm, dry, intact, normal color. Absent: rash Course Vital Signs 11/08/21 11/08/21 11/08/21 11:49 13:53 16:00 Temperature 99.2 F Pulse Rate 93 98 98 Respiratory 121 H 18 18 Rate Blood Pressure 121/70 132/85 124/76 O2 Sat by Pulse 98 97 96 Oximetry Medical Decision Making - Medical Decision Making Upon arrival patient is placed in room 1. I did review his chart from yesterday. Patient does have laboratory studies conducted with a white count of 16.7. Blood culture obtained. Patient started on 150 mL of saline. Zosyn ordered. Called and spoke with interventional radiology who is aware of the patient and need for treatment. Patient is awaiting a bed on the floor. Additionally spoke with Dr. Valle who accepted admission - Lab Data Result diagrams: 11/15/21 04:36 11/12/21 06:08 Disposition Clinical Impression: Abdominal wall abscess Disposition: ADMITTED IP TO THIS HOSP Condition: Stable Is patient prescribed a controlled substance at d/c from ED?: No Time of Disposition: 14:16 Decision to Admit Reason: Admit from EC Decision Date: 11/08/21 Decision Time: 14:16
[2021-11-08 14:44] LABS: Basophils % (A) 0 %; Eosinophils # (A) 0.2 k/uL (0-0.7); Eosinophils % (A) 1 %; HCT 40.8 % (39.0-53.0); HGB 13.2 gm/dL (13.0-17.5); Lymphocytes # (A) 1.3 k/uL (1.0-4.8); Lymphocytes % (A) 8 %; MCHC 32.4 g/dL (31.0-37.0); MCV 98.7 fL (80.0-100.0); Mean Platelet Volume 7.3; Monocytes # (A) 1.6 k/uL (0-1.0); Monocytes % (A) 9 %; Neutrophils # (A) 13.4 k/uL (1.3-7.7); Neutrophils % (A) 80 %; Platelet Count 371 k/uL (150-450); RBC 4.14 m/uL (4.30-5.90); RDW 13.4 % (11.5-15.5); WBC 16.7 k/uL (3.8-10.6)
[2021-11-08 15:01] LABS: ALT 22 U/L (4-49); AST 23 U/L (17-59); African American GFR (CKD) >90 (>60 ml/min/1.73 sqM); Albumin 3.9 g/dL (3.5-5.0); Alkaline Phosphatase 120 U/L (38-126); Anion Gap 8 mmol/L; Blood Urea Nitrogen 12 mg/dL (9-20); Carbon Dioxide 27 mmol/L (22-30); Chloride 99 mmol/L (98-107); Glucose 99 mg/dL (74-99); Non-African American GFR(CKD) >90 (>60 ml/min/1.73 sqM); Potassium 3.8 mmol/L (3.5-5.1); Sodium 134 mmol/L (137-145); Total Bilirubin 0.7 mg/dL (0.2-1.3); Total Protein 6.9 g/dL (6.3-8.2)
[2021-11-08] MEDS: SODIUM CHLORIDE 0.9% 1,000 ML IV SCH ×2 (15:52→20:26)
[2021-11-08] MEDS: PIPERACILLIN-TAZOBACTAM 3.375 GM in SODIUM CHLORIDE 0.9% 100 ML IVPB SCH ×2 (15:53→23:29)
[2021-11-08 16:17] LABS: INR 1.2 (<1.2); Prothrombin Time 12.4 sec (9.0-12.0)
--- NOTE | 2021-11-08 16:21 | CT ---
EXAMINATION TYPE: CT abdomen w con DATE OF EXAM: 11/08/2021 COMPARISON: Prior CT abdomen October 03, 2021. Recent limited abdominal ultrasound yesterday HISTORY: LL abdomen mass. Area marked by BB. CT DLP: 1237.3 mGycm Automated exposure control for dose reduction was used. TECHNIQUE: Helical acquisition of images was performed from the lung bases through the top of iliac crest to include entire abdomen. CONTRAST: Performed CT abdomen without Oral Contrast and with IV Contrast, patient injected with 100 mL of Isov ue 300. FINDINGS: LUNG BASES: Coronary artery calcification and/or stents in the distal RCA is redemonstrated. LIVER/GB: Cholecystectomy clip is redemonstrated. PANCREAS: No significant abnormality is seen. SPLEEN: No significant abnormality is seen. ADRENALS: No significant abnormality is seen. KIDNEYS: No significant abnormality is seen. BOWEL: No significant abnormality is seen. LYMPH NODES: No significant abnormality is seen. OSSEOUS STRUCTURES: Persistent slight scoliotic curvature. Persistent lucency suggesting prior fusio n hardware in the mid to lower lumbar spine into the upper sacrum. Posterior laminectomy defects and spinous process resection is redemonstrated. Spinal canal is patent. Metallic hardware from left hip surgery is partially imaged on localizer. OTHER: Further enlargement of heterogeneous lobulated left lateral abdominal wall focal fluid collect ion with moderate ill-defined fluid and fat stranding adjacent to this. This measures approximately 7 .0 x 7.4 x 8.8 cm axial image 31 and coronal image 38. There is linear hyperdense material along the deep aspect sagittal image 112 redemonstrated. No definitive rectus sheath breakthrough. IMPRESSION: Further enlargement of left lateral abdominal wall nonspecific fluid collection with surr ounding fat stranding could reflect abscess with suspicion for retained foreign body or needle fragme nt.
[2021-11-08] MEDS: HYDROmorphone 1 MG/ML 1 ML SYRINGE IVP PRN ×2 (16:57→20:27)
[2021-11-08] MEDS: ACETAMINOPHEN TAB 325 MG TAB PO PRN (20:26)
[2021-11-08] MEDS: METOPROLOL TARTRATE 25 MG TAB PO SCH (20:26)
[2021-11-08] MEDS ORDERED: FLUTICASONE 50MCG/SPRAY NASAL 16GM EA NOSTRIL PRN (23:14)
[2021-11-08] MEDS: TAMSULOSIN 0.4 MG CAP.ER.24H PO SCH (23:29)
[2021-11-09] MEDS: HYDROmorphone 1 MG/ML 1 ML SYRINGE IVP PRN ×5 (00:22→20:02)
--- NOTE | 2021-11-09 00:42 | P.HPIM ---
History of Present Illness H&P Date: 11/08/21 Chief Complaint: Abdominal wall swelling. Patient is a 71-year-old male with a known history of atrial fibrillation on anticoagulation with Eliquis, fibromyalgia, hypertension, Camacho's esophagus, hearing disorder/deafness and osteoarthritis and other medical problems presents to ER with complaints of left-sided abdominal wall swelling/abscess. Patient was diagnosed with abdominal abscess versus hematoma and was recommended to follow-up in the office. Patient was seen by Dr. Adams in the clinic yesterday and was recommended intramenstrual drainage. Patient presented to ER with complaints of worsening pain and also redness over the surface of the lesion. Otherwise patient denied any complaints of chest pain or shortness of breath. No abdominal pain or diarrhea. Denies any dysuria or hematuria. No recent illnesses. No recent trauma. CT of the abdomen pelvis showed further enlargement of the left lateral abdominal wall nonspecific fluid collection with surrounding fat stranding could reflect abscess with suspicious for retained foreign body or needle fragment. Laboratory data showed WBC 16.7 hemoglobin 13.2 and platelets 371 Sodium 134 potassium 3.8 chloride 99 bicarb is 27 BUN 12 and creatinine 0.60 liver enzymes are not elevated. Patient was febrile with T-max 100.1 on admission. Review of Systems Constitutional: Patient does have some fevers and chills.. No generalized weakness or weight loss. Abdomen: Patient denied nausea vomiting and diarrhea and abdominal pain. Swelling over the left of his abdomen. Cardiovascular: Patient denies any chest pain or short of breath no palpitations. Respiratory: patient denied any cough is from production. No shortness of breath Neurologic: Patient denied any numbness or tingling headache. Musculoskeletal: Patient denies any complaints of joint swelling or deformity. Skin: Negative Psychiatric: Negative Endocrine: No heat or cold intolerance. No recent weight gain. Genitourinary: No dysuria or hematuria. All other 14 point ROS negative except the above Past Medical History Past Medical History: Atrial Fibrillation, Fibromyalgia, GERD/Reflux, Hearing Disorder / Deafness, Hypertension, Musculoskeletal Disorder, Osteoarthritis (OA), Pneumonia Additional Past Medical History / Comment(s): Camacho's esophagus, diverticular disease, benign rectal polyp, muscle twitching/burning pain/cramping, L hip "pops", chronic back pain, DDD, past rib fractures, gout L wrist, bilateral arm/hands pain/numbness and tingling, difficulty urinating, upper [place] bilaterally, pneumonia as a teen. History of Any Multi-Drug Resistant Organisms: None Reported Past Surgical History: Appendectomy, Back Surgery, Cholecystectomy, Hernia Repa ir, Joint Replacement, Orthopedic Surgery, Tonsillectomy Additional Past Surgical History / Comment(s): 10/23/21 lap rosalio, nyasia fundoplasty, EGDs, colonoscopies, back surgeries, back neurostimulator/since removed, pain clinic procedures, bilateral ankle surgery to remove scar tissue, total L hip arthroplasty, R shoulder rotator cuff surgery twice, cervical fusion/marisa, ORIF L arm, sinus surgery, forehead cyst removed Past Anesthesia/Blood Transfusion Reactions: No Reported Reaction, Family History of Problems w/ Anesthesia Additional Past Anesthesia/Blood Transfusion Reaction / Comment(s): Mom had PONV. Smoking Status: Never smoker - Past Family History Father Family Medical History: Cancer Additional Family Medical History / Comment(s): Esophageal cancer. Mother Family Medical History: CVA/TIA, Deep Vein Thrombosis (DVT) Additional Family Medical History / Comment(s): Poss DVT in ankle prior to CVA Medications and Allergies Home Medications Medication Instructions Recorded Confirmed Type Atenolol [Tenormin] 25 mg PO DAILY 11/06/13 11/08/21 History DULoxetine HCL [Cymbalta] 60 mg PO BID 08/01/16 11/08/21 History Apixaban [Eliquis] 5 mg PO BID 07/01/18 11/08/21 History Fluticasone Propionate 2 spr EA NOSTRIL DAILY PRN 10/21/21 11/08/21 History [Fluticasone Propionate [place]] Tamsulosin [Flomax] 0.4 mg PO BID 10/21/21 11/08/21 History Ascorbic Acid [Vitamin C] 500 mg PO DAILY 11/07/21 11/08/21 History Glucosam/Jere-Msm1/C/Brandin/Bosw 1 tab PO BID 11/07/21 11/08/21 History [Glucosamine-Chondroitin Tablet] HYDROmorphone [Dilaudid] 2 mg PO Q6H PRN 3 Days #8 tab 11/07/21 11/08/21 Rx Multivitamin/Iron/Folic Acid 1 tab PO DAILY 11/07/21 11/08/21 History [Centrum Adults Tablet] Omeprazole 40 mg PO DAILY 11/07/21 11/08/21 History Super B Complex 1 tab PO DAILY 11/07/21 11/08/21 History Zinc 50 mg PO DAILY 11/07/21 11/08/21 History Allergies Allergy/AdvReac Type Severity Reaction Status Date / Time magnesium AdvReac Diarrhea Verified 11/08/21 13:43 morphine AdvReac Nausea & Verified 11/08/21 13:43 Vomiting & Diarrhea Physical Exam Vitals: Vital Signs Temp Pulse Pulse Resp BP BP Pulse Ox 11/08/21 19:48 101.9 F H 108 H 18 121/70 95 11/08/21 19:20 108 H 18 11/08/21 16:46 100.1 F H 99 18 123/83 98 11/08/21 16:00 98 18 124/76 96 11/08/21 13:53 98 18 132/85 97 11/08/21 11:49 99.2 F 93 121 H 121/70 98 Intake and Output 11/08/21 11/08/21 11/09/21 14:59 22:59 06:59 Other: Voiding Method Toilet Urinal # Voids 1 Weight 95.708 kg 95.708 kg PHYSICAL EXAMINATION: Patient is lying in the bed comfortably, no acute distress, awake alert and oriented.. HEENT: Normocephalic. Neck is supple. Pupils reactive. Nostrils clear. Oral cavity is moist. Neck reveals no JVD, carotid bruits, or thyromegaly. CHEST EXAMINATION: Trachea is central. Symmetrical expansion. Lung ferrera clear to auscultation and percussion. CARDIAC: Normal S1, S2 with no gallops. No murmurs ABDOMEN: Soft. Masslike swelling over the left side of the abdominal wall. Warm to touch and mild tenderness. Bowel sounds normal. No organomegaly. No abdominal bruits. Extremities: reveal no edema. No clubbing or cyanosis Neurologically awake, alert, oriented x3 with well-coordinated movements. No focal deficits noted Skin: No rash or skin lesions. Psychiatric: Coperative. Nonsuicidal Musculoskeletal: No joint swelling or deformity. Normal range of motion. Results CBC & Chem 7: 11/09/21 04:08 11/08/21 14:39 Labs: Abnormal Lab Results - Last 24 Hours (Table) 11/08/21 11/08/21 11/08/21 Range/Units 14:15 14:39 15:41 WBC 16.7 H (3.8-10.6) k/uL RBC 4.14 L (4.30-5.90) m/uL Neutrophils # 13.4 H (1.3-7.7) k/uL Monocytes # 1.6 H (0-1.0) k/uL PT 12.4 H (9.0-12.0) sec INR 1.2 H (<1.2) Sodium 134 L (137-145) mmol/L Creatinine 0.60 L (0.66-1.25) mg/dL Thrombosis Risk Factor Assmnt - DVT/VTE Prophylaxis DVT/VTE Prophylaxis: Pharmacologic Prophylaxis ordered - Choose All That Apply Any of the Below Risk Factors Present?: Yes Each Factor Represents 1 point: Obesity (BMI >25) Other Risk Factors: Yes Each Risk Factor Represents 2 Points: Age 61-74 years Other congenital or acquired thrombophilia - If yes, enter type in comment: No Thrombosis Risk Factor Assessment Total Risk Factor Score: 3 Thrombosis Risk Factor Assessment Level: Moderate Risk Assessment and Plan Assessment: Left-sided abdominal wall abscess with suspected retained foreign body/needle fragment. Sepsis secondary to above Paroxysmal atrial fibrillation on anticoagulation with Eliquis Hypertension Hearing disorder/deafness Osteoarthritis Fibromyalgia Anxiety/depression Previous history of smoking and Occasional marijuana use DVT prophylaxis patient is on full anticoagulation. Plan: Patient will be continued on antibiotics in the form of Zosyn and CT of the abdomen showed abscess with possible retained foreign body. IR consult for drainage. General surgery was consulted for evaluation. Continue with home medications and Eliquis is on hold for possible surgical intervention. Continue to follow closely. Time with Patient: Greater than 30
[2021-11-09] MEDS: ACETAMINOPHEN TAB 325 MG TAB PO PRN ×3 (01:57→20:09)
[2021-11-09] MEDS: SODIUM CHLORIDE 0.9% 1,000 ML IV SCH ×2 (04:29→15:05)
[2021-11-09] MEDS: METOPROLOL TARTRATE 25 MG TAB PO SCH ×2 (09:04→20:02)
[2021-11-09] MEDS: PIPERACILLIN-TAZOBACTAM 3.375 GM in SODIUM CHLORIDE 0.9% 100 ML IVPB SCH ×2 (09:04→15:46)
[2021-11-09] MEDS: TAMSULOSIN 0.4 MG CAP.ER.24H PO SCH ×2 (09:04→20:02)
[2021-11-09] MEDS: PANTOPRAZOLE 40 MG TABLET PO SCH (09:04)
[2021-11-09] MEDS: DULoxetine HCL 60 MG CAPSULE.DR PO SCH ×2 (09:04→20:02)
[2021-11-09 09:44] LABS: HCT 34.6 % (39.6-50.0); HGB 11.6 g/dL (13.0-17.0); MCH 31.9 pg (27.0-32.0); MCHC 33.5 g/dL (32.0-37.0); MCV 95.1 fL (80.0-97.0); Mean Platelet Volume 9.6 fL (9.5-12.2); NRBC Per 100 WBC 0 /100 WBCS (0.0-0.0); Platelet Count 353 X 10*3/uL (140-440); RBC 3.64 X 10*6/uL (4.40-5.60); RDW 14.3 % (11.5-14.5)
[2021-11-09] MEDS ORDERED: VANCOMYCIN IV PER PHARMACY 1 EACH MISC MISCELLANE PRN (10:36)
[2021-11-09 10:51] LABS: Albumin 3.2 g/dL (3.8-4.9); Albumin/Globulin Ratio 1.33 (1.60-3.17); Anion Gap 12.3 mmol/L (10.00-18.00); Blood Urea Nitrogen 9.1 mg/dL (9.0-27.0); Calcium 8.8 mg/dL (8.7-10.3); Carbon Dioxide 23.7 mmol/L (20.0-27.5); Globulin 2.4 g/dL (1.6-3.3); Non-African American GFR(CKD) 94.9 (60.0-200.0); Potassium 4.1 mmol/L (3.5-5.5); Total Bilirubin 0.6 mg/dL (0.30-1.20); Total Protein 5.6 g/dL (6.2-8.2)
[2021-11-09] MEDS ORDERED: VANCOMYCIN 1,750 MG in SODIUM CHLORIDE 0.9% 500 ML 500 ML IVPB ONE (11:00)
[2021-11-09 12:23] LABS: Basophils % (A) 0 %; Eosinophils % (A) 1 %; Immature Grans, Automated 0.6 %; Lymphocytes % (A) 9 %; Monocytes % (A) 14 %; Neutrophils % (A) 75 %; RBC Morphology NORMAL
--- NOTE | 2021-11-09 13:49 | P.GSCN ---
History of Present Illness Consult date: 11/09/21 History of present illness: REASON FOR CONSULTATION: Abdominal pain HISTORY OF PRESENT ILLNESS: The patient is a 71-year-old male with recent cholecystectomy over 2-3 weeks ago. He presents with swelling along the left upper abdominal wall for over 1 week. He also presents with leukocytosis. He is on a blood thinner. As a result of his abdominal pain, patient has presented to the emergency room at least twice. He had placement of an interventional radiology drain of the left upper quadrant fluid collection. Reports decreased swelling since his procedure. His abdominal pain has improved. PAST MEDICAL HISTORY: See list and reviewed PAST SURGICAL HISTORY: See list and reviewed MEDICATIONS: See list and reviewed ALLERGIES: See list and reviewed SOCIAL HISTORY: See list and reviewed FAMILY HISTORY: See list and reviewed REVIEW OF ORGAN SYSTEMS: CONSTITUTIONAL: Has chills. Temperature max of 101.9. No recent weight loss. EYES: Denies any trouble with vision. No glasses. HEENT: Has difficulties with hearing. No nosebleeds. No difficulty swallowing. RESPIRATORY: Denies pneumonia. Denies any troubles with breathing or dyspnea on exertion. CARDIOVASCULAR: Has atrial fibrillation. Has hypertension. GASTROINTESTINAL: Has gastroesophageal reflux disease. Has Camacho's esophagus. Has diverticular disease. GENITOURINARY: Denies any blood in urine or increased urinary frequency. NEUROLOGICAL: Has fibromyalgia. Has neuropathy. MUSCULOSKELETAL: Has back pain, stiffness or joint arthritis. Has gout. SKIN: No current skin cancer. No rash. PSYCHIATRIC: Has anxiety and depressive disorder. ENDOCRINE: Denies current thyroid disorders. Denies any blood sugar glucose intolerance. HEME/LYMPHATIC: Denies any lumps and bumps around the neck. No recent deep venous thrombosis. ALLERGY/IMMUNOLOGY: No immunoglobulin therapy. No immune deficiencies. BREAST: Denies current breast lumps, pain or nipple discharge. PHYSICAL EXAM: VITALS: Reviewed CONSTITUTIONAL: Well developed and in no acute distress. EYES: Conjuctivae without sclera icterus. Extraocular movements grossly intact. HEAD, EARS, NOSE, THROAT: Moist buccal mucosa. Head is atraumatic, normocephalic. Hears conversational speech. No nasal drainage. NECK: Supple. No JV distention. No thyroidomegaly. RESPIRATORY: Non-labored respirations and equal bilateral excursions. No gross wheezes. CARDIOVASCULAR: Palpable 2+ radial pulses. ABDOMEN: Tender swelling left upper abdomen. Purulent over 150 mL drainage and catheter bag. LYMPH: No gross neck lymphadenopathy. MUSCULOSKELETAL: Nail and fingers with good capillary refill. SKIN: Warm and well perfused with good skin turgor. NEUROLOGIC: Cranial nerves II through XII grossly intact. No focal or late ralizing signs. PSYCH: Appropriate affect. Alert and oriented to person, place and time. Displays appropriate insight. CLINCAL LABS: Reviewed. WBC down from 16.7-15.4, leukocytosis. INR elevated at 1.2. IMAGING: Independently reviewed CT of the abdomen and pelvis demonstrating large fluid collection along the subcutaneous tissue of the left upper quadrant with linear density identified along the depth of the fluid collection. This is my independent interpretation. RADIOLOGY: Report reviewed RECORDS: previous old records reviewed ASSESSMENT: 1. Abdominal wall abscess 2. Status post cholecystectomy 3. Atrial fibrillation PLAN: 1. Continue IV antibiotics. 2. May have regular diet 3. Continue drain. ADVANCE DIRECTIVE: Thank you for this kind consultation. Past Medical History Past Medical History: Atrial Fibrillation, Fibromyalgia, GERD/Reflux, Hearing Disorder / Deafness, Hypertension, Musculoskeletal Disorder, Osteoarthritis (OA), Pneumonia Additional Past Medical History / Comment(s): Camacho's esophagus, diverticular disease, benign rectal polyp, muscle twitching/burning pain/cramping, L hip " pops", chronic back pain, DDD, past rib fractures, gout L wrist, bilateral arm/hands pain/numbness and tingling, difficulty urinating, [place] bilaterally, pneumonia as a teen. History of Any Multi-Drug Resistant Organisms: None Reported Past Surgical History: Appendectomy, Back Surgery, Cholecystectomy, Hernia Repair, Joint Replacement, Orthopedic Surgery, Tonsillectomy Additional Past Surgical History / Comment(s): 10/23/21 lap rosalio, nyasia fundoplasty, EGDs, colonoscopies, back surgeries, back neurostimulator/since removed, pain clinic procedures, bilateral ankle surgery to remove scar tissue, total L hip arthroplasty, R shoulder rotator cuff surgery twice, cervical fusion/marisa, ORIF L arm, sinus surgery, forehead cyst removed Past Anesthesia/Blood Transfusion Reactions: No Reported Reaction, Family History of Problems w/ Anesthesia Additional Past Anesthesia/Blood Transfusion Reaction / Comm: Mom had PONV. Smoking Status: Never smoker - Past Family History Father Family Medical History: Cancer Additional Family Medical History / Comment(s): Esophageal cancer. Mother Family Medical History: CVA/TIA, Deep Vein Thrombosis (DVT) Additional Family Medical History / Comment(s): Poss DVT in ankle prior to CVA Medications and Allergies Home Medications Medication Instructions Recorded Confirmed Type Atenolol [Tenormin] 25 mg PO DAILY 11/06/13 11/08/21 History DULoxetine HCL [Cymbalta] 60 mg PO BID 08/01/16 11/08/21 History Apixaban [Eliquis] 5 mg PO BID 07/01/18 11/08/21 History Fluticasone Propionate 2 spr EA NOSTRIL DAILY PRN 10/21/21 11/08/21 History [Fluticasone Propionate [place]] Tamsulosin [Flomax] 0.4 mg PO BID 10/21/21 11/08/21 History Ascorbic Acid [Vitamin C] 500 mg PO DAILY 11/07/21 11/08/21 History Glucosam/Jere-Msm1/C/Brandin/Bosw 1 tab PO BID 11/07/21 11/08/21 History [Glucosamine-Chondroitin Tablet] HYDROmorphone [Dilaudid] 2 mg PO Q6H PRN 3 Days #8 tab 11/07/21 11/08/21 Rx Multivitamin/Iron/Folic Acid 1 tab PO DAILY 11/07/21 11/08/21 History [Centrum Adults Tablet] Omeprazole 40 mg PO DAILY 11/07/21 11/08/21 History Super B Complex 1 tab PO DAILY 11/07/21 11/08/21 History Zinc 50 mg PO DAILY 11/07/21 11/08/21 History Allergies Allergy/AdvReac Type Severity Reaction Status Date / Time magnesium AdvReac Diarrhea Verified 11/08/21 13:43 morphine AdvReac Nausea & Verified 11/08/21 13:43 Vomiting & Diarrhea Surgical - Exam Vital Signs Temp Pulse Resp BP Pulse Ox 99.2 F 93 121 H 121/70 98 11/08/21 11:49 11/08/21 11:49 11/08/21 11:49 11/08/21 11:49 11/08/21 11:49 Results - Labs 11/09/21 04:08 11/09/21 04:08 Abnormal Lab Results - Last 24 Hours (Table) 11/08/21 11/08/21 11/08/21 Range/Units 14:15 14:39 15:41 WBC 16.7 H (3.8-10.6) k/uL RBC 4.14 L (4.30-5.90) m/uL Hgb (13.0-17.0) g/dL Hct (39.6-50.0) % Neutrophils # 13.4 H (1.3-7.7) k/uL Monocytes # 1.6 H (0-1.0) k/uL PT 12.4 H (9.0-12.0) sec INR 1.2 H (<1.2) Sodium 134 L (137-145) mmol/L Creatinine 0.60 L (0.66-1.25) mg/dL 11/09/21 Range/Units 04:08 WBC 15.40 H (3.8-10.6) k/uL RBC 3.64 L (4.30-5.90) m/uL Hgb 11.6 L (13.0-17.0) g/dL Hct 34.6 L (39.6-50.0) % Neutrophils # (1.3-7.7) k/uL Monocytes # (0-1.0) k/uL PT (9.0-12.0) sec INR (<1.2) Sodium (137-145) mmol/L Creatinine (0.66-1.25) mg/dL Diabetes panel 11/08/21 Range/Units 14:39 Sodium 134 L (137-145) mmol/L Potassium 3.8 (3.5-5.1) mmol/L Chloride 99 (98-107) mmol/L Carbon Dioxide 27 (22-30) mmol/L BUN 12 (9-20) mg/dL Creatinine 0.60 L (0.66-1.25) mg/dL Glucose 99 (74-99) mg/dL Calcium 9.0 (8.4-10.2) mg/dL AST 23 (17-59) U/L ALT 22 (4-49) U/L Alkaline Phosphatase 120 (38-126) U/L Total Protein 6.9 (6.3-8.2) g/dL Albumin 3.9 (3.5-5.0) g/dL Calcium panel 11/08/21 Range/Units 14:39 Calcium 9.0 (8.4-10.2) mg/dL Albumin 3.9 (3.5-5.0) g/dL Pituitary panel 11/08/21 Range/Units 14:39 Sodium 134 L (137-145) mmol/L Potassium 3.8 (3.5-5.1) mmol/L Chloride 99 (98-107) mmol/L Carbon Dioxide 27 (22-30) mmol/L BUN 12 (9-20) mg/dL Creatinine 0.60 L (0.66-1.25) mg/dL Glucose 99 (74-99) mg/dL Calcium 9.0 (8.4-10.2) mg/dL Adrenal panel 11/08/21 Range/Units 14:39 Sodium 134 L (137-145) mmol/L Potassium 3.8 (3.5-5.1) mmol/L Chloride 99 (98-107) mmol/L Carbon Dioxide 27 (22-30) mmol/L BUN 12 (9-20) mg/dL Creatinine 0.60 L (0.66-1.25) mg/dL Glucose 99 (74-99) mg/dL Calcium 9.0 (8.4-10.2) mg/dL Total Bilirubin 0.7 (0.2-1.3) mg/dL AST 23 (17-59) U/L ALT 22 (4-49) U/L Alkaline Phosphatase 120 (38-126) U/L Total Protein 6.9 (6.3-8.2) g/dL Albumin 3.9 (3.5-5.0) g/dL
[2021-11-09] MEDS: VANCOMYCIN 1,500 MG in SODIUM CHLORIDE 0.9% 250 ML IVPB SCH (20:02)
[2021-11-09 20:07] LABS: Appearance,BF Turbid
[2021-11-10] MEDS: PIPERACILLIN-TAZOBACTAM 3.375 GM in SODIUM CHLORIDE 0.9% 100 ML IVPB SCH ×4 (00:33→23:19)
[2021-11-10] MEDS: SODIUM CHLORIDE 0.9% 1,000 ML IV SCH ×4 (00:33→23:22)
[2021-11-10] MEDS: HYDROmorphone 1 MG/ML 1 ML SYRINGE IVP PRN ×6 (02:03→21:34)
[2021-11-10] MEDS: VANCOMYCIN 1,500 MG in SODIUM CHLORIDE 0.9% 250 ML IVPB SCH ×2 (04:07→12:09)
[2021-11-10] MEDS: METOPROLOL TARTRATE 25 MG TAB PO SCH ×2 (07:52→19:45)
[2021-11-10] MEDS: TAMSULOSIN 0.4 MG CAP.ER.24H PO SCH ×2 (07:52→19:45)
[2021-11-10] MEDS: DULoxetine HCL 60 MG CAPSULE.DR PO SCH ×2 (07:52→19:45)
[2021-11-10] MEDS: PANTOPRAZOLE 40 MG TABLET PO SCH (07:52)
--- NOTE | 2021-11-10 10:52 | P.PN ---
Subjective Progress Note Date: 11/09/21 Patient is a 71-year-old male with a known history of atrial fibrillation on anticoagulation with Eliquis, fibromyalgia, hypertension, Camacho's esophagus, hearing disorder/deafness and osteoarthritis and other medical problems presents to ER with complaints of left-sided abdominal wall swelling/abscess. Patient was diagnosed with abdominal abscess versus hematoma and was recommended to follow-up in the office. Patient was seen by Dr. Adams in the clinic yesterday and was recommended intramenstrual drainage. Patient presented to ER with complaints of worsening pain and also redness over the surface of the lesion. Otherwise patient denied any complaints of chest pain or shortness of breath. No abdominal pain or diarrhea. Denies any dysuria or hematuria. No recent illnesses. No recent trauma. CT of the abdomen pelvis showed further enlargement of the left lateral abdominal wall nonspecific fluid collection with surrounding fat stranding could reflect abscess with suspicious for retained foreign body or needle fragment. Laboratory data showed WBC 16.7 hemoglobin 13.2 and platelets 371 Sodium 134 potassium 3.8 chloride 99 bicarb is 27 BUN 12 and creatinine 0.60 liver enzymes are not elevated. Patient was febrile with T-max 100.1 on admission. 11/09/2021. Patient is currently resting in bed. Awake alert and oriented x3. P patient is febrile overnight and vancomycin added. Continue with Zosyn. No chest pain or shortness of breath. No complaints of nausea or vomiting. Status post IR guided drainage of the abscess with brownish and purulent discharge status post pigtail catheter placement.. Follow-up abscess culture report. General surgery is on board. Laboratory test showed WBC 15.4 hemoglobin 11.6 and platelets 353 Sodium 134 potassium 4.1 chloride 98 bicarb is 23.7 BUN 9.1 and creatinine 0.7 and calcium 8.8 Current medications reviewed. Objective - Vital Signs Vital signs: Vital Signs Temp 99.3 F 11/09/21 19:49 Pulse 87 11/09/21 19:49 Resp 19 11/09/21 19:49 BP 117/75 11/09/21 19:49 Pulse Ox 98 11/09/21 19:49 Intake & Output 11/09/21 11/09/21 11/10/21 06:59 18:59 06:59 Output Total 300 Balance -300 Output: Drainage 300 Left Abdomen 300 Other: Voiding Method Toilet Toilet Urinal # Voids 4 4 - Exam PHYSICAL EXAMINATION: Patient is lying in the bed comfortably, no acute distress, awake alert and oriented.. HEENT: Normocephalic. Neck is supple. Pupils reactive. Nostrils clear. Oral cavity is moist. Neck reveals no JVD, carotid bruits, or thyromegaly. CHEST EXAMINATION: Trachea is central. Symmetrical expansion. Lung ferrera clear to auscultation and percussion. CARDIAC: Normal S1, S2 with no gallops. No murmurs ABDOMEN: Soft. Left-sided abdominal abscess status post pigtail catheter placement Bowel sounds normal. No organomegaly. No abdominal bruits. Extremities: reveal no edema. No clubbing or cyanosis Neurologically awake, alert, oriented x3 with well-coordinated movements. No focal deficits noted Skin: No rash or skin lesions. Psychiatric: Coperative. Nonsuicidal Musculoskeletal: No joint swelling or deformity. Normal range of motion. - Labs CBC & Chem 7: 11/09/21 04:08 11/09/21 04:08 Labs: Abnormal Lab Results - Last 24 Hours (Table) 11/09/21 11/09/21 Range/Units 04:08 04:08 WBC 15.40 H (4.50-10.00) X 10*3/uL RBC 3.64 L (4.40-5.60) X 10*6/uL Hgb 11.6 L (13.0-17.0) g/dL Hct 34.6 L (39.6-50.0) % Immature Gran # 0.10 H (0.00-0.04) X 10*3/uL Sodium 134 L (135-145) mmol/L Total Protein 5.6 L (6.2-8.2) g/dL Albumin 3.2 L (3.8-4.9) g/dL Albumin/Globulin Ratio 1.33 L (1.60-3.17) g/dL Microbiology - Last 24 Hours (Table) 11/08/21 15:50 Blood Culture - Preliminary Blood No Growth after 24 hours 11/09/21 08:27 Body Fluid Culture - Preliminary Aspirate Assessment and Plan Assessment: Left-sided abdominal wall abscess with suspected retained foreign body/needle fragment. Status IR guided drainage. Sepsis secondary to above Paroxysmal atrial fibrillation on anticoagulation with Eliquis Hypertension Hearing disorder/deafness Osteoarthritis Fibromyalgia Anxiety/depression Previous history of smoking and Occasional marijuana use DVT prophylaxis patient is on full anticoagulation. Plan: Patient will be continued on antibiotics in the form of Zosyn and CT of the abdomen showed abscess with possible retained foreign body. IR consult for drainage. Status post pigtail catheter placement. General surgery was consulted for evaluation. Continue with home medications and we will start back on a liquid is once cleare d by surgery.. Continue to follow closely. Time with Patient: Greater than 30
[2021-11-10 11:42] LABS: Basophils # (A) 0.03 X 10*3/uL (0.00-0.10); Basophils % (A) 0.3 %; Eosinophils # (A) 0.17 X 10*3/uL (0.04-0.35); Eosinophils % (A) 1.7 %; HGB 11.7 g/dL (13.0-17.0); Immature Grans, Automated 0.8 %; Lymphocytes # (A) 1.27 X 10*3/uL (0.90-5.00); MCH 30.8 pg (27.0-32.0); MCHC 32.5 g/dL (32.0-37.0); MCV 94.7 fL (80.0-97.0); Mean Platelet Volume 9.9 fL (9.5-12.2); Monocytes # (A) 1.17 X 10*3/uL (0.20-1.00); Monocytes % (A) 11.9 %; NRBC Per 100 WBC 0 /100 WBCS (0.0-0.0); Neutrophils # (A) 7.08 X 10*3/uL (1.80-7.70); Neutrophils % (A) 72.3 %; Platelet Count 365 X 10*3/uL (140-440); RDW 13.8 % (11.5-14.5)
[2021-11-10 11:48] LABS: African American GFR (CKD) 117.2 (60.0-200.0); Anion Gap 12.4 mmol/L (10.00-18.00); BUN/Creat Ratio 13.67 Ratio (12.00-20.00); Blood Urea Nitrogen 8.2 mg/dL (9.0-27.0); Calcium 8.7 mg/dL (8.7-10.3); Carbon Dioxide 24.6 mmol/L (20.0-27.5); Non-African American GFR(CKD) 101.2 (60.0-200.0); Potassium 3.7 mmol/L (3.5-5.5)
--- NOTE | 2021-11-10 15:23 | P.PN ---
Subjective Progress Note Date: 11/10/21 REASON FOR CONSULTATION: Abdominal pain HISTORY OF PRESENT ILLNESS: The patient is a 71-year-old male with recent cholecystectomy over 2-3 weeks ago. He presented with swelling along the left upper abdomen and status post interventional radiology drainage with over 200 mL obtained. Per discussion with nursing, decreased output as drained appears to be pulled out. Patient is ambulating with drain over his shoulder. REVIEW OF ORGAN SYSTEMS: Fevers resolved from 100.1 yesterday. No nausea and vomiting. No chest pain. PHYSICAL EXAM: VITALS: Reviewed CONSTITUTIONAL: Well developed and in no acute distress. EYES: Conjuctivae without sclera icterus. Extraocular movements grossly intact. HEAD, EARS, NOSE, THROAT: Moist buccal mucosa. Head is atraumatic, normocephalic. Hears conversational speech. No nasal drainage. RESPIRATORY: Non-labored respirations and equal bilateral excursions. No gross wheezes. CARDIOVASCULAR: 2+ radial pulses. ABDOMEN: Minimal output out of left upper quadrant drain. Decrease swelling left upper quadrant. MUSCULOSKELETAL: Nail and fingers with good capillary refill. SKIN: Warm and well perfused with good skin turgor. NEUROLOGIC: Cranial nerves II through XII grossly intact. No focal or lateralizing signs. PSYCH: Appropriate affect. Alert and oriented to person, place and time. CLINCAL LABS: Reviewed. WBC down from 16.7-15.4, leukocytosis, now normal 9.8. Hemoglobin stable 11.6-11.7. ASSESSMENT: 1. Abdominal wall abscess 2. Status post cholecystectomy 3. Atrial fibrillation 4. Status post CT-guided drain placement PLAN: 1. Recommend reassessment by interventional radiology for CT guided drain dislodgment 2. Continue IV antibiotics Objective - Vital Signs Vital signs: Vital Signs Temp 98.5 F 11/10/21 14:00 Pulse 87 11/10/21 14:00 Resp 17 11/10/21 14:00 BP 112/66 11/10/21 14:00 Pulse Ox 95 11/10/21 14:00 Intake & Output 11/09/21 11/10/21 11/10/21 18:59 06:59 18:59 Output Total 300 Balance -300 Output: Drainage 300 Left Abdomen 300 Other: Voiding Method Toilet Toilet Urinal # Voids 4 3 - Labs CBC & Chem 7: 11/10/21 08:07 11/10/21 08:07 Labs: Abnormal Lab Results - Last 24 Hours (Table) 11/10/21 11/10/21 Range/Units 08:07 08:07 RBC 3.80 L (4.40-5.60) X 10*6/uL Hgb 11.7 L (13.0-17.0) g/dL Hct 36.0 L (39.6-50.0) % Immature Gran # 0.08 H (0.00-0.04) X 10*3/uL Monocytes # 1.17 H (0.20-1.00) X 10*3/uL Sodium 133 L (135-145) mmol/L BUN 8.2 L (9.0-27.0) mg/dL Glucose 114 H (70-110) mg/dL Microbiology - Last 24 Hours (Table) 11/09/21 08:27 Gram Stain - Preliminary Aspirate Body Fluid Culture - Preliminary Gram Neg Bacilli 11/08/21 15:50 Blood Culture - Preliminary Blood No Growth after 24 hours
[2021-11-10] MEDS ORDERED: VANCOMYCIN TROUGH DUE 1 EACH MISC MISCELLANE ONE (19:00)
[2021-11-11] MEDS: HYDROmorphone 1 MG/ML 1 ML SYRINGE IVP PRN ×6 (00:36→21:19)
[2021-11-11] MEDS ORDERED: HYDROmorphone 1 MG/ML 1 ML SYRINGE ONE (03:47)
[2021-11-11 06:57] LABS: African American GFR (CKD) >90 (>60 ml/min/1.73 sqM); Non-African American GFR(CKD) >90 (>60 ml/min/1.73 sqM)
[2021-11-11] MEDS: METOPROLOL TARTRATE 25 MG TAB PO SCH ×2 (08:04→21:20)
[2021-11-11] MEDS: PANTOPRAZOLE 40 MG TABLET PO SCH (08:04)
[2021-11-11] MEDS: DULoxetine HCL 60 MG CAPSULE.DR PO SCH ×2 (08:04→21:20)
[2021-11-11] MEDS: PIPERACILLIN-TAZOBACTAM 3.375 GM in SODIUM CHLORIDE 0.9% 100 ML IVPB SCH ×2 (08:04→15:11)
[2021-11-11] MEDS: TAMSULOSIN 0.4 MG CAP.ER.24H PO SCH ×2 (08:04→21:20)
[2021-11-11 10:56] LABS: Basophils % (A) 1 %; Eosinophils # (A) 0.2 k/uL (0-0.7); Eosinophils % (A) 3 %; HCT 36.6 % (39.0-53.0); HGB 11.6 gm/dL (13.0-17.5); Lymphocytes # (A) 1.3 k/uL (1.0-4.8); Lymphocytes % (A) 16 %; MCH 31.7 pg (25.0-35.0); MCHC 31.6 g/dL (31.0-37.0); MCV 100.1 fL (80.0-100.0); Mean Platelet Volume 7.6; Monocytes # (A) 0.8 k/uL (0-1.0); Monocytes % (A) 10 %; Neutrophils # (A) 5.6 k/uL (1.3-7.7); Neutrophils % (A) 69 %; Platelet Count 380 k/uL (150-450); RBC 3.65 m/uL (4.30-5.90); RDW 13.5 % (11.5-15.5); WBC 8.2 k/uL (3.8-10.6)
--- NOTE | 2021-11-11 11:02 | US ---
EXAMINATION TYPE: US visceral fluid drainage DATE OF EXAM: 11/09/2021 COMPARISON: CT abdomen one day earlier and older studies. HISTORY: Focal left abdominal pain and swelling. Abnormal recent CT and ultrasound. TECHNIQUE: Ultrasound-guided abscess drainage. FINDINGS: Procedure was explained to patient. Benefits, alternatives, and risks were discussed. Infor med consent was then obtained. Case discussed with surgeon prior to performing. Surgeon still request s drainage catheter insertion despite internal foreign body or suspected needle fragment. Preprocedure ultrasound redemonstrates lobulated superficial fluid collection over the left to mid ab domen just below the dermal layer in the subcutaneous tissue. Overlying skin is cleansed with Betadin e. Lidocaine was used as anesthetic into the skin and subcutaneous tissue. Under ultrasound guidance, catheter is punctured into the fluid collection. Metal stylette is removed and pigtail catheter is f ormed. I forgot to remove the blue superficial dilator so affixed this to the patient overlying skin with the external portion of the catheter. Approximate 20 cc of brown cloudy fluid was aspirated and sent to the lab for analysis. Ordered labs performed by surgeon. Patient tolerated procedure well without any immediate complication. Patient was to remain inpatient for next few days until probable surgical incision and drainage to be performed in a few days. IMPRESSION: As above.
[2021-11-11 11:21] LABS: Anion Gap 8 mmol/L; Blood Urea Nitrogen 8 mg/dL (9-20); Calcium 8.6 mg/dL (8.4-10.2); Carbon Dioxide 23 mmol/L (22-30); Chloride 103 mmol/L (98-107); Glucose 114 mg/dL (74-99); Potassium 3.9 mmol/L (3.5-5.1); Sodium 134 mmol/L (137-145)
--- NOTE | 2021-11-11 13:40 | P.GSCN ---
History of Present Illness Consult date: 11/11/21 Reason for Consult: abdominal wall abscess History of present illness: I was asked to evaluate for repeat drain placement, will defer to surgery for superficial abscess I and D, notified Dr Adams Past Medical History Past Medical History: Atrial Fibrillation, Fibromyalgia, GERD/Reflux, Hearing Disorder / Deafness, Hypertension, Musculoskeletal Disorder, Osteoarthritis (OA), Pneumonia Additional Past Medical History / Comment(s): Camacho's esophagus, diverticular disease, benign rectal polyp, muscle twitching/burning pain/cramping, L hip "pops", chronic back pain, DDD, past rib fractures, gout L wrist, bilateral arm/hands pain/numbness and tingling, difficulty urinating, [place] bilaterally, pneumonia as a teen. History of Any Multi-Drug Resistant Organisms: None Reported Past Surgical History: Appendectomy, Back Surgery, Cholecystectomy, Hernia Repair, Joint Replacement, Orthopedic Surgery, Tonsillectomy Additional Past Surgical History / Comment(s): 10/23/21 lap rosalio, nyasia fundoplasty, EGDs, colonoscopies, back surgeries, back neurostimulator/since removed, pain clinic procedures, bilateral ankle surgery to remove scar tissue, total L hip arthroplasty, R shoulder rotator cuff surgery twice, cervical fusion/marisa, ORIF L arm, sinus surgery, forehead cyst removed Past Anesthesia/Blood Transfusion Reactions: No Reported Reaction, Family History of Problems w/ Anesthesia Additional Past Anesthesia/Blood Transfusion Reaction / Comm: Mom had PONV. Smoking Status: Never smoker - Past Family History Father Family Medical History: Cancer Additional Family Medical History / Comment(s): Esophageal cancer. Mother Family Medical History: CVA/TIA, Deep Vein Thrombosis (DVT) Additional Family Medical History / Comment(s): Poss DVT in ankle prior to CVA Medications and Allergies Home Medications Medication Instructions Recorded Confirmed Type Atenolol [Tenormin] 25 mg PO DAILY 11/06/13 11/08/21 History DULoxetine HCL [Cymbalta] 60 mg PO BID 08/01/16 11/08/21 History Apixaban [Eliquis] 5 mg PO BID 07/01/18 11/08/21 History Fluticasone Propionate 2 spr EA NOSTRIL DAILY PRN 10/21/21 11/08/21 History [Fluticasone Propionate [place]] Tamsulosin [Flomax] 0.4 mg PO BID 10/21/21 11/08/21 History Ascorbic Acid [Vitamin C] 500 mg PO DAILY 11/07/21 11/08/21 History Glucosam/Jere-Msm1/C/Brandin/Bosw 1 tab PO BID 11/07/21 11/08/21 History [Glucosamine-Chondroitin Tablet] HYDROmorphone [Dilaudid] 2 mg PO Q6H PRN 3 Days #8 tab 11/07/21 11/08/21 Rx Multivitamin/Iron/Folic Acid 1 tab PO DAILY 11/07/21 11/08/21 History [Centrum Adults Tablet] Omeprazole 40 mg PO DAILY 11/07/21 11/08/21 History Super B Complex 1 tab PO DAILY 11/07/21 11/08/21 History Zinc 50 mg PO DAILY 11/07/21 11/08/21 History Allergies Allergy/AdvReac Type Severity Reaction Status Date / Time magnesium AdvReac Diarrhea Verified 11/08/21 13:43 morphine AdvReac Nausea & Verified 11/08/21 13:43 Vomiting & Diarrhea Surgical - Exam Vital Signs Temp Pulse Resp BP Pulse Ox 99.2 F 93 121 H 121/70 98 11/08/21 11:49 11/08/21 11:49 11/08/21 11:49 11/08/21 11:49 11/08/21 11:49 Results - Labs 11/11/21 05:47 11/11/21 05:47 Abnormal Lab Results - Last 24 Hours (Table) 11/11/21 11/11/21 Range/Units 05:47 05:47 RBC 3.65 L (4.30-5.90) m/uL Hgb 11.6 L (13.0-17.5) gm/dL Hct 36.6 L (39.0-53.0) % MCV 100.1 H (80.0-100.0) fL Sodium 134 L (137-145) mmol/L BUN 8 L (9-20) mg/dL Glucose 114 H (74-99) mg/dL Microbiology - Last 24 Hours (Table) 11/09/21 08:27 Gram Stain - Final Aspirate Body Fluid Culture - Final Escherichia coli Morganella morganii 11/08/21 15:50 Blood Culture - Preliminary Blood No Growth after 48 hours Diabetes panel 11/11/21 Range/Units 05:47 Sodium 134 L (137-145) mmol/L Potassium 3.9 (3.5-5.1) mmol/L Chloride 103 (98-107) mmol/L Carbon Dioxide 23 (22-30) mmol/L BUN 8 L (9-20) mg/dL Creatinine 0.66 (0.66-1.25) mg/dL Glucose 114 H (74-99) mg/dL Calcium 8.6 (8.4-10.2) mg/dL Calcium panel 11/11/21 Range/Units 05:47 Calcium 8.6 (8.4-10.2) mg/dL Pituitary panel 11/11/21 Range/Units 05:47 Sodium 134 L (137-145) mmol/L Potassium 3.9 (3.5-5.1) mmol/L Chloride 103 (98-107) mmol/L Carbon Dioxide 23 (22-30) mmol/L BUN 8 L (9-20) mg/dL Creatinine 0.66 (0.66-1.25) mg/dL Glucose 114 H (74-99) mg/dL Calcium 8.6 (8.4-10.2) mg/dL Adrenal panel 11/11/21 Range/Units 05:47 Sodium 134 L (137-145) mmol/L Potassium 3.9 (3.5-5.1) mmol/L Chloride 103 (98-107) mmol/L Carbon Dioxide 23 (22-30) mmol/L BUN 8 L (9-20) mg/dL Creatinine 0.66 (0.66-1.25) mg/dL Glucose 114 H (74-99) mg/dL Calcium 8.6 (8.4-10.2) mg/dL
--- NOTE | 2021-11-11 13:48 | P.PN ---
Subjective Progress Note Date: 11/11/21 CHIEF COMPLAINT: Abdominal pain HISTORY OF PRESENT ILLNESS: The patient is a 71-year-old male with recent cholecystectomy over 2-3 weeks ago. He presented with swelling along the left upper abdomen and status post interventional radiology drainage with over 200 mL obtained. Per discussion with nursing, decreased output as drained appears to be pulled out. And it has been leaking purulent drainage around the insertion site. Patient reports that his pain has shown improvement. He is scheduled to be evaluated by IR again to assess placement of drainage tube. Computed tomography scan abdomen and pelvis from 11/08/2021 shows further enlargement of left lateral abdominal wall nonspecific fluid collection with surrounding fat strength reflect abscess with suspicion for retained foreign body or needle fragment. Afebrile. WBC is 8.2 hemoglobin 11.6 culture growing E. coli and Morganella Morganii PHYSICAL EXAM: VITAL SIGNS: Reviewed. GENERAL: Well-developed in no acute distress. HEENT: No sclera icterus. Extraocular movements grossly intact. Moist buccal mucosa. Head is atraumatic, normocephalic. ABDOMEN: Soft. Nondistended. Drainage tube on left side of abdomen with purulent discharge surrounding the insertion site. NEUROLOGIC: Alert and oriented. Cranial nerves II through XII grossly intact. ASSESSMENT: 1. Left lateral abdominal wall abscess with suspicion for retained foreign body or needle fragment status post CT-guided drain placement 2. Recent cholecystectomy 3. Atrial fibrillation PLAN: -Patient scheduled for incision and drainage of abdominal abscess tomorrow, 11/12/[address] london for further evaluation of possible retained foreign body or needle fragment -Keep patient nothing by mouth after midnight -Continue antibiotics -Continue to hold Eliquis -Case discussed with medicine service Physician Rn Private Duty note has been reviewed by physician. Signing provider agrees with the documented findings, assessment, and plan of care. Objective - Vital Signs Vital signs: Vital Signs Temp 98.1 F 11/11/21 08:00 Pulse 78 11/11/21 08:00 Resp 16 11/11/21 08:00 BP 127/76 11/11/21 08:00 Pulse Ox 98 11/11/21 08:00 FiO2 Intake & Output 11/10/21 11/11/21 11/11/21 18:59 06:59 18:59 Other: Voiding Method Urinal Urinal Urinal # Voids 3 2 - Labs CBC & Chem 7: 11/11/21 05:47 11/11/21 05:47 Labs: Abnormal Lab Results - Last 24 Hours (Table) 11/11/21 11/11/21 Range/Units 05:47 05:47 RBC 3.65 L (4.30-5.90) m/uL Hgb 11.6 L (13.0-17.5) gm/dL Hct 36.6 L (39.0-53.0) % MCV 100.1 H (80.0-100.0) fL Sodium 134 L (137-145) mmol/L BUN 8 L (9-20) mg/dL Glucose 114 H (74-99) mg/dL Microbiology - Last 24 Hours (Table) 11/09/21 08:27 Gram Stain - Final Aspirate Body Fluid Culture - Final Escherichia coli Morganella morganii 11/08/21 15:50 Blood Culture - Preliminary Blood No Growth after 48 hours
[2021-11-11] MEDS: SODIUM CHLORIDE 0.9% 1,000 ML IV SCH (17:22)
--- NOTE | 2021-11-11 23:57 | P.PN ---
Subjective Progress Note Date: 11/10/21 Patient is a 71-year-old male with a known history of atrial fibrillation on anticoagulation with Eliquis, fibromyalgia, hypertension, Camacho's esophagus, hearing disorder/deafness and osteoarthritis and other medical problems presents to ER with complaints of left-sided abdominal wall swelling/abscess. Patient was diagnosed with abdominal abscess versus hematoma and was recommended to follow-up in the office. Patient was seen by Dr. Adams in the clinic yesterday and was recommended intramenstrual drainage. Patient presented to ER with complaints of worsening pain and also redness over the surface of the lesion. Otherwise patient denied any complaints of chest pain or shortness of breath. No abdominal pain or diarrhea. Denies any dysuria or hematuria. No recent illnesses. No recent trauma. CT of the abdomen pelvis showed further enlargement of the left lateral abdominal wall nonspecific fluid collection with surrounding fat stranding could reflect abscess with suspicious for retained foreign body or needle fragment. Laboratory data showed WBC 16.7 hemoglobin 13.2 and platelets 371 Sodium 134 potassium 3.8 chloride 99 bicarb is 27 BUN 12 and creatinine 0.60 liver enzymes are not elevated. Patient was febrile with T-max 100.1 on admission. 11/09/2021. Patient is currently resting in bed. Awake alert and oriented x3. P patient is febrile overnight and vancomycin added. Continue with Zosyn. No chest pain or shortness of breath. No complaints of nausea or vomiting. Status post IR guided drainage of the abscess with brownish and purulent discharge status post pigtail catheter placement.. Follow-up abscess culture report. General surgery is on board. Laboratory test showed WBC 15.4 hemoglobin 11.6 and platelets 353 Sodium 134 potassium 4.1 chloride 98 bicarb is 23.7 BUN 9.1 and creatinine 0.7 and calcium 8.8 11/10/2021. Patient is resting in the bed. Awake alert and oriented x3. Left-sided abdominal wall swelling and pain did improve. Patient is status post IR guided drainage tube placement. Patient pulled out tube accidentally. Wound cultures are growing gram-negative bacilli. Vancomycin has been discontinued patient is being cardiogram Zosyn. General surgery is on board. Anticoagulation is on hold for possible surgical intervention. Patient has been afebrile today. No nausea vomiting or abdominal pain or diarrhea. Current medications reviewed. Objective - Vital Signs Vital signs: Vital Signs Temp 98.7 F 11/10/21 08:00 Pulse 68 11/10/21 08:00 Resp 17 11/10/21 08:00 BP 133/64 11/10/21 08:00 Pulse Ox 97 11/10/21 08:00 Intake & Output 11/09/21 11/10/21 11/10/21 18:59 06:59 18:59 Output Total 300 Balance -300 Output: Drainage 300 Left Abdomen 300 Other: Voiding Method Toilet Toilet Urinal # Voids 4 3 - Exam PHYSICAL EXAMINATION: Patient is lying in the bed comfortably, no acute distress, awake alert and oriented.. HEENT: Normocephalic. Neck is supple. Pupils reactive. Nostrils clear. Oral cavity is moist. Neck reveals no JVD, carotid bruits, or thyromegaly. CHEST EXAMINATION: Trachea is central. Symmetrical expansion. Lung ferrera clear to auscultation and percussion. CARDIAC: Normal S1, S2 with no gallops. No murmurs ABDOMEN: Soft. Left-sided abdominal abscess status post pigtail catheter placement Bowel sounds normal. No organomegaly. No abdominal bruits. Extremities: reveal no edema. No clubbing or cyanosis Neurologically awake, alert, oriented x3 with well-coordinated movements. No focal deficits noted Skin: No rash or skin lesions. Psychiatric: Coperative. Nonsuicidal Musculoskeletal: No joint swelling or deformity. Normal range of motion. - Labs CBC & Chem 7: 11/11/21 05:47 11/11/21 05:47 Labs: Abnormal Lab Results - Last 24 Hours (Table) 11/09/21 Range/Units 04:08 Immature Gran # 0.10 H (0.00-0.04) X 10*3/uL Microbiology - Last 24 Hours (Table) 11/09/21 08:27 Gram Stain - Preliminary Aspirate Body Fluid Culture - Preliminary Gram Neg Bacilli 11/08/21 15:50 Blood Culture - Preliminary Blood No Growth after 24 hours Assessment and Plan Assessment: Left-sided abdominal wall abscess with suspected retained foreign body/needle fragment. Status IR guided drainage. Sepsis secondary to above Paroxysmal atrial fibrillation on anticoagulation with Eliquis Hypertension Hearing disorder/deafness Osteoarthritis Fibromyalgia Anxiety/depression Previous history of smoking and Occasional marijuana use DVT prophylaxis patient is on full anticoagulation. Plan: Patient will be continued on antibiotics in the form of Zosyn and CT of the abdomen showed abscess with possible retained foreign body. IR consult for drainage. Status post pigtail catheter placement.Follow-up wound cultures. General surgery is folloing Continue with home medications and we will start back on a liquid is once cleared by surgery.. Continue to follow closely. Time with Patient: Greater than 30
--- NOTE | 2021-11-12 | P.PN ---
Subjective Progress Note Date: 11/11/21 Patient is a 71-year-old male with a known history of atrial fibrillation on anticoagulation with Eliquis, fibromyalgia, hypertension, Camacho's esophagus, hearing disorder/deafness and osteoarthritis and other medical problems presents to ER with complaints of left-sided abdominal wall swelling/abscess. Patient was diagnosed with abdominal abscess versus hematoma and was recommended to follow-up in the office. Patient was seen by Dr. Adams in the clinic yesterday and was recommended intramenstrual drainage. Patient presented to ER with complaints of worsening pain and also redness over the surface of the lesion. Otherwise patient denied any complaints of chest pain or shortness of breath. No abdominal pain or diarrhea. Denies any dysuria or hematuria. No recent illnesses. No recent trauma. CT of the abdomen pelvis showed further enlargement of the left lateral abdominal wall nonspecific fluid collection with surrounding fat stranding could reflect abscess with suspicious for retained foreign body or needle fragment. Laboratory data showed WBC 16.7 hemoglobin 13.2 and platelets 371 Sodium 134 potassium 3.8 chloride 99 bicarb is 27 BUN 12 and creatinine 0.60 liver enzymes are not elevated. Patient was febrile with T-max 100.1 on admission. 11/09/2021. Patient is currently resting in bed. Awake alert and oriented x3. P patient is febrile overnight and vancomycin added. Continue with Zosyn. No chest pain or shortness of breath. No complaints of nausea or vomiting. Status post IR guided drainage of the abscess with brownish and purulent discharge status post pigtail catheter placement.. Follow-up abscess culture report. General surgery is on board. Laboratory test showed WBC 15.4 hemoglobin 11.6 and platelets 353 Sodium 134 potassium 4.1 chloride 98 bicarb is 23.7 BUN 9.1 and creatinine 0.7 and calcium 8.8 11/10/2021. Patient is resting in the bed. Awake alert and oriented x3. Left-sided abdominal wall swelling and pain did improve. Patient is status post IR guided drainage tube placement. Patient pulled out tube accidentally. Wound cultures are growing gram-negative bacilli. Vancomycin has been discontinued patient is being cardiogram Zosyn. General surgery is on board. Anticoagulation is on hold for possible surgical intervention. Patient has been afebrile today. No nausea vomiting or abdominal pain or diarrhea. 11/11/2021 Patient is resting in the bed. Awake alert and oriented x3. No complaints of chest pain or shortness of breath. Patient is afebrile last 2 days. Otherwise wound cultures are growing gram-negative bacilli currently on Zosyn and follow- up final culture report. Demonstrated is planning for surgical exploration of the left abdominal wall abscess with CT suggestive of foreign body/needle fragment. Patient denies any complaints of nausea vomiting or abdominal pain or diarrhea. No other acute overnight issues. Current medications reviewed. Objective - Vital Signs Vital signs: Vital Signs Temp 97.6 F 11/11/21 20:45 Pulse 89 11/11/21 20:45 Resp 17 11/11/21 20:45 BP 128/77 11/11/21 20:45 Pulse Ox 96 11/11/21 20:45 FiO2 Intake & Output 11/11/21 11/11/21 11/12/21 06:59 18:59 06:59 Other: Voiding Method Urinal Urinal Toilet # Voids 2 5 - Exam PHYSICAL EXAMINATION: Patient is lying in the bed comfortably, no acute distress, awake alert and oriented.. HEENT: Normocephalic. Neck is supple. Pupils reactive. Nostrils clear. Oral cavity is moist. Neck reveals no JVD, carotid bruits, or thyromegaly. CHEST EXAMINATION: Trachea is central. Symmetrical expansion. Lung ferrera clear to auscultation and percussion. CARDIAC: Normal S1, S2 with no gallops. No murmurs ABDOMEN: Soft. Left-sided abdominal abscess status post pigtail catheter placement Bowel sounds normal. No organomegaly. No abdominal bruits. Extremities: reveal no edema. No clubbing or cyanosis Neurologically awake, alert, oriented x3 with well-coordinated movements. No focal deficits noted Skin: No rash or skin lesions. Psychiatric: Coperative. Nonsuicidal Musculoskeletal: No joint swelling or deformity. Normal range of motion. - Labs CBC & Chem 7: 11/11/21 05:47 11/11/21 05:47 Labs: Abnormal Lab Results - Last 24 Hours (Table) 11/11/21 11/11/21 Range/Units 05:47 05:47 RBC 3.65 L (4.30-5.90) m/uL Hgb 11.6 L (13.0-17.5) gm/dL Hct 36.6 L (39.0-53.0) % MCV 100.1 H (80.0-100.0) fL Sodium 134 L (137-145) mmol/L BUN 8 L (9-20) mg/dL Glucose 114 H (74-99) mg/dL Microbiology - Last 24 Hours (Table) 11/08/21 15:50 Blood Culture - Preliminary Blood No Growth after 72 hours 11/09/21 08:27 Gram Stain - Final Aspirate Body Fluid Culture - Final Escherichia coli Morganella morganii Assessment and Plan Assessment: Left-sided abdominal wall abscess with suspected retained foreign body/needle fragment. Status IR guided drainage. Sepsis secondary to above Paroxysmal atrial fibrillation on anticoagulation with Eliquis Hypertension Hearing disorder/deafness Osteoarthritis Fibromyalgia Anxiety/depression Previous history of smoking and Occasional marijuana use DVT prophylaxis patient is on full anticoagulation. Plan: Patient will be continued on antibiotics in the form of Zosyn and CT of the abdomen showed abscess with possible retained foreign body. IR consult for drainage. Status post pigtail catheter placement.Follow-up wound cultures. General surgery is folloing Continue with home medications and we will start back on eliquis once cleared by surgery.. Continue to follow closely. Time with Patient: Greater than 30
[2021-11-12] MEDS: PIPERACILLIN-TAZOBACTAM 3.375 GM in SODIUM CHLORIDE 0.9% 100 ML IVPB SCH ×3 (00:18→15:03)
[2021-11-12] MEDS: HYDROmorphone 1 MG/ML 1 ML SYRINGE IVP PRN ×8 (00:19→21:26)
[2021-11-12] MEDS: SODIUM CHLORIDE 0.9% 1,000 ML IV SCH ×2 (01:37→15:06)
[2021-11-12 07:16] LABS: African American GFR (CKD) >90 (>60 ml/min/1.73 sqM); Anion Gap 7 mmol/L; Blood Urea Nitrogen 8 mg/dL (9-20); Calcium 8.7 mg/dL (8.4-10.2); Carbon Dioxide 31 mmol/L (22-30); Chloride 99 mmol/L (98-107); Glucose 108 mg/dL (74-99); Non-African American GFR(CKD) >90 (>60 ml/min/1.73 sqM); Potassium 4.2 mmol/L (3.5-5.1); Sodium 137 mmol/L (137-145)
[2021-11-12] MEDS: METOPROLOL TARTRATE 25 MG TAB PO SCH ×2 (08:19→20:18)
[2021-11-12] MEDS: DULoxetine HCL 60 MG CAPSULE.DR PO SCH ×2 (08:19→20:18)
[2021-11-12] MEDS: PANTOPRAZOLE 40 MG TABLET PO SCH (08:19)
[2021-11-12] MEDS: TAMSULOSIN 0.4 MG CAP.ER.24H PO SCH ×2 (08:19→20:18)
[2021-11-12 09:24] LABS: Basophils # (A) 0.03 X 10*3/uL (0.00-0.10); Basophils % (A) 0.3 %; Eosinophils # (A) 0.17 X 10*3/uL (0.04-0.35); Eosinophils % (A) 1.8 %; HCT 34.2 % (39.6-50.0); HGB 11.4 g/dL (13.0-17.0); Immature Grans, Automated 0.8 %; Lymphocytes # (A) 1.79 X 10*3/uL (0.90-5.00); Lymphocytes % (A) 18.8 %; MCH 31.1 pg (27.0-32.0); MCHC 33.3 g/dL (32.0-37.0); MCV 93.4 fL (80.0-97.0); Monocytes % (A) 11.6 %; NRBC Per 100 WBC 0 /100 WBCS (0.0-0.0); Neutrophils # (A) 6.35 X 10*3/uL (1.80-7.70); Neutrophils % (A) 66.7 %; Platelet Count 398 X 10*3/uL (140-440); RBC 3.66 X 10*6/uL (4.40-5.60); RDW 13.7 % (11.5-14.5); WBC 9.52 X 10*3/uL (4.50-10.00)
[2021-11-12] MEDS ORDERED: ONDANSETRON 4 MG/2 ML VIAL ONE (09:25)
[2021-11-12] MEDS ORDERED: IV FLUID CONTINUATION 1,000 ML IV ONE (09:37)
--- NOTE | 2021-11-12 10:27 | P.PN ---
Progress Note - Text Progress Note Date: 11/12/21 Patient undergo incision and drainage of abdominal abscess today.
[2021-11-12] MEDS ORDERED: fentaNYL (PF) 50 MCG/ML 2 ML AMP ONE (10:52)
[2021-11-12] MEDS ORDERED: NEOSTIGMINE 1 MG/ML 10 ML VIAL ONE (10:52)
[2021-11-12] MEDS ORDERED: PHENYLEPHRINE-0.9% NACL SYG 1,000 MCG/10 ML SYRINGE ONE (10:52)
[2021-11-12] MEDS ORDERED: WATER FOR INJECTION, STERILE 10 ML VIAL IV ONE (10:52)
[2021-11-12] MEDS ORDERED: GLYCOPYRROLATE 0.2 MG/ML 2 ML VIAL ONE (10:52)
[2021-11-12] MEDS ORDERED: ePHEDrine 50 MG/ML 1 ML VIAL ONE (10:52)
[2021-11-12] MEDS ORDERED: ROCURONIUM 10 MG/ML (5 ML VIAL) IV ONE (10:52)
[2021-11-12] MEDS ORDERED: MIDAZOLAM 2 MG/2 ML VIAL ONE (10:52)
[2021-11-12] MEDS ORDERED: SUCCINYLCHOLINE CHLORIDE 100 MG/5 ML SYR IV ONE (10:52)
[2021-11-12] MEDS ORDERED: LIDOCAINE 2% INJ 20 MG/ML (2 ML VIAL) ONE (10:52)
[2021-11-12] MEDS ORDERED: PROPOFOL 10 MG/ML 20 ML VIAL IV ONE (10:52)
[2021-11-12] MEDS ORDERED: BUPIVACAINE (PF) 0.25% 30 ML VIAL SQ ONE (11:04)
--- NOTE | 2021-11-12 11:34 | P.OP ---
Date of Procedure: 11/12/21 Preoperative Diagnosis: Abdominal wall abscess Postoperative Diagnosis: Left abdominal wall abscess Procedure(s) Performed: Incision and drainage of abdominal wall abscess Anesthesia: JEFF Surgeon: Jose Adams Estimated Blood Loss (ml): 5 Pathology: none sent Condition: stable Disposition: PACU Description of Procedure: The patient's placed in the operative table in supine position. He received general endotracheal tube anesthesia. His abdomen was prepped and draped usual fashion. The patient had an abdominal wall mass in the left mid abdomen. There was a drain placed. The skin was incised drain site. The tract was followed along the drain into the abdominal abscess. There was a 15 mL pocket of purulent fluid. This was aspirated. The abdominal wall cavity was then opened. The cavity measured approximately 10 x 10 cm. The wound was packed with wet-to-dry Kerlix. Patient top she will was sent to recovery room in stable condition.
[2021-11-12] MEDS ORDERED: diphenhydrAMINE 50 MG/ML 1 ML VIAL IVP ONE (12:06)
[2021-11-13] MEDS: HYDROmorphone 1 MG/ML 1 ML SYRINGE IVP PRN ×5 (00:33→22:17)
[2021-11-13] MEDS: PIPERACILLIN-TAZOBACTAM 3.375 GM in SODIUM CHLORIDE 0.9% 100 ML IVPB SCH ×3 (00:34→15:31)
[2021-11-13] MEDS: SODIUM CHLORIDE 0.9% 1,000 ML IV SCH ×3 (00:37→17:35)
[2021-11-13] MEDS: PANTOPRAZOLE 40 MG TABLET PO SCH (08:21)
[2021-11-13] MEDS: DULoxetine HCL 60 MG CAPSULE.DR PO SCH ×2 (08:21→20:10)
[2021-11-13] MEDS: TAMSULOSIN 0.4 MG CAP.ER.24H PO SCH ×2 (08:21→20:10)
[2021-11-13] MEDS: METOPROLOL TARTRATE 25 MG TAB PO SCH ×2 (08:21→20:10)
[2021-11-13 09:48] LABS: Basophils # (A) 0.1 k/uL (0-0.2); Basophils % (A) 1 %; Eosinophils # (A) 0.2 k/uL (0-0.7); Eosinophils % (A) 2 %; HCT 35.7 % (39.0-53.0); HGB 11.4 gm/dL (13.0-17.5); Hypochromasia Slight; Lymphocytes # (A) 1.3 k/uL (1.0-4.8); Lymphocytes % (A) 14 %; MCH 32.4 pg (25.0-35.0); MCHC 31.8 g/dL (31.0-37.0); Macrocytosis Slight; Mean Platelet Volume 8.9; Monocytes # (A) 0.8 k/uL (0-1.0); Monocytes % (A) 8 %; Neutrophils # (A) 7.1 k/uL (1.3-7.7); Neutrophils % (A) 74 %; Platelet Count 352 k/uL (150-450); RDW 14.2 % (11.5-15.5); WBC 9.6 k/uL (3.8-10.6)
[2021-11-13] MEDS: HYDROcodone/APAP 5-325MG 1 EACH TAB PO PRN ×2 (12:48→16:58)
--- NOTE | 2021-11-13 14:22 | P.PN ---
Subjective Progress Note Date: 11/13/21 CHIEF COMPLAINT: Abdominal pain HISTORY OF PRESENT ILLNESS: Patient postop day #1 status post incision and drainage of left abdominal wall abscess. No foreign body found during surgery per Dr. london. Patient reports a significant decrease in his abdominal pain since surgery. He denies any nausea or vomiting. He is tolerating diet. Afebrile. WBC 9.6 hemoglobin 11.4 plt 352 Patient seen and examined with Dr. london PHYSICAL EXAM: VITAL SIGNS: Reviewed. GENERAL: Well-developed in no acute distress. HEENT: No sclera icterus. Extraocular movements grossly intact. Moist buccal mucosa. Head is atraumatic, normocephalic. ABDOMEN: Soft. Nondistended. Abdominal wound on the left with serosanguineous drainage on the dressing NEUROLOGIC: Alert and oriented. Cranial nerves II through XII grossly intact. ASSESSMENT: 1. Left lateral abdominal wall abscess status post incision and drainage 2. Recent cholecystectomy 3. Atrial fibrillation PLAN: -Consult wound care service -Wound VAC ordered -Continue local wound care with wet-to-dry dressing change today until wound VAC can be placed by wound care service -Added Ranson for pain control -Continue antibiotics. Anticipate discharge with Levaquin -Continue to hold Eliquis Physician Certified Ophthalmic Medical Technician note has been reviewed by physician. Signing provider agrees with the documented findings, assessment, and plan of care. Objective - Vital Signs Vital signs: Vital Signs Temp 97.9 F 11/13/21 14:00 Pulse 89 11/13/21 14:00 Resp 17 11/13/21 14:00 BP 157/87 11/13/21 14:00 Pulse Ox 97 11/13/21 14:00 FiO2 Intake & Output 11/12/21 11/13/21 11/13/21 18:59 06:59 18:59 Intake Total 550 1080 Output Total 10 Balance 540 1080 Intake: IV 550 Oral 1080 Output: Estimated Blood Loss 10 Other: Voiding Method Toilet Toilet # Voids 4 # Bowel Movements 1 - Labs CBC & Chem 7: 11/13/21 08:41 11/12/21 06:08 Labs: Abnormal Lab Results - Last 24 Hours (Table) 11/13/21 Range/Units 08:41 RBC 3.50 L (4.30-5.90) m/uL Hgb 11.4 L (13.0-17.5) gm/dL Hct 35.7 L (39.0-53.0) % MCV 102.0 H (80.0-100.0) fL Microbiology - Last 24 Hours (Table) 11/08/21 15:50 Blood Culture - Preliminary Blood No Growth after 96 hours
--- NOTE | 2021-11-13 23:00 | P.PN ---
Subjective Patient is a 71-year-old male with a known history of atrial fibrillation on anticoagulation with Eliquis, fibromyalgia, hypertension, Camacho's esophagus, hearing disorder/deafness and osteoarthritis and other medical problems presents to ER with complaints of left-sided abdominal wall swelling/abscess. Patient was diagnosed with abdominal abscess versus hematoma and was recommended to follow-up in the office. Patient was seen by Dr. Adams in the clinic yesterday and was recommended intramenstrual drainage. Patient presented to ER with complaints of worsening pain and also redness over the surface of the lesion. Otherwise patient denied any complaints of chest pain or shortness of breath. No abdominal pain or diarrhea. Denies any dysuria or hematuria. No recent illnesses. No recent trauma. CT of the abdomen pelvis showed further enlargement of the left lateral abdominal wall nonspecific fluid collection with surrounding fat stranding could reflect abscess with suspicious for retained foreign body or needle fragment. Laboratory data showed WBC 16.7 hemoglobin 13.2 and platelets 371 Sodium 134 potassium 3.8 chloride 99 bicarb is 27 BUN 12 and creatinine 0.60 liver enzymes are not elevated. Patient was febrile with T-max 100.1 on admission. 11/09/2021. Patient is currently resting in bed. Awake alert and oriented x3. P patient is febrile overnight and vancomycin added. Continue with Zosyn. No chest pain or shortness of breath. No complaints of nausea or vomiting. Status post IR guided drainage of the abscess with brownish and purulent discharge status post pigtail catheter placement.. Follow-up abscess culture report. General surgery is on board. Laboratory test showed WBC 15.4 hemoglobin 11.6 and platelets 353 Sodium 134 potassium 4.1 chloride 98 bicarb is 23.7 BUN 9.1 and creatinine 0.7 and calcium 8.8 11/10/2021. Patient is resting in the bed. Awake alert and oriented x3. Left-sided abdominal wall swelling and pain did improve. Patient is status post IR guided drainage tube placement. Patient pulled out tube accidentally. Wound cultures are growing gram-negative bacilli. Vancomycin has been discontinued patient is being cardiogram Zosyn. General surgery is on board. Anticoagulation is on hold for possible surgical intervention. Patient has been afebrile today. No nausea vomiting or abdominal pain or diarrhea. 11/11/2021 Patient is resting in the bed. Awake alert and oriented x3. No complaints of chest pain or shortness of breath. Patient is afebrile last 2 days. Otherwise wound cultures are growing gram-negative bacilli currently on Zosyn and follow- up final culture report. Demonstrated is planning for surgical exploration of the left abdominal wall abscess with CT suggestive of foreign body/needle fragment. Subjective: Resume the care of the patient today 11/12/2021 Patient today underwent I&D for his left abdominal wall abscess of 10 x 10 cm. Unit wound culture is growing E. coli which is sensitive but Morganella species resistant to ampicillin and Augmentin. Both sensitive to Zosyn which is patient receiving now. Eliquis on hold for surgical procedure Objective - Vital Signs Vital signs: Vital Signs Temp 98.7 F 11/12/21 09:36 Pulse 77 11/12/21 09:36 Resp 18 11/12/21 09:36 BP 143/80 11/12/21 09:36 Pulse Ox 97 11/12/21 09:36 FiO2 Intake & Output 11/11/21 11/12/21 11/12/21 18:59 06:59 18:59 Intake Total 320 0 Output Total 10 Balance 320 -10 Intake: IV 0 Oral 320 Output: Estimated Blood Loss 10 Other: Voiding Method Urinal Toilet Toilet # Voids 5 2 - Exam GENERAL: The patient is alert and oriented x3, not in any acute distress. Well developed, well nourished. HEENT: Pupils are round and equally reacting to light. EOMI. No scleral icterus. No conjunctival pallor. Normocephalic, atraumatic. No pharyngeal erythema. No thyromegaly. CARDIOVASCULAR: S1 and S2 present. No murmurs, rubs, or gallops. PULMONARY: Chest is clear to auscultation, no wheezing or crackles. -ABDOMEN: Soft, nontender, nondistended, normoactive bowel sounds. No palpable organomegaly. Left abdominal wall MUSCULOSKELETAL: No joint swelling or deformity. EXTREMITIES: No cyanosis, clubbing, or pedal edema. NEUROLOGICAL: Gross neurological examination did not reveal any focal deficits. SKIN: No rashes. no petechiae. - Labs CBC & Chem 7: 11/12/21 06:08 11/12/21 06:08 Labs: Abnormal Lab Results - Last 24 Hours (Table) 11/12/21 11/12/21 Range/Units 06:08 06:08 RBC 3.66 L (4.40-5.60) X 10*6/uL Hgb 11.4 L (13.0-17.0) g/dL Hct 34.2 L (39.6-50.0) % MPV 9.0 L (9.5-12.2) fL Immature Gran # 0.08 H (0.00-0.04) X 10*3/uL Monocytes # 1.10 H (0.20-1.00) X 10*3/uL Carbon Dioxide 31 H (22-30) mmol/L BUN 8 L (9-20) mg/dL Glucose 108 H (74-99) mg/dL Microbiology - Last 24 Hours (Table) 11/08/21 15:50 Blood Culture - Preliminary Blood No Growth after 72 hours 11/09/21 08:27 Gram Stain - Final Aspirate Body Fluid Culture - Final Escherichia coli Morganella morganii Assessment and Plan Assessment: Left-sided abdominal wall abscess status post I&D on 524 Sepsis secondary to above , improving Paroxysmal atrial fibrillation on anticoagulation with Eliquis Hypertension Hearing disorder/deafness Osteoarthritis Fibromyalgia Anxiety/depression Previous history of smoking and Occasional marijuana use Plan: This is a pleasant 71 old male who presents with abdominal wall abscess status post I&D Continue with Zosyn wound culture are noted Resume Eliquis per surgery team Labs and medication were reviewed.. Continue same treatment. Continue with symptomatic treatment. Resume home medication. Monitor lytes and vitals. DVT and GI prophylaxis. Further recommendations as per clinical course of the patient DVT prophylaxis: Eliquis GI Prophylaxis: Ppi
--- NOTE | 2021-11-13 23:02 | P.PN ---
Subjective Patient is a 71-year-old male with a known history of atrial fibrillation on anticoagulation with Eliquis, fibromyalgia, hypertension, Camacho's esophagus, hearing disorder/deafness and osteoarthritis and other medical problems presents to ER with complaints of left-sided abdominal wall swelling/abscess. Patient was diagnosed with abdominal abscess versus hematoma and was recommended to follow-up in the office. Patient was seen by Dr. Adams in the clinic yesterday and was recommended intramenstrual drainage. Patient presented to ER with complaints of worsening pain and also redness over the surface of the lesion. Otherwise patient denied any complaints of chest pain or shortness of breath. No abdominal pain or diarrhea. Denies any dysuria or hematuria. No recent illnesses. No recent trauma. CT of the abdomen pelvis showed further enlargement of the left lateral abdominal wall nonspecific fluid collection with surrounding fat stranding could reflect abscess with suspicious for retained foreign body or needle fragment. Laboratory data showed WBC 16.7 hemoglobin 13.2 and platelets 371 Sodium 134 potassium 3.8 chloride 99 bicarb is 27 BUN 12 and creatinine 0.60 liver enzymes are not elevated. Patient was febrile with T-max 100.1 on admission. 11/09/2021. Patient is currently resting in bed. Awake alert and oriented x3. P patient is febrile overnight and vancomycin added. Continue with Zosyn. No chest pain or shortness of breath. No complaints of nausea or vomiting. Status post IR guided drainage of the abscess with brownish and purulent discharge status post pigtail catheter placement.. Follow-up abscess culture report. General surgery is on board. Laboratory test showed WBC 15.4 hemoglobin 11.6 and platelets 353 Sodium 134 potassium 4.1 chloride 98 bicarb is 23.7 BUN 9.1 and creatinine 0.7 and calcium 8.8 11/10/2021. Patient is resting in the bed. Awake alert and oriented x3. Left-sided abdominal wall swelling and pain did improve. Patient is status post IR guided drainage tube placement. Patient pulled out tube accidentally. Wound cultures are growing gram-negative bacilli. Vancomycin has been discontinued patient is being cardiogram Zosyn. General surgery is on board. Anticoagulation is on hold for possible surgical intervention. Patient has been afebrile today. No nausea vomiting or abdominal pain or diarrhea. 11/11/2021 Patient is resting in the bed. Awake alert and oriented x3. No complaints of chest pain or shortness of breath. Patient is afebrile last 2 days. Otherwise wound cultures are growing gram-negative bacilli currently on Zosyn and follow- up final culture report. Demonstrated is planning for surgical exploration of the left abdominal wall abscess with CT suggestive of foreign body/needle fragment. Subjective: Resume the care of the patient today 11/12/2021 Patient today underwent I&D for his left abdominal wall abscess of 10 x 10 cm. Unit wound culture is growing E. coli which is sensitive but Morganella species resistant to ampicillin and Augmentin. Both sensitive to Zosyn which is patient receiving now. Eliquis on hold for surgical procedure 11/14/2011 Patient status post I&D of his left abdominal wall abscess, postop day #1. Her pain is better today however he should keep taking Dilaudid an [place] added today. The surgical wound is open with underlying area of induration about 2-3 inches in diameter however there is no purulent discharge and wound looks clean. Dressing and wick is in a Place. Hemodynamically STABLE Case was discussed with surgery team, we will keep holding Eliquis now and keep monitoring the patient Wound culture is growing E. coli and Morganella, currently he is on IV Zosyn and IV hydration normal saline 100 mL per hour Patient will be switched to oral antibiotics upon discharge Objective - Vital Signs Vital signs: Vital Signs Temp 97.9 F 11/13/21 14:00 Pulse 87 11/13/21 20:00 Resp 17 11/13/21 20:00 BP 157/87 11/13/21 14:00 Pulse Ox 97 11/13/21 14:00 FiO2 Intake & Output 11/13/21 11/13/21 11/14/21 06:59 18:59 06:59 Intake Total 1080 Balance 1080 Intake: Oral 1080 Other: Voiding Method Toilet Toilet # Voids 6 # Bowel Movements 1 - Exam GENERAL: The patient is alert and oriented x3, not in any acute distress. Well developed, well nourished. HEENT: Pupils are round and equally reacting to light. EOMI. No scleral icterus. No conjunctival pallor. Normocephalic, atraumatic. No pharyngeal erythema. No thyromegaly. CARDIOVASCULAR: S1 and S2 present. No murmurs, rubs, or gallops. PULMONARY: Chest is clear to auscultation, no wheezing or crackles. -ABDOMEN: Soft, nontender, nondistended, normoactive bowel sounds. No palpable organomegaly. Left abdominal wall MUSCULOSKELETAL: No joint swelling or deformity. EXTREMITIES: No cyanosis, clubbing, or pedal edema. NEUROLOGICAL: Gross neurological examination did not reveal any focal deficits. SKIN: No rashes. no petechiae. - Labs CBC & Chem 7: 11/13/21 08:41 11/12/21 06:08 Labs: Abnormal Lab Results - Last 24 Hours (Table) 11/13/21 Range/Units 08:41 RBC 3.50 L (4.30-5.90) m/uL Hgb 11.4 L (13.0-17.5) gm/dL Hct 35.7 L (39.0-53.0) % MCV 102.0 H (80.0-100.0) fL Microbiology - Last 24 Hours (Table) 11/08/21 16:20 Blood Culture Gram Stain - Preliminary Blood 11/08/21 15:50 Blood Culture - Final Blood Assessment and Plan Assessment: Left-sided abdominal wall abscess status post I&D on 524 Sepsis secondary to above , improving Paroxysmal atrial fibrillation on anticoagulation with Eliquis Hypertension Hearing disorder/deafness Osteoarthritis Fibromyalgia Anxiety/depression Previous history of smoking and Occasional marijuana use Plan: This is a pleasant 71 old male who presents with abdominal wall abscess status post I&D Continue with Zosyn wound culture are noted Keep holding Eliquis postsurgery T Labs and medication were reviewed.. Continue same treatment. Continue with symptomatic treatment. Resume home medication. Monitor lytes and vitals. DVT and GI prophylaxis. Further recommendations as per clinical course of the patient DVT prophylaxis: Eliquis, on home GI Prophylaxis: Ppi
[2021-11-14] MEDS: HYDROcodone/APAP 5-325MG 1 EACH TAB PO PRN ×3 (00:43→19:45)
[2021-11-14] MEDS: PIPERACILLIN-TAZOBACTAM 3.375 GM in SODIUM CHLORIDE 0.9% 100 ML IVPB SCH ×3 (00:43→17:04)
[2021-11-14] MEDS: HYDROmorphone 1 MG/ML 1 ML SYRINGE IVP PRN ×2 (08:39→17:04)
[2021-11-14] MEDS: METOPROLOL TARTRATE 25 MG TAB PO SCH ×2 (08:40→21:24)
[2021-11-14] MEDS: PANTOPRAZOLE 40 MG TABLET PO SCH (08:41)
[2021-11-14] MEDS: TAMSULOSIN 0.4 MG CAP.ER.24H PO SCH ×2 (08:42→21:24)
[2021-11-14] MEDS: DULoxetine HCL 60 MG CAPSULE.DR PO SCH ×2 (08:42→21:24)
[2021-11-14] MEDS: SODIUM CHLORIDE 0.9% 1,000 ML IV SCH ×2 (08:44→16:16)
--- NOTE | 2021-11-14 14:42 | P.CONS ---
History of Present Illness - Reason for Consult Consult date: 11/14/21 wound care - History of Present Illness This is a 71-year-old patient who is postop day #11 status post a incision and drainage of the left abdominal wall abscess. No foreign body was found. Patient does report discomfort to the site. He did have a wound VAC in place previously however that was removed in total the area was assessed by wound care. Left lower quadrant ulceration measures approximately 4 x 6 x 0.5 cm w idth undermining noted. Granulation seen throughout the wound bed with minimal slough. Review Of Systems: Constitutional: No fever, no chills, no night sweats. No weight change. No weakness, fatigue or lethargy. No daytime sleepiness. Integumentary:reports wounds, no lesions. No rash or pruritus. No unusual bruising. No change in hair or nails. Physical exam: General Appearance: Alert, cooperative, no distress, appears stated age. Skin: See HPI all other Skin color, texture, tugor normal, no rashes or lesions. Neurologic: Alert oriented x3 Assessment: 1. Nonhealing ulceration to abdominal with muscle involvement without necrosis 2. Left lateral abdominal wall abscess status post incision and drainage 3. Recent cholecystectomy Plan: 1. Continue with negative pressure wound VAC with black foam and 125 mmHg continuous pressure. Change Thursday. Upon discharge patient may have absorptive silver to the site until the negative pressure wound VAC is available. Patient will need to follow-up in the wound care center next week. We will be happy to see him. Thank you for the consultation any questions contact the wound care center DNP note has been reviewed and discussed with Dr. Pierce and the impression and plan of care has been directed as dictated. Past Medical History Past Medical History: Atrial Fibrillation, Fibromyalgia, GERD/Reflux, Hearing Disorder / Deafness, Hypertension, Musculoskeletal Disorder, Osteoarthritis (OA), Pneumonia Additional Past Medical History / Comment(s): Camacho's esophagus, diverticular disease, benign rectal polyp, muscle twitching/burning pain/cramping, L hip "pops", chronic back pain, DDD, past rib fractures, gout L wrist, bilateral arm /hands pain/numbness and tingling, difficulty urinating, twenty-nine palms bilaterally, pneumonia as a teen. History of Any Multi-Drug Resistant Organisms: None Reported Past Surgical History: Appendectomy, Back Surgery, Cholecystectomy, Hernia Repair, Joint Replacement, Orthopedic Surgery, Tonsillectomy Additional Past Surgical History / Comment(s): 10/23/21 lap rosalio, nyasia fundoplasty, EGDs, colonoscopies, back surgeries, back neurostimulator/since removed, pain clinic procedures, bilateral ankle surgery to remove scar tissue, total L hip arthroplasty, R shoulder rotator cuff surgery twice, cervical fusion/marisa, ORIF L arm, sinus surgery, forehead cyst removed Past Anesthesia/Blood Transfusion Reactions: No Reported Reaction, Family History of Problems w/ Anesthesia Additional Past Anesthesia/Blood Transfusion Reaction / Comm: Mom had PONV. Smoking Status: Never smoker - Past Family History Father Family Medical History: Cancer Additional Family Medical History / Comment(s): Esophageal cancer. Mother Family Medical History: CVA/TIA, Deep Vein Thrombosis (DVT) Additional Family Medical History / Comment(s): Poss DVT in ankle prior to CVA Medications and Allergies Home Medications Medication Instructions Recorded Confirmed Type Atenolol [Tenormin] 25 mg PO DAILY 11/06/13 11/08/21 History DULoxetine HCL [Cymbalta] 60 mg PO BID 08/01/16 11/08/21 History Apixaban [Eliquis] 5 mg PO BID 07/01/18 11/08/21 History Fluticasone Propionate 2 spr EA NOSTRIL DAILY PRN 10/21/21 11/08/21 History [Fluticasone Propionate [place]] Tamsulosin [Flomax] 0.4 mg PO BID 10/21/21 11/08/21 History Ascorbic Acid [Vitamin C] 500 mg PO DAILY 11/07/21 11/08/21 History Glucosam/Jere-Msm1/C/Brandin/Bosw 1 tab PO BID 11/07/21 11/08/21 History [Glucosamine-Chondroitin Tablet] HYDROmorphone [Dilaudid] 2 mg PO Q6H PRN 3 Days #8 tab 11/07/21 11/08/21 Rx Multivitamin/Iron/Folic Acid 1 tab PO DAILY 11/07/21 11/08/21 History [Centrum Adults Tablet] Omeprazole 40 mg PO DAILY 11/07/21 11/08/21 History Super B Complex 1 tab PO DAILY 11/07/21 11/08/21 History Zinc 50 mg PO DAILY 11/07/21 11/08/21 History Allergies Allergy/AdvReac Type Severity Reaction Status Date / Time magnesium AdvReac Diarrhea Verified 11/08/21 13:43 morphine AdvReac Nausea & Verified 11/08/21 13:43 Vomiting & Diarrhea Physical Exam Vitals: Vital Signs Temp Pulse Pulse Resp BP Pulse Ox 11/14/21 07:44 97.5 F L 80 19 104/68 99 11/14/21 02:01 98.1 F 82 15 124/75 98 11/13/21 20:07 98.1 F 74 17 121/74 98 11/13/21 14:00 97.9 F 89 17 157/87 97 Intake and Output 11/13/21 11/14/21 11/14/21 22:59 06:59 14:59 Other: Voiding Method Toilet # Voids 6 # Bowel Movements 1 Results CBC & Chem 7: 11/13/21 08:41 11/12/21 06:08 Labs: Microbiology - Last 24 Hours (Table) 11/08/21 16:20 Blood Culture Gram Stain - Preliminary Blood 11/08/21 15:50 Blood Culture - Final Blood Assessment and Plan (1) Non-pressure chronic ulcer of skin of other sites with muscle involvement without evidence of necrosis Current Visit: Yes Status: Acute Code(s): L98.495 - NON-PRS [facility] SKIN/ OTH SITE WITH MSL INVL W/O EVD OF NECR SNOMED Code(s): 60744883 (2) Abdominal wall abscess Current Visit: Yes Status: Acute Code(s): L02.211 - CUTANEOUS ABSCESS OF ABDOMINAL WALL SNOMED Code(s): 14226979
[2021-11-14 14:56] VITALS: BMI 28.6
--- NOTE | 2021-11-14 15:06 | P.PN ---
Subjective Progress Note Date: 11/14/21 CHIEF COMPLAINT: Abdominal pain HISTORY OF PRESENT ILLNESS: Patient postop day #2 status post incision and drainage of left abdominal wall abscess. No foreign body found during surgery per Dr. london. Patient's abdominal pain is improving each day. However he is still requiring the IV Dilaudid. He denies any nausea or vomiting. He is tolerating diet. Patient will be evaluated by wound care service today and will back to be placed today. Afebrile. Patient seen and examined with Dr. london PHYSICAL EXAM: VITAL SIGNS: Reviewed. GENERAL: Well-developed in no acute distress. HEENT: No sclera icterus. Extraocular movements grossly intact. Moist buccal mucosa. Head is atraumatic, normocephalic. ABDOMEN: Soft. Nondistended. Abdominal wound on the left with serosanguineous drainage on the dressing NEUROLOGIC: Alert and oriented. Cranial nerves II through XII grossly intact. ASSESSMENT: 1. Left lateral abdominal wall abscess status post incision and drainage 2. Recent cholecystectomy 3. Atrial fibrillation PLAN: -Patient seen by wound care service with wound VAC placement today -Continue pain medications -Recommend Levaquin at discharge -Okay to resume Eliquis from surgical standpoint -Possible discharge tomorrow if pain is controlled Physician Test Architect note has been reviewed by physician. Signing provider agrees with the documented findings, assessment, and plan of care. Objective - Vital Signs Vital signs: Vital Signs Temp 97.6 F 11/14/21 13:33 Pulse 68 11/14/21 13:33 Resp 20 11/14/21 13:33 BP 121/71 11/14/21 13:33 Pulse Ox 98 11/14/21 13:33 FiO2 Intake & Output 11/13/21 11/14/21 11/14/21 18:59 06:59 18:59 Weight 95.708 kg Other: Voiding Method Toilet # Voids 6 # Bowel Movements 1 - Labs CBC & Chem 7: 11/13/21 08:41 11/12/21 06:08 Labs: Microbiology - Last 24 Hours (Table) 11/08/21 16:20 Blood Culture Gram Stain - Preliminary Blood 11/08/21 15:50 Blood Culture - Final Blood
--- NOTE | 2021-11-15 00:04 | P.PN ---
Subjective Patient is a 71-year-old male with a known history of atrial fibrillation on anticoagulation with Eliquis, fibromyalgia, hypertension, Camacho's esophagus, hearing disorder/deafness and osteoarthritis and other medical problems presents to ER with complaints of left-sided abdominal wall swelling/abscess. Patient was diagnosed with abdominal abscess versus hematoma and was recommended to follow-up in the office. Patient was seen by Dr. Adams in the clinic yesterday and was recommended intramenstrual drainage. Patient presented to ER with complaints of worsening pain and also redness over the surface of the lesion. Otherwise patient denied any complaints of chest pain or shortness of breath. No abdominal pain or diarrhea. Denies any dysuria or hematuria. No recent illnesses. No recent trauma. CT of the abdomen pelvis showed further enlargement of the left lateral abdominal wall nonspecific fluid collection with surrounding fat stranding could reflect abscess with suspicious for retained foreign body or needle fragment. Laboratory data showed WBC 16.7 hemoglobin 13.2 and platelets 371 Sodium 134 potassium 3.8 chloride 99 bicarb is 27 BUN 12 and creatinine 0.60 liver enzymes are not elevated. Patient was febrile with T-max 100.1 on admission. 11/09/2021. Patient is currently resting in bed. Awake alert and oriented x3. P patient is febrile overnight and vancomycin added. Continue with Zosyn. No chest pain or shortness of breath. No complaints of nausea or vomiting. Status post IR guided drainage of the abscess with brownish and purulent discharge status post pigtail catheter placement.. Follow-up abscess culture report. General surgery is on board. Laboratory test showed WBC 15.4 hemoglobin 11.6 and platelets 353 Sodium 134 potassium 4.1 chloride 98 bicarb is 23.7 BUN 9.1 and creatinine 0.7 and calcium 8.8 11/10/2021. Patient is resting in the bed. Awake alert and oriented x3. Left-sided abdominal wall swelling and pain did improve. Patient is status post IR guided drainage tube placement. Patient pulled out tube accidentally. Wound cultures are growing gram-negative bacilli. Vancomycin has been discontinued patient is being cardiogram Zosyn. General surgery is on board. Anticoagulation is on hold for possible surgical intervention. Patient has been afebrile today. No nausea vomiting or abdominal pain or diarrhea. 11/11/2021 Patient is resting in the bed. Awake alert and oriented x3. No complaints of chest pain or shortness of breath. Patient is afebrile last 2 days. Otherwise wound cultures are growing gram-negative bacilli currently on Zosyn and follow- up final culture report. Demonstrated is planning for surgical exploration of the left abdominal wall abscess with CT suggestive of foreign body/needle fragment. Subjective: Resume the care of the patient today 11/12/2021 Patient today underwent I&D for his left abdominal wall abscess of 10 x 10 cm. Unit wound culture is growing E. coli which is sensitive but Morganella species resistant to ampicillin and Augmentin. Both sensitive to Zosyn which is patient receiving now. Eliquis on hold for surgical procedure 11/14/2011 Patient status post I&D of his left abdominal wall abscess, postop day #1. Her pain is better today however he should keep taking Dilaudid an [place] added today. The surgical wound is open with underlying area of induration about 2-3 inches in diameter however there is no purulent discharge and wound looks clean. Dressing and wick is in a Place. Hemodynamically STABLE Case was discussed with surgery team, we will keep holding Eliquis now and keep monitoring the patient Wound culture is growing E. coli and Morganella, currently he is on IV Zosyn and IV hydration normal saline 100 mL per hour Patient will be switched to oral antibiotics upon discharge 11/14/2021 Patient left abdominal wound is healing gradually and slowly. Went team placed wound VAC for surgery team recommendation. Patient still needs pain medication Patient currently on Zosyn Patient has wound culture with E. coli and Morganella sensitive to Levaquin Eliquis resume today per surgery team recommendation, monitor hemoglobin tomorrow Objective - Vital Signs Vital signs: Vital Signs Temp 97.6 F 11/14/21 13:33 Pulse 68 11/14/21 13:33 Resp 20 11/14/21 13:33 BP 121/71 11/14/21 13:33 Pulse Ox 98 11/14/21 13:33 FiO2 Intake & Output 11/13/21 11/14/21 11/14/21 18:59 06:59 18:59 Weight 95.708 kg Other: Voiding Method Toilet # Voids 6 # Bowel Movements 1 - Exam GENERAL: The patient is alert and oriented x3, not in any acute distress. Well developed, well nourished. HEENT: Pupils are round and equally reacting to light. EOMI. No scleral icterus. No conjunctival pallor. Normocephalic, atraumatic. No pharyngeal erythema. No thyromegaly. CARDIOVASCULAR: S1 and S2 present. No murmurs, rubs, or gallops. PULMONARY: Chest is clear to auscultation, no wheezing or crackles. -ABDOMEN: Soft, nontender, nondistended, normoactive bowel sounds. No palpable organomegaly. Left abdominal wall MUSCULOSKELETAL: No joint swelling or deformity. EXTREMITIES: No cyanosis, clubbing, or pedal edema. NEUROLOGICAL: Gross neurological examination did not reveal any focal deficits. SKIN: No rashes. no petechiae. - Labs CBC & Chem 7: 11/13/21 08:41 11/12/21 06:08 Labs: Microbiology - Last 24 Hours (Table) 11/08/21 16:20 Blood Culture Gram Stain - Preliminary Blood 11/08/21 15:50 Blood Culture - Final Blood Assessment and Plan Assessment: Left-sided abdominal wall abscess status post I&D on 524 Sepsis secondary to above , improving Paroxysmal atrial fibrillation on anticoagulation with Eliquis Hypertension Hearing disorder/deafness Osteoarthritis Fibromyalgia Anxiety/depression Previous history of smoking and Occasional marijuana use Plan: This is a pleasant 71 old male who presents with abdominal wall abscess status post I&D Continue with Zosyn Continue with wound VAC wound culture are noted Resume Eliquis for surgery Labs and medication were reviewed.. Continue same treatment. Continue with symptomatic treatment. Resume home medication. Monitor lytes and vitals. DVT and GI prophylaxis. Further recommendations as per clinical course of the patient DVT prophylaxis: Eliquis GI Prophylaxis: Ppi
[2021-11-15] MEDS: HYDROcodone/APAP 5-325MG 1 EACH TAB PO PRN ×3 (00:57→14:39)
[2021-11-15] MEDS: APIXABAN 5 MG TAB PO SCH ×2 (00:57→07:51)
[2021-11-15] MEDS: PIPERACILLIN-TAZOBACTAM 3.375 GM in SODIUM CHLORIDE 0.9% 100 ML IVPB SCH ×2 (00:58→07:52)
[2021-11-15] MEDS: SODIUM CHLORIDE 0.9% 1,000 ML IV SCH ×2 (04:50→10:46)
[2021-11-15] MEDS: METOPROLOL TARTRATE 25 MG TAB PO SCH (07:51)
[2021-11-15] MEDS: TAMSULOSIN 0.4 MG CAP.ER.24H PO SCH (07:51)
[2021-11-15] MEDS: PANTOPRAZOLE 40 MG TABLET PO SCH (07:51)
[2021-11-15] MEDS: DULoxetine HCL 60 MG CAPSULE.DR PO SCH (07:51)
[2021-11-15 08:47] LABS: Basophils # (A) 0.03 X 10*3/uL (0.00-0.10); Basophils % (A) 0.4 %; Eosinophils # (A) 0.29 X 10*3/uL (0.04-0.35); Eosinophils % (A) 3.5 %; HCT 32.8 % (39.6-50.0); Immature Grans, Automated 1.2 %; Lymphocytes # (A) 2.15 X 10*3/uL (0.90-5.00); Lymphocytes % (A) 25.6 %; MCH 31.6 pg (27.0-32.0); MCHC 33.5 g/dL (32.0-37.0); MCV 94.3 fL (80.0-97.0); Mean Platelet Volume 9.3 fL (9.5-12.2); Monocytes # (A) 0.68 X 10*3/uL (0.20-1.00); Monocytes % (A) 8.1 %; NRBC Per 100 WBC 0 /100 WBCS (0.0-0.0); Neutrophils # (A) 5.14 X 10*3/uL (1.80-7.70); Neutrophils % (A) 61.2 %; Platelet Count 451 X 10*3/uL (140-440); RBC 3.48 X 10*6/uL (4.40-5.60); RDW 13.3 % (11.5-14.5); WBC 8.39 X 10*3/uL (4.50-10.00)
[2021-11-15] MEDS ORDERED: IBUPROFEN 600 MG TAB PO PRN (10:53)
--- NOTE | 2021-11-15 12:15 | P.PN ---
Subjective Progress Note Date: 11/15/21 CHIEF COMPLAINT: Abdominal pain HISTORY OF PRESENT ILLNESS: Patient postop day #3 status post incision and drainage of left abdominal wall abscess. No foreign body found during surgery per Dr. london. Patient does complain of abdominal pain. He does report H day improving and pain. He would like something in between the [place]. He has not required any IV pain medication. Denies any nausea or vomiting. He has been seen by wound care service. Patient will have wound VAC placed outpatient. Again no foreign body was found during surgery. Patient denies any injury to the abdomen, any injection of any needles. He denies any prior history of gunshots her stabbings or anything else to contribute to a foreign body at that site. Patient seen and examined with Dr. london. Afebrile. WBC 8.39 hemoglobin 11 Patient seen and examined with Dr. london PHYSICAL EXAM: VITAL SIGNS: Reviewed. GENERAL: Well-developed in no acute distress. HEENT: No sclera icterus. Extraocular movements grossly intact. Moist buccal mucosa. Head is atraumatic, normocephalic. ABDOMEN: Soft. Nondistended. Abdominal wound on the left with serosanguineous drainage on the dressing NEUROLOGIC: Alert and oriented. Cranial nerves II through XII grossly intact. ASSESSMENT: 1. Left lateral abdominal wall abscess status post incision and drainage 2. Recent cholecystectomy 3. Atrial fibrillation PLAN: -Patient can be discharged surgical standpoint -Recommend Levaquin for 10 more days -Patient will have wound VAC placed outpatient -Continue wet-to-dry dressing changes to wound VAC placed -Okay to resume Eliquis from surgical standpoint Physician Drywall Professional note has been reviewed by physician. Signing provider agrees with the documented findings, assessment, and plan of care. Objective - Vital Signs Vital signs: Vital Signs Temp 97.7 F 11/15/21 05:52 Pulse 85 11/15/21 05:52 Resp 16 11/15/21 05:52 BP 134/80 11/15/21 05:52 Pulse Ox 95 11/15/21 05:52 FiO2 Intake & Output 11/14/21 11/15/21 11/15/21 18:59 06:59 18:59 Intake Total 1300 100 Balance 1300 100 Weight 95.708 kg Intake: Intake, IV Titration 1300 100 Amount Piperacillin-Tazobactam 3 100 100 .375 gm In Sodium Chloride 0.9% 100 ml @ 25 mls/hr IVPB Q8HR [facility] Rx# :[id number] Sodium Chloride 0.9% 1, 1200 000 ml @ 100 mls/hr IV . Q10H [facility] Rx#:[id number] Other: Voiding Method Toilet # Voids 3 - Labs CBC & Chem 7: 11/15/21 04:36 11/12/21 06:08 Labs: Abnormal Lab Results - Last 24 Hours (Table) 11/15/21 Range/Units 04:36 RBC 3.48 L (4.40-5.60) X 10*6/uL Hgb 11.0 L (13.0-17.0) g/dL Hct 32.8 L (39.6-50.0) % Plt Count 451 H (140-440) X 10*3/uL MPV 9.3 L (9.5-12.2) fL Immature Gran # 0.10 H (0.00-0.04) X 10*3/uL Microbiology - Last 24 Hours (Table) 11/13/21 15:32 Blood Culture - Preliminary Blood No Growth after 24 hours
[2021-11-15 14:49] VITALS: BP 118/79; PULSE 71; RESP 17; TEMP 98.6
== END 2021-11-15 15:13 | disposition home health service (06) | DRG 854 ==
LOC: EC 11:46 → 4SSUR 14:10
PROVIDERS: ADMIT Internal Medicine; ATTEND Internal Medicine
PROC: 0W9F30Z Drainage of Abdominal Wall with Drainage Device, Percutaneous Approach (ICD-10-PCS; 2021-11-09)
PROC: 0W9F0ZZ Drainage of Abdominal Wall, Open Approach (ICD-10-PCS; principal; 2021-11-12 10:15)
DX: A41.9 Sepsis, unspecified organism (principal); L02.211 Cutaneous abscess of abdominal wall; L98.495 Non-pressure chronic ulcer of skin of other sites with muscle involvement without evidence of necrosis; I48.0 Paroxysmal atrial fibrillation; G62.9 Polyneuropathy, unspecified; B96.20 Unspecified Escherichia coli [E. coli] as the cause of diseases classified elsewhere; B96.4 Proteus (mirabilis) (morganii) as the cause of diseases classified elsewhere; Z28.310 Unvaccinated for COVID-19; I10 Essential (primary) hypertension; H91.90 Unspecified hearing loss, unspecified ear; K21.9 Gastro-esophageal reflux disease without esophagitis; M79.7 Fibromyalgia; F41.9 Anxiety disorder, unspecified; F32.A Depression, unspecified; M19.90 Unspecified osteoarthritis, unspecified site; K22.70 Barrett's esophagus without dysplasia; M54.9 Dorsalgia, unspecified; G89.29 Other chronic pain; K57.90 Diverticulosis of intestine, part unspecified, without perforation or abscess without bleeding; E66.9 Obesity, unspecified; Z68.28 Body mass index [BMI] 28.0-28.9, adult; Z79.01 Long term (current) use of anticoagulants; Z79.899 Other long term (current) drug therapy; Z87.891 Personal history of nicotine dependence; Z87.81 Personal history of (healed) traumatic fracture; Z90.49 Acquired absence of other specified parts of digestive tract; Z87.19 Personal history of other diseases of the digestive system; Z90.89 Acquired absence of other organs; Z96.642 Presence of left artificial hip joint; Z87.39 Personal history of other diseases of the musculoskeletal system and connective tissue; Z98.1 Arthrodesis status; Z86.018 Personal history of other benign neoplasm; Z87.01 Personal history of pneumonia (recurrent); Z87.2 Personal history of diseases of the skin and subcutaneous tissue; Z98.890 Other specified postprocedural states; Z71.3 Dietary counseling and surveillance; Z88.5 Allergy status to narcotic agent; Z88.8 Allergy status to other drugs, medicaments and biological substances; Z82.3 Family history of stroke; Z80.0 Family history of malignant neoplasm of digestive organs; Z83.2 Family history of diseases of the blood and blood-forming organs and certain disorders involving the immune mechanism
CPT/HCPCS: 36415; 49405; 74160; 76705; 76942; 80048; 80053; 80202; 83605; 85025; 85610; 86140; 87040; 87070; 87077; 87186; 87205; 89050; 93005; 96361; 96374; 99284

== ENCOUNTER → 2022-01-20 | Outpatient (CLI) | payer MEDICARE, BC ==
[2022-01-20 14:09] VITALS: BP 112/71; PULSE 71; RESP 18; TEMP 99.1
--- NOTE | 2022-01-20 15:13 | P.PAINPG ---
PQRS Measure Charge Sheet Comment: HISTORY OF PRESENT ILLNESS: 71 yr old male w at side as a referral from [facility] presents today with severe and chronic cervical pain secondary to DDD, disc bulges and facet arthropathy for evaluation. Pt states his pain is localized in the upper neck w radiation to the BUEs, 6/10 in intensity, constant, in the neck w tingling/ burning/ numbness throughout the UEs. Pain is provoked with PT for 2 weeks in 2020, walking/standing upright for periods of 15 min or more. Pain is palliated with medications (Prednisone taper x 6 days), topicals which are ineffective, use of a wheelchair for ambulation, +cannabis, repositioning and rest. PMH: aFib, Fibromyalgia, GERD, Camacho's Esophagitis, Gout, Hearing Disorder / Deafness, HTN, OA PSH: Appendectomy, Laparoscopic Cholecystectomy, Hernia Repair, EGD/ Colonoscopy, Quentin Fundoplasty, Pain Neurostimulator implant/removal, BL Ankle Surgery, L Hip Total Arthroplasty, R RCT Repair x 2, Cervical fusion w marisa placement, LUE ORIF, Sinus surgery, Tonsillectomy SH: Former tobacco use, +Cannabis use, Rare ETOH use. . FH: Father- Esophageal CA. Mother- CVA/ DVT/ TIA All: See list Meds: See list REVIEW OF ORGAN SYSTEMS: CONSTITUTIONAL: No fevers or chills. No recent weight loss. NEUROLOGICAL: + numbness and tingling along the distal extremities. No seizure disorders or headaches. MUSCULOSKELETAL: + pain PSYCHIATRIC: Denies current depression or suicidal thoughts. Physical Examinations : Constitutional : Cooperative , not in acute distress . Neurologic : Cranial nerve II to XII intact. No focal neurological deficits. Psychiatric : alert & oriented x 3. Matching mood & appropriate affect. Judgment & insight intact. Musculoskeletal : Cervical Spine Motor strength in the deltoid and biceps: Normal right side. Normal Left side Motor strength biceps and the wrist extensors: Normal right side . Normal left side Motor strength in the triceps muscle: Normal right side. Normal left side Deep tendon reflexes: Normal at the biceps. Normal at Brachioradialis. Normal at triceps Vertebral body tenderness to deep palpation over Cervical facet loading test: positive bilaterally Spurling test: positive bilaterally Neck distraction test: positive bilaterally Hortencia sign: positive bilaterally Lumbar spine Motor strength lower extremities ,thigh and legs 5/5 Right side , 5/5 Left side Deep tendon reflexes : Normal Knee Jerk. Normal Ankle Jerk Vertebral body tenderness over Lumbar facet Loading Test: positive Right / positive Left Range of motion of the lumbar spine Flexion 30 degrees, extension 10 degrees Straight Leg Raise test: Left/ Right positive at degree Moira test: positive right / positive left. Severe tenderness over the Sacroiliac j oint on the Right / Left sides Gaenslen test: positive bilaterally Seated flexion test: positive bilaterally. Sacral spine : Severe tenderness over the Sacroiliac joint: right side / left side Range of motion: Flexion of the lumbar spine <60 degrees Range of motion: Extension of the lumbar spine <20 degrees Gaenslen's Test positive Damián's Test positive Moira test: positive right side / left side Thigh Thrust Test Sacral Thrust Test Imaging: CT Scan without contrast of the cervical spine reviewed Assessment/ Plan : Cervical DDD Recommendation of BL facet block of the medial branches C5-C6, C6-C7. May need a series of injections, up until RFA, for optimal pain relief. Risks, benefits of procedure discussed and patient verbalized understanding. Denies aspirin or anti- coagulant use or medical history of diabetes. Protocol for discontinuation/ continuation of medications glen procedure discussed. Pt and at [facility] extremely interested in restarting Ibuprofen for mid back, lower back pain which spans the abdomen and BLEs. Discussed pt's GERD status and that he needs to take medication w food & water. Pt and at [facility] ackn wledged understanding. All questions answered. I have spent greater than 30 minutes on patient care today. Dr Sebastian was available by phone for the evaluation of this patient. The time was used to r eview the medical records including relevant urine studies and Prescription history (MAPs), review of the available imaging, evaluation and examination of the patient, coordination of care with the medical staff and if applicable referring physicians, as well as creation of the medical record PQRS Narrative: Smoking Status Former smoker Hx Alcohol Use (MH) Yes Home Medications: Ambulatory Orders Atenolol [Tenormin] 25 mg PO DAILY 11/06/13 DULoxetine HCL [Cymbalta] 60 mg PO BID 08/01/16 Apixaban [Eliquis] 5 mg PO BID 07/01/18 Fluticasone Propionate [Fluticasone Propionate [place]] 2 spr EA NOSTRIL DAILY PRN 10/21/21 Tamsulosin [Flomax] 0.4 mg PO BID 10/21/21 Ascorbic Acid [Vitamin C] 500 mg PO DAILY 11/07/21 Glucosam/Jere-Msm1/C/Brandin/Bosw [Glucosamine-Chondroitin Tablet] 1 tab PO BID 11/07/21 HYDROmorphone [Dilaudid] 2 mg PO Q6H PRN 3 Days #8 tab 11/07/21 Multivitamin/Iron/Folic Acid [Centrum Adults Tablet] 1 tab PO DAILY 11/07/21 Omeprazole 40 mg PO DAILY 11/07/21 Super B Complex 1 tab PO DAILY 11/07/21 Zinc 50 mg PO DAILY 11/07/21 HYDROcodone/APAP 5-325MG [[place] 5-325] 1 tab PO Q6HR PRN 3 Days #12 tab 11/15/21 Ibuprofen [Motrin] 600 mg PO Q8HR PRN #30 tab 11/15/21 Levofloxacin [Levaquin] 500 mg PO DAILY 10 Days #10 tab 11/15/21 Ibuprofen 400 mg PO BID PRN 30 Days #60 tablet 01/20/22 Controlled Substance Measures - Controlled Substance Measures Is patient prescribed a controlled substance at discharge?: No
== END ==
LOC: PNWHC3 13:33
PROVIDERS: ATTEND Specialist
DX: M50.10 Cervical disc disorder with radiculopathy, unspecified cervical region (principal); I48.91 Unspecified atrial fibrillation; I10 Essential (primary) hypertension; M19.90 Unspecified osteoarthritis, unspecified site; Z87.891 Personal history of nicotine dependence; K21.9 Gastro-esophageal reflux disease without esophagitis; Z79.899 Other long term (current) drug therapy; Z88.5 Allergy status to narcotic agent; Z88.8 Allergy status to other drugs, medicaments and biological substances
CPT/HCPCS: 99211

== ENCOUNTER 2022-03-14 12:05 | Day surgery (SDC) | payer MEDICARE, BC ==
[2022-03-14] MEDS ORDERED: LACTATED RINGERS 1,000 ML IV SCH (12:33)
[2022-03-14] MEDS ORDERED: LIDOCAINE 1% (10MG/ML) FOR IV START INTRADERMA PRN (12:33)
[2022-03-14 12:38] VITALS: TEMP 97.9
[2022-03-14] MEDS ORDERED: DEXAMETHASONE SOD PHOSPHATE 10 MG/ML 1 ML VIAL ONE (13:27)
[2022-03-14] MEDS ORDERED: IOPAMIDOL M200 10 ML VIAL ONE (13:27)
[2022-03-14] MEDS ORDERED: IV FLUID CONTINUATION 900 ML IV ONE (13:46)
--- NOTE | 2022-03-14 13:47 | P.PCN ---
Date of Procedure: 03/14/22 Procedure(s) Performed: . PROCEDURE 1. Cervical epidural steroid injection under fluoroscopic guidance, C6-7 (fluoroscopy images available in the radiology department ) 2. Cervical epidurogram. PREOPERATIVE DIAGNOSIS: 1- Cervical Degenerative Disc Diseases 2- Cervical radiculopathy., 3-cervical spondylosis with cervical Facet arthropathy without myelopathy.4-history of fusion cervical area at C3-C6 POSTOPERATIVE DIAGNOSIS: : 1- Cervical Degenerative Disc Diseases , 2- Cervical radiculopathy. 3-,cervical spondylosis with cervical Facet arthropathy without myelopathy. 4-3 of cervical fusion C3-C6. ANESTHESIA: moderate sedation, with Versed 2 mg . Sedation start time :13:32 Sedation end time : 13:39 EBL 0 PROCEDURE INDICATION: The patient with neck pain and radiculitis unresponsive to conservative treatment consents for procedure. PROCEDURE DESCRIPTION / TECHNIQUE: The patient was seen and identified in the preoperative area. Risks, benefits, complications, including but not limited to infections ,bleeding , allergic reactions to the medications ,and not complete pain releife, and alternatives were discussed with the patient, the patient agreed to proceed with the procedure and signed the consent. Patient was taken to the OR and time out was completed. The patient was placed in the prone position on the procedure table. A pillow was placed under the patients chest to increase the cervical interlaminar space. The cervical area was prepped and draped in the usual sterile fashion. Vital signs were closely monitored during the procedure. Conscious sedation was used during the procedure to decrease patients anxiety. Using anterior-posterior fluoroscopy, the C6-7 interlaminar space was identified and the skin over this site was marked and then infiltrated with 1% lidocaine subcutaneously. Subsequently, a 20-gauge 3-1/2-inch Tuohy epidural needle was inserted and advanced toward the epidural space by means of the ``hanging-drop technique and guided by AP and lateral fluoroscopy. The correct needle position in the epidural space was verified with the injection of 2 mL of the water soluble contrast dye Isovue-200 and observing an excellent epidurogram with the epidural spread of the dye, after negative aspiration for blood and CSF and in the absence of paresthesias. then, mixture containing 20 mg Dexamethasone and 2 ml of preservative-free normal saline injected and a washout of epidurogram was seen. Needle was withdrawn intact, skin was cleansed, and bandages were applied. Complications= none. Disposition= patient was placed in supine position and transferred to the recovery room area in stable condition and there was no evidence of upper or lower extremity motor or sensory deficit after the procedure patient was discharged from recovery room after discharge criteria met and home discharge instructions was given by the staff and patient will follow with the pain clinic in 2-4 weeks Patient had history of cervical fusion from C3 to C6 and patient has scheduled to have diagnostic medial branch block at the same level that he had the fusion, for this reason we change the procedure to cervical epidural steroid injection at C6 7 level which would be more beneficial for him, we will reevaluate the facial response to the procedure and within a few weeks . Patient take Elequis ,the last dose of Eliquis was taken more than 72 hours
[2022-03-14 13:50] VITALS: RESP 16
--- NOTE | 2022-03-14 13:56 | FL ---
Intraoperative/procedural fluoroscopic services were provided for cervical facet block. Total fluoros copy time is 2 seconds with a total of 1 submitted image to PACS. Please see the operative note for f urther details.
[2022-03-14 14:05] VITALS: BP 143/95; PULSE 65
== END 2022-03-14 14:16 | disposition home or self-care (01) ==
LOC: ORPAIN 12:05
PROVIDERS: ATTEND Specialist
DX: M50.123 Cervical disc disorder at C6-C7 level with radiculopathy (principal); M47.22 Other spondylosis with radiculopathy, cervical region; I25.10 Atherosclerotic heart disease of native coronary artery without angina pectoris; Z88.5 Allergy status to narcotic agent; Z88.8 Allergy status to other drugs, medicaments and biological substances; Z98.1 Arthrodesis status
CPT/HCPCS: 62321; J1100; Q9966

== ENCOUNTER → 2022-03-27 | Outpatient (CLI) | payer MEDICARE, BC ==
[2022-03-27 14:51] VITALS: BP 112/74; PULSE 70; RESP 18; TEMP 98.1
--- NOTE | 2022-03-27 14:53 | P.PAINPG ---
PQRS Measure Charge Sheet Comment: A 71 yr old male w at side with a history of severe and chronic neck pain secondary to cervical degenerative disc diseases and spondylosis with facet arthropathy without myelopathy presents today for evaluation s/p FLOYD C6-C7 Pt states he experienced 30% pain relief x 3 days s/p procedure. Pain level is currently at 8/10 in intensity, constant, localized in the mid to lower cervical spine, burning in character w shooting towards the shoulders. Pain is provoked by flexion. Pain is alleviated with topicals, injections, ice, massages but was discontinued as it started to provoke pain, use of a soft c collar, repositioning and rest. Interventional pain procedures completed include FLOYD C6-C7. Patient is currently on DENIES Patient denies any side effects of the medication(s), denies excessive drowsiness or sleepiness, denies suicidal ideation and reports that the current pain medication is helping to control the pain and improve activities of daily living. Patient denies any motor or sensory deficits. Patient denies any fever or night sweats, denies any change in the bowel movements or urination. Physical Examination: -Constitutional: Cooperative. Not in acute distress . - Neurologic: Cranial nerve II to XII intact. No focal neurological deficits. - Psychatric: Alert & oriented x 3. Matching mood & appropriate affect. Judgment and insight intact. - Musculoskeletal: Cervical spine: Muscle bulk/ tone/ strength in the bilateral upper extremities normal Vertebral body tenderness to palpation over BL paraspinal TTP over C2-T2, palpable spasms on L side Spurling test positive Distraction test positive Facet loading test positive Thoracic spine Muscle bulk / tone/ strength in the bilateral paraspinal muscles normal Vertebral body tender to palpation over Facet loading test positive Lumbar spine: Motor bulk/ tone/ strength lower extremities , thigh and legs : 5/5 Deep tendon reflexes : Normal Knee Jerk. Normal Ankle Jerk . Vertebral body tenderness to palpation over Lumbar Facet Loading Test positive Straight Leg Raise: positive at 30 degrees right side/ left side Gaenslen's Test positive Sacral spine : Severe tenderness over the Sacroiliac joint: right side / left side Range of motion: Flexion of the lumbar spine <60 degrees Range of motion: Extension of the lumbar spine <20 degrees Gaenslen's Test positive Damián's Test positive Moira test: positive right side / left side Thigh Thrust Test Sacral Thrust Test Assessment and plan: Chronic neck pain secondary to cervical degenerative disc disease, spondylosis with facet arthropathy without myelopathy Recommendation of BL TPIs of C2-T2. May need a series of injections, up to 2-3 months, for optimal pain relief. Risks, benefits of procedure discussed and pt verbalized understanding. Admits to anticoagulant use or medical history of diabetes. Protocol for discontinuation/ continuation of medications glen procedure discussed. All patient questions answered I have spent less than 30 minutes on patient care today. Dr Sebastian was available by phone for the evaluation of this patient. The time was used to review the medical records including relevant urine studies and Prescription history (MAPs), review of the available imaging, evaluation and examination of the patient, coordination of care with the medical staff and if applicable referring physicians, as well as creation of the medical record PQRS Narrative: Smoking Status Former smoker Hx Alcohol Use (MH) Yes Home Medications: Ambulatory Orders Atenolol [Tenormin] 25 mg PO DAILY 11/06/13 DULoxetine HCL [Cymbalta] 60 mg PO BID 08/01/16 Apixaban [Eliquis] 5 mg PO BID 07/01/18 Fluticasone Propionate [Fluticasone Propionate [place]] 2 spr EA NOSTRIL DAILY PRN 10/21/21 Tamsulosin [Flomax] 0.4 mg PO BID 10/21/21 Ascorbic Acid [Vitamin C] 500 mg PO DAILY 11/07/21 Glucosam/Jere-Msm1/C/Brandin/Bosw [Glucosamine-Chondroitin Tablet] 1 tab PO BID 11/07/21 HYDROmorphone [Dilaudid] 2 mg PO Q6H PRN 3 Days #8 tab 11/07/21 Multivitamin/Iron/Folic Acid [Centrum Adults Tablet] 1 tab PO DAILY 11/07/21 Super B Complex 1 tab PO DAILY 11/07/21 Zinc 50 mg PO DAILY 11/07/21 Ibuprofen 400 mg PO BID PRN 30 Days #60 tablet 01/20/22 Amitriptyline HCl [Elavil] 25 mg PO HS 03/13/22 Chlorpheniramine/Dextromethorp [Coricidin Hbp Cough & Cold Tab] 1 each PO DAILY 03/13/22 Cholecalciferol [Vitamin D3 (25 Mcg = 1000 Iu)] 25 mcg PO DAILY 03/13/22 Silodosin [Rapaflo] 8 mg PO HS 03/13/22 Controlled Substance Measures - Controlled Substance Measures Is patient prescribed a controlled substance at discharge?: No
== END ==
LOC: PNWHC3 13:42
PROVIDERS: ATTEND Specialist
DX: M47.812 Spondylosis without myelopathy or radiculopathy, cervical region (principal); M50.30 Other cervical disc degeneration, unspecified cervical region; G89.29 Other chronic pain; Z88.5 Allergy status to narcotic agent; Z87.891 Personal history of nicotine dependence; Z79.01 Long term (current) use of anticoagulants; E66.9 Obesity, unspecified; Z68.28 Body mass index [BMI] 28.0-28.9, adult; Z79.84 Long term (current) use of oral hypoglycemic drugs; Z88.9 Allergy status to unspecified drugs, medicaments and biological substances
CPT/HCPCS: 99211

== ENCOUNTER → 2022-04-23 | Outpatient (CLI) | payer MEDICARE, BC | END | disposition home or self-care (01) | LOC: RADMRIMAIN 16:16 | PROVIDERS: ATTEND Orthopaedic Surgery | DX: Z53.9 Procedure and treatment not carried out, unspecified reason (principal) ==

== ENCOUNTER → 2022-04-29 | Day surgery (SDC) | payer MEDICARE, BC ==
[2022-04-24 12:09] VITALS: BMI 28.5
[~2022-04-29] MED LIST changes: -ACETAMINOPHEN TAB 500 MG TAB PO PRN; -HEPARIN SODIUM,PORCINE/PF 5,000 UNIT/0.5 ML SYRINGE SQ PRN; +IV FLUID CONTINUATION 800 ML IV ONE; +LACTATED RINGERS 1,000 ML IV ONE; +LACTATED RINGERS 1,000 ML IV SCH; +MIDAZOLAM 2 MG/2 ML VIAL ONE; +ROPIVACAINE 5 MG/ML 20 ML AMPULE ONE; +TRIAMCINOLONE ACETONIDE 40 MG/ML 1 ML VIAL ONE; +fentaNYL (PF) 50 MCG/ML 2 ML AMP ONE
[2022-04-29 11:08] VITALS: TEMP 98
--- NOTE | 2022-04-29 11:29 | P.PCN ---
Date of Procedure: 04/29/22 Description of Procedure: Pre and postop diagnosis: Myofascial pain syndrome Procedure: Trigger point injections X 14 Muscle group X bilateral cervical paraspinal and bilateral trapezius, bilateral rhomboids Surgeon: Niharika Godfrey Anesthesia: Versed 1 mg, and fentanyl 50 g sedation Supervision start time: 8 Sedation supervision ended time: 112 Complications: None Estimated blood loss: None Specimen removed: None Procedure indications: Patient had a history of myofascial pain syndrome. Patient tried conservative therapy. Came here for intervention procedure for better pain relief. Procedure description: Patient was seen and identified in the holding area risk benefits competitions alternative discussed with the patient. Patient agreed to proceed for the procedure signed the consent. Patient taken to the procedure area. Timeout was completed. A total number of 14 - trigger point area was marked with a sterile marker. After ChloraPrep X2 used to clean the area. Critical pause was taken. Using 25-gauge 1-1/2 [address] half [address]. Needle entered in each market site one mL of block solution injected at each level. The block solution containing 14 ml of 0.5% preservative-free ropivacaine with [place] 40 MG. Needle removed intact skin cleaned and Band-Aid applied. Patient tolerated the procedure well. Disposition: Patient discharge home after meeting the discharge criteria from the recovery. Patient scheduled to follow up with the pain clinic in 4 weeks for follow-up visit.
[2022-04-29 11:56] VITALS: BP 123/79; PULSE 60; RESP 18
== END ==
LOC: ORPAIN 10:31
DX: M79.18 Myalgia, other site (principal)
CPT/HCPCS: 20553; J2250; J3301; J3010; J2795

== ENCOUNTER → 2022-05-21 | Outpatient (CLI) | payer MEDICARE, BC ==
[2022-05-21 14:35] VITALS: BP 120/72; PULSE 56; RESP 16; TEMP 98
--- NOTE | 2022-05-21 14:46 | P.PAINPG ---
PQRS Measure Charge Sheet Comment: A 71 yr old male with a history of severe and chronic neck pain secondary to cervical DDD and spondylosis with facet arthropathy without myelopathy presents today for neck pain. Pain level is currently at 7/10 in intensity, intermittent, localized in the mid to lower cervical spine, tingling/ burning in character w shooting towards the BL shoulders. Pain is provoked by hyperextension and rotation. Pain is alleviated with PT 10 yrs ago, massage therapy 10 yrs ago, +Cannabis use, heat, laying supine, repositioning and rest. Has had an IPG placed, then removed as it was ineffective. Interventional pain procedures completed include RUTH C6-C7, BL C2-T2 TPIs Patient is currently on Denies Patient denies any side effects of the medication(s), denies excessive drowsiness or sleepiness, denies suicidal ideation and reports that the current pain medication is helping to control the pain and improve activities of daily living. Patient denies any motor or sensory deficits. Patient denies any fever or night sweats, denies any change in the bowel movements or urination. Physical Examination: -Constitutional: Cooperative. Not in acute distress . - Neurologic: Cranial nerve II to XII intact. No focal neurological deficits. - Psychatric: Alert & oriented x 3. Matching mood & appropriate affect. Judg ment and insight intact. - Musculoskeletal: Cervical spine: Muscle bulk/ tone/ strength in the bilateral upper extremities normal Vertebral body tenderness to palpation over BL paraspinal TTP over C2-T2 w accompanying spasms Spurling test positive Distraction test positive Facet loading test positive Thoracic spine Muscle bulk / tone/ strength in the bilateral paraspinal muscles normal Vertebral body tender to palpation over Facet loading test positive Lumbar spine: Motor bulk/ tone/ strength lower extremities , thigh and legs : 5/5 Deep tendon reflexes : Normal Knee Jerk. Normal Ankle Jerk . Vertebral body tenderness to palpation over Lumbar Facet Loading Test positive Straight Leg Raise: positive at 30 degrees right side/ left side Gaenslen's Test positive Sacral spine : Severe tenderness over the Sacroiliac joint: right side / left side Range of motion: Flexion of the lumbar spine <60 degrees Range of motion: Extension of the lumbar spine <20 degrees Gaenslen's Test positive Moira test: positive right side / left side Thigh Thrust Test Sacral Thrust Test Assessment and plan: Chronic neck pain secondary to cervical D, spondylosis with facet arthropathy without myelopathy Recommendation of BL TPIs C2-T2. May need a series of injections, up to every 2-3 mo, for optimal pain relief. Risks, benefits of procedure discussed and pt verbalized understanding. Admits to anticoagulant use or medical history of diabetes. Protocol for discontinuation/ continuation of medications glen procedure discussed. All patient questions answered I have spent less than 30 minutes on patient care today. Dr Sebastian was available by phone for the evaluation of this patient. The time was used to review the medical records including relevant urine studies and Prescription history (MAPs), review of the available imaging, evaluation and examination of the patient PQRS Narrative: Smoking Status Former smoker Hx Alcohol Use (MH) Yes Home Medications: Ambulatory Orders Atenolol [Tenormin] 25 mg PO DAILY 11/06/13 DULoxetine HCL [Cymbalta] 60 mg PO BID 08/01/16 Apixaban [Eliquis] 5 mg PO BID 07/01/18 Fluticasone Propionate [Fluticasone Propionate [place]] 2 spr EA NOSTRIL DAILY PRN 10/21/21 Tamsulosin [Flomax] 0.4 mg PO BID 10/21/21 Ascorbic Acid [Vitamin C] 500 mg PO DAILY 11/07/21 Glucosam/Jere-Msm1/C/Brandin/Bosw [Glucosamine-Chondroitin Tablet] 1 tab PO BID 11/07/21 HYDROmorphone [Dilaudid] 2 mg PO Q6H PRN 3 Days #8 tab 11/07/21 Multivitamin/Iron/Folic Acid [Centrum Adults Tablet] 1 tab PO DAILY 11/07/21 Super B Complex 1 tab PO DAILY 11/07/21 Zinc 50 mg PO DAILY 11/07/21 Ibuprofen 400 mg PO BID PRN 30 Days #60 tablet 01/20/22 Amitriptyline HCl [Elavil] 25 mg PO HS 03/13/22 Chlorpheniramine/Dextromethorp [Coricidin Hbp Cough & Cold Tab] 1 each PO DAILY 03/13/22 Cholecalciferol [Vitamin D3 (25 Mcg = 1000 Iu)] 25 mcg PO DAILY 03/13/22 Silodosin [Rapaflo] 8 mg PO HS 03/13/22 Controlled Substance Measures - Controlled Substance Measures Is patient prescribed a controlled substance at discharge?: No
== END ==
LOC: PNWHC3 13:53
PROVIDERS: ATTEND Specialist
DX: M47.812 Spondylosis without myelopathy or radiculopathy, cervical region (principal); M50.30 Other cervical disc degeneration, unspecified cervical region; G89.29 Other chronic pain; Z79.01 Long term (current) use of anticoagulants; E11.9 Type 2 diabetes mellitus without complications; Z88.5 Allergy status to narcotic agent; Z88.8 Allergy status to other drugs, medicaments and biological substances; Z87.891 Personal history of nicotine dependence
CPT/HCPCS: 99211

== ENCOUNTER 2022-06-24 11:31 | Day surgery (SDC) | payer MEDICARE, BC ==
[2022-06-24] MEDS ORDERED: LACTATED RINGERS 1,000 ML IV ONE (12:02)
[2022-06-24] MEDS ORDERED: fentaNYL (PF) 50 MCG/ML 2 ML AMP ONE (12:19)
[2022-06-24] MEDS ORDERED: MIDAZOLAM 2 MG/2 ML VIAL ONE (12:19)
[2022-06-24] MEDS ORDERED: methylPREDNISolone ACETATE 40 MG/ML 1 ML VIAL ONE (12:19)
[2022-06-24] MEDS ORDERED: ROPIVACAINE 5 MG/ML 20 ML AMPULE ONE (12:19)
[2022-06-24] MEDS ORDERED: IV FLUID CONTINUATION 1,000 ML IV ONE (12:35)
--- NOTE | 2022-06-24 12:36 | P.PCN ---
Date of Procedure: 06/24/22 Procedure(s) Performed: Procedure= trigger point injections cervical paraspinal muscles and upper thoracic paraspinal muscles ( total 8 trigger points injected ) (Total of 3 trigger point injected in the left side cervical and upper thoracic paraspinal muscles ,and 5 on the right side cervical and upper thoracic paraspinal muscles) Preoperative diagnosis= 1-myofascial pain syndrome cervical and upper thoracic area 2-cervical degenerative disc disease 3-cervical facet arthropathy Postoperative diagnosis=Same as preop Diagnosis . Complication = none Condition= stable Anesthesia= moderate sedation with intravenous Versed 1 mg , and fentanyl 50 micrograms . Sedation start time: 1222 Sedation end time : 1229 Indication for the procedure= patient complaining of neck and upper back pain , examination was positive for multiple trigger point in the cervical and upper thoracic area, for this reason he was good candidate for trigger point steroid injection. Description of the procedure= procedure risk and benefits discussed with the patient, including but not limited, risk of infection and bleeding, and ALLERGIC reaction to the medication and not complete pain relief and patient agreed with the preceding patient taken to the operating room, placed in prone position or standard monitors applied to the patient then after induction of anesthesia back prepped with chlorhexidine 3 times , then under sterile technique each of the trigger point that is identified in the preop holding area injected with 2 mL of the mixture of ropivacaine 0.5% 18 mL mixed with 40 mg of Depo-Medrol and 2 mL of the mixture injected at each trigger point using a 25-gauge needle, injection done after negative aspiration on the was no paresthesia during the injection, total of 3 trigger point injected on the left side cervical and upper thoracic paraspinal muscles and 5 on the right side cervical and upper thoracic paraspinal muscles, tolerated the procedure well without any complications and he will follow up in the pain clinic in a few weeks
[2022-06-24 12:44] VITALS: RESP 18
[2022-06-24 12:54] VITALS: BP 142/92; PULSE 63
== END 2022-06-24 13:08 | disposition home or self-care (01) ==
LOC: ORPAIN 11:31
PROVIDERS: ATTEND Specialist
DX: M79.18 Myalgia, other site (principal); M50.30 Other cervical disc degeneration, unspecified cervical region; M47.812 Spondylosis without myelopathy or radiculopathy, cervical region; Z88.8 Allergy status to other drugs, medicaments and biological substances
CPT/HCPCS: 20553; J2250; J1030; J3010; J2795

== ENCOUNTER → 2022-07-09 | Outpatient (CLI) | payer MEDICARE, BC ==
--- NOTE | 2022-07-09 15:11 | P.PAINPG ---
PQRS Measure Charge Sheet Comment: A 71 yr old wheelchair bound male with a history of severe and chronic neck pain x 3 yrs secondary to cervical DDD and spondylosis with facet arthropathy without myelopathy presents today for evaluation s/p BL cervicothoracic TPIs. Pt states he experienced % pain relief x 2 wks s/p procedure. Pain level is provoked at 7 /10 in intensity, constant, localized in the cervical spine, stinging in character w shooting towards the BL shoulders, head and hands. Pain is provoked by rotation. Pain is alleviated with injections in the past, PT in 2018 which effects plateaued, +cannabis use, heat, laying supine , use of a support brace, repositioning and rest. Pt is disinterested in a PNS stimulator trial as he's had one placed/ removed in his lumbar spine as it was causing "burning pain." Interventional pain procedures completed include BL C2-T2 TPIs, FLOYD C6-C7, BL MBB C5-C7 x1 Patient is currently on +Cannabis products Patient denies any side effects of the medication(s), denies excessive drowsiness or sleepiness, denies suicidal ideation and reports that the current pain medication is helping to control the pain and improve activities of daily living. Patient denies any motor or sensory deficits. Patient denies any fever or night sweats, denies any change in the bowel movements or urination. Physical Examination: -Constitutional: Cooperative. Not in acute distress . - Neurologic: Cranial nerve II to XII intact. No focal neurological deficits. - Psychatric: Alert & oriented x 3. Matching mood & appropriate affect. Judgment and insight intact. - Musculoskeletal: Cervical spine: Muscle bulk/ tone/ strength in the bilateral upper extremities normal Vertebral body tenderness to palpation over Spurling test positive Distraction test positive Facet loading test positive Thoracic spine Muscle bulk / tone/ strength in the bilateral paraspinal muscles normal Vertebral body tender to palpation over Facet loading test positive Lumbar spine: Motor bulk/ tone/ strength lower extremities , thigh and legs : 5/5 Deep tendon reflexes : Normal Knee Jerk. Normal Ankle Jerk . Vertebral body tenderness to palpation over Lumbar Facet Loading Test positive Straight Leg Raise: positive at 30 degrees right side/ left side Gaenslen's Test positive Sacral spine : Severe tenderness over the Sacroiliac joint: right side / left side Range of motion: Flexion of the lumbar spine <60 degrees Range of motion: Extension of the lumbar spine <20 degrees Gaenslen's Test positive Moira test: positive right side / left side Thigh Thrust Test Sacral Thrust Test Assessment and plan: Chronic neck pain secondary to cervical DDD, spondylosis with facet arthropathy without myelopathy Pt feels he has a neurological condition that is causing pain throughout his neck, upper back, UEs, abdomen and LEs. He has seen a neurosurgeon at [facility] and states he had spinal surgery with them but that they could not treat the aforementioned pain conditions. He is willing to travel. Discussed [place] [facility] with 20+ physicians & specialists in the group that could determine if his pain is autoimmune. All patient questions answered I have spent less than 30 minutes on patient care today. Dr Sebastian was available by phone for the evaluation of this patient. The time was used to review the medical records including relevant urine studies and Prescription history (MAPs), review of the available imaging, evaluation and examination of the patient, coordination of care with the medical staff and if applicable referring physicians, as well as creation of the medical record PQRS Narrative: Smoking Status Former smoker Hx Alcohol Use (MH) Yes Home Medications: Ambulatory Orders Atenolol [Tenormin] 25 mg PO DAILY 11/06/13 DULoxetine HCL [Cymbalta] 60 mg PO BID 08/01/16 Apixaban [Eliquis] 5 mg PO BID 07/01/18 Fluticasone Propionate [Fluticasone Propionate [place]] 2 spr EA NOSTRIL DAILY PRN 10/21/21 Tamsulosin [Flomax] 0.4 mg PO BID 10/21/21 Ascorbic Acid [Vitamin C] 500 mg PO DAILY 11/07/21 Glucosam/Jere-Msm1/C/Brandin/Bosw [Glucosamine-Chondroitin Tablet] 1 tab PO BID 11/07/21 HYDROmorphone [Dilaudid] 2 mg PO Q6H PRN 3 Days #8 tab 11/07/21 Super B Complex 1 tab PO DAILY 11/07/21 Zinc 50 mg PO DAILY 11/07/21 Ibuprofen 400 mg PO BID PRN 30 Days #60 tablet 01/20/22 Chlorpheniramine/Dextromethorp [Coricidin Hbp Cough & Cold Tab] 1 each PO DAILY PRN 03/13/22 Cholecalciferol [Vitamin D3 (25 Mcg = 1000 Iu)] 25 mcg PO DAILY 03/13/22 Silodosin [Rapaflo] 8 mg PO HS 03/13/22 Unk Veggies And Fruit Supp 1 tab PO BID 06/19/22 Controlled Substance Measures - Controlled Substance Measures Is patient prescribed a controlled substance at discharge?: No
[2022-07-09 15:48] VITALS: BP 167/73; PULSE 52; RESP 18; TEMP 98.1
== END ==
LOC: PNWHC3 13:58
PROVIDERS: ATTEND Specialist
DX: M47.812 Spondylosis without myelopathy or radiculopathy, cervical region (principal); G89.29 Other chronic pain; M50.30 Other cervical disc degeneration, unspecified cervical region; Z88.5 Allergy status to narcotic agent; Z87.891 Personal history of nicotine dependence
CPT/HCPCS: 99211

== ENCOUNTER → 2023-12-01 | Outpatient (CLI) | payer MEDICARE, BC ==
--- NOTE | 2023-12-08 02:21 | CT ---
EXAMINATION TYPE: CT lumbar spine wo con CT DLP: 700 mGycm, Automated exposure control for dose reduction was used. DATE OF EXAM: 12/01/2023 3:16 PM COMPARISON: X-rays 11/13/2023. CLINICAL INDICATION:Male, 73 years old with history of M54.2 CERVICALGIA M54.16 RADICULOPATHY, LUMBAR REG; PHH, radiculopathy lumbar spine TECHNIQUE: CT of the lumbar spine was performed without contrast. Multiplanar soft tissue and bone windows were obtained and reviewed. . Contrast used: None FINDINGS: Generalized osteopenia. There are 5 lumbar-type vertebral bodies. There is near complete interbody fu eduardo L4 L5 S1 with postlaminectomy changes at this level. Mild height loss along the superior endplat e of L4 is similar to previous. No evidence of acute fracture or destructive osseous process. No sign ificant listhesis. Mild S-shaped scoliotic curvature again seen. Spinal canal and contents are not well assessed by CT. However there is no gross abnormality is detec shelbi. If there is persistent concern MRI would be recommended. T12-L1: No significant spinal canal or neural foraminal stenosis. L1-L2: Disc osteophyte complex and facet arthrosis causes ucla-de-jsgcxihr canal and neural foraminal stenosis. L2-L3: Disc osteophyte complex and facet arthrosis causes cump-ce-spigenec canal and neural foraminal stenosis. L3-L4: Disc osteophyte complex and facet arthrosis causes umgm-ne-ozpkqsjl bilateral neural foraminal foraminal stenosis. Canal posteriorly is unroofed by the laminectomies. L4-L5: Disc osteophyte complex and facet arthrosis causes rygw-lz-mmvgvgng bilateral neural foraminal foraminal stenosis. Canal posteriorly is unroofed by the laminectomies. L5-S1: Disc osteophyte complex and facet arthrosis causes ktiv-gj-xverlozb bilateral neural foraminal foraminal stenosis. Canal posteriorly is unroofed by the laminectomies. Other: None significant. Partially seen left iliac bone orthopedic screw. IMPRESSION: 1. No evidence of acute lumbar spine fracture, or traumatic malalignment. 2. Osteopenia and multilevel degenerative changes. Various degrees of canal and neural foraminal alexandro rowing as described above.
== END | disposition home or self-care (01) ==
LOC: RADCTMAIN 14:15
PROVIDERS: ATTEND Orthopaedic Surgery
DX: M54.16 Radiculopathy, lumbar region (principal); M47.26 Other spondylosis with radiculopathy, lumbar region
CPT/HCPCS: 72131

== ENCOUNTER → 2024-01-28 | Outpatient (CLI) | payer MEDICARE, BC | END | disposition home or self-care (01) | LOC: LABPRL 10:25 | PROVIDERS: ATTEND Family Medicine | DX: Z01.818 Encounter for other preprocedural examination (principal) | CPT/HCPCS: 80053; 85025; 85610; 85730 ==

== ENCOUNTER → 2024-02-10 | Outpatient (CLI) | payer MEDICARE, BC | END | disposition home or self-care (01) | LOC: LABPRL 12:34 | PROVIDERS: ATTEND Orthopaedic Surgery | CPT/HCPCS: 87070 ==

== ENCOUNTER 2024-02-15 07:32 | Inpatient (IN) | payer MEDICARE, BC ==
[~2024-02-15 07:32] MED LIST changes: +GABAPENTIN 300 MG CAP PO PRN; -IV FLUID CONTINUATION 800 ML IV ONE; -LACTATED RINGERS 1,000 ML IV ONE; -LACTATED RINGERS 1,000 ML IV SCH; -MIDAZOLAM 2 MG/2 ML VIAL ONE; +ONDANSETRON 4 MG/2 ML VIAL IVP PRN; -ROPIVACAINE 5 MG/ML 20 ML AMPULE ONE; +TRANEXAMIC 1,000 MG/100ML-NACL 1,000 MG in SALINE 1 100ML.BAG IVPB PRN; -TRIAMCINOLONE ACETONIDE 40 MG/ML 1 ML VIAL ONE; -fentaNYL (PF) 50 MCG/ML 2 ML AMP ONE
[2024-02-15] MEDS ORDERED: LIDOCAINE 1% (10MG/ML) FOR IV START INTRADERMA PRN (07:52)
[2024-02-15] MEDS ORDERED: METOCLOPRAMIDE 5 MG/ML 2 ML VIAL IVP PRN (07:52)
[2024-02-15] MEDS: IV FLUID CONTINUATION 1,000 ML IV ONE ×4 (08:19)
[2024-02-15] MEDS: ONDANSETRON 4 MG/2 ML VIAL IVP ONE (08:23)
[2024-02-15] MEDS: LACTATED RINGERS 1,000 ML IV SCH (08:23)
[2024-02-15] MEDS: ACETAMINOPHEN TAB 500 MG TAB PO PRN (08:23)
[2024-02-15 08:29] LABS: HCT 44.3 % (39.0-53.0); HGB 14.8 gm/dL (13.0-17.5); MCHC 33.4 g/dL (31.0-37.0); MCV 101.8 fL (80.0-100.0); Mean Platelet Volume 7.2; Platelet Count 246 k/uL (150-450); RBC 4.35 m/uL (4.30-5.90); RDW 12.8 % (11.5-15.5); WBC 7.4 k/uL (3.8-10.6)
[2024-02-15 08:45] LABS: African American GFR (CKD) >90 (>60 ml/min/1.73 sqM); Anion Gap -2 mmol/L; Blood Urea Nitrogen 25 mg/dL (9-20); Calcium 9.7 mg/dL (8.4-10.2); Carbon Dioxide 30 mmol/L (22-30); Chloride 106 mmol/L (98-107); Glucose 112 mg/dL (74-99); Non-African American GFR(CKD) >90 (>60 ml/min/1.73 sqM); Sodium 134 mmol/L (137-145)
[2024-02-15 08:50] LABS: Potassium 4.5 mmol/L (3.5-5.1)
[2024-02-15] MEDS ORDERED: GLYCOPYRROLATE 0.2 MG/ML 2 ML VIAL ONE (09:24)
[2024-02-15] MEDS ORDERED: SUCCINYLCHOLINE CHLORIDE 200 MG/10 ML VIAL IV ONE (09:24)
[2024-02-15] MEDS ORDERED: HYDROmorphone (PF) 1 MG/ML ONE (09:24)
[2024-02-15] MEDS ORDERED: LIDOCAINE 1% INJ 10MG/ML (20 ML MDV) ONE (09:24)
[2024-02-15] MEDS ORDERED: PROPOFOL 10 MG/ML 20 ML VIAL IV ONE (09:24)
[2024-02-15] MEDS ORDERED: NEOSTIGMINE 1 MG/ML 10 ML VIAL ONE (09:24)
[2024-02-15] MEDS ORDERED: fentaNYL (PF) 50 MCG/ML 2 ML AMP ONE (09:24)
[2024-02-15] MEDS ORDERED: MIDAZOLAM 2 MG/2 ML VIAL ONE (09:24)
[2024-02-15] MEDS ORDERED: TRANEXAMIC 1,000 MG/100ML-NACL PREMIX BAG ONE (09:24)
[2024-02-15] MEDS ORDERED: KETAMINE HCL IN 0.9 % NACL 50 MG/5 ML SYRINGE ONE (09:24)
[2024-02-15] MEDS ORDERED: ROCURONIUM 10 MG/ML (5 ML VIAL) IV ONE (09:24)
[2024-02-15] MEDS: GENTAMICIN 80 MG in SODIUM CHLORIDE 0.9% IRRIGATIO 3,000 ML IRRIGATION ONE (10:02)
[2024-02-15] MEDS: ceFAZolin 3,000 MG in SODIUM CHLORIDE 0.9% IRRIGATIO 3,000 ML IRRIGATION ONE (10:02)
[2024-02-15] MEDS: THROMBIN (BOVINE) 5,000 UNIT VIAL TOPICAL ONE (10:02)
[2024-02-15] MEDS: LACTATED RINGERS 1,000 ML IV ONE ×4 (11:22→16:06)
[2024-02-15] MEDS: VANCOMYCIN 1,000 MG VIAL MISCELLANE ONE (12:23)
--- NOTE | 2024-02-15 12:48 | P.PN ---
Progress Note - Text Progress Note Date: 02/15/24 H&P UPDATE: Pt s/e in PRE OP. H&P reviewed with pt. No significant changes. Pt ready and willing to proceed with surgery.
[2024-02-15] MEDS ORDERED: HYDROmorphone 0.5 MG/0.5 ML SYRINGE IVP PRN (13:01)
[2024-02-15] MEDS ORDERED: CYCLOBENZAPRINE 5 MG TAB PO PRN (13:01)
[2024-02-15] MEDS ORDERED: HYDROcodone/APAP 5-325MG 1 EACH TAB PO PRN (13:01)
[2024-02-15] MEDS ORDERED: HYDROcodone/APAP 10-325MG 1 EACH TAB PO PRN (13:01)
[2024-02-15] MEDS ORDERED: MAGNESIUM HYDROXIDE 2,400 MG/30 ML CUP PO PRN (13:01)
[2024-02-15] MEDS ORDERED: SENNOSIDES-DOCUSATE SODIUM 1 EACH TAB PO PRN (13:01)
--- NOTE | 2024-02-15 13:01 | P.OP ---
Date of Procedure: 02/15/24 Preoperative Diagnosis: L1-3 spondylosis with stenosis Bilateral lower extremity weakness Bilateral lower extremity paresthesias Postoperative Diagnosis: L1-3 spondylosis with stenosis Bilateral lower extremity weakness Bilateral lower extremity paresthesias Procedure(s) Performed: 1. L1-2 POSTEROLATERAL AND INTERBODY FUSION 2. L2-3 POSTEROLATERAL AND INTERBODY FUSION 3. L1-3 SEGMENTAL INSTRUMENTATION 4. L1-2 AND L2-3 BILATERAL LAMINECTOMY WITH FACETECTOMY AND FORAMINOTOMY 5. INSERTION OF BIOMECHANICAL DEVICE L1-2 AND L2-3 6. USE OF [employer] NAVIGATION FOR SCREW PLACEMENT USE OF IONM ALL SCREWS TESTING >20mA Implants: -JAYLIN EVEREST RODS AND SCREWS -GLOBUS INTRALIFT X2 CAGES LONG, 8MM -MAGNATOS, AUTOGRAFT, ALLOGRAFT, ARTHROCELL Anesthesia: NAHUNA Surgeon: Dhruv Sandoval Resaw Operator #1: Darell Lora (was present and assisted with all aspects of the case from position to closure. ) Estimated Blood Loss (ml): 300 IV fluids (ml): 2,500 Urine output (ml): 450 Pathology: none sent Condition: stable Disposition: PACU Indications for Procedure: Guilherme is a 73 year old male presenting for evaluation of low back pain and bilateral lower extremity weakness and paresthesias. It was my pleasure to have seen and examined Guilherme Nance. In our visit today we have had a chance to go over subjective complaints, physical examination findings and treatments including the natural course history without intervention and various interventional options. The patient's imaging demonstrates the following findings: Previous fusion from L3-S1 with good fusion block. Severe ASD noted L1-3 with stenosis. No fractures noted. On a physical exam, Guilherme Nance demonstrates the following findings: A continued throbbing, shooting pain across the low back that radiates around into the hips and groin region. He notes continued numbness and tingling throughout the bilateral lower extremities. He notes progressive bilateral leg weakness. He states his symptoms have become debilitating. His symptoms worsen after all activity. He reports mild sleep disturbances related to his ongoing pain and associated symptoms. I have explained to the patient that as their condition progresses it will cause further neurological deficits and eventual paralysis. Based on the patients imaging, physical exam, and the rapid progression and disabling nature of their symptoms, at this time I recommend surgery in the form of a: L1-3 POSTERIOR LUMBAR INTERBODY FUSION I discussed the risk and benefits of this procedure at length with Guilherme. The patient agreed to consider pursuing the procedure above mentioned. Prior to surgery, they should follow up with her PCP (Cardio, ID, IM etc) for clearance. Questions were invited and answered, and the patient wishes to proceed as outlined below. Currently, I am recommending: L1-3 POSTERIOR LUMBAR INTERBODY FUSION Description of Procedure: L1-3 revision decompression fusion open The patient was seen and examined in the preoperative area. All preoperative protocols were followed. Informed consent was obtained, risks and benefits of the procedure were discussed at length. Risks including bleeding infection damage to the surrounding tissue and risk of reoperation were discussed with the patient. Risk of anesthesia up to and including was discussed with the patient. These are outlined in the risk review. They were willing to accept these risks and all the risks of surgery. The patient was given a weight-based dose of antibiotics in the form of 2 g Ancef. The patient was seen and evaluated by the anesthesia team who deemed them fit for surgery. The site was marked, the patient was willing to proceed with the procedure. The patient was transferred to the operative suite by the Department of anesthesia. They were then drifted off to sleep by the department anesthesia and GETA was performed. The patient tolerated this well. Choi catheter was placed by nursing staff, a-traumatically. Once confirmation of lines and ventilation the patient was transferred to a prone Nathan table very carefully. All bony prominences including wrists, elbows, axilla, chest, hips, and thighs, and feet were padded very well. Special attention was paid to the genitalia, and these were padded accordingly. SCDs were placed on bilateral lower extremities and were connected. Arms were well padded and placed on arm boards up and out in the 90/90 position. Once in position, again we confirmed good ventilation capabilities and that lines were running appropriately. The patients Lumbar spine was then exposed. 1010s were placed outlining the incision site. Standard alcohol was used to clean the incision site and allowed to dry. C-arm was used to needle localize the pedicles at L3-5 and bio-leanne the patient and confirm level for incision which was marked with a skin marker. Operative briefing was performed with all teams and everyone in agreement to proceed. The patient was then prepped and draped in a normal sterile fashion. Timeout was then performed, and all parties agreed with the procedure to be performed. Midline skin incision was made over the previously bio-marked area and dissection taken down over the SP of T12-L3 was taken out over facet joints and TPs and a penfield 4 used to leanne the L2 pedicle. Lateral image used to confirm levels. Once confirmed, We then proceeded to place screws b/l at pedicles from L1-3 using [employer] NAVIGATION. Navigated Sunray was used to create a sdv pilot/navigator/dds operator hole, Navigated awl tap passed then a ball tip feeler to confirm within the pedicles. Screw was measured and placed using a navigated ambulance driver paramedic. Once screws were placed they were confirmed to be in good position using AP and Lateral fluoroscopy. The wound was then irrigated. Screws were tested and all tested above 20 mA. We then proceeded to decompression and cage placement. Attention was then turned to interbody fusion at L1-2. Bilateral laminectomy, complete facetectomy and foraminotomy performed at L1-2 using high speed chidi and Kerrison rongeur. The ligamentum was removed and the dural sac decompressed. Exiting and traversing roots visualized and decompressed. Neural elements were then protected, and disc space accessed with an osteotome. Sequential shaving then done under lateral imaging and complete discectomy performed using susi, pituitary and curette. Once good bleeding endplates accomplished and good height yarsanism with trials, a combination of autograft, allograft and synthetic placed anterior in the disc space. The cage was then selected and impacted into place under lateral imaging. The cage was then expanded restoring height, lordosis and alignment. The cage was backfilled with bone graft through a funnel. The quick service technician was removed and the area inspected. Good cage placement, stable cage and no injuries. Area was irrigated copiously, and meticulous hemostasis achieved. We then proceeded to L2-3. Attention was then turned to fusion and decompression at L2-3 Bilateral laminectomy, complete facetectomy and foraminotomy performed at L2-3 using high speed chidi and Kerrison rongeur. The ligamentum was removed and the dural sac decompressed. Exiting and traversing roots visualized and decompressed. There was exuberent scar tissue here due to previous surgeries making it difficult to get into the space. The collapse was also severe. Screw to screw distractor was used to open the foramen more and we then were able to access the triangle. Exiting and traversing roots visualized and decompressed. Neural elements were then protected, and disc space accessed with an osteotome. Sequential shaving then done under lateral imaging and complete discectomy performed using susi, pituitary and curette. Once good bleeding endplates accomplished and good height yarsanism with trials, a combination of autograft, allograft and synthetic placed anterior in the disc space. The cage was then selected and i mpacted into place under lateral imaging. The cage was then expanded restoring height, lordosis and alignment. The cage was backfilled with bone graft through a funnel. The quick service technician was removed and the area inspected. Good cage placement, stable cage and no injuries. Area was irrigated copiously, and meticulous hemostasis achieved. Rods were then sized and selected and placed into L3 screws b/l. Set screws locked these in place and then sequentially reduced into L2 and L1 b/l for reduction of listhesis. This was accomplished. Set screws were then all placed and final tightened. A cross link was selected and placed and final tightened. TPs were then decorticated with a high speed chidi. The wound was irrigated with 3L acne irrigation, 3L gentamicin irrigation, 1L Irricept, 1L Betadine and 3L NSS. Surgicel was placed over the dura. Autograft and MagnatOs then placed in the posterolateral gutters and impacted into place. Deep drain placed and secured to the skin. 2 g Vancomycin powder placed in the wound bed. Final images confirmed good placement of hardware and good reduction of listhesis as well as yarsanism of height and lordosis. Fascia was then closed with #1 PDS. Deep subq closed with 0 Vicryl. Superficial subq closed with 2-0 Vicryl and skin with george. Wound edges approximated very well. Wound was then cleaned with alcohol and dried. Wounds dressed with adaptic, 4x4, abd and Medipore tape along with drain sponge and tape. The patient was then transferred off the table back to their hospital bed a- traumatically. Drain continued to hold suction. They were extubated by the department of anesthesia. They were then transferred to PACU in stable condition having tolerated the procedure with no complications.
--- NOTE | 2024-02-15 13:22 | FL ---
EXAMINATION TYPE: FL guidance operating room, XR lumbar spine 2 or 3V Intraoperative/procedural fluor oscopic services were provided. Total fluoroscopy time is 33 seconds with a total of 6 submitted imag es to PACS. Please see the operative/procedural note for further details. DAP: 768 cGycm2
[2024-02-15] MEDS: HYDROmorphone 0.5 MG/0.5 ML SYRINGE IVP PRN (13:23)
[2024-02-15] MEDS ORDERED: HYDROmorphone PCA 10 MG/50 ML BAG IV PRN (13:26)
[2024-02-15] MEDS ORDERED: ONDANSETRON 4 MG/2 ML VIAL IVP PRN (13:26)
[2024-02-15] MEDS ORDERED: NALOXONE 0.4 MG/ML 1 ML VIAL IV PRN (13:26)
[2024-02-15] MEDS: METOPROLOL TARTRATE 5 MG/5 ML VIAL IVP STA (13:46)
--- NOTE | 2024-02-15 15:52 | CT ---
EXAMINATION TYPE: CT lumbar spine wo con DATE OF EXAM: 02/15/2024 3:41 PM COMPARISON: 12/01/2023 HISTORY: post surgical scan CT DLP: 1069.6 mGycm Automated exposure control for dose reduction was used. Unenhanced CT of the lumbar spine was performed. Bone and soft tissue window settings are submitted as well as coronal and sagittal reconstructions. Findings: There is diffuse osteopenia. There has been interval laminectomy and intrabody in posterior metallic fusion of L1, L2 and L3. Ther e is near-anatomic alignment. There is mild to moderate degenerative disease at the T11/T12 and T12/L1 level where there is mild di sc space narrowing, spondylosis, and vacuum phenomena at the T11/T12 level. There are postsurgical changes of wide laminectomy at the at the L4-5 and L5-S1 levels. There is a st able moderate compression fracture of L4. Evaluation of thecal sac from L3 1 to L3 is limited due to metallic artifact and lack of intrathecal contrast. There are droplets of air posterior to the thecal sac in the region of the laminectomy cons istent with recent surgery. There is no spinal stenosis or large lumbar disc herniation. IMPRESSION: 1. Postsurgical changes throughout the lumbar spine as described above. There is near-anatomic alignm ent. 2. No recurrent disc herniation or spinal stenosis. 3. stable moderate compression fracture of L4 4. Diffuse osteopenia.
[2024-02-15] MEDS: DEXAMETHASONE SOD PHOSPHATE 4 MG/ML 1 ML VIAL IV ONE (16:39)
[2024-02-15] MEDS: SODIUM CHLORIDE 0.9% 1,000 ML IV SCH (16:40)
[2024-02-15] MEDS: ACETAMINOPHEN IV (For NPO) 1,000 MG in EMPTY BAG 1 BAG IVPB SCH (16:40)
[2024-02-15] MEDS: HYDROmorphone 1 MG/ML 1 ML SYRINGE IVP PRN (16:42)
[2024-02-15] MEDS ORDERED: ACETAMINOPHEN TAB 325 MG TAB PO SCH (18:00)
[2024-02-15] MEDS ORDERED: LORazepam 1 MG TAB PO PRN ×3 (18:07)
[2024-02-15] MEDS ORDERED: LORazepam 0.5 MG TAB PO PRN (18:07)
[2024-02-15] MEDS: HEPARIN SODIUM,PORCINE 5,000 UNIT/ML 1 ML VIAL SQ SCH (21:12)
[2024-02-16 07:48] LABS: Basophils % (A) 0 %; Eosinophils # (A) 0.2 k/uL (0-0.7); Eosinophils % (A) 1 %; HCT 38.9 % (39.0-53.0); HGB 13.3 gm/dL (13.0-17.5); Lymphocytes # (A) 1.6 k/uL (1.0-4.8); Lymphocytes % (A) 12 %; MCH 35.3 pg (25.0-35.0); MCHC 34.2 g/dL (31.0-37.0); MCV 103.4 fL (80.0-100.0); Macrocytosis Slight; Mean Platelet Volume 9.3; Monocytes % (A) 8 %; Neutrophils # (A) 9.7 k/uL (1.3-7.7); Neutrophils % (A) 77 %; Platelet Count 209 k/uL (150-450); RBC 3.76 m/uL (4.30-5.90); RDW 12.9 % (11.5-15.5); WBC 12.6 k/uL (3.8-10.6)
[2024-02-16] MEDS: SENNOSIDES-DOCUSATE SODIUM 1 EACH TAB PO SCH (08:13)
--- NOTE | 2024-02-16 08:38 | P.PN ---
Subjective Progress Note Date: 02/16/24 Principal diagnosis: L1-3 spondylosis with stenosis Bilateral lower extremity weakness Bilateral lower extremity paresthesias Patient seen and examined this morning. Patient was resting comfortably in bed. He states that his pain is managed on current regimen, although he states he is not utilizing the JAVA DEVELOPER ANALYST. Informed patient that this will be discontinued and educated about the use of IV and oral pain medication. Patient verbalizes understanding. Surgical incision to the lumbar spine, edges are well- approximated with sutures intact. Hemovac drain is present to the right of the incision with 220 mL output overnight. Patient reports that he was unable to urinate last night and Venegas catheter was reinserted, patient is requesting for this to be removed later this afternoon for him to attempt to void, which seems reasonable. Informed patient that physical therapy will begin to work with him today. Continue to encourage patient to utilize incentive spirometer 10 times per hour while awake. Patient reports that his plan is to return home at discharge. Objective - Vital Signs Vital signs: Vital Signs Temp 98.2 F 02/16/24 02:00 Pulse 73 02/16/24 02:00 Resp 17 02/15/24 16:42 BP 138/77 02/16/24 02:00 Pulse Ox 100 02/16/24 02:00 FiO2 Intake & Output 02/15/24 02/16/24 02/16/24 18:59 06:59 18:59 Intake Total 3002 Output Total 850 4 Balance 2151 -2053 Weight 84.3 kg Intake: IV 2802 Oral 200 Output: Urine 550 1600 Post Void Residual 454 Estimated Blood Loss 300 Other: Voiding Method Indwelling Catheter # Voids 0 - Exam Physical Examination General: The patient is awake and alert, in no acute distress Skin: Skin is warm and dry with no obvious rashes or lesions. Surgical incision to the lumbar spine, edges are well-approximated with sutures intact. Hemovac drain is to the right of the incision with 220 mL output overnight. New dressing has been applied. Eye: Pupils are equal, round and reactive to light, extra-ocular movements are intact; there is normal conjunctiva bilaterally. Neck: The neck is supple, there is no tenderness and ROM intact. Cardiovascular: There is a regular rate and rhythm. No murmur, rub or gallop is appreciated. Respiratory: Respirations are non-labored, breath sounds are equal. Gastrointestinal: Soft, non-distended, non-tender abdomen. Back: There is no tenderness to palpation in the midline, paralumbar, parathoracic or buttocks region. There is no obvious deformity. . Musculoskeletal: ROM limited secondary to pain and stiffness from surgical procedure. Right: Shoulder abduction 5/5, elbow flexors 5/5, wrist dorsiflexors 5/5. finger abductor 5/5, database coordinator 5/5, hip flexor 4/5, knee flexor 4/5, ankle dorsiflexor 4/5, ankle plantarflexion 4/5 and extensor hallucis 4/5. Left: Shoulder abduction 5/5, elbow flexors 5/5, wrist dorsiflexors 5/5. finger abductor 5/5, database coordinator 5/5, hip flexor 4/5, knee flexor 4/5, ankle dorsiflexor 4/5, ankle plantarflexion 4/5 and extensor hallucis 4/5. Neurological: CN 2-12 intact. There are no obvious motor or sensory deficits. Movement and coordination equal and intact. Sensory exam to light touch intact C5-T1 and intact from L2-S1. Reflexes 2/4 in bilateral upper and lower extremities. Negative Hoffmans, babinski, and clonus signs. Psychiatric: Cooperative, appropriate mood & affect, normal judgment. - Labs CBC & Chem 7: 02/16/24 06:09 02/15/24 08:13 Labs: Abnormal Lab Results - Last 24 Hours (Table) 02/15/24 02/15/24 Range/Units 08:13 08:13 MCV 101.8 H (80.0-100.0) fL Sodium 134 L (137-145) mmol/L BUN 25 H (9-20) mg/dL Glucose 112 H (74-99) mg/dL Assessment and Plan Assessment: Postop day 1: Revision L1-L3 decompression and fusion Plan: -Appreciate pharmacy consultant and team management. -Activity: Ambulate QID, OOB all meals, up and about, limit lifting bending twisting to less than 5 lbs. Use walker or cane if needed for stability. -Daily PT/OT, increase ambulation strength and balance. -Brace when up and about, not needed in bed or chair -Pain control: Adequate at this time, discontinuing Dilaudid JAVA DEVELOPER ANALYST; encourage oral pain medication -Meds: reviewed -GI ppx: senna, Miralax -DC venegas catheter later this afternoon (1400) -DVT PPX: OK to restart Heparin tonight -Hygiene:Maintain dressing clean and dry. Meticulous cleaning after BMs away from the incision site -Drains: Maintain for now. Continue to monitor and record output q shift. -Encourage IS 10x/hr -Dispo: Anticipate discharge home with homecare in the next 24-48hrs *I reviewed and discussed this case with my attending Dr. Sandoval, whom has reviewed this chart and films and is in agreement with assessment and plan of care as outlined above. I have personally seen and examined the patient, performed the documentation and the assessment and plan as written. Number of minutes spent on the visit: 20m.
[2024-02-16] MEDS: HYDROcodone/APAP 10-325MG 1 EACH TAB PO SCH (09:08)
[2024-02-16 10:17] LABS: African American GFR (CKD) >90 (>60 ml/min/1.73 sqM); Anion Gap 1 mmol/L; Blood Urea Nitrogen 9 mg/dL (9-20); Calcium 8.6 mg/dL (8.4-10.2); Carbon Dioxide 30 mmol/L (22-30); Chloride 103 mmol/L (98-107); Glucose 103 mg/dL (74-99); Non-African American GFR(CKD) >90 (>60 ml/min/1.73 sqM); Potassium 4.1 mmol/L (3.5-5.1); Sodium 134 mmol/L (137-145)
--- NOTE | 2024-02-16 13:19 | P.CONS ---
History of Present Illness - Reason for Consult Consult date: 02/16/24 - History of Present Illness History of present illness; patient is 73-year-old gentleman past medical history significant for who presented to hospital for elective L1-3 POSTERIOR LUMBAR INTERBODY FUSION. Patient has been following up outpatient with orthopedic surgery for lower back pain and bilateral lower extremity weakness. Patient has tried all conservative measures in the form of therapy and pain control but with no avail. Patient decided to proceed with surgery for which he presented to the hospital on 02/14. Postoperatively internal medicine team were consulted for medical management REVIEW OF SYSTEMS: CONSTITUTIONAL: No fever, no malaise, no fatigue. HEENT: No recent visual problems or hearing problems. Denied any sore throat. CARDIOVASCULAR: No chest pain, orthopnea, PND, no palpitations, no syncope. PULMONARY: No shortness of breath, no cough, no hemoptysis. GASTROINTESTINAL: No diarrhea, no nausea, no vomiting, no abdominal pain. NEUROLOGICAL: No headaches, no weakness, no numbness. HEMATOLOGICAL: Denies any bleeding or petechiae. GENITOURINARY: Denies any burning micturition, frequency, or urgency. MUSCULOSKELETAL/RHEUMATOLOGICAL: Complaining of back pain ENDOCRINE: Denies any polyuria or polydipsia. The rest of the 14-point review of systems is negative. PHYSICAL EXAMINATION: GENERAL: The patient is alert and oriented x3, not in any acute distress. Well developed, well nourished. HEENT: Pupils are round and equally reacting to light. EOMI. No scleral icterus. No conjunctival pallor. Normocephalic, atraumatic. No pharyngeal erythema. No thyromegaly. CARDIOVASCULAR: S1 and S2 present. No murmurs, rubs, or gallops. PULMONARY: Chest is clear to auscultation, no wheezing or crackles. ABDOMEN: Soft, nontender, nondistended, normoactive bowel sounds. No palpable organomegaly. MUSCULOSKELETAL: No joint swelling or deformity. EXTREMITIES: No cyanosis, clubbing, or pedal edema. NEUROLOGICAL: Gross neurological examination did not reveal any focal deficits. SKIN: Lumbar area surgical incision seen drain in place Assessment and plan L1-3 spondylosis with stenosis s/p L1-3 POSTERIOR LUMBAR INTERBODY FUSION Bilateral lower extremity weakness Bilateral lower extremity paresthesias Hyponatremia Leukocytosis Hypertension History of paroxysmal A-fib Urinary retention Monitor vital signs Monitor CBC Monitor CMP Status post L1-3 POSTERIOR LUMBAR INTERBODY FUSION Continue pain management per orthopedics Continue DVT prophylaxis per orthopedic Currently normotensive, will hold blood pressure medications in the form of losartan Resume Eliquis once okay with orthopedics PT and OT consulted Labs and medication were reviewed.. Continue same treatment. Continue with symptomatic treatment. Resume home medication. Monitor labs and vitals. DVT and GI prophylaxis. Further recommendations as per clinical course of the patient Dictation was produced using [employer] dictation software. please excuse any grammatical, word or spelling errors. Past Medical History Past Medical History: Atrial Fibrillation, Fibromyalgia, GERD/Reflux, Hearing Disorder / Deafness, Hypertension, Musculoskeletal Disorder, Osteoarthritis (OA) Additional Past Medical History / Comment(s): Camacho's esophagus, Hx fx ribs, hx issue w/ left hip popping out of place. Problems w/ muscles twitching, burning, cramping thru body w/ stiff joints. Uses w/c when out. DDD, pain & NT bilat arms/hands. allergy/sinus sx. Bulging in abd, gallstones. Skin itching, no rash. Pt states he drinks 4-5 beers/day and has experienced withdrawal in the past History of Any Multi-Drug Resistant Organisms: None Reported Past Surgical History: Appendectomy, Back Surgery, Hernia Repair, Joint Replacement, Orthopedic Surgery, Tonsillectomy Additional Past Surgical History / Comment(s): Back surg x2, then Laminectomy; back neurostimulator - 2015, then removed; back steroid injections, ORIF left arm, Sinus surg w/ cyst drained behind eye, bilat ankle surgeries, Lt Total hip. Right shoulder surgery X2, hiatal hernia repair. Cervical fusion Past Anesthesia/Blood Transfusion Reactions: No Reported Reaction, Family History of Problems w/ Anesthesia Additional Past Anesthesia/Blood Transfusion Reaction / Comm: Mom had PONV. Past Psychological History: Anxiety, Depression Additional Psychological History / Comment(s): Pt resides with his spouse. He cannot walk more than 10-15 feet. He uses a wheelchair. His spouse drives. Smoking Status: Former smoker Past Alcohol Use History: Occasional Additional Past Alcohol Use History / Comment(s): Pt was a heavy drinker in the past. He now only drinks a beer occasionally., quit smoking 40 yrs. ago, 1ppd Past Drug Use History: Marijuana Additional Drug Use History / Comment(s): Uses [employer] daily for back pain. pt aware no alcohol or marijuana 24 hr prior to procedure. - Past Family History Father Family Medical History: Cancer, CVA/TIA Additional Family Medical History / Comment(s): Esophageal cancer. Mother Family Medical History: CVA/TIA, Deep Vein Thrombosis (DVT) Additional Family Medical History / Comment(s): Poss DVT in ankle prior to CVA Medications and Allergies Home Medications Medication Instructions Recorded Confirmed Type DULoxetine HCL [Cymbalta] 60 mg PO BID 08/01/16 02/15/24 History Apixaban [Eliquis] 5 mg PO BID 07/01/18 02/15/24 History Tamsulosin [Flomax] 0.4 mg PO DAILY 10/21/21 02/15/24 History Losartan [Cozaar] 50 mg PO DAILY 02/15/24 02/15/24 History atenoloL [Tenormin] 25 mg PO DAILY 02/15/24 02/15/24 History Allergies Allergy/AdvReac Type Severity Reaction Status Date / Time alcohol Allergy Rash/Hives Verified 02/15/24 08:02 [From Mastisol Adhesive] gum mastic Allergy Rash/Hives Verified 02/15/24 08:02 [From Mastisol Adhesive] methyl salicylate Allergy Rash/Hives Verified 02/15/24 08:02 [From Mastisol Adhesive] storax Allergy Rash/Hives Verified 02/15/24 08:02 [From Mastisol Adhesive] gabapentin [From Neurontin] AdvReac Nausea & Verified 02/15/24 08:02 Vomiting magnesium AdvReac Diarrhea Verified 02/15/24 08:02 morphine AdvReac Nausea & Verified 02/15/24 08:02 Vomiting & Diarrhea Physical Exam Vitals: Vital Signs Temp Pulse Resp BP Pulse Ox 02/16/24 07:20 98.3 F 80 16 120/72 98 02/16/24 02:00 98.2 F 73 138/77 100 02/15/24 20:00 97.8 F 60 116/76 97 02/15/24 16:42 97.6 F 69 17 146/86 99 02/15/24 15:15 73 16 133/68 97 02/15/24 14:45 72 16 133/82 02/15/24 14:30 72 16 117/63 96 02/15/24 14:15 83 15 116/69 96 02/15/24 13:48 84 16 109/69 97 02/15/24 13:33 116 H 15 149/87 98 02/15/24 13:15 122 H 15 120/56 96 02/15/24 12:59 82 16 111/68 100 Intake and Output 02/15/24 02/16/24 02/16/24 22:59 06:59 14:59 Intake Total 1050 Output Total 454 1600 220 Balance 596 -1600 -220 Intake: IV 850 Oral 200 Output: Drainage 220 Right Posterior Back 220 Urine 1600 Post Void Residual 454 Other: Voiding Method Indwelling Catheter Indwelling Catheter # Voids 0 Results CBC & Chem 7: 02/16/24 06:09 02/16/24 09:27 Labs: Abnormal Lab Results - Last 24 Hours (Table) 02/16/24 Range/Units 06:09 WBC 12.6 H (3.8-10.6) k/uL RBC 3.76 L (4.30-5.90) m/uL Hct 38.9 L (39.0-53.0) % MCV 103.4 H (80.0-100.0) fL MCH 35.3 H (25.0-35.0) pg Neutrophils # 9.7 H (1.3-7.7) k/uL
[2024-02-16] MEDS: PREGABALIN 75 MG CAP PO SCH (19:59)
[2024-02-16] MEDS: CYCLOBENZAPRINE 5 MG TAB PO SCH (19:59)
[2024-02-16] MEDS: polyethylene glycoL 3350 17 GM POWD.PACK PO SCH (19:59)
--- NOTE | 2024-02-17 08:20 | XR ---
EXAMINATION TYPE: XR abdomen 1V DATE OF EXAM: 02/17/2024 6:26 AM CLINICAL INDICATION: Male, 73 years old with history of Abd pain/constipation; [facility] COMPARISON: None. TECHNIQUE: One radiographic view of the abdomen was obtained. FINDINGS: Gaseous dilation of right upper quadrant large bowel. There is a small stool burden, otherw ise, the bowel gas pattern is nonspecific without dilated loops of small or large bowel. . Fecal mate rial and gas are demonstrated throughout the colon and rectum. There is no evidence for organomegaly or pneumoperitoneum. The osseous structures are intact. No ab normal calcifications are present. Fixation hardware in the spine appears intact. Left hip arthroplas ty appears intact. Mild scoliosis changes of the spine. Catheter tubing projects over the right abdom en. IMPRESSION: Moderate stool burden, gaseous dilation of right upper quadrant large bowel. Nonspecific bowel gas pa ttern without radiographic evidence for acute process.
[2024-02-17] MEDS: TAMSULOSIN 0.4 MG CAP.ER.24H PO SCH (08:35)
[2024-02-17 08:56] LABS: Basophils % (A) 0 %; Eosinophils % (A) 0 %; HCT 41.1 % (39.0-53.0); HGB 13.5 gm/dL (13.0-17.5); Lymphocytes # (A) 1.5 k/uL (1.0-4.8); Lymphocytes % (A) 14 %; MCH 34.3 pg (25.0-35.0); MCHC 32.7 g/dL (31.0-37.0); MCV 104.7 fL (80.0-100.0); Macrocytosis Slight; Mean Platelet Volume 7.4; Monocytes % (A) 9 %; Neutrophils # (A) 8.2 k/uL (1.3-7.7); Neutrophils % (A) 75 %; Platelet Count 215 k/uL (150-450); RBC 3.93 m/uL (4.30-5.90); RDW 12.6 % (11.5-15.5); WBC 10.9 k/uL (3.8-10.6)
[2024-02-17 09:07] LABS: African American GFR (CKD) >90 (>60 ml/min/1.73 sqM); Anion Gap 2 mmol/L; Blood Urea Nitrogen 10 mg/dL (9-20); Calcium 8.7 mg/dL (8.4-10.2); Carbon Dioxide 31 mmol/L (22-30); Chloride 100 mmol/L (98-107); Glucose 138 mg/dL (74-99); Non-African American GFR(CKD) >90 (>60 ml/min/1.73 sqM); Sodium 133 mmol/L (137-145)
--- NOTE | 2024-02-17 11:12 | P.PN ---
Subjective Progress Note Date: 02/17/24 Principal diagnosis: L1-3 spondylosis with stenosis Bilateral lower extremity weakness Bilateral lower extremity paresthesias Patient seen and examined this morning. Patient is resting comfortably in bed. He does have complaint of moderate abdominal pain. Medicine did order an x-ray that demonstrates large stool burden and gaseous dilation of the right upper large intestine. Medications have been ordered, encourage patient with ambulation in hallway. Patient needs to be in chair for all meals. He is to remain on a clear liquid diet at this time. Surgical incision to the lumbar spine, dressing is clean dry and intact with Hemovac to the right of the incision with documented 100 mL output overnight. Continue to encourage patient to work with physical therapy and use of incentive spirometer. No acute concerns at this time. Objective - Vital Signs Vital signs: Vital Signs Temp 98.7 F 02/17/24 07:40 Pulse 81 02/17/24 07:40 Resp 17 02/17/24 07:40 BP 113/72 02/17/24 07:40 Pulse Ox 99 02/17/24 07:40 FiO2 Intake & Output 02/16/24 02/17/24 02/17/24 18:59 06:59 18:59 Intake Total 1000 Output Total 310 1250 Balance 690 -1250 Intake: Tube Feeding 1000 Output: Drainage 310 100 Right Posterior Back 310 100 Urine 1150 Straight 500 Other: Voiding Method Indwelling Catheter Toilet # Voids 0 - Exam Physical Examination General: The patient is awake and alert, in no acute distress Skin: Skin is warm and dry with no obvious rashes or lesions. Surgical incision to the lumbar spine, edges are well-approximated with sutures intact. Hemovac drain is to the right of the incision with 220 mL output overnight. New dressing has been applied. Eye: Pupils are equal, round and reactive to light, extra-ocular movements are intact; there is normal conjunctiva bilaterally. Neck: The neck is supple, there is no tenderness and ROM intact. Cardiovascular: There is a regular rate and rhythm. No murmur, rub or gallop is appreciated. Respiratory: Respirations are non-labored, breath sounds are equal. Gastrointestinal: Soft, non-distended, there is tenderness with palption to abdomen. Back: There is no tenderness to palpation in the midline, paralumbar, parathoracic or buttocks region. There is no obvious deformity. . Musculoskeletal: ROM limited secondary to pain and stiffness from surgical procedure. Right: Shoulder abduction 5/5, elbow flexors 5/5, wrist dorsiflexors 5/5. finger abductor 5/5, geographic information systems engineer 5/5, hip flexor 4/5, knee flexor 4/5, ankle dorsiflexor 4/5, ankle plantarflexion 4/5 and extensor hallucis 4/5. Left: Shoulder abduction 5/5, elbow flexors 5/5, wrist dorsiflexors 5/5. finger abductor 5/5, geographic information systems engineer 5/5, hip flexor 4/5, knee flexor 4/5, ankle dorsiflexor 4/5, ankle plantarflexion 4/5 and extensor hallucis 4/5. Neurological: CN 2-12 intact. There are no obvious motor or sensory deficits. Movement and coordination equal and intact. Sensory exam to light touch intact C5-T1 and intact from L2-S1. Reflexes 2/4 in bilateral upper and lower extremities. Negative Hoffmans, babinski, and clonus signs. Psychiatric: Cooperative, appropriate mood & affect, normal judgment. - Labs CBC & Chem 7: 02/17/24 08:13 02/17/24 08:13 Labs: Abnormal Lab Results - Last 24 Hours (Table) 02/16/24 02/17/24 02/17/24 Range/Units 09:27 08:13 08:13 WBC 10.9 H (3.8-10.6) k/uL RBC 3.93 L (4.30-5.90) m/uL MCV 104.7 H (80.0-100.0) fL Neutrophils # 8.2 H (1.3-7.7) k/uL Sodium 134 L 133 L (137-145) mmol/L Carbon Dioxide 31 H (22-30) mmol/L Creatinine 0.62 L (0.66-1.25) mg/dL Glucose 103 H 138 H (74-99) mg/dL Assessment and Plan Assessment: Postop day 2: Revision L1-L3 decompression and fusion Plan: -Appreciate sap business objects consultant and team management. -Activity: Ambulate QID, OOB all meals, up and about, limit lifting bending twisting to less than 5 lbs. Use walker or cane if needed for stability. -Daily PT/OT, increase ambulation strength and balance. -Brace when up and about, not needed in bed or chair -Pain control: Adequate at this time, discontinuing Dilaudid PHOTO INTERN; encourage oral pain medication -Meds: reviewed -GI ppx: senna, Miralax, MOM, Mag citrate -DVT PPX: Eliquis -Hygiene:Maintain dressing clean and dry. Meticulous cleaning after BMs away from the incision site -Drains: Maintain for now. Continue to monitor and record output q shift. -Encourage IS 10x/hr -Dispo: Anticipate discharge home with homecare in the next 24-48hrs *I reviewed and discussed this case with my attending Dr. Sandoval, whom has reviewed this chart and films and is in agreement with assessment and plan of care as outlined above. I have personally seen and examined the patient, performed the documentation and the assessment and plan as written. Number of minutes spent on the visit: 20m.
--- NOTE | 2024-02-17 12:38 | P.PN ---
Subjective Progress Note Date: 02/17/24 patient is 73-year-old gentleman past medical history significant for who presented to hospital for elective L1-3 POSTERIOR LUMBAR INTERBODY FUSION. Patient has been following up outpatient with orthopedic surgery for lower back pain and bilateral lower extremity weakness. Patient has tried all conservative measures in the form of therapy and pain control but with no avail. Patient decided to proceed with surgery for which he presented to the hospital on 02/14. Postoperatively internal medicine team were consulted for medical management 02/16. Patient seen and examined. Complaining of abdominal pain, not passing gas. Has not a bowel movement. X-ray abdomen done showed moderate stool burden, REVIEW OF SYSTEMS: CONSTITUTIONAL: No fever, no malaise,. CARDIOVASCULAR: No chest pain, no palpitations, no syncope. PULMONARY: No shortness of breath, no cough, GASTROINTESTINAL: No diarrhea, no nausea, no vomiting, no abdominal pain. NEUROLOGICAL: No headaches, no weakness, PHYSICAL EXAMINATION: GENERAL: The patient is alert and oriented x3, not in any acute distress. Well developed, well nourished. HEENT: Pupils are round and equally reacting to light. EOMI. No scleral icterus. No conjunctival pallor. Normocephalic, atraumatic. No pharyngeal erythema. No thyromegaly. CARDIOVASCULAR: S1 and S2 present. No murmurs, rubs, or gallops. PULMONARY: Chest is clear to auscultation, no wheezing or crackles. ABDOMEN: Soft, nontender, nondistended, normoactive bowel sounds. No palpable organomegaly. MUSCULOSKELETAL: No joint swelling or deformity. EXTREMITIES: No cyanosis, clubbing, or pedal edema. NEUROLOGICAL: Gross neurological examination did not reveal any focal deficits. SKIN: Lumbar area surgical incision seen drain in place Assessment and plan L1-3 spondylosis with stenosis s/p L1-3 POSTERIOR LUMBAR INTERBODY FUSION Bilateral lower extremity weakness Bilateral lower extremity paresthesias Hyponatremia Leukocytosis Hypertension History of paroxysmal A-fib Urinary retention Monitor vital signs Monitor CBC Monitor CMP Status post L1-3 POSTERIOR LUMBAR INTERBODY FUSION Continue pain management per orthopedics Continue DVT prophylaxis per orthopedic Aggressive bowel regimen Currently normotensive, will hold blood pressure medications in the form of losartan Resume Eliquis once okay with orthopedics PT and OT consulted Labs and medication were reviewed.. Continue same treatment. Continue with symptomatic treatment. Resume home medication. Monitor labs and vitals. DVT and GI prophylaxis. Further recommendations as per clinical course of the kendy moreland Dictation was produced using [employer] dictation software. please excuse any grammatical, word or spelling errors. Objective - Vital Signs Vital signs: Vital Signs Temp 98.7 F 02/17/24 07:40 Pulse 81 02/17/24 07:40 Resp 17 02/17/24 07:40 BP 113/72 02/17/24 07:40 Pulse Ox 99 02/17/24 07:40 FiO2 Intake & Output 02/16/24 02/17/24 02/17/24 18:59 06:59 18:59 Intake Total 1000 Output Total 310 1250 Balance 690 -1250 Intake: Tube Feeding 1000 Output: Drainage 310 100 Right Posterior Back 310 100 Urine 1150 Straight 500 Other: Voiding Method Indwelling Catheter Toilet # Voids 0 - Labs CBC & Chem 7: 02/17/24 08:13 02/17/24 08:13 Labs: Abnormal Lab Results - Last 24 Hours (Table) 02/17/24 02/17/24 Range/Units 08:13 08:13 WBC 10.9 H (3.8-10.6) k/uL RBC 3.93 L (4.30-5.90) m/uL MCV 104.7 H (80.0-100.0) fL Neutrophils # 8.2 H (1.3-7.7) k/uL Sodium 133 L (137-145) mmol/L Carbon Dioxide 31 H (22-30) mmol/L Glucose 138 H (74-99) mg/dL
[2024-02-17] MEDS: MAGNESIUM CITRATE 296 ML BOTTLE PO ONE (12:55)
[2024-02-17] MEDS ORDERED: polyethylene glycoL 3350 17 GM POWD.PACK PO SCH (21:00)
[2024-02-17] MEDS: DULoxetine HCL 60 MG CAPSULE.DR PO SCH (21:08)
[2024-02-17] MEDS: APIXABAN 5 MG TAB PO SCH (21:09)
[2024-02-17] MEDS ORDERED: HYDROmorphone 1 MG/ML 1 ML SYRINGE ONE (22:41)
[2024-02-18] MEDS ORDERED: HYDROcodone/APAP 10-325MG 1 EACH TAB ONE (01:00)
[2024-02-18] MEDS ORDERED: HYDROmorphone 1 MG/ML 1 ML SYRINGE ONE (02:38)
--- NOTE | 2024-02-18 08:46 | P.PN ---
Subjective Progress Note Date: 02/18/24 Principal diagnosis: L1-3 spondylosis with stenosis Bilateral lower extremity weakness Bilateral lower extremity paresthesias Patient seen and examined this morning. Patient is ambulating with walker in hallway. He does have complaint of moderate abdominal pain. He does state he had a large BM last night without relief of his abdominal pain. We will defer to Medicine for decision of consult to Dr. Cohn per patient request. Patient needs to be in chair for all meals. He is to remain on a clear liquid diet at this time. Surgical incision to the lumbar spine, dressing is clean dry and intact with Hemovac to the right of the incision with documented 100 mL output overnight. Continue to encourage patient to work with physical therapy and use of incentive spirometer. No acute concerns at this time. Objective - Vital Signs Vital signs: Vital Signs Temp 97.3 F L 02/18/24 07:00 Pulse 86 02/18/24 07:00 Resp 18 02/18/24 07:00 BP 126/78 02/18/24 07:00 Pulse Ox 92 L 02/18/24 07:00 FiO2 Intake & Output 02/17/24 02/18/24 02/18/24 18:59 06:59 18:59 Intake Total 400 Output Total 901 1100 Balance -501 -1100 Intake: Oral 400 Output: Drainage 100 Right Posterior Back 100 Urine 700 1000 Post Void Residual 201 Other: # Voids 1 # Bowel Movements 1 - Exam Physical Examination General: The patient is awake and alert, in no acute distress Skin: Skin is warm and dry with no obvious rashes or lesions. Surgical incision to the lumbar spine, dressing is CDI. Hemovac drain is to the right of the incision with 100 mL output overnight. Eye: Pupils are equal, round and reactive to light, extra-ocular movements are intact; there is normal conjunctiva bilaterally. Neck: The neck is supple, there is no tenderness and ROM intact. Cardiovascular: There is a regular rate and rhythm. No murmur, rub or gallop is appreciated. Respiratory: Respirations are non-labored, breath sounds are equal. Gastrointestinal: Soft, non-distended, there is tenderness with palption to abdomen. Back: There is no tenderness to palpation in the midline, paralumbar, parathoracic or buttocks region. There is no obvious deformity. . Musculoskeletal: ROM limited secondary to pain and stiffness from surgical procedure. Right: Shoulder abduction 5/5, elbow flexors 5/5, wrist dorsiflexors 5/5. finger abductor 5/5, outside barrel lathe operator 5/5, hip flexor 4/5, knee flexor 4/5, ankle dorsiflexor 4/5, ankle plantarflexion 4/5 and extensor hallucis 4/5. Left: Shoulder abduction 5/5, elbow flexors 5/5, wrist dorsiflexors 5/5. finger abductor 5/5, outside barrel lathe operator 5/5, hip flexor 4/5, knee flexor 4/5, ankle dorsiflexor 4/5, ankle plantarflexion 4/5 and extensor hallucis 4/5. Neurological: CN 2-12 intact. There are no obvious motor or sensory deficits. Movement and coordination equal and intact. Sensory exam to light touch intact C5-T1 and intact from L2-S1. Reflexes 2/4 in bilateral upper and lower extrem ities. Negative Hoffmans, babinski, and clonus signs. Psychiatric: Cooperative, appropriate mood & affect, normal judgment. - Labs CBC & Chem 7: 02/17/24 08:13 02/17/24 08:13 Labs: Abnormal Lab Results - Last 24 Hours (Table) 02/17/24 02/17/24 Range/Units 08:13 08:13 WBC 10.9 H (3.8-10.6) k/uL RBC 3.93 L (4.30-5.90) m/uL MCV 104.7 H (80.0-100.0) fL Neutrophils # 8.2 H (1.3-7.7) k/uL Sodium 133 L (137-145) mmol/L Carbon Dioxide 31 H (22-30) mmol/L Glucose 138 H (74-99) mg/dL Assessment and Plan Assessment: Postop day 3: Revision L1-L3 decompression and fusion Plan: -Appreciate toy consultant and team management. -We will defer to Medicine for decision of consult to Dr. Cohn per patient request. -Activity: Ambulate QID, OOB all meals, up and about, limit lifting bending twisting to less than 5 lbs. Use walker or cane if needed for stability. -Daily PT/OT, increase ambulation strength and balance. -Brace when up and about, not needed in bed or chair -Pain control: Adequate at this time, discontinuing Dilaudid HAT FINISHER; encourage oral pain medication -Meds: reviewed -GI ppx: senna, Miralax, MOM -DVT PPX: Eliquis -Hygiene: Maintain dressing clean and dry. Meticulous cleaning after BMs away from the incision site -Drains: Maintain for now. Continue to monitor and record output q shift. -Encourage IS 10x/hr -Dispo: Anticipate discharge home in the next 24hrs, clinically pending *I reviewed and discussed this case with my attending Dr. Sandoval, whom has reviewed this chart and films and is in agreement with assessment and plan of care as outlined above. I have personally seen and examined the patient, performed the documentation and the assessment and plan as written. Number of minutes spent on the visit: 20m.
[2024-02-18] MEDS: LOSARTAN 50 MG TAB PO SCH (08:48)
[2024-02-18] MEDS: atenoloL 25 MG TAB PO SCH (08:50)
--- NOTE | 2024-02-18 13:06 | P.GSCN ---
History of Present Illness Consult date: 02/18/24 History of present illness: CHIEF COMPLAINT: Spinal stenosis Reason for consult: Abdominal pain HISTORY OF PRESENT ILLNESS: This is a 73-year-old male with history of spinal stenosis status post spinal surgery on 02/15/2024. Patient reports that prior to surgery he had been experiencing pain across the upper and lower abdomen. Patient reports that he saw Dr. Cohn who contributed his abdominal pain from his back issues and recommended that patient proceeds with back surgery. Patient reports that after his spinal surgery he continues to have the pain across the upper abdomen mostly in the right upper quadrant and into the right rib cage. Also pain across the lower abdomen. Patient has been having urinary retention did require to be straight cath. He was started on his Flomax. And there are bladder scanning patient. Patient also reports having diarrhea. Abdominal x-ray ordered had reported moderate stool burden and dilation of the large bowel in the right upper quadrant. Patient reports no nausea or vomiting. The last episode of emesis was 3 days ago. Patient does have a past surgical history of appendectomy, cholecystectomy and Niesen fundoplication. He has history of A-fib and on Eliquis for anticoagulation. Patient does have a hist ory of daily EtOH use. Patient is receiving laxatives and stool softeners for his constipation. Patient does report mild back discomfort. Last colonoscopy in 2019 reported diverticular changes and rectal polyp. Last EGD 2020 gastritis and esophagitis. PAST MEDICAL HISTORY: See below PAST SURGICAL HISTORY: Appendectomy, cholecystectomy, I&D left abdominal wall abscess, Niesen fundoplication MEDICATIONS: See below ALLERGIES: See below SOCIAL HISTORY: No illicit drug use. Daily EtOH use. REVIEW OF SYSTEMS: CONSTITUTIONAL: Denies fever or chills. HEENT: Denies blurred vision, vision changes, or eye pain. Denies hemoptysis CARDIOVASCULAR: Denies chest pain or pressure. RESPIRATORY: No shortness of breath. GASTROINTESTINAL: See HPI for pertinent findings HEMATOLOGIC: Denies bleeding disorders. GENITOURINARY: Denies any blood in urine or increased urinary frequency. SKIN: Denies pruitis. Denies rash. PHYSICAL EXAM: VITAL SIGNS: Reviewed GENERAL: Well-developed in no acute distress. HEENT: No sclera icterus. Extraocular movements grossly intact. Moist buccal mucosa. Head is atraumatic, normocephalic. No nasal drainage. ABDOMEN: Soft. Nondistended. Tenderness with palpation right upper quadrant and right sided rib cage. Evidence of muscle spasm and along the right rib cage. Tenderness to palpation in the suprapubic area. Old scar left upper quadrant NEUROLOGIC: Alert and oriented. Cranial nerves II through XII grossly intact. LABORATORY DATA: WBC 12.6 down to 10.9 Hgb 13.5 platelets 215 Sodium 133 potassium 4.0 creatinine 0.66 IMAGING: Abdominal x-ray reports moderate stool burden gaseous dilation of the right upper quadrant large bowel. Nonspecific bowel gas pattern. ASSESSMENT: 1. Abdominal pain 2. Moderate stool burden and gaseous dilation of large bowel in the right upper quadrant 3. Urinary retention 4. Recent spinal surgery 5. History of daily EtOH use PLAN: -Further recommendations per surgeon -Continue miralax and stool softner -Continue muscle relaxer -Encouraged patient to ambulate -Continue to monitor for urinary retention. Agree with Flomax Physician [employer] note has been reviewed by physician. Signing provider agrees with the documented findings, assessment, and plan of care. I have personally seen and examined the patient, reviewed the [employer] /PAs history, exam and MDM and agree with the assessment and plan as written. Based on total visit time, I have performed more than 50% of the visit. As above: Patient with chronic abdominal pain. Describes pain in all 4 quadrants. Etiology unclear. Has had previous workup. Abdominal exam benign at this time. Resume regular diet. If tolerating may discharge. Follow-up with Dr. Cohn as outpatient. Past Medical History Past Medical History: Atrial Fibrillation, Fibromyalgia, GERD/Reflux, Hearing Disorder / Deafness, Hypertension, Musculoskeletal Disorder, Osteoarthritis (OA) Additional Past Medical History / Comment(s): Camacho's esophagus, Hx fx ribs, hx issue w/ left hip popping out of place. Problems w/ muscles twitching, burning, cramping thru body w/ stiff joints. Uses w/c when out. DDD, pain & NT bilat arms/hands. allergy/sinus sx. Bulging in abd, gallstones. Skin itching, no rash. Pt states he drinks 4-5 beers/day and has experienced withdrawal in the past History of Any Multi-Drug Resistant Organisms: None Reported Past Surgical History: Appendectomy, Back Surgery, Hernia Repair, Joint Replacement, Orthopedic Surgery, Tonsillectomy Additional Past Surgical History / Comment(s): Back surg x2, then Laminectomy; back neurostimulator - 2015, then removed; back steroid injections, ORIF left arm, Sinus surg w/ cyst drained behind eye, bilat ankle surgeries, Lt Total hip. Right shoulder surgery X2, hiatal hernia repair. Cervical fusion Past Anesthesia/Blood Transfusion Reactions: No Reported Reaction, Family History of Problems w/ Anesthesia Additional Past Anesthesia/Blood Transfusion Reaction / Comm: Mom had PONV. Past Psychological History: Anxiety, Depression Additional Psychological History / Comment(s): Pt resides with his spouse. He cannot walk more than 10-15 feet. He uses a wheelchair. His spouse drives. Smoking Status: Former smoker Past Alcohol Use History: Occasional Additional Past Alcohol Use History / Comment(s): Pt was a heavy drinker in the past. He now only drinks a beer occasionally., quit smoking 40 yrs. ago, 1ppd Past Drug Use History: Marijuana Additional Drug Use History / Comment(s): Uses [facility] daily for back pain. pt aware no alcohol or marijuana 24 hr prior to procedure. - Past Family History Father Family Medical History: Cancer, CVA/TIA Additional Family Medical History / Comment(s): Esophageal cancer. Mother Family Medical History: CVA/TIA, Deep Vein Thrombosis (DVT) Additional Family Medical History / Comment(s): Poss DVT in ankle prior to CVA Medications and Allergies Home Medications Medication Instructions Recorded Confirmed Type DULoxetine HCL [Cymbalta] 60 mg PO BID 08/01/16 02/15/24 History Apixaban [Eliquis] 5 mg PO BID 07/01/18 02/15/24 History Tamsulosin [Flomax] 0.4 mg PO DAILY 10/21/21 02/15/24 History Losartan [Cozaar] 50 mg PO DAILY 02/15/24 02/15/24 History atenoloL [Tenormin] 25 mg PO DAILY 02/15/24 02/15/24 History Allergies Allergy/AdvReac Type Severity Reaction Status Date / Time alcohol Allergy Rash/Hives Verified 02/15/24 08:02 [From Mastisol Adhesive] gum mastic Allergy Rash/Hives Verified 02/15/24 08:02 [From Mastisol Adhesive] methyl salicylate Allergy Rash/Hives Verified 02/15/24 08:02 [From Mastisol Adhesive] storax Allergy Rash/Hives Verified 02/15/24 08:02 [From Mastisol Adhesive] gabapentin [From Neurontin] AdvReac Nausea & Verified 02/15/24 08:02 Vomiting magnesium AdvReac Diarrhea Verified 02/15/24 08:02 morphine AdvReac Nausea & Verified 02/15/24 08:02 Vomiting & Diarrhea Surgical - Exam Vital Signs Temp Pulse Resp BP Pulse Ox 97.8 F 62 16 145/83 98 02/15/24 07:53 02/15/24 07:53 02/15/24 07:53 02/15/24 07:53 02/15/24 07:53 Results - Labs 02/17/24 08:13 02/17/24 08:13
--- NOTE | 2024-02-18 13:36 | P.PN ---
Subjective Progress Note Date: 02/18/24 patient is 73-year-old gentleman past medical history significant for who presented to hospital for elective L1-3 POSTERIOR LUMBAR INTERBODY FUSION. Patient has been following up outpatient with orthopedic surgery for lower back pain and bilateral lower extremity weakness. Patient has tried all conservative measures in the form of therapy and pain control but with no avail. Patient decided to proceed with surgery for which he presented to the hospital on 02/14. Postoperatively internal medicine team were consulted for medical management 02/16. Patient seen and examined. Complaining of abdominal pain, not passing gas. Has not a bowel movement. X-ray abdomen done showed moderate stool burden, 02/17. Patient seen and examined. Continues to have abdominal pain, passing gas and have bowel movement. General surgery has been consulted. REVIEW OF SYSTEMS: CONSTITUTIONAL: No fever, no malaise,. CARDIOVASCULAR: No chest pain, no palpitations, no syncope. PULMONARY: No shortness of breath, no cough, GASTROINTESTINAL: No diarrhea, no nausea, no vomiting, no abdominal pain. NEUROLOGICAL: No headaches, no weakness, PHYSICAL EXAMINATION: GENERAL: The patient is alert and oriented x3, not in any acute distress. Well developed, well nourished. HEENT: Pupils are round and equally reacting to light. EOMI. No scleral icterus. No conjunctival pallor. Normocephalic, atraumatic. No pharyngeal erythema. No thyromegaly. CARDIOVASCULAR: S1 and S2 present. No murmurs, rubs, or gallops. PULMONARY: Chest is clear to auscultation, no wheezing or crackles. ABDOMEN: Soft, nontender, nondistended, normoactive bowel sounds. No palpable organomegaly. MUSCULOSKELETAL: No joint swelling or deformity. EXTREMITIES: No cyanosis, clubbing, or pedal edema. NEUROLOGICAL: Gross neurological examination did not reveal any focal deficits. SKIN: Lumbar area surgical incision seen drain in place Assessment and plan L1-3 spondylosis with stenosis s/p L1-3 POSTERIOR LUMBAR INTERBODY FUSION Bilateral lower extremity weakness Bilateral lower extremity paresthesias Hyponatremia Leukocytosis Hypertension History of paroxysmal A-fib Urinary retention Monitor vital signs Monitor CBC Monitor CMP Status post L1-3 POSTERIOR LUMBAR INTERBODY FUSION Continue pain management per orthopedics Continue DVT prophylaxis per orthopedic Aggressive bowel regimen Continue atenolol and Eliquis Continue losartan Continue home meds PT and OT following General Surgery consult Labs and medication were reviewed.. Continue same treatment. Continue with symptomatic treatment. Resume home medication. Monitor labs and vitals. DVT and GI prophylaxis. Further recommendations as per clinical course of the patient Dictation was produced using [employer] dictation software. please excuse any grammatical, word or spelling errors. Objective - Vital Signs Vital signs: Vital Signs Temp 97.3 F L 02/18/24 07:00 Pulse 86 02/18/24 07:00 Resp 18 02/18/24 07:00 BP 126/78 02/18/24 07:00 Pulse Ox 92 L 02/18/24 07:00 FiO2 Intake & Output 02/17/24 02/18/24 02/18/24 18:59 06:59 18:59 Intake Total 400 Output Total 901 1100 303 Balance -501 -1100 -303 Intake: Oral 400 Output: Drainage 100 Right Posterior Back 100 Urine 700 1000 Post Void Residual 201 303 Other: # Voids 1 # Bowel Movements 1 - Labs CBC & Chem 7: 02/17/24 08:13 02/17/24 08:13
[2024-02-19 07:22] VITALS: BP 97/53; PULSE 62; RESP 18; TEMP 97.3
--- NOTE | 2024-02-19 10:08 | P.DS ---
Providers Date of admission: 02/17/24 12:12 Expected date of discharge: 02/19/24 Attending physician: Dhruv Sandoval DO Consults: 02/15/24 16:46 Consult Physician Routine Consulting Provider: Fannie Patten Consult Reason/Comments: medical management Do you want consulting provider notified?: Yes 02/18/24 12:14 Consult Physician Routine Consulting Provider: Cheng Hoffmann Consult Reason/Comments: abdominal pain Do you want consulting provider notified?: Already Contacted Primary care physician: Ava Crandall Hospital Course: Date of admission: 02/15/2024 Date of discharge: 02/19/2024 Admission diagnosis: L1-3 spondylosis with stenosis Bilateral lower extremity weakness Bilateral lower extremity paresthesias Discharge diagnosis: Same Attending physician: Dr. Sandoval Surgical procedures: L1-L3 PLIF Brief history: Patient is a 73-year-old male with a history of L1-3 spondylosis with stenosis; Bilateral lower extremity weakness;Bilateral lower extremity pa resthesias. At this point patient has failed conservative treatment measures and has opted to proceed with a elective L1-L3 PLIF. Hospital course: Details of patient's surgery can be found in operative report. Patient tolerated the procedure well and was subsequently transported to orthopedic floor. Patient's orthopeidc and medical care was provided daily. Patient had daily laboratory tests performed for evaluation of overall blood counts. Patient had daily physical therapy to include strengthening range of motion as well as education with walker ambulation. Patient was treated with Xarelto for their postoperative DVT prophylaxis during their inpatient stay. Patient was noted to have a relatively uneventful postoperative course. Patient reported satisfactory pain control with oral pain medications by postoperative day 4. Patient showed satisfactory progress with physical therapy. Patient moved steadily through the program and had no difficulty meeting the goals by postoperative day 4. Given patient's otherwise satisfactory course and having met physical therapy goals, plan is to discharge patient home on postoperative day 4. Discharge condition/disposition: Patient will be discharged home in stable condition. Discharge medications: Instructions are given on resumption of patient's normal daily medications per primary care recommendation, in addition patient will be p rescribed Chester; Lyrica; Flexeril; senna; Duricef. Spine Discharge and Recovery Instructions Date of Surgery: 02/15/2024 Diagnosis: L1-3 spondylosis with stenosis Bilateral lower extremity weakness Bilateral lower extremity paresthesias Procedure: L1-L3 PLIF Medications: See medication list All medication refills should be obtained through your primary care doctor or your clinic spine surgeon. Please discuss prescription refills at your follow up appointment. Do not call the hospital for medication refills. Dressing: Leave your dressing in place for a total of 5 days post operatively. Then you may remove your dressing and leave open to air. Keep the area clean and if not able to keep area clean, then cover with sterile gauze and tape. Showering: You may shower 3 days after your procedure allowing soap and water to run over incision. Do not scrub. Do not soak. Blot dry. Follow up: Please confirm a follow up appointment with your surgeon 3 weeks post operatively. Please make an appointment to follow up with your PCP in 1-2 weeks after surgery for evaluation '3 phase, 3-week plan' POST OP WEEKS 1-3 1. Lifting/carrying/pushing/pulling limited to less than 5 pounds. 2. Do not sit for longer than 15 minutes at one time. Get up and walk around. Prolonged sitting is NOT advised. If you lay down, see if you can tolerate laying down on you front (belly side) 3. Walk for periods of 15 minutes = 1 mile but no longer; do it multiple times times each day. 4. Ice your low back after activity. POST OP WEEKS 3-6 1. Lifting limited to less than 20 pounds. 2. Do not sit for longer than 30 minutes at a time. Frequently change positions. Use a sit-to stand workstation or take frequent breaks from sitting if you have returned to work. 3. Walk for 30 minutes each day. If possible, do these three or more times a day POST OP WEEKS 6+ At your 6-week appointment we will give you a physical therapy referral to focus on a core stabilization and strengthening program. You should also work on leg & buttock strengthening, hamstring & quadriceps stretching, and continue a low impact aerobic activity program such as swimming, walking, or riding a stationary bicycle. During the initial 6 weeks after your surgery, you are at the highest risk of re-injuring your spine. You should generally avoid BLT's (bending, lifting and twisting combination motions) and follow the above guidelines to reduce the chance of reinjury. You can anticipate post op appointments in our office at approximately 3 weeks and 6 weeks after your surgery. INCISION CARE: If your incision is not draining you do NOT need to cover it with a dressing. Keep your incision clean, dry and intact. In most cases, we apply skin glue, george or sutures to the incision at the time of surgery. This will be like a crust or have the appearance of a scab and will fall off in time on its own. The stitches or george need to be removed at 3 weeks post op appointment. You may begin to shower 3 days after surgery (this allows the glue to lopez well). However, please avoid scrubbing the incision site or peeling off any of the skin glue. This will ensure optimal healing of your incision. Also, during this time avoid soaking the incision area in water - this includes swimming pools, hot tubs or baths. No ointments, lotions or oils on the incision until your surgeon allows. Leave george, sutures or glue in place. Neurological dysfunction that comes on suddenly can also be a sign of a stroke. Below some common symptoms of a stroke are listed: B - balance difficulty such as sudden onset walking or leaning to one side - NEW E - eye problem such as sudden double vision or trouble seeing on one side - NEW F - Facial weakness or numbness on one side - NEW A - Arm or leg weakness or numbness on one side - NEW S - Slurred speech or difficulty with word finding - NEW T - Time is BRAIN! Call 911 as soon as you recognize these symptoms Diet: Consume a regular diet rich in vegetables and lean protein such as chicken or fish. You should consume in a ratio of approximately 20% fats|40% carbohydrates|40%protein. Vegetables, sweet potatoes, brown rice or quinoa are examples of good carbohydrates. Chips, white bread, cookies and sweets/sugar are examples of bad carbohydrates. Limit your bad carbs, go wild with good carbs. "Life's Simple 7" Guidelines as per [place] [employer] These will help you reclaim your life after surgery and shipping room helper in your recovery, keeping in mind your restrictions. (1) Get Active. Physical activity can help people lose weight, control high blood pressure and cholesterol, feel emotionally better, and sleep better. (2) Control Cholesterol. Avoid a diet high in saturated fat, trans fat, & cholesterol. Limit whole milk & cream, ice cream, butter, egg yolks, processed meats (like sausage and hot dogs), and fatty meats. Choose healthy foods that are low in saturated fat, trans fat and cholesterol which include: Fruits and vegetables, fiber rich grain products (like whole grain pasta and brown rice), lean meat such as chicken, fish, nuts, seeds, and legumes. (3) Eat Better. Eat small portions. Shop at the grocery with a list and do not stray from it. Tips for a healthy diet include: Limit sodium intake to less than 1500mg daily, avoid prepackaged, processed, and fast foods, choose a diet rich in fruits, vegetables, and whole grain, high fiber foods, and limit saturated & cholesterol in your diet. (4) Manage Blood Pressure. If you have high blood pressure, you should have a cuff at home so that you can check your blood pressure regularly. Be sure you have a good cuff. An arm one is generally better than a wrist one. Bring the cuff to a doctor's appointment to validate that the measurements that your cuff are taking are accurate. Take your blood pressure twice daily when you are sitting down and relaxing. Record the numbers in a log and bring this log with you to your doctors' appointments. (5) Lose Weight if your BMI is above 25. A healthy BMI is between 19-25. To calculate Your BMI, you may use a Standard BMI Calculator on the NIH BMI website: <www.nhlbi.nih.gov/guidelines/obesity/BMI/bmicalc.htm>. Weigh oneself daily. If you are overweight, set a goal to lose weight. A pound a week loss if needed is a good target. (6) Reduce Blood Sugar. Limit foods and liquids with "added sugars." (Added sugars include sucrose, fructose, glucose, maltose, dextrose, high fructose corn syrup, corn syrup, concentrated fruit juice and honey). (7) Stop Smoking. If you smoke, quitting smoking is one of the best things that you can do for your health. Smoking increases your risk of heart attack, stroke, and peripheral vascular disease, which is a build-up of plaque in your arteries. Please discard all the cigarettes and lighters in your house. Have a plan for what you will do when you have the urge to smoke. Direct and second- hand smoke shortens your life as well as the lives of your family, friends and others around you. For your health and the health of those around you, please consider quitting! Proper Bending Body Mechanics: Maintain a wide stance with one foot slightly in front of the other. Keep your back straight. Bend utilizing the strength in your hips and knees. Do not bend at the waist. Maintain the lifted object at your waist-level close to your body. Avoid lifting weight that causes immediately pain or pain anywhere in the body afterwards. Smoking/Nicotine If there was ever one thing that you could do to increase your overall health, decrease your risk of cardiovascular problems by about 39% the second you make the choice, it is to STOP SMOKING. Your body's most instant gratification is the second you stop smoking. We have all heard the studies, read the articles but it is true, smoking is extremely bad for your overall health, and moreover it is detrimental to your bone health. Nicotine, IN ANY FORM, kills bone cells, prevents your body from healing fractures, and significantly prolongs healing after surgery. In spine surgery specifically, it increases your risk of not healing your bones to create a fusion and increases your risk of having a revision surgery due to this up to 60%. I know it is hard. I know it feels impossible. But there are ways. Take control of your life. We are here to help you through it. And when you are ready, ask us and we can direct you to help if you desire. Use the START Plan to Quit Smoking (please visit the [employer].org website listed below for more information): S = Set a quit date. Choose a date within the next 2 weeks, so you have enough time to prepare without losing your motivation to quit. If you mainly smoke at work, quit on the weekend, so you have a few days to adjust to the change. T = Tell family, friends, and co-workers that you plan to quit. Let your friends and family in on your plan to quit smoking and tell them you need their support and encouragement to stop. Look for a quit cristopher who wants to stop smoking as well. You can help each other get through the rough times. A = Anticipate and plan for the challenges you'll face while quitting. Most people who begin smoking again do so within the first 3 months. You can help yourself make it through by preparing ahead for common challenges, such as nicotine withdrawal and cigarette cravings. R = Remove cigarettes and other tobacco products from your home, car, and work. Throw away all your cigarettes (no emergency pack!), lighters, ashtrays, and matches. Wash your clothes and freshen up anything that smells like smoke. Shampoo your car, clean your drapes and carpet, and steam your furniture. T = Talk to your doctor about getting help to quit. Your doctor can prescribe medication to help with withdrawal and suggest other alternatives. If you can't see a doctor, you can get many products over the counter at your local pharmacy or grocery store, including the nicotine patch, nicotine lozenges, and nicotine gum. Resources for Quitting Smoking: <https://www.[place] .gov/documents/[facility]/Quit_Tobacco_Resources_for_patients_313480_7.pdf> Supplementation: Take recommended dosages of Vitamin D and Calcium to help fortify your bones and help them to heal. See your health maintenance packet for dosages and recommended levels. DVT/VTE prophylaxis: You will be given compression stockings from the hospital. Wear these daily for the first two weeks after surgery. You may take them off at night. You may be prescribed a medication to help thin your blood. Take this as directed. If you are not prescribed this medication, early and frequent ambulation has been shown to be the best prophylaxis to deep vein thrombosis and sequelae related to this event. Assessment: L1-3 spondylosis with stenosis Bilateral lower extremity weakness Bilateral lower extremity paresthesias Procedures: L1-L3 PLIF Patient Condition at Discharge: Good Plan - Discharge Summary New Discharge Prescriptions: New cefaDROXiL [Duricef] 500 mg PO Q12HR 5 Days #10 cap Pregabalin [Lyrica] 150 mg PO BID #24 cap Cyclobenzaprine [Flexeril] 5 mg PO TID #21 tablet HYDROcodone/APAP 10-325MG [Chester 10-325] 1 tab PO Q6HR PRN #28 tab PRN Reason: Pain Sennosides/Docusate Sodium [Senna Plus 8.6-50 mg Softgel] 1 each PO DAILY #20 capsule No Action DULoxetine HCL [Cymbalta] 60 mg PO BID Apixaban [Eliquis] 5 mg PO BID Tamsulosin [Flomax] 0.4 mg PO DAILY Losartan [Cozaar] 50 mg PO DAILY atenoloL [Tenormin] 25 mg PO DAILY Discharge Medication List DULoxetine HCL [Cymbalta] 60 mg PO BID 08/01/16 [History] Apixaban [Eliquis] 5 mg PO BID 07/01/18 [History] Tamsulosin [Flomax] 0.4 mg PO DAILY 10/21/21 [History] Losartan [Cozaar] 50 mg PO DAILY 02/15/24 [History] atenoloL [Tenormin] 25 mg PO DAILY 02/15/24 [History] Cyclobenzaprine [Flexeril] 5 mg PO TID #21 tablet 02/19/24 [Rx] HYDROcodone/APAP 10-325MG [Chester 10-325] 1 tab PO Q6HR PRN #28 tab 02/19/24 [Rx] Pregabalin [Lyrica] 150 mg PO BID #24 cap 02/19/24 [Rx] Sennosides/Docusate Sodium [Senna Plus 8.6-50 mg Softgel] 1 each PO DAILY #20 capsule 02/19/24 [Rx] cefaDROXiL [Duricef] 500 mg PO Q12HR 5 Days #10 cap 02/19/24 [Rx] Follow up Appointment(s)/Referral(s): Dhruv Sandoval DO [Doctor of Osteopathic Medicine] - 2 Weeks (Please call office to schedule appointment. Unless previously done) Activity/Diet/Wound Care/Special Instructions: Spine Discharge and Recovery Instructions Date of Surgery: 02/15/2024 Keep dressing on until 02/20/2024. It is okay to take dressing off on 02/20/2024. Once dressing is off, it is okay to shower directly over incision. Diagnosis: L1-3 spondylosis with stenosis Bilateral lower extremity weakness Bilateral lower extremity paresthesias Procedure: L1-L3 PLIF Medications: See medication list All medication refills should be obtained through your primary care doctor or your clinic spine surgeon. Please discuss prescription refills at your follow up appointment. Do not call the hospital for medication refills. Dressing: Leave your dressing in place for a total of 5 days post operatively. Then you may remove your dressing and leave open to air. Keep the area clean and if not able to keep area clean, then cover with sterile gauze and tape. Showering: You may shower 3 days after your procedure allowing soap and water to run over incision. Do not scrub. Do not soak. Blot dry. Follow up: Please confirm a follow up appointment with your surgeon 3 weeks post operatively. Please make an appointment to follow up with your PCP in 1-2 weeks after surge ry for evaluation '3 phase, 3-week plan' POST OP WEEKS 1-3 1. Lifting/carrying/pushing/pulling limited to less than 5 pounds. 2. Do not sit for longer than 15 minutes at one time. Get up and walk around. Prolonged sitting is NOT advised. If you lay down, see if you can tolerate laying down on you front (belly side) 3. Walk for periods of 15 minutes = 1 mile but no longer; do it multiple times times each day. 4. Ice your low back after activity. POST OP WEEKS 3-6 1. Lifting limited to less than 20 pounds. 2. Do not sit for longer than 30 minutes at a time. Frequently change positions. Use a sit-to stand workstation or take frequent breaks from sitting if you have returned to work. 3. Walk for 30 minutes each day. If possible, do these three or more times a day POST OP WEEKS 6+ At your 6-week appointment we will give you a physical therapy referral to focus on a core stabilization and strengthening program. You should also work on leg & buttock strengthening, hamstring & quadriceps stretching, and continue a low impact aerobic activity program such as swimming, walking, or riding a s [employer] bicycle. During the initial 6 weeks after your surgery, you are at the highest risk of re-injuring your spine. You should generally avoid BLT's (bending, lifting and twisting combination motions) and follow the above guidelines to reduce the chance of reinjury. You can anticipate post op appointments in our office at approximately 3 weeks and 6 weeks after your surgery. INCISION CARE: If your incision is not draining you do NOT need to cover it with a dressing. Keep your incision clean, dry and intact. In most cases, we apply skin glue, george or sutures to the incision at the time of surgery. This will be like a crust or have the appearance of a scab and will fall off in time on its own. The stitches or george need to be removed at 3 weeks post op appointment. You may begin to shower 3 days after surgery (this allows the glue to lopez well). However, please avoid scrubbing the incision site or peeling off any of the skin glue. This will ensure optimal healing of your incision. Also, during this time avoid soaking the incision area in water - this includes swimming pools, hot tubs or baths. No ointments, lotions or oils on the incision until your surgeon allows. Leave george, sutures or glue in place. Neurological dysfunction that comes on suddenly can also be a sign of a stroke. Below some common symptoms of a stroke are listed: B - balance difficulty such as sudden onset walking or leaning to one side - NEW E - eye problem such as sudden double vision or trouble seeing on one side - NEW F - Facial weakness or numbness on one side - NEW A - Arm or leg weakness or numbness on one side - NEW S - Slurred speech or difficulty with word finding - NEW T - Time is BRAIN! Call 911 as soon as you recognize these symptoms Diet: Consume a regular diet rich in vegetables and lean protein such as chicken or fish. You should consume in a ratio of approximately 20% fats|40% carbohydrates|40%protein. Vegetables, sweet potatoes, brown rice or quinoa are examples of good carbohydrates. Chips, white bread, cookies and sweets/sugar are examples of bad carbohydrates. Limit your bad carbs, go wild with good carbs. "Life's Simple 7" Guidelines as per [place] [employer] These will help you reclaim your life after surgery and shipping room helper in your recovery, keeping in mind your restrictions. (1) Get Active. Physical activity can help people lose weight, control high blood pressure and cholesterol, feel emotionally better, and sleep better. (2) Control Cholesterol. Avoid a diet high in saturated fat, trans fat, & cholesterol. Limit whole milk & cream, ice cream, butter, egg yolks, processed meats (like sausage and hot dogs), and fatty meats. Choose healthy foods that are low in saturated fat, trans fat and cholesterol which include: Fruits and vegetables, fiber rich grain products (like whole grain pasta and brown rice), lean meat such as chicken, fish, nuts, seeds, and legumes. (3) Eat Better. Eat small portions. Shop at the grocery with a list and do not stray from it. Tips for a healthy diet include: Limit sodium intake to less than 1500mg daily, avoid prepackaged, processed, and fast foods, choose a diet rich in fruits, vegetables, and whole grain, high fiber foods, and limit saturated & cholesterol in your diet. (4) Manage Blood Pressure. If you have high blood pressure, you should have a cuff at home so that you can check your blood pressure regularly. Be sure you have a good cuff. An arm one is generally better than a wrist one. Bring the cuff to a doctor's appointment to validate that the measurements that your cuff are taking are accurate. Take your blood pressure twice daily when you are si tting down and relaxing. Record the numbers in a log and bring this log with you to your doctors' appointments. (5) Lose Weight if your BMI is above 25. A healthy BMI is between 19-25. To calculate Your BMI, you may use a Standard BMI Calculator on the NIH BMI website: <www.nhlbi.nih.gov/guidelines/obesity/BMI/bmicalc.htm>. Weigh oneself daily. If you are overweight, set a goal to lose weight. A pound a week loss if needed is a good target. (6) Reduce Blood Sugar. Limit foods and liquids with "added sugars." (Added sugars include sucrose, fructose, glucose, maltose, dextrose, high fructose corn syrup, corn syrup, concentrated fruit juice and honey). (7) Stop Smoking. If you smoke, quitting smoking is one of the best things that you can do for your health. Smoking increases your risk of heart attack, stroke, and peripheral vascular disease, which is a build-up of plaque in your arteries. Please discard all the cigarettes and lighters in your house. Have a plan for what you will do when you have the urge to smoke. Direct and second- hand smoke shortens your life as well as the lives of your family, friends and others around you. For your health and the health of those around you, please consider quitting! Proper Bending Body Mechanics: Maintain a wide stance with one foot slightly in front of the other. Keep your back straight. Bend utilizing the strength in your hips and knees. Do not bend at the waist. Maintain the lifted object at your waist-level close to your body. Avoid lifting weight that causes immediately pain or pain anywhere in the body afterwards. Smoking/Nicotine If there was ever one thing that you could do to increase your overall health, decrease your risk of cardiovascular problems by about 39% the second you make the choice, it is to STOP SMOKING. Your body's most instant gratification is the second you stop smoking. We have all heard the studies, read the articles but it is true, smoking is extremely bad for your overall health, and moreover it is detrimental to your bone health. Nicotine, IN ANY FORM, kills bone cells, prevents your body from healing fractures, and significantly prolongs healing after surgery. In spine surgery specifically, it increases your risk of not healing your bones to create a fusion and increases your risk of having a revision surgery due to this up to 60%. I know it is hard. I know it feels impossible. But there are ways. Take control of your life. We are here to help you through it. And when you are re viet, ask us and we can direct you to help if you desire. Use the START Plan to Quit Smoking (please visit the [employer]org website listed below for more information): S = Set a quit date. Choose a date within the next 2 weeks, so you have enough time to prepare without losing your motivation to quit. If you mainly smoke at work, quit on the weekend, so you have a few days to adjust to the change. T = Tell family, friends, and co-workers that you plan to quit. Let your friends and family in on your plan to quit smoking and tell them you need their support and encouragement to stop. Look for a quit cristopher who wants to stop smoking as well. You can help each other get through the rough times. A = Anticipate and plan for the challenges you'll face while quitting. Most people who begin smoking again do so within the first 3 months. You can help yourself make it through by preparing ahead for common challenges, such as nicotine withdrawal and cigarette cravings. R = Remove cigarettes and other tobacco products from your home, car, and work. Throw away all your cigarettes (no emergency pack!), lighters, ashtrays, and matches. Wash your clothes and freshen up anything that smells like smoke. Shampoo your car, clean your drapes and carpet, and steam your furniture. T = Talk to your doctor about getting help to quit. Your doctor can prescribe medication to help with withdrawal and suggest other alternatives. If you can't see a doctor, you can get many products over the counter at your local pharmacy or grocery store, including the nicotine patch, nicotine lozenges, and nicotine gum. Resources for Quitting Smoking: <https://www.[place].gov/documents/[facility]/Quit_Tobacco_Resources_for_patients_313 480_7.pdf> Supplementation: Take recommended dosages of Vitamin D and Calcium to help fortify your bones and help them to heal. See your health maintenance packet for dosages and recommended levels. DVT/VTE prophylaxis: You will be given compression stockings from the hospital. Wear these daily for the first two weeks after surgery. You may take them off at night. You may be prescribed a medication to help thin your blood. Take this as directed. If you are not prescribed this medication, early and frequent ambulation has been shown to be the best prophylaxis to deep vein thrombosis and sequelae related to this event. Discharge Disposition: HOME SELF-CARE
--- NOTE | 2024-02-19 10:15 | P.PN ---
Subjective Progress Note Date: 02/19/24 Principal diagnosis: L1-3 spondylosis with stenosis Bilateral lower extremity weakness Bilateral lower extremity paresthesias Patient was seen at bedside this morning sitting up in bed with dressing present over lumbar spine and drain in place. Patient says his pain is been improving over the past couple days. Patient says he is looking forward to going home later today. He says he still having some upper abdominal pain for which she has seen Dr. Cohn in the past. Patient says he did speak with Dr. Hoffmann yesterday in the room about the abdominal pain. Patient says he has been using a walker ambulate around the room. He says physical therapy has been going well and he has walked around the room and onto the hallway. Patient says he has urinated since surgery without issue. Patient denies chest pain, fever, nausea, vomiting, change in vision, loss of bowel/bladder control. Objective - Vital Signs Vital signs: Vital Signs Temp 97.3 F L 02/19/24 07:21 Pulse 62 02/19/24 07:21 Resp 18 02/19/24 07:21 BP 97/53 02/19/24 07:21 Pulse Ox 93 L 02/19/24 07:21 FiO2 Intake & Output 02/18/24 02/19/24 02/19/24 18:59 06:59 18:59 Output Total 1183 890 150 Balance -1183 -890 -150 Output: Drainage 180 40 Right Posterior Back 180 40 Urine 700 850 150 Post Void Residual 303 Other: # Voids 2 # Bowel Movements 6 1 - Exam Inspection: Dressing present over lumbar spine. Dressing removed. Nylon sutures appear to be intact. Negative for any active drainage. New dressing placed over incision. Drain removed at bedside. Dressing placed over drain incision. Sensation: Equal, symmetric, bilat intact throughout the upper and lower extremities on exam Range of motion: Patient does have good range of motion throughout bilateral upper extremities on exam. There is some limited range of motion in the bilateral hips in flexion so extension secondary to referred stiffness and pain to the low back. Patient does have good range of motion throughout the bilateral knees in flexion/extension and bilateral ankles and dorsi/plantarflexion. Motor: 4/5 in all major motor groups in bilateral lower extremities Palpation: There is a fair amount of tenderness to palpation over the lumbar spine near incision. Nontender to palpation throughout rest of exam. Neurovascular: Radial pulse intact, 2+ bilaterally. Cap refill under 3 seconds in digits of upper extremities Special test: Negative Kathleen bilaterally. Negative Hortencia bilaterally. - Labs CBC & Chem 7: 02/17/24 08:13 02/17/24 08:13 Assessment and Plan Assessment: L1-3 spondylosis with stenosis Bilateral lower extremity weakness Bilateral lower extremity paresthesias -Postop day #4 status post L1-L3 posterolateral interbody fusion Plan: 1. L1-3 spondylosis with stenosis; Bilateral lower extremity weakness; Bilateral lower extremity paresthesias -surgery performed 02/15/2024L1-L3 poste rior lateral interbody fusion. Patient stable at bedside this morning. Patient has been following with general surgery. Do recommend patient to follow-up with general surgery and medicine in the outpatient setting. Drain and dressing removed at bedside. Pain medication as needed. PT/OT recommendations. Weightbearing as tolerated with walker and brace. Discharge home today 2. Appreciate medical and general surgery management 3. Pain management -[place]; Flexeril; Lyrica 4. GI prophylaxis -senna 5. DVT prophylaxis -Eliquis 6. PT/OT -weightbearing as tolerated with walker and brace 7. Encourage incentive spirometer use 8. Discharge planning -discharge home today Time with Patient: Less than 30
--- NOTE | 2024-02-19 12:30 | P.PN ---
Subjective Progress Note Date: 02/19/24 Principal diagnosis: Abdominal pain Patient doing well today. No abdominal pain currently. Tolerating regular diet. Patient is agreeable with discharge plans by orthopedics. Objective - Vital Signs Vital signs: Vital Signs Temp 97.3 F L 02/19/24 07:21 Pulse 62 02/19/24 07:21 Resp 18 02/19/24 07:21 BP 97/53 02/19/24 07:21 Pulse Ox 93 L 02/19/24 07:21 FiO2 Intake & Output 02/18/24 02/19/24 02/19/24 18:59 06:59 18:59 Output Total 1183 890 150 Balance -1183 -890 -150 Output: Drainage 180 40 Right Posterior Back 180 40 Urine 700 850 150 Post Void Residual 303 Other: # Voids 2 # Bowel Movements 6 1 - Exam Abdomen: Soft, nontender, nondistended - Labs CBC & Chem 7: 02/17/24 08:13 02/17/24 08:13 Assessment and Plan (1) Abdominal pain Narrative/Plan: 73-year-old male with chronic abdominal pain. Continue diet as tolerated. October discharge. Follow-up with Dr. Cohn after discharge. Current Visit: Yes Status: Acute Code(s): R10.9 - UNSPECIFIED ABDOMINAL PAIN SNOMED Code(s): 44618978
--- NOTE | 2024-02-19 13:02 | P.PN ---
Subjective Progress Note Date: 02/19/24 patient is 73-year-old gentleman past medical history significant for who presented to hospital for elective L1-3 POSTERIOR LUMBAR INTERBODY FUSION. Patient has been following up outpatient with orthopedic surgery for lower back pain and bilateral lower extremity weakness. Patient has tried all conservative measures in the form of therapy and pain control but with no avail. Patient decided to proceed with surgery for which he presented to the hospital on 02/14. Postoperatively internal medicine team were consulted for medical management 02/16. Patient seen and examined. Complaining of abdominal pain, not passing gas. Has not a bowel movement. X-ray abdomen done showed moderate stool burden, 02/17. Patient seen and examined. Continues to have abdominal pain, passing gas and have bowel movement. General surgery has been consulted. 02/18. Patient seen and examined. Abdominal pain is improved. Orthopedic planning discharge today REVIEW OF SYSTEMS: CONSTITUTIONAL: No fever, no malaise,. CARDIOVASCULAR: No chest pain, no palpitations, no syncope. PULMONARY: No shortness of breath, no cough, GASTROINTESTINAL: No diarrhea, no nausea, no vomiting, no abdominal pain. NEUROLOGICAL: No headaches, no weakness, PHYSICAL EXAMINATION: GENERAL: The patient is alert and oriented x3, not in any acute distress. Well developed, well nourished. HEENT: Pupils are round and equally reacting to light. EOMI. No scleral icterus. No conjunctival pallor. Normocephalic, atraumatic. No pharyngeal erythema. No thyromegaly. CARDIOVASCULAR: S1 and S2 present. No murmurs, rubs, or gallops. PULMONARY: Chest is clear to auscultation, no wheezing or crackles. ABDOMEN: Soft, nontender, nondistended, normoactive bowel sounds. No palpable organomegaly. MUSCULOSKELETAL: No joint swelling or deformity. EXTREMITIES: No cyanosis, clubbing, or pedal edema. NEUROLOGICAL: Gross neurological examination did not reveal any focal deficits. SKIN: Lumbar area surgical incision seen drain in place Assessment and plan L1-3 spondylosis with stenosis s/p L1-3 POSTERIOR LUMBAR INTERBODY FUSION Bilateral lower extremity weakness Bilateral lower extremity paresthesias Hyponatremia Leukocytosis Hypertension History of paroxysmal A-fib Urinary retention Monitor vital signs Monitor CBC Monitor CMP Status post L1-3 POSTERIOR LUMBAR INTERBODY FUSION Continue pain management per orthopedics Continue DVT prophylaxis per orthopedic Aggressive bowel regimen Continue atenolol and Eliquis Continue losartan Continue home meds PT and OT following General Surgery consult Labs and medication were reviewed.. Continue same treatment. Continue with symptomatic treatment. Resume home medication. Monitor labs and vitals. DVT and GI prophylaxis. Further recommendations as per clinical course of the patient Dictation was produced using [employer] dictation software. please excuse any grammatical, word or spelling errors. Objective - Vital Signs Vital signs: Vital Signs Temp 97.3 F L 02/19/24 07:21 Pulse 62 02/19/24 07:21 Resp 18 02/19/24 07:21 BP 97/53 02/19/24 07:21 Pulse Ox 93 L 02/19/24 07:21 FiO2 Intake & Output 02/18/24 02/19/24 02/19/24 18:59 06:59 18:59 Output Total 1183 890 150 Balance -1183 -890 -150 Output: Drainage 180 40 Right Posterior Back 180 40 Urine 700 850 150 Post Void Residual 303 Other: # Voids 2 # Bowel Movements 6 1 - Labs CBC & Chem 7: 02/17/24 08:13 02/17/24 08:13
== END 2024-02-19 15:15 | disposition home or self-care (01) | DRG 460 ==
LOC: OR 07:32 → 4SSUR 14:37 → OR 02-17 12:12
PROVIDERS: ADMIT Orthopaedic Surgery; ATTEND Orthopaedic Surgery
PROC: 01NB0ZZ Release Lumbar Nerve, Open Approach (ICD-10-PCS; 2024-02-15)
PROC: 0SG10AJ Fusion of 2 or more Lumbar Vertebral Joints with Interbody Fusion Device, Posterior Approach, Anterior Column, Open Approach (ICD-10-PCS; principal; 2024-02-15 07:30)
DX: M48.061 Spinal stenosis, lumbar region without neurogenic claudication (principal); E87.1 Hypo-osmolality and hyponatremia; M47.816 Spondylosis without myelopathy or radiculopathy, lumbar region; G89.29 Other chronic pain; H91.90 Unspecified hearing loss, unspecified ear; I10 Essential (primary) hypertension; I48.0 Paroxysmal atrial fibrillation; K21.9 Gastro-esophageal reflux disease without esophagitis; K59.00 Constipation, unspecified; R33.9 Retention of urine, unspecified; M79.7 Fibromyalgia; Z79.01 Long term (current) use of anticoagulants; Z79.899 Other long term (current) drug therapy; Z87.891 Personal history of nicotine dependence

== ENCOUNTER → 2024-07-18 | Outpatient (CLI) | payer MEDICARE, BC ==
[2024-07-18 13:30] VITALS: BP 148/74; PULSE 83; RESP 14
--- NOTE | 2024-07-18 15:22 | P.PAINPG ---
PQRS Measure Charge Sheet Comment: A 73 yr old wheelchair bound male w at side with a history of severe and chronic neck and LBP > 5 yrs secondary to C3-C6 ACDF, post L4-S1 laminectomy presents today for evaluation. Pain level is provoked at 7-8 /10 in intensity, constant, localized in the cervical spine, stabbing in character w shooting towards the BL shoulders, head and hands. Pain is provoked by rotation. Pain is alleviated with injections in the past, PT in 2018 which effects plateaued, cannabis use, heat, laying supine , use of a support brace, repositioning and rest. Pt is disinterested in a PNS stimulator trial as he's had one placed/ removed in his lumbar spine as it was causing "burning pain." Interventional pain procedures completed include BL C2-T2 TPIs, FLOYD C6-C7, BL MBB C5-C7 x1 Patient is currently on +Cannabis Patient denies any side effects of the medication(s), denies excessive drowsiness or sleepiness, denies suicidal ideation and reports that the current pain medication is helping to control the pain and improve activities of daily living. Patient denies any motor or sensory deficits. Patient denies any fever or night sweats, denies any change in the bowel movements or urination. Physical Examination: -Constitutional: Cooperative. Not in acute distress . - Neurologic: Cranial nerve II to XII intact. No focal neurological deficits. - Psychatric: Alert & oriented x 3. Matching mood & appropriate affect. Judgment and insight intact. - Musculoskeletal: Cervical spine: +Incisional scar intact Muscle bulk/ tone/ strength in the bilateral upper extremities normal Vertebral body tenderness to palpation over Spurling test positive Distraction test positive Facet loading test positive Thoracic spine Muscle bulk / tone/ strength in the bilateral paraspinal muscles normal Vertebral body tender to palpation over Facet loading test positive Lumbar spine: +Incisional scar intact Motor bulk/ tone/ strength lower extremities , thigh and legs : 5/5 Deep tendon reflexes : Normal Knee Jerk. Normal Ankle Jerk . Vertebral body tenderness to palpation over Lumbar Facet Loading Test positive Straight Leg Raise: positive at 30 degrees right side/ left side Gaenslen's Test positive Sacral spine : Severe tenderness over the Sacroiliac joint: right side / left side Range of motion: Flexion of the lumbar spine <60 degrees Range of motion: Extension of the lumbar spine <20 degrees Gaenslen's Test positive Moira test: positive right side / left side Thigh Thrust Test Sacral Thrust Test Imaging: CT non contrast lumbar spine from 02/05/[address] non contrast cervical spine from 09/19/20 reviewed Assessment and plan: Chronic neck pain secondary to C3-C6 ACDF, post L4-S1 laminectomy Recommendation of short of course of codeine 30mg. Advised pt to refrain from THC and ETOH use while on narcotics. Acknowledged understanding. Pt wants to think about Caudal FLOYD w Lysis, unsure at this time as pt stated he can not tolerate procedure without full sedation. All patient questions answered I have spent less than 30 minutes on patient care today. Dr Sebastian was available by phone for the evaluation of this patient. The time was used to review the medical records including relevant urine studies and Prescription history (MAPs), review of the available imaging, evaluation and examination of the patient, coordination of care with the medical staff and if applicable referring physicians, as well as creation of the medical record - Pain Location Generalized Non-Pharmacological Interventions: Ice Pharmacological Interventions: PRN Medication PQRS Narrative: Smoking Status Former smoker Hx Alcohol Use (MH) Yes Home Medications: Ambulatory Orders DULoxetine HCL [Cymbalta] 60 mg PO BID 08/01/16 Apixaban [Eliquis] 5 mg PO BID 07/01/18 Tamsulosin [Flomax] 0.4 mg PO DAILY 10/21/21 Losartan [Cozaar] 50 mg PO DAILY 02/15/24 atenoloL [Tenormin] 25 mg PO DAILY 02/15/24 Cyclobenzaprine [Flexeril] 5 mg PO TID #21 tablet 02/19/24 HYDROcodone/APAP 10-325MG [Levant 10-325] 1 tab PO Q6HR PRN #28 tab 02/19/24 Pregabalin [Lyrica] 150 mg PO BID #24 cap 02/19/24 Sennosides/Docusate Sodium [Senna Plus 8.6-50 mg Softgel] 1 each PO DAILY #20 capsule 02/19/24 cefaDROXiL [Duricef] 500 mg PO Q12HR 5 Days #10 cap 02/19/24 Codeine 30 mg PO Q4H PRN 3 Days #18 tab 07/18/24 Controlled Substance Measures - Controlled Substance Measures Is patient prescribed a controlled substance at discharge?: Yes When asked, does pt state using other controlled substances?: Yes If prescribed controlled substance>3 days was MAPS reviewed?: Prescribed <3 Days
== END ==
LOC: PNWHC3 12:50
PROVIDERS: ATTEND Specialist
DX: S13.141A Dislocation of C3/C4 cervical vertebrae, initial encounter (principal); M96.1 Postlaminectomy syndrome, not elsewhere classified; X58.XXXA Exposure to other specified factors, initial encounter; Z91.018 Allergy to other foods; Z88.5 Allergy status to narcotic agent; Z88.8 Allergy status to other drugs, medicaments and biological substances; Z87.891 Personal history of nicotine dependence
CPT/HCPCS: 99212